=== PATIENT | female | born 1955 | race Caucasian/White ===

== ENCOUNTER 2016-06-07 18:15 | Inpatient (IN) | payer MEDICARE, OTHER ==
--- NOTE | 2016-06-07 19:45 | HP ---
DATE OF ADMISSION: 06/07/2016 HISTORY: The patient is a 60-year-old white female who apparently developed abscess in the left gluteal area that spontaneously drained and has been draining for the last 2 or 3 weeks. She lives in a snf situation. She declined any type of treatment other than the oral antibiotics. She did present to the emergency room about 2 or 3 nights ago, was given dose of IV antibiotics and she declined any treatment or debridement or drainage and therefore went home. She followed up to the office today with continued drainage in the area with fair amount of discomfort. No past history of similar problem. She does have a history of dental abscess in the recent past several months ago. The patient does have a history of bipolar disorder and psychiatric problems. PAST HISTORY: As above. Also positive for hypertension, hypothyroidism, arthritis. Medications at home include: 1. Lisinopril. 2. Hydrochlorothiazide. 3. Amlodipine. 4. Tramadol. 5. Clonidine. 6. Metoprolol. 7. Levothyroxine. 8. Ibuprofen, 9. Fluphenazine. ALLERGIES: PENICILLIN. No previous surgery. FAMILY HISTORY: Noncontributory. SOCIAL HISTORY: She lives in a snf environment. Does smoke between 11 and 20 cigarettes a day. Denies alcohol. SYSTEM REVIEW: As above, very difficult to get a history from her but no chest pain. No respiratory problems. No urinary symptoms. Has been a little constipated recently. On examination, the patient is well-built, well-nourished, overweight. Weighs about 212 pounds with a BMI of 40.05. Temperature is normal at 98.9, heart rate 88 a minute, blood pressure 102/66. Color is satisfactory. Head and neck otherwise normal. HEART: Regular rhythm. Lungs are clear. ABDOMEN: Obese, soft and nontender. No masses or organomegaly. Back reveals a large abscess cavity about 3 or 4 cm in diameter in the left gluteal area just adjacent to the midline and well above the anal orifice with a large amount of exudate and necrotic tissue. Fair amount of cellulitis around it. There appears to be an area of necrotic tissue more inferiorly and laterally as well. Difficult to evaluate the depth or degree of infection, particularly that she is quite uncooperative. Quite tender and painful as well. EXTREMITIES: Full motion. Some stiffness from arthritis. BACCARAT MANAGER: Patient is awake, alert, and oriented. A little agitated. No focal deficits. IMPRESSION: 1. Large abscess left gluteal area with cellulitis and erythema with a lot of fibrinous purulent exudate in the abscess cavity. 2. History of bipolar disorder. 3. Hypertension. 4. Hypothyroidism. 5. Arthritis. RECOMMENDATION: The patient will be admitted, placed on IV fluids, antibiotics and will obtain cultures. Also will require debridement and drainage under anesthesia.
[2016-06-07] MEDS ORDERED: ONDANSETRON 4 MG/2 ML VIAL IVP PRN (20:16)
[2016-06-07 20:37] LABS: Basophils % (A) 0 %; CH 34.4; CHCM 37.3; Eosinophils # (A) 0.1 k/uL (0-0.7); Eosinophils % (A) 1 %; HDW 3.12; HGB 13.7 gm/dL (11.4-16.0); Hyperchromasia Slight; Immature Gran Flag Slight; Luc # (Auto) 0.22; Luc % (Auto) 1; Lymphocytes # (A) 1.1 k/uL (1.0-4.8); Lymphocytes % (A) 6 %; MCH 32.6 pg (25.0-35.0); MCHC 35.2 g/dL (31.0-37.0); MCV 92.8 fL (80.0-100.0); Mean Platelet Volume 6.9; Monocytes # (A) 0.5 k/uL (0-1.0); Monocytes % (A) 3 %; Neutrophils # (A) 15.6 k/uL (1.3-7.7); Neutrophils % (A) 89 %; RBC 4.21 m/uL (3.80-5.40); RDW 12.9 % (11.5-15.5); WBC 17.6 k/uL (3.8-10.6); WBC (Perox) 19.15
[2016-06-07 20:58] LABS: Calcium 8.7 mg/dL (8.4-10.2); Potassium 4.8 mmol/L (3.5-5.1); Total Bilirubin 0.9 mg/dL (0.2-1.3); Total Protein 6.1 g/dL (6.3-8.2)
[2016-06-07] MEDS ORDERED: LEVOFLOXACIN 500MG-D5W PMX 500 MG in DEXTROSE/WATER 1 100ML.BAG IVPB SCH (21:00)
[2016-06-07] MEDS: cloNIDine HCL 0.2 MG TAB PO SCH (21:42)
[2016-06-07] MEDS ORDERED: ALPRAZolam 0.25 MG TAB PO PRN (22:36)
[2016-06-07] MEDS: SODIUM CHLORIDE 0.9% 1,000 ML IV SCH (23:56)
[2016-06-07] MEDS: metroNIDAZOLE-NS PMX 500 MG in SALINE 1 100ML.BAG IVPB SCH (23:57)
[2016-06-08] MEDS ORDERED: traMADol 50 MG TAB PO PRN (00:23)
[2016-06-08] MEDS: HEPARIN SODIUM,PORCINE 5,000 UNIT/ML 1 ML VIAL SQ SCH ×3 (00:44→21:16)
[2016-06-08] MEDS: LEVOTHYROXINE 125 MCG TAB PO SCH (05:30)
[2016-06-08] MEDS: metroNIDAZOLE-NS PMX 500 MG in SALINE 1 100ML.BAG IVPB SCH ×3 (07:47→23:25)
[2016-06-08] MEDS: METOPROLOL SUCCINATE (ER) 100 MG TAB.ER.24H PO SCH (07:47)
[2016-06-08] MEDS: SODIUM CHLORIDE 0.9% 1,000 ML IV SCH ×4 (07:47→13:23)
[2016-06-08] MEDS: cloNIDine HCL 0.2 MG TAB PO SCH (07:47)
--- NOTE | 2016-06-08 09:34 | CONS ---
DATE OF CONSULTATION: REASON FOR CONSULTATION: Advice regarding hypothyroidism and hypertension requested by Dr. Monte. HISTORY OF PRESENT ILLNESS: This is a 60-year-old woman with a past medical history of multiple medical problems including hypertension, hypothyroidism, cholecystectomy, depression, schizophrenia being followed by Dr. Martinez in the outpatient setting, was admitted for evaluation of a gluteal abscess. Incision and drainage being planned by Dr. Monte. The patient had multiple psychiatric issues also. Currently the patient is slightly confused, unable to give , most of the history obtained from my discussion with staff and review of the chart. PAST MEDICAL HISTORY: Multiple psychiatric problems, hypothyroidism, hypertension, cholecystectomy, uterine ablation, depression and schizophrenia. The medications are, the home medications are: 1. Ultram 50 mg q.i.d. p.r.n. 2. Prolixin 50 mg 3. Catapres 0.2 b.i.d. 4. Norvasc 10 mg p.o. daily. 5. Bactrim DS 2 tablets p.o. b.i.d. 6. Toprol XL 100 mg p.o. daily. 7. Zestoretic 1 tablet p.o. daily. 8. Synthroid 125 mcg p.o. daily. Allergies are to PENICILLIN. FAMILY HISTORY, SOCIAL HISTORY, REVIEW OF SYSTEMS: Could not be taken at length because of the patient's mental status. Patient is smoking per chart. PHYSICAL EXAMINATION: The patient is conscious, confused. Pulse 63, blood pressure 89/58, respirations 18, temperature 97 degrees, pulse ox 96% on room air. HEENT: Conjunctivae normal. Oral mucosa is dry. NECK: No jugular venous distention. No carotid bruit. No lymph node enlargement. CARDIOVASCULAR: S1 and S2, muffled. RESPIRATORY: Breath sounds diminished at the bases. No rhonchi, no crackles. ABDOMEN: Soft, nontender. No mass palpable. LEGS: No edema, no swelling. NERVOUS SYSTEM: Higher function as mentioned. Moves all 4 limbs. No focal motor deficits. EXAMINATION OF THE GLUTEAL REGION: Erythema, tenderness and gluteal abscess, possible draining present. LABS: WBC 17.6. Sodium 118. Creatinine is 1.2. AST is 144, ALT is 84. ASSESSMENT: 1. Acute gluteal abscess with possible sepsis. 2. Dehydration, mostly prerenal with diminished p.o. intake. 3. Hyponatremia hypovolemic. 4. Increased WBC . 5. Increased creatinine with mild acute renal failure, possibly prerenal, acute tubular necrosis. 6. Increased AST, ALT, mild hepatitis. 7. Mild hypoalbuminemia. 8. Obesity with body mass index of 38.9. 9. Hypertension. 10. Hypothyroidism. 11. History of urinary tract infection. 12. History of uterine ablation. 13. History of cholecystectomy. 14. History of depression, schizophrenia. 15. Legal guardian. 16. History of nicotine dependence. 17. FULL CODE. RECOMMENDATIONS AND DISCUSSION: This 60-year-old woman who presented with multiple complex medial issues, will monitor the patient closely. Continue the current medications. Continue symptomatic treatment. Will initiate IV fluids. Repeat labs in the morning. Otherwise broad-spectrum IV antibiotics. We will continue to monitor. Guarded prognosis because of multiple complex medical issues. Further recommendations to follow. Broad-spectrum IV antibiotics initiated. Repeat labs in the morning. Liver function also can be closely monitored. DVT prophylaxis. See orders for further details. MTDD
[2016-06-08 10:12] LABS: Amorphous Sediment,Urine Rare /hpf; Appearance,Urine Clear (Clear); Bacteria,Urine Rare /hpf; Bilirubin,Urine Negative (Negative); Glucose,Urine (UA) Negative (Negative); Ketones,Urine Negative (Negative); Leukocyte Esterase,Urine Large (Negative); Nitrite,Urine Negative (Negative); PH, Urine 6.5 (5.0-8.0); Particle Count 4465; Protein,Urine Negative (Negative); RBC,Urine 4 /hpf (0-5); Specific Gravity,Urine 1.002 (1.001-1.035); Squamous Epithelial Cell,Urine 1 /hpf (0-4); UA Billing (MACRO vs. MICRO) MICRO; Urobilinogen,Urine <2.0 mg/dL (<2.0); WBC,Urine 12 /hpf (0-5)
[2016-06-08] MEDS ORDERED: IV FLUID CONTINUATION 150 ML IV ONE (11:24)
[2016-06-08 11:34] LABS: Basophils % (A) 0 %; CH 34.3; CHCM 36.9; Eosinophils % (A) 0 %; HCT 34.9 % (34.0-46.0); HDW 3.07; HGB 12.4 gm/dL (11.4-16.0); Luc # (Auto) 0.14; Luc % (Auto) 2; Lymphocytes # (A) 0.6 k/uL (1.0-4.8); Lymphocytes % (A) 8 %; MCH 33.3 pg (25.0-35.0); MCHC 35.6 g/dL (31.0-37.0); MCV 93.4 fL (80.0-100.0); Monocytes # (A) 0.3 k/uL (0-1.0); Monocytes % (A) 4 %; Neutrophils # (A) 7.1 k/uL (1.3-7.7); Neutrophils % (A) 86 %; RBC 3.73 m/uL (3.80-5.40); RDW 12.9 % (11.5-15.5); WBC 8.2 k/uL (3.8-10.6); WBC (Perox) 9.19
[2016-06-08 11:42] LABS: HCG,Qualitative Serum Not Detected
[2016-06-08 11:44] LABS: ALT 71 U/L (9-52); AST 91 U/L (14-36); Alkaline Phosphatase 95 U/L (38-126); Anion Gap 7 mmol/L; Blood Urea Nitrogen 21 mg/dL (7-17); Carbon Dioxide 23 mmol/L (22-30); Chloride 95 mmol/L (98-107); Glucose 109 mg/dL (74-99); Non-African American GFR(MDRD) 48 (>60 ml/min/1.73 sqM); Potassium 4.1 mmol/L (3.5-5.1); Sodium 125 mmol/L (137-145); Total Bilirubin 0.7 mg/dL (0.2-1.3); Total Protein 5.5 g/dL (6.3-8.2)
[2016-06-08] MEDS ORDERED: PROPOFOL 10 MG/ML 20 ML VIAL IV ONE (12:14)
[2016-06-08] MEDS ORDERED: MIDAZOLAM 2 MG/2 ML VIAL ONE (12:14)
[2016-06-08] MEDS ORDERED: fentaNYL (PF) 50 MCG/ML 2 ML AMP ONE (12:14)
[2016-06-08] MEDS ORDERED: LIDOCAINE 1% INJ 10MG/ML (20 ML MDV) ONE (12:14)
[2016-06-08] MEDS ORDERED: BUPIVACAIN-EPI 0.5%-1:200,000 30 ML VIAL SQ ONE ×2 (12:31)
--- NOTE | 2016-06-08 12:51 | P.OP ---
Date of Procedure: 06/08/16 Preoperative Diagnosis: Left Gluteal abscess Postoperative Diagnosis: same Procedure(s) Performed: I&D with Extensive debridement of abscess Left Gluteal area. Surgeon: Aleksandar Monte Estimated Blood Loss (ml): 5 Pathology: none sent Condition: stable Disposition: floor Indications for Procedure: The patient is a 60-year-old white female with bipolar disorder who developed an abscess versus at least 2 or 3 weeks ago and declined medical management treatment. He was seen in the office with a larger abscess with a large area of cellulitis and necrotic tissue were protruding through the abscess cavity. She was hospitalized placed on IV antibiotics and debridement and further drainage a more formal in nature was recommended since it had only spontaneously drained. This consent was obtained from her guardian. Operative Findings: Large abscess in the left gluteal area from a few centimeters from the anal orifice extending and tunneling inferiorly as well as superiorly. There was a large amount of necrotic fibrinous exudate that was completed. The the adjacent skin that was somewhat necrotic and blackish nature him on the subcutaneous tissue and superficial muscle fascia. Description of Procedure: As above. Large area of necrotic tissue including skin and subcutaneous tissues and some superficial fascia was accomplished down to healthy tissue. The wound was thoroughly irrigated and then packed with the gauze and dressings were applied.
[2016-06-08] MEDS ORDERED: fluPHENAZine DECANOATE 25 MG/ML 5ML MDV IM ONE (13:29)
[2016-06-08 14:29] VITALS: BMI 38.8
--- NOTE | 2016-06-08 15:12 | CDI ---
In responding to this query, please exercise your independent professional judgment. The [facility] Coding Staff and Clinical Documentation Specialists appreciate your assistance in clarifying documentation, maintaining compliance with coding guidelines, accurately documenting patients condition and capturing severity of illness. The fact that a question is asked does not imply that any particular answer is desired or expected. Communication forms are a method of clarifying documentation and are not made part of the Legal Health Record. Thank you in advance for your clarification. Last Revision, April 2015 Vipul Carrillo [address] [place] [address] Documentation Clarification Form Date: 06/08/2016 3:03:00 PM From: Oly Rosario Admit Date: 06/07/2016 6:29:00 PM Patient Name: Lisset Edmonds Visit Number: [id number] Dr. Katiana Leone (query originally placed to Dr Monte) Per your progress notes/operative note, a debridement was performed on 06/08/2016. History/Risk Factors: Abscess with Cellulitis and necrotic tissue Previous refusal of medical management treatment Clinical Indicators: OP note states 'extensive debridement of abscess left gluteal area' performed on 06/08 Tunneling noted on OP note 'Necrotic tissue including skin and subcutaneous tissues and some superficial fascia accomplished down to healthy tissue' per OP note Treatment: Irrigation and packing of area IV Levaquin and IV Flagyl IV fluids Five elements required for accurate and compliant documentation of a debridement : 1. Technique used (e.g., excisional, excised, cutting, etc.) 2. Instrument(s) used (e.g., scalpel, curette, etc.) 3. Nature of the tissue removed (e.g., necrotic, devitalized tissues, non- viable tissue, etc.) 4. Appearance and size of the wound (e.g., down to fresh bleeding tissue, 7cm x 10cm, etc.) 5. Depth of the debridement* (e.g., skin, subcutaneous tissue, fascia, muscle , bone, etc.) In order to capture the severity of condition and code the appropriate procedure could you please document the following: Excisional debridement (the removal of necrotic, devitalized tissue or slough by means of cutting away of tissue) Non-excisional debridement (the removal of necrotic, devitalized tissue or slough by means of flushing, brushing, or washing. (Irrigation) Other; with explanation for clinical findings Unable to determine (no explanation for clinical findings) Please document in your progress notes and discharge summary in order to capture severity of illness and risk of mortality. Include clinical findings that support your diagnosis. FYI: Press F11 to launch patient chart. Place X here if this finding has no clinical significance, is not applicable or if you are not able to provide any additional documentation. CHICA
--- NOTE | 2016-06-08 19:32 | XR ---
EXAMINATION TYPE: XR chest 1V portable DATE OF EXAM: 06/08/2016 7:26 PM COMPARISON: NONE HISTORY: Short of breath TECHNIQUE: Single frontal view of the chest is obtained. FINDINGS: There is no heart failure nor confluent pneumonic infiltrate. There are no hilar masses. T horacic aorta is atheromatous. There is no pleural effusion. IMPRESSION: No active cardiopulmonary disease.
[2016-06-08] MEDS: HYDROcodone/APAP 7.5-325MG 1 EACH TAB PO PRN (19:49)
[2016-06-08] MEDS ORDERED: LEVOFLOXACIN 250MG-D5W PMX 250 MG in DEXTROSE/WATER 1 50ML.BAG IVPB SCH (21:00)
[2016-06-08] MEDS ORDERED: HEPARIN SODIUM,PORCINE 5,000 UNIT/ML 1 ML VIAL SQ SCH (21:00)
[2016-06-08] MEDS ORDERED: IV VANCOMYCIN PER PHARMACY 1 EACH MISC MISCELLANE PRN (22:25)
[2016-06-09] MEDS: VANCOMYCIN 1,500 MG in SODIUM CHLORIDE 0.9% 250 ML IVPB SCH ×2 (00:48→23:32)
[2016-06-09] MEDS: HYDROcodone/APAP 7.5-325MG 1 EACH TAB PO PRN ×2 (00:49→12:56)
[2016-06-09] MEDS: LEVOTHYROXINE 125 MCG TAB PO SCH (06:36)
[2016-06-09] MEDS: SODIUM CHLORIDE 0.9% 1,000 ML IV SCH ×4 (06:36→16:41)
[2016-06-09] MEDS: cloNIDine HCL 0.2 MG TAB PO SCH (07:42)
[2016-06-09] MEDS: metroNIDAZOLE-NS PMX 500 MG in SALINE 1 100ML.BAG IVPB SCH (07:42)
[2016-06-09] MEDS: HEPARIN SODIUM,PORCINE 5,000 UNIT/ML 1 ML VIAL SQ SCH ×3 (07:42→20:58)
[2016-06-09] MEDS: METOPROLOL SUCCINATE (ER) 100 MG TAB.ER.24H PO SCH (07:42)
[2016-06-09 09:26] LABS: ALT 57 U/L (9-52); AST 61 U/L (14-36); Alkaline Phosphatase 67 U/L (38-126); Anion Gap 7 mmol/L; Blood Urea Nitrogen 19 mg/dL (7-17); Calcium 7.7 mg/dL (8.4-10.2); Carbon Dioxide 21 mmol/L (22-30); Chloride 104 mmol/L (98-107); Glucose 182 mg/dL (74-99); Non-African American GFR(MDRD) 55 (>60 ml/min/1.73 sqM); Potassium 4.7 mmol/L (3.5-5.1); Sodium 132 mmol/L (137-145); Total Bilirubin 0.7 mg/dL (0.2-1.3); Total Protein 5.4 g/dL (6.3-8.2)
[2016-06-09 10:25] LABS: Basophils % (A) 0 %; CH 34.3; CHCM 36.3; Eosinophils % (A) 0 %; HCT 34.3 % (34.0-46.0); HDW 3.01; HGB 12.2 gm/dL (11.4-16.0); Luc # (Auto) 0.12; Luc % (Auto) 2; Lymphocytes # (A) 0.6 k/uL (1.0-4.8); Lymphocytes % (A) 9 %; MCH 33.8 pg (25.0-35.0); MCHC 35.5 g/dL (31.0-37.0); Monocytes # (A) 0.3 k/uL (0-1.0); Monocytes % (A) 5 %; Neutrophils # (A) 5.5 k/uL (1.3-7.7); Neutrophils % (A) 84 %; RBC 3.61 m/uL (3.80-5.40); WBC 6.6 k/uL (3.8-10.6); WBC (Perox) 6.36
--- NOTE | 2016-06-09 10:45 | CONS ---
DATE OF CONSULTATION: DATE OF SERVICE: 06/08/2016 REASON FOR CONSULTATION: Left gluteal abscess. HISTORY OF PRESENT ILLNESS: The patient is a 60-year-old female with past medical history significant of schizophrenia recently has been on prolonged antibiotic courses for her dental infection. The patient also developed sore in her left gluteal area for the last few weeks that has become more painful with some drainage and the patient was evaluated with the same problem on the 03 of June at [facility] where the patient has been given a dose of IV antibiotic not clear and discharged home on the oral antibiotic. The patient did followup with surgeon in the office yesterday with amount of swelling and redness and infection, she has been electively admitted to the hospital. The patient was taken to the OR this morning by Dr. Monte. She did have drainage of the left gluteal abscess with no communication to the rectal mucosa. The patient has been started on Levaquin and Flagyl. I was asked to see the patient for further recommendation regarding antibiotic therapy. The patient is not a very good historian, most of the information has been obtained from the caregiver who was present at the bedside as the patient initially refused to be examined. She had been complaining of pain in the gluteal area where she was unable to characterize it further though the patient denies having any fevers. She denies having any chest pain or shortness of breath or cough. REVIEW OF SYSTEMS: Could not be reliably obtained, positive has been mentioned in the HPI. PAST MEDICAL HISTORY: Significant for depression, schizophrenia, hypertension, hypothyroidism and dental infection. PAST SURGICAL HISTORY: Cholecystectomy, uterine ablation. SOCIAL HISTORY: The patient is a current ever day smoker. She is a resident of a nursing home. No drinking or drug use. FAMILY HISTORY: No pertinent findings were noticed. Allergic to PENICILLIN, however, she is unable to tell me the type of reaction she has to it. Medications currently include the patient is on [place], Xanax, Catapres, heparin, Dilaudid, levofloxacin, Synthroid, Toprol XL, Flagyl, Zofran, Ultram. On examination, blood pressure is 113/67 with the pulse of 71, temperature 97.1. She is 96% on room air. General description is a middle-age female lying in bed in no distress. No tachypnea or accessory muscle of respiration use. HEENT examination shows no pallor or scleral icterus. Oral mucosal membranes dry. NECK: Trachea central. No thyromegaly. LUNGS: Unlabored breathing. Clear to auscultation. HEART: S1, S2. Regular rate and rhythm. ABDOMEN: Soft, no tenderness. Examination of the left gluteal area did show significantly deep wound with very minimal slough tissue, some surrounding swelling and erythema. EXTREMITIES: No edema of the feet. SKIN EXAMINATION: No rashes or masses palpable. NEUROLOGICAL: The patient is awake, alert and oriented x2. Mood and affect normal. LABS: Hemoglobin 12.4, white count on admission was 17.6 with a BUN of 21, creatinine 1.15. Electrolytes have been normal. Liver enzymes are elevated. No cultures were done on the , though she did have wound cultures in the OR which are currently pending. DIAGNOSTIC IMPRESSION AND PLAN: Patient with left gluteal abscess started as more of a skin lesion with subsequent extension without communication to the anal canal , more likely a Gram-positive skin flor. The patient has been on multiple courses of oral antibiotics will be a likely a resistant pathogen. PLAN: 1. Discontinue the Levaquin. 2. Will start the patient on vancomycin pharmacy to dose, target trough of 15. 3. Will re-evaluate the wound tomorrow as the patient may benefit from a wound VAC. 4. Patient will likely need placement as clinically doubt if she will be able to go back to her group with this large wound and possibly for IV antibiotic. Thank you for this consultation. We will follow this patient along with you. Plan of care discussed with the admitting surgeon. CHICA
--- NOTE | 2016-06-09 12:12 | PN ---
DATE OF SERVICE: 06/08/2016 This 60-year-old woman who was admitted after left gluteal abscess incision and drainage and extensive debridement of the abscess of the left gluteal area by Dr. Monte. No chest pain, no palpitation. No fever. The patient is confused. The patient has significant psychiatric illness in the past. PHYSICAL EXAMINATION: Pulse is 71, blood pressure 113/67, respirations 18, temperature 97.1, pulse ox 96% on room air. HEENT: Conjunctivae normal. NECK: No jugular venous distention. CARDIOVASCULAR: S1 and S2, muffled. RESPIRATORY: Breath sounds diminished at the bases. No rhonchi. No crackles. ABDOMEN: Soft. LEGS: No edema, no swelling. gluteal abscess. LABS: Sodium 125. Creatinine is 1.15. UA noted. ASSESSMENT: 1. Acute gluteal abscess with possible sepsis, present on admission, status post left gluteal abscess incision and drainage. 2. Dehydration, mostly prerenal, with diminished oral intake. 3. Severe hyponatremia possibly hypovolemic. 4. Increased WBC. 5. Increased creatinine with mild acute renal failure, possible prerenal, acute tubular necrosis. 6. Increased AST and ALT. 7. Mild hepatitis. 8. Mild hypoalbuminemia. 9. Obesity with body mass index of 38.9. 10. Hypertension. 11. Hypothyroidism. 12. History of urinary tract infection. 13. History of uterine ablation. 14. History of cholecystectomy. 15. History of depression, schizophrenia. 16. History of nicotine dependence. 17. Legal guardian. 18. FULL CODE. RECOMMENDATIONS AND DISCUSSION: Recommend to continue the current medications. Continue with monitoring and symptomatic treatment. Continue with antibiotics. Monitor sodium closely. Continue with IV fluids at the current rate. Further recommendations to follow. Will follow closely with Surgery and Infectious Disease for further recommendation. MTDD
--- NOTE | 2016-06-09 13:12 | P.PN ---
Progress Note - Text Patient is stable. No fever. Wound is clean. No excessive drainage. White count is normal. Cultures are pending. Patient is awaiting a wound VAC placement. Should be able to be discharged within the next day or so.
[2016-06-09] MEDS: metroNIDAZOLE 500 MG TAB PO SCH ×2 (15:11→23:32)
--- NOTE | 2016-06-09 18:21 | PN ---
DATE OF SERVICE: 06/09/2016 This 60-year-old woman who was admitted with acute gluteal abscess and sepsis, has improved significantly. No chest pain, no palpitations. No fever. On exam, alert and oriented x3. Pulse is 80, blood pressure 140/72, respirations 18, temperature 97.4, pulse ox 94% on room air. HEENT: Conjunctivae normal. NECK: No jugular venous distention. CARDIOVASCULAR: S1 and S2. RESPIRATORY: Breath sounds diminished at the bases. No rhonchi, no crackles. ABDOMEN: Soft, nontender. LEGS: No edema, no swelling. NERVOUS SYSTEM: No focal deficits. LABS: WBC 19, creatinine is 1.0, glucose 182, AST is 61, ALT is 57. ASSESSMENT: 1. Acute gluteal abscess with possible sepsis, present on admission, status post left gluteal abscess incision and drainage. 2. Dehydration mostly prerenal with diminished p.o. intake. 3. Severe hyponatremia with possibly hypovolemic. 4. Increased WBC. 5. Increased creatinine with mild acute renal failure, possible prerenal acute tubular necrosis. 6. Increased AST, ALT. 7. Mild hepatitis. 8. Mild hypoalbuminemia. 9. Obesity with body mass index of 38.9. 10. Hypertension. 11. Hypothyroidism. 12. History of urinary tract infection. 13. History of uterine ablation. 14. History of cholecystectomy. 15. History of depression. 16. History of nicotine dependence. 17. History of legal guardian. 18. FULL CODE. RECOMMENDATIONS AND DISCUSSION: I recommend to continue with current medications, continue with monitoring, continue with symptomatic treatment. Otherwise at this time, I recommend repeat labs. Cutdown the IV fluids. Antibiotics. Closely follow with Dr. Monte. Further recommendations to follow.
[2016-06-10] MEDS: SODIUM CHLORIDE 0.9% 1,000 ML IV SCH ×2 (04:05→17:28)
[2016-06-10] MEDS: LEVOTHYROXINE 125 MCG TAB PO SCH (06:42)
[2016-06-10] MEDS: metroNIDAZOLE 500 MG TAB PO SCH ×3 (08:29→23:12)
[2016-06-10] MEDS: METOPROLOL SUCCINATE (ER) 100 MG TAB.ER.24H PO SCH (08:29)
[2016-06-10] MEDS: HEPARIN SODIUM,PORCINE 5,000 UNIT/ML 1 ML VIAL SQ SCH ×2 (08:29→20:38)
[2016-06-10] MEDS: cloNIDine HCL 0.2 MG TAB PO SCH (08:29)
[2016-06-10 09:18] LABS: Basophils % (A) 0 %; CHCM 35.9; Eosinophils # (A) 0.1 k/uL (0-0.7); Eosinophils % (A) 1 %; HCT 35.6 % (34.0-46.0); HDW 2.98; HGB 12.5 gm/dL (11.4-16.0); Luc # (Auto) 0.15; Luc % (Auto) 2; Lymphocytes # (A) 0.8 k/uL (1.0-4.8); Lymphocytes % (A) 12 %; MCH 33.4 pg (25.0-35.0); MCHC 35.1 g/dL (31.0-37.0); MCV 95.3 fL (80.0-100.0); Mean Platelet Volume 7.7; Monocytes # (A) 0.3 k/uL (0-1.0); Monocytes % (A) 4 %; Neutrophils # (A) 5.3 k/uL (1.3-7.7); Neutrophils % (A) 81 %; RBC 3.74 m/uL (3.80-5.40); RDW 12.9 % (11.5-15.5); WBC 6.6 k/uL (3.8-10.6); WBC (Perox) 6.77
[2016-06-10 09:45] LABS: ALT 52 U/L (9-52); AST 51 U/L (14-36); Alkaline Phosphatase 76 U/L (38-126); Anion Gap 9 mmol/L; Blood Urea Nitrogen 11 mg/dL (7-17); Calcium 8.1 mg/dL (8.4-10.2); Carbon Dioxide 22 mmol/L (22-30); Chloride 106 mmol/L (98-107); Glucose 171 mg/dL (74-99); Non-African American GFR(MDRD) >60 (>60 ml/min/1.73 sqM); Potassium 4.9 mmol/L (3.5-5.1); Sodium 137 mmol/L (137-145); Total Bilirubin 0.6 mg/dL (0.2-1.3); Total Protein 5.6 g/dL (6.3-8.2)
--- NOTE | 2016-06-10 09:56 | PN ---
DATE OF SERVICE: 06/09/2016 Reason for follow-up is left perirectal abscess and wound. INTERVAL HISTORY: The patient is afebrile. She is breathing comfortably. Denies pain in area. She did have significant deep wound, the wound VAC could not be applied. still swelling of her wound. No significant diarrhea. On examination, blood pressure is 146/72 with a pulse of 80, temperature of 97.2. She is 95% on room air. General description: She is a middle-age female lying in bed in no distress. RESPIRATORY SYSTEM: Unlabored breathing. Clear to auscultation anteriorly. Heart S1, S2, regular rate and rhythm. ABDOMEN: Soft. No tenderness. Wound remains to be deep with very close proximity to the anal cannal. LABS: Hemoglobin is 12.3, white count 6.6 with a BUN of 19, creatinine 1.03. Wound culture with presumptive MRSA. DIAGNOSTIC IMPRESSION AND PLAN: Patient with left perirectal wound significantly deep with presumptive Methicillin-resistant Staph aureus. The patient will need a PICC line and IV vancomycin for a few weeks and local wound care will be Aquacel Silver packing of this wound as wound VAC cannot be applied. However, it is problem with continuous contamination of the wound with stool, the patient may benefit from diverting colostomy. Steele catheter has been placed to prevent urine contamination of the wound. Her plan of care was discussed with the surgeon. CHICA
[2016-06-10] MEDS: VANCOMYCIN 1,500 MG in SODIUM CHLORIDE 0.9% 250 ML IVPB SCH (16:30)
--- NOTE | 2016-06-10 16:32 | PN ---
DATE OF SERVICE: 06/10/2016 REASON FOR FOLLOWUP: Left gluteal abscess, MRSA. INTERVAL HISTORY: The patient is afebrile. The patient has been refusing packing of her wound, as she says it hurts less when it is not packed, and she can sit properly. Patient denies having any chest pain or shortness of breath or cough. On examination, blood pressure is 160/93 with a pulse of 81, temperature 96.9. She is 95% on room air. General description is a middle-aged female up in the room in no distress. RESPIRATORY SYSTEM: Unlabored breathing. Clear to auscultation anteriorly. HEART: S1, S2. Regular rate and rhythm. LEFT GLUTEAL AREA: Still significantly inflamed and swollen, but she did not allow us to examine or pack it. LABS: Wound culture finalized with MRSA. Blood culture negative. DIAGNOSTIC IMPRESSION AND PLAN: Patient with methicillin-resistant Staphylococcus aureus left gluteal abscess, status post drainage; significantly deep wound, for which the patient needs to be on IV vancomycin, Pharmacy to dose, for at least 3 to 4 weeks. Still recommend packing it with Aquacel Silver. The patient is refusing. I did try to explain to her; however, she would not listen. Overall prognosis is guarded. Continue supportive care.
--- NOTE | 2016-06-10 20:03 | PN ---
This 60-year-old woman with a past medical history of multiple medical problems was admitted with a ( ), incision and drainage. Wound VAC cannot be applied. Cultures are showing possible methicillin-resistant Staphylococcus aureus. Dr. Hanson is following the patient closely. No chest pain. No palpitations. No fever. On exam, the patient is conscious, confused. Pulse 97, blood pressure 117/80, respiration 18, temperature 97.1, pulse ox of 98% on room air. HEENT: Conjunctivae normal. NECK: No jugular venous distention. CARDIOVASCULAR: S1, S2 muffled. RESPIRATORY: Breath sounds diminished at the bases. No rhonchi. No crackles. ABDOMEN: Soft, nontender. LEGS: No edema. No swelling. Nervous system: No focal deficits. LABS: Sodium 137, WBC 6.6, hemoglobin 12.5 and glucose 171, albumin is 2.4. ASSESSMENT: 1. Acute gluteal abscess with possible sepsis, present on admission, with Methicillin-resistant Staph aureus, status post relapse incision and drainage. 2. Dehydration possibly prerenal, with diminished oral intake, present on admission. 3. Severe hyponatremia with possibly hypovolemia present on admission, improving. 4.WBC. 5. Increased creatinine with mild acute renal failure, possible prerenal and acute tubular necrosis. 6. Increased AST/ALT. 7. Mild hepatitis. 8. Hypoalbuminemia. 9. Obesity with body mass index of 38.9. 10. Hypertension. 11. Hypothyroidism. 12. Urinary tract infection. 13. History of uterine ablation. 14. History of cholecystectomy. 15. History of depression. 16. History of nicotine dependence. 17. History of legal guardian. 18. FULL CODE. RECOMMENDATIONS AND DISCUSSION: Recommend to continue current medications, continue with monitoring, symptomatic treatment. Continue with antibiotics. Closely follow. Sodium is improved to normalcy. Closely follow with surgery. Further recommendations to follow. Possible ECF rehab. MTDD
[2016-06-11] MEDS: LEVOTHYROXINE 125 MCG TAB PO SCH (06:19)
[2016-06-11] MEDS: METOPROLOL SUCCINATE (ER) 100 MG TAB.ER.24H PO SCH (08:02)
[2016-06-11] MEDS: cloNIDine HCL 0.2 MG TAB PO SCH (08:02)
[2016-06-11] MEDS: metroNIDAZOLE 500 MG TAB PO SCH ×2 (08:02→17:03)
[2016-06-11] MEDS: HEPARIN SODIUM,PORCINE 5,000 UNIT/ML 1 ML VIAL SQ SCH ×2 (08:02→20:32)
[2016-06-11] MEDS: VANCOMYCIN 1,500 MG in SODIUM CHLORIDE 0.9% 250 ML IVPB SCH (08:03)
[2016-06-11] MEDS: SODIUM CHLORIDE 0.9% 1,000 ML IV SCH ×2 (08:05→20:05)
--- NOTE | 2016-06-11 12:17 | P.PN ---
Subjective Principal diagnosis: Buttock wound Patient apparently did not go home yesterday because there was issues obtaining her PICC line. Currently she is somewhat argumentative and refusing packing of her wound and is also refusing a PICC line to be placed. She claims that there is no infection. Does admit to having pain in the sacral region. She is afebrile. No labs from today. Objective - Vital Signs Vital signs: Vital Signs Temp 98.4 F 06/11/16 07:00 Pulse 89 06/11/16 07:00 Resp 20 06/11/16 07:00 BP 160/95 06/11/16 07:00 Pulse Ox 96 06/11/16 07:00 Intake & Output 06/10/16 06/11/16 06/11/16 18:59 06:59 18:59 Intake Total 500 825 Output Total 1100 Balance 500 -275 Intake: Intake, IV Titration 825 Amount Sodium Chloride 0.9% 1, 825 000 ml @ 75 mls/hr IV . [id number] [facility] Rx#:[id number] Oral 500 Output: Urine 1100 Other: Voiding Method Indwelling Catheter Indwelling Catheter Indwelling Catheter # Voids 1 - Exam Left buttock wound quite large with some serosanguineous drainage, no purulence , mild to moderate tenderness, erythema is present - Labs CBC & Chem 7: 06/10/16 08:17 06/10/16 08:17 Labs: Microbiology - Last 24 Hours (Table) 06/07/16 23:38 Blood Culture - Preliminary Blood No Growth after 72 hours 06/08/16 12:31 Gram Stain - Final Buttock Wound Culture - Final Methicillin resist S. aureus 06/07/16 Unknown Gram Stain - Final Buttock Wound Culture - Final Methicillin resist S. aureus Assessment and Plan (1) Abscess, gluteal cleft Narrative/Plan: I spent some time trying to explain to the patient importance of local wound care. He plans to consider this. Continue antibiotics for now. Hopefully the patient will agree to a PICC line on Monday with outpatient discharge to follow. Status: Acute
[2016-06-11] MEDS: MICONAZOLE NITRATE 200 MG VAGINAL SCH (22:20)
[2016-06-11] MEDS ORDERED: VANCOMYCIN TROUGH DUE 1 EACH MISC MISCELLANE ONE (23:00)
[2016-06-12] MEDS: VANCOMYCIN 1,500 MG in SODIUM CHLORIDE 0.9% 250 ML IVPB SCH (01:32)
[2016-06-12] MEDS: metroNIDAZOLE 500 MG TAB PO SCH ×3 (01:41→15:52)
[2016-06-12] MEDS: LEVOTHYROXINE 125 MCG TAB PO SCH (06:34)
--- NOTE | 2016-06-12 08:40 | PN ---
DATE OF SERVICE: 06/11/2016 This 60-year-old woman who was admitted with acute gluteal abscess with sepsis, also had methicillin-resistant Staphylococcus aureus. No chest pain, no palpitations. No fever. On exam, pulse is 67, blood pressure 160/95, respirations 20, temperature 98.4, pulse ox 96% on room air. HEENT: Conjunctivae normal. NECK: No jugular venous distention. CARDIOVASCULAR: S1 and S2, muffled. RESPIRATORY: Breath sounds diminished at the bases. No rhonchi, no crackles. ABDOMEN: Soft, nontender. LEGS: No edema, no swelling. NERVOUS SYSTEM: No focal deficits. Examination of the gluteal area, abscess present. LABS: Sodium 137. ASSESSMENT: 1. Acute gluteal abscess with possible sepsis, present on admission with methicillin-resistant Staphylococcus aureus, status post incision and drainage. 2. Dehydration with possible prerenal with diminished oral intake present on admission. 3. Severe hyponatremia, hypovolemic, present on admission, improved. 4. Increased WBC. 5. Increased creatinine with mild acute renal failure, possibly prerenal and acute tubular necrosis. 6. Increased AST, ALT. 7. Mild hepatitis. 8. Hypoalbuminemia. 9. Obesity with body mass index of 38.9. 10. Hypertension. 11. Hypothyroidism. 12. Urinary tract infection. 13. History of uterine ablation. 14. History of cholecystectomy. 15. History of depression. 16. History of nicotine dependence. 17. History of legal guardian. 18. FULL CODE. RECOMMENDATIONS AND DISCUSSION: I recommend to continue the current medications, continue monitoring and symptomatic treatment. Otherwise at this time, I would recommend continue with current medications. Continue with antibiotics. DVT prophylaxis. Sodium has come back to normal. IV fluids may be stopped at this point. The patient appears to be having good p.o. intake at this time. Further recommendations to follow.
[2016-06-12] MEDS: METOPROLOL SUCCINATE (ER) 100 MG TAB.ER.24H PO SCH (09:53)
[2016-06-12] MEDS: cloNIDine HCL 0.2 MG TAB PO SCH (09:54)
[2016-06-12] MEDS: HEPARIN SODIUM,PORCINE 5,000 UNIT/ML 1 ML VIAL SQ SCH ×2 (09:54→22:00)
[2016-06-12 10:13] LABS: Basophils % (A) 0 %; CH 33.9; CHCM 35.5; Eosinophils # (A) 0.1 k/uL (0-0.7); Eosinophils % (A) 1 %; HCT 34.7 % (34.0-46.0); HDW 2.99; Luc # (Auto) 0.17; Luc % (Auto) 2; Lymphocytes # (A) 1.2 k/uL (1.0-4.8); Lymphocytes % (A) 13 %; MCH 33.1 pg (25.0-35.0); MCHC 34.5 g/dL (31.0-37.0); MCV 95.9 fL (80.0-100.0); Mean Platelet Volume 7.5; Monocytes # (A) 0.3 k/uL (0-1.0); Monocytes % (A) 3 %; Neutrophils # (A) 7.6 k/uL (1.3-7.7); Neutrophils % (A) 82 %; RBC 3.62 m/uL (3.80-5.40); RDW 13.3 % (11.5-15.5); WBC 9.4 k/uL (3.8-10.6); WBC (Perox) 9.51
[2016-06-12 10:33] LABS: Calcium 7.7 mg/dL (8.4-10.2); Potassium 5.7 mmol/L (3.5-5.1)
--- NOTE | 2016-06-12 11:16 | P.PN ---
Subjective Principal diagnosis: Buttock wound Patient feels about the same. Complain some mild discomfort. Still refusing local wound care. Objective - Vital Signs Vital signs: Vital Signs Temp 96.7 F L 06/12/16 07:00 Pulse 65 06/12/16 07:00 Resp 19 06/12/16 07:00 BP 148/85 06/12/16 07:00 Pulse Ox 98 06/12/16 07:00 Intake & Output 06/11/16 06/12/16 06/12/16 18:59 06:59 18:59 Intake Total 1075 Output Total 300 375 Balance -300 700 Intake: IV 825 Sodium Chloride 0.9% 1, 825 000 ml @ 75 mls/hr IV . [id number] [facility] Rx#:[id number] Intake, IV Titration 250 Amount Vancomycin 1,500 mg In 250 Sodium Chloride 0.9% 250 ml @ 125 mls/hr IVPB Q16H [facility] Rx#:[id number] Output: Urine 300 375 Other: Voiding Method Indwelling Catheter Indwelling Catheter Indwelling Catheter - Exam Gluteal wound with serous sinus drainage, mild tenderness, no purulence noted - Labs CBC & Chem 7: 06/12/16 09:33 06/12/16 09:33 Labs: Abnormal Lab Results - Last 24 Hours (Table) 06/12/16 06/12/16 Range/Units 09:33 09:33 RBC 3.62 L (3.80-5.40) m/uL Plt Count 138 L (150-450) k/uL Sodium 130 L (137-145) mmol/L Potassium 5.7 H (3.5-5.1) mmol/L Carbon Dioxide 20 L (22-30) mmol/L BUN 19 H (7-17) mg/dL Creatinine 2.28 H (0.52-1.04) mg/dL Glucose 110 H (74-99) mg/dL Calcium 7.7 L (8.4-10.2) mg/dL Microbiology - Last 24 Hours (Table) 06/07/16 23:38 Blood Culture - Preliminary Blood No Growth after 96 hours Assessment and Plan (1) Abscess, gluteal cleft Narrative/Plan: Continue antibiotics. Continue dressing compliance. Await PICC line. Status: Acute
--- NOTE | 2016-06-12 11:18 | PN ---
DATE OF SERVICE: 06/11/2016 Reason for follow up is left gluteal methicillin-resistant Staphylococcus aureus abscess status post drainage. INTERVAL HISTORY: The patient is afebrile. The patient could not get her PICC line on Monday because of Radiology being backed up, hence, surgery is currently put on hold and the patient continues to refuse local care for her wound. No significant diarrhea has been noticed. On examination, blood pressure is 116/95 with a pulse of 89, temperature 98.4. She is 96% on room air. General description is a middle-age female lying in bed in no distress. RESPIRATORY SYSTEM: Unlabored breathing. Clear to auscultation. HEART: S1, S2. Regular rate and rhythm. Wound is currently covered, though not dressed. LABS: Hemoglobin is 12.5, white count 6.6 with a BUN of 11, creatinine 0.85. Blood culture negative. DIAGNOSTIC IMPRESSION AND PLAN: Patient with methicillin-resistant Staphylococcus aureus left gluteal abscess, status post drainage, with significant deep wound. The patient continues to refuse packing of this wound. At this time, the patient will be continued on vancomycin pharmacy to dose with a target of 15 for at least 3 to 4 weeks in view of significant deep wound with close outpatient follow-up. MTDD
[2016-06-12 18:24] LABS: Calcium 7.7 mg/dL (8.4-10.2); Potassium 5.5 mmol/L (3.5-5.1)
[2016-06-12] MEDS: SODIUM POLYSTYRENE SULFONATE 15 GM/60 ML BOTTLE PO ONE ×2 (18:45→19:51)
[2016-06-12] MEDS: MICONAZOLE NITRATE 200 MG VAGINAL SCH (22:00)
[2016-06-13] MEDS ORDERED: VANCOMYCIN 1,500 MG in SODIUM CHLORIDE 0.9% 250 ML IVPB SCH (06:00)
[2016-06-13] MEDS: LEVOTHYROXINE 125 MCG TAB PO SCH (06:12)
[2016-06-13] MEDS: HEPARIN SODIUM,PORCINE 5,000 UNIT/ML 1 ML VIAL SQ SCH ×2 (09:06→22:14)
[2016-06-13] MEDS: cloNIDine HCL 0.2 MG TAB PO SCH ×2 (09:09→09:53)
[2016-06-13] MEDS: CEFTAROLINE FOSAMIL 400 MG in SODIUM CHLORIDE 0.9% 250 ML IVPB SCH (09:09)
[2016-06-13] MEDS: METOPROLOL SUCCINATE (ER) 100 MG TAB.ER.24H PO SCH ×2 (09:09→09:53)
[2016-06-13 10:04] LABS: Calcium 8.1 mg/dL (8.4-10.2); Potassium 5.8 mmol/L (3.5-5.1)
--- NOTE | 2016-06-13 10:21 | PN ---
DATE OF SERVICE: 06/12/2016 This 60-year-old woman was admitted with acute with sepsis. Had MRSA growing from the culture. No chest pain or palpitations. No fever. On exam, alert and oriented. Pulse 79, blood pressure 130/60, respirations 19, temperature 98.7, pulse ox 98%. HEENT: Normal. CARDIOVASCULAR: S1 and S2 muffled. LUNGS: Breath sounds are diminished at the bases. No rhonchi, no crackles. ABDOMEN: Soft, nontender. No mass palpable. EXTREMITIES: Legs, no edema. LABS: Sodium 130, potassium 5.7, creatinine is 2.28. ASSESSMENT: 1. Acute gluteal abscess with possible sepsis, present on admission with methicillin-resistant Staphylococcus aureus, status post incision drainage. 2. Dehydration with possible prerenal, diminished oral intake with acute renal failure, present on admission. 3. Severe hyponatremia, hypovolemia, present on admission improved. 4. Increased WBC. 5. Increased creatinine, acute renal failure possibly with prerenal and acute tubular necrosis. 6. Increased AST and ALT. 7. Hyperkalemia secondary from acute renal failure. 8. Mild hepatitis. 9. Hypoalbuminemia. 10. Obesity with body mass index of this 38.9. 11. Hypertension. 12. Hypothyroidism. 13. History of urinary tract infection. 14. History of uterine ablation. 15. History of cholecystectomy. 16. History of depression. 17. History of nicotine dependence. 18. Legal guardian. 19. FULL CODE. RECOMMENDATIONS: Continue to continue current medications, monitoring and symptomatic treatment. Otherwise at this time I would recommend IV fluids. Avoid nephrotoxic agents. Guarded prognosis because of multiple complex medical issues. Further recommendations to follow. See orders for further details. MTDD
[2016-06-13] MEDS ORDERED: LIDOCAINE 2% INJ 20 MG/ML (20 ML MDV) ONE (11:23)
--- NOTE | 2016-06-13 12:33 | P.PN ---
Progress Note - Text Patient has decided to decline and oral treatment. She demands to be [facility] to [facility]. She has a large gluteal wound with the MRSA fairly deep as well. He was recommended for her to get a PICC line placed and continue IV antibiotics at a half-way environment and local wound care. She however has refused PICC line. She also refuses anybody to touch her wound over the last more than 24 hours now. She also is declining to much of her meals or drink fluids as was recommended. On examination the patient is afebrile. Vitals are stable. A little dehydrated. She is however very awake and alert. However very uncooperative. She refuses to let me examine her left heel wound. The tendon from the [facility] is present in both the first try to convince her to be compliant with her treatment offering her explanation as to why she needs these treatment. Patient patient however has additional mind that she can heal the wound by herself but taking showers. I find it impossible to reason with her. Again she absolutely refuses me to examine her gluteal wound today. We will discuss with medicine. Consider psychiatric consult.
--- NOTE | 2016-06-13 14:08 | CDI ---
In responding to this query, please exercise your independent professional judgment. The [facility] Coding Staff and Clinical Documentation Specialists appreciate your assistance in clarifying documentation, maintaining compliance with coding guidelines, accurately documenting patients condition and capturing severity of illness. The fact that a question is asked does not imply that any particular answer is desired or expected. Communication forms are a method of clarifying documentation and are not made part of the Legal Health Record. Thank you in advance for your clarification. Last Revision, April [address] [place] [address] Documentation Clarification Form Date: 06/13/2016 1:53:00 PM From: Oly Rosario Admit Date: 06/07/2016 6:29:00 PM Patient Name: Lisset Edmonds Visit Number: [id number] Dr. Aleksandar Sahu is documenting 'Sepsis' in his progress notes. History/Risk Factors: Gluteal Abscess with MRSA Resides at [facility] Clinical Indicators: WBC 17.6 on admission Blood cultures: no growth on preliminary report Wound cultures: MRSA Vitals signs on admission: temp 97.3, hr 63, rr 18, bp 89/58, O2 sas 96% room air Treatment: ID Consult Medical Consult Possible PICC line Antibiotics: IV Ceftaroline, IV Vanco d/c'd, IV Flagyl d/c'd, IV Levaquin d /c'd In your professional opinion, can you please clarify if these findings signify one of the following conditions, whether the condition is POA, and cause, if known? Sepsis Ruled In? Sepsis Ruled Out? Unable to determine Other, please specify Please document in your progress notes and discharge summary in order to capture severity of illness and risk of mortality. Include clinical findings that support your diagnosis. FYI: Press F11 to launch patient chart. Place X here if this finding has no clinical significance, is not applicable or if you are not able to provide any additional documentation. MTDD
[2016-06-13] MEDS ORDERED: INSULIN REGULAR 100 UNIT/ML VIAL IV ONE (14:34)
[2016-06-13] MEDS ORDERED: DEXTROSE 50%-WATER 50 ML SYRINGE IVP STA (14:35)
[2016-06-13] MEDS ORDERED: SODIUM BICARB 8.4% 50 ML VIAL (1 MEQ/ML) IV ONE (14:45)
[2016-06-13] MEDS ORDERED: CALCIUM GLUCONATE 1,000 MG in SODIUM CHLORIDE 0.9% 100 ML IVPB ONE (15:00)
[2016-06-13] MEDS ORDERED: fluPHENAZine DECANOATE 25 MG/ML 5ML MDV IM ONE (16:00)
[2016-06-13] MEDS: ALBUTEROL NEBULIZED 2.5 MG/3 ML INHALATION SCH ×3 (16:09→21:35)
--- NOTE | 2016-06-13 16:18 | PN ---
DATE OF SERVICE: 06/12/2016 REASON FOR FOLLOWUP: Left gluteal MRSA abscess. INTERVAL HISTORY: The patient is afebrile. She has been breathing comfortably. The patient has been refusing local wound care and has been refusing to get it packed per the RN. No nausea or vomiting has been noticed or any diarrhea. She was not talking to me at the time of my evaluation. On examination, blood pressure is 133/67 with a pulse of 79, temperature 98.7. She is 98% on room air. General description is a middle-aged female lying in bed in no distress. RESPIRATORY SYSTEM: Unlabored breathing. Clear to auscultation. HEART: S1, S2. Regular rate and rhythm. The left gluteal wound is currently covered. Some drainage was noticed on the dressing. LABS: Hemoglobin of 5 with a white count of 9.4. BUN of 19, creatinine 2.28. DIAGNOSTIC IMPRESSION AND PLAN: Patient with left gluteal methicillin-resistant Staphylococcus aureus abscess, status post drainage. Unfortunately the patient is now in renal insufficiency more likely secondary to vancomycin. Vancomycin will be discontinued. Patient will be started on Teflaro, as anaerobe culture has been negative. Will also discontinue the Flagyl. Will need to watch her kidney function closely. Continue supportive care. CHICA
[2016-06-13] MEDS ORDERED: SODIUM BICARB 8.4% 50 ML SYR (1 MEQ/ML) IV ONE (17:15)
[2016-06-13 18:21] LABS: Glucose,Whole Blood 150 mg/dL (75-99)
--- NOTE | 2016-06-13 18:33 | P.NPCON ---
History of Present Illness - Reason for Consult Consult date: 06/13/16 acute renal failure - Chief Complaint Acute kidney injury with buttock abscess status post drainage - History of Present Illness This is a 60-year-old paranoid schizophrenic, seen in consultation because of acute kidney injury. Creatinine went up from 0.851 06/10/2016 up to 2.28 on 01/2017. She was admitted with intraperitoneal abscess that was drained on 11/2015 after having refused it for about 2 weeks supposedly as an outpatient. Has no history could be obtained from the patient as she is she is refusing any answers. She had MRSA from her own culture and blood cultures negative from 08/2016. A urine culture had not been performed although UA shows large leukocyte esterase and 12 WBCs. Based on her outpatient medication she is hypertensive and hypothyroid. Her medications included lisinopril hydrochlorothiazide amlodipine tramadol clonidine and metoprolol levothyroxine ibuprofen and fluphenazine She lives supposedly in a correction environment smokes about 10-20 cigarettes a day Past Medical History Past Medical History: Hypertension, Thyroid Disorder Additional Past Medical History / Comment(s): UTI, arthritis, dental abscess History of Any Multi-Drug Resistant Organisms: MRSA Date of last positivie culture/infection: 06/08/16 MDRO Source:: Buttock Past Surgical History: Cholecystectomy, Uterine Ablation Past Anesthesia/Blood Transfusion Reactions: No Reported Reaction Past Psychological History: Depression, Schizophrenia Additional Psychological History / Comment(s): LIVES AT [facility] [id number], IS INDEPENDANT WHEN UP. Smoking Status: Current every day smoker Past Alcohol Use History: None Reported Additional Past Alcohol Use History / Comment(s): PT STATED SHE SMOKES 1 CIG EVERY HOUR FROM THE HOURS OF 6AM TILL 11 PM Past Drug Use History: None Reported - Past Family History Mother Family Medical History: No Reported History Father Family Medical History: No Reported History Medications and Allergies Home Medications Medication Instructions Recorded Confirmed Type Levothyroxine Sodium [Synthroid] 125 mcg PO DAILY 06/07/16 06/07/16 History Lisinopril-Hctz 20-25 mg 1 tab PO DAILY 06/07/16 06/07/16 History [Zestoretic 20-25] Metoprolol Succinate (ER) [Toprol 100 mg PO DAILY 06/07/16 06/07/16 History Xl] Sulfamethox-Tmp 800-160Mg [Bactrim 2 tab PO Q12HR 06/07/16 06/07/16 History Ds] cloNIDine HCL [Catapres] 0.2 mg PO BID 06/07/16 06/07/16 History fluPHENAZine DECANOATE [Prolixin 50 mg IM WEEKLY 06/07/16 06/07/16 History Decanoate] Allergies Allergy/AdvReac Type Severity Reaction Status Date / Time Penicillins Allergy Anaphylaxis Verified 06/07/16 21:17 Physical Exam Vitals: Vital Signs Temp Pulse Resp BP BP Pulse Ox 06/13/16 15:00 97.1 F L 61 16 141/84 97 06/13/16 09:54 97.4 F L 60 16 144/68 98 06/13/16 07:00 97.4 F L 60 16 144/88 98 06/12/16 23:00 97.6 F 62 18 156/81 96 Intake and Output 06/13/16 06/13/16 06/13/16 06:59 14:59 22:59 Intake Total 480 Output Total 800 Balance -800 480 Intake: Oral 480 Output: Urine 800 Other: Voiding Method Indwelling Catheter # Voids 1 600 # Bowel Movements 1 0 On examination she is awake alert but refuses to answer any question she is in tears. HEENT exam was difficult no JVP neck is supple no facial asymmetry Lungs are clear to auscultation but poor air entry bilaterally difficult to be certain no dullness percussion. Heart sounds are unremarkable for any murmur rub gallop Abdomen soft nontender again difficult exam. Extremity exam shows was no edema Neurologically awake alert sitting in a chair. Psychologically she is depressed in tears blaming everybody Trying to harm her. Results - Lab Results Most recent lab results Calcium 8.1 mg/dL (8.4-10.2) L 06/13/16 08:36 06/12/16 09:33 06/13/16 08:36 Assessment and Plan Plan: Impression. 1. Acute kidney injury with creatinine going up from 0.8 on 06/10/2016 to 2.28 on 06/12/2016, the only explanation of the vancomycin she received he did her vital signs have been unremarkable. She has not shown any evidence of hypotension or septic syndrome. 2. Mild hyperkalemia secondary to acute kidney injury. Highest potassium is 5.8. 3. Mild metabolic acidosis with normal anion gap of 6, secondary to acute kidney injury. 4. Mild hyponatremia secondary to acute kidney injury and failure of kidneys to dilute urine 5. Paranoid schizophrenic. 6. Intravascular glasses status post drainage on 06/10/2016. Recommendation. Maintain IV fluids 100 mL of normal saline and hour. Potassium is expected to improve with good urine output. Would add sodium bicarb orally 653 times a day. We'll give her Lasix 20 mg 1 dose to improve her potassium loss in the urine. She has been given IV bicarb IV calcium IV D50W with 5 units of insulin. This should suffice. Repeat potassium later tonight in about 6 hours.
[2016-06-13] MEDS ORDERED: SODIUM CHLORIDE 0.9% 500 ML IV ONE (18:35)
[2016-06-13] MEDS ORDERED: FUROSEMIDE 10 MG/ML 2 ML VIAL IV ONE (18:35)
[2016-06-13] MEDS ORDERED: IPRATROPIUM-ALBUTEROL 3 ML NEB INHALATION PRN (21:35)
[2016-06-13] MEDS: MICONAZOLE NITRATE 200 MG VAGINAL SCH (22:14)
[2016-06-13] MEDS ORDERED: ALPRAZolam 0.5 MG TAB PO PRN (22:15)
[2016-06-13] MEDS ORDERED: ZIPRASIDONE 20 MG VIAL IM PRN (22:16)
[2016-06-13] MEDS: SODIUM BICARBONATE TAB 650 MG TAB PO SCH (22:37)
[2016-06-13 23:49] LABS: Potassium 5.4 mmol/L (3.5-5.1)
--- NOTE | 2016-06-14 05:41 | PN ---
DATE OF SERVICE: 06/13/2016 Reason for followup is left gluteal MRSA abscess. INTERVAL HISTORY: The patient is afebrile. The patient has refused her PICC line and she has been fighting us to go home. She was arguing with me that she wanted to go on the oral Keflex and that will help her with her infection. Though we tried to explain to her that she has MRSA. The patient with no nausea, vomiting or any diarrhea. She continued refusing packing of her wound. On examination, blood pressure 141/84 with a pulse of 61, temperature 97.1. She is 97% on room air. General description is a middle aged female in the room in no distress. RESPIRATORY SYSTEM: Unlabored breathing. Clear to auscultation anteriorly. HEART: S1, S2. Regular rate and rhythm. ABDOMEN: Soft, no tenderness. LABS: BUN of 25, creatinine 3.10. DIAGNOSTIC IMPRESSION AND PLAN: Patient with methicillin-resistant Staphylococcus aureus gluteal abscess, status post drainage now with renal insufficiency secondary to vancomycin. Psych and Nephrology has been consulted to help with the management. She will be continued on Teflaro. She will need a PICC line and IV antibiotics to complete heal this infection. Continue supportive care. CHICA
[2016-06-14] MEDS: CEFTAROLINE FOSAMIL 400 MG in SODIUM CHLORIDE 0.9% 250 ML IVPB SCH ×2 (06:09→06:30)
[2016-06-14] MEDS: LEVOTHYROXINE 125 MCG TAB PO SCH (06:14)
[2016-06-14] MEDS: IPRATROPIUM-ALBUTEROL 3 ML NEB INHALATION SCH ×4 (07:49→19:42)
--- NOTE | 2016-06-14 10:29 | P.PN ---
Progress Note - Text Patient is a little more cooperative today. She is afebrile. Has a little hypertension. No fever. The wound itself looks fairly clean. Still a fair amount of purulent drainage however at the base of the wound is nice and pink and significant exudate on the wound. Hopefully she will agreed to a PICC line and discharged to a [place] [facility]. Awaiting psych consult.
[2016-06-14] MEDS: HEPARIN SODIUM,PORCINE 5,000 UNIT/ML 1 ML VIAL SQ SCH ×2 (10:30→21:17)
[2016-06-14] MEDS: METOPROLOL SUCCINATE (ER) 100 MG TAB.ER.24H PO SCH (10:30)
[2016-06-14] MEDS: SODIUM BICARBONATE TAB 650 MG TAB PO SCH ×4 (10:30→21:17)
--- NOTE | 2016-06-14 12:44 | P.PN ---
Subjective This 60-year-old paranoid schizophrenic, seen in consultation because of acute kidney injury. Creatinine went up from 0.851 06/10/2016 up to 2.28 on 2016. She was admitted with intraperitoneal abscess that was drained on 2015 after having refused it for about 2 weeks supposedly as an outpatient. Has no history could be obtained from the patient as she is she is refusing any answers. She had MRSA from her own culture and blood cultures negative from 08/2016. A urine culture had not been performed although UA shows large leukocyte esterase and 12 WBCs. Based on her outpatient medication she is hypertensive and hypothyroid. Her medications included lisinopril hydrochlorothiazide amlodipine tramadol clonidine and metoprolol levothyroxine ibuprofen and fluphenazine She lives supposedly in a snf environment smokes about 10-20 cigarettes a day Yesterday she started to not eat and refusing any treatment. Looks like she is unrelenting and has allowed IV fluids to be restarted. She still resisting any exam. Objective - Vital Signs Vital signs: Vital Signs Temp 96.9 F L 06/14/16 10:12 Pulse 78 06/14/16 10:12 Resp 12 06/14/16 10:12 BP 186/106 06/14/16 10:25 Pulse Ox 96 06/14/16 10:12 Intake & Output 06/13/16 06/14/16 06/14/16 18:59 06:59 18:59 Intake Total 480 400 Output Total 1400 Balance 480 -1000 Intake: Oral 480 400 Output: Urine 1400 Uretheral (Steele) 700 Other: Voiding Method Indwelling Catheter Indwelling Catheter # Voids 600 # Bowel Movements 0 Examination is very much compromised because of the patient's not wanting to get examined. Her graft lungs are clear to auscultation good air entry bilaterally. Heart sounds are unremarkable abdomen soft is no edema She is sleeping and does not want to be woken up. - Labs CBC & Chem 7: 06/12/16 09:33 06/13/16 22:55 Labs: Abnormal Lab Results - Last 24 Hours (Table) 06/13/16 06/13/16 Range/Units 18:19 22:55 Sodium 136 L (137-145) mmol/L Potassium 5.4 H (3.5-5.1) mmol/L Carbon Dioxide 19 L (22-30) mmol/L POC Glucose (mg/dL) 150 H (75-99) mg/dL Microbiology - Last 24 Hours (Table) 06/07/16 23:38 Blood Culture - Final Blood No Growth after 144 hours 06/08/16 12:31 Anaerobic Culture - Final Buttock Assessment and Plan Plan: Impression. 1. Acute kidney injury with creatinine going up from 0.8 on 06/10/2016 to 2.28 on 06/12/2016, the only explanation of the vancomycin she received he did her vital signs have been unremarkable. She has not shown any evidence of hypotension or septic syndrome. Labs are pending from today's now yesterday creatinine was not available today but yesterday creatinine was 3.1 up from 2.6. potassium is 5.4 though. 2. Mild hyperkalemia secondary to acute kidney injury. Highest potassium is 5.8. Potassium is 5.4 as of yesterday 3. Mild metabolic acidosis with normal anion gap of 6, secondary to acute kidney injury. Bicarb was 19 yesterday. 4. Mild hyponatremia secondary to acute kidney injury and failure of kidneys to dilute urine. His sodium was 136 yesterday 5. Paranoid schizophrenic. 6. Intravascular glasses status post drainage on 06/10/2016. Recommendation. Maintain IV fluids 100 mL of normal saline and hour. Potassium is expected to improve with good urine output. Continue sodium bicarb orally 65 3 times a day. Obtain labs tomorrow
[2016-06-14 12:48] LABS: Calcium 8.3 mg/dL (8.4-10.2); Potassium 5.1 mmol/L (3.5-5.1)
--- NOTE | 2016-06-14 16:04 | P.CON ---
Psychiatric Consult - . Consult date: 06/14/16 Consult:: Mrs. Edmonds is a 60-year-old woman who has a well-established diagnosis of schizophrenia. She presented to medicine service for treatment of a gluteal abscess. Medicine service consulted psychiatry for recommendations regarding management of her chronic mental illness and general refusal to cooperate with medical care. I reviewed the medical record and attempted to interview Mrs. Edmonds. She was laying comfortably in bed and would not look at me or answer questions. We discharged her from the psychiatric unit last on 12/11/2015 with a diagnosis of chronic paranoid schizophrenia. Her discharge recommendations including continued treatment with [facility]. Her discharge medications included Prolixin decanoate 50 mg IM weekly. Impression: She is a chronically and severely mentally ill woman who also also has a serious medical/surgical problem required aggressive medical treatment. I concur with the recommendation to continue weekly Prolixin Decanoate injections (50 mg) and Geodon 20 mg IM twice a day for acute agitation. Consider discontinuing the Xanax and prescirbe lorazepam 1 mg by mouth/IM every 6 hours when necessary for agitation. When she is medically stable we may transfer her to the psychiatric unit. We will follow and make recommendations as needed. 06/14/16 15:58
[2016-06-14] MEDS ORDERED: SODIUM CHLORIDE 0.9% 1,000 ML IV SCH (16:30)
--- NOTE | 2016-06-14 17:23 | P.PN ---
Subjective Date of Service 06/13/16 Progress Note Being dictated for Dr. Razo. Interval History: This patient is a 60 year old female resident of a [facility] admitted with acute gluteal abscess, possible sepsis with MRSA status post I &D, dehydration, severe hyponatremia, acute renal failure, hyperkalemia and multiple other medical issues. Renal function worsening, 3.1, CO2 19, hyperkalemia of 5.8. Patient refusing care, refusing medications, refusing to to have wound evaluated by surgeon this morning. Minimally conversing, minimal eye contact. States she is angry that her "wound is not stitched up". Attempted to explain rationale behind the plan of care. Uncooperative despite encouragement from AFC attendant at bedside. Nephrology consulted with recommendations noted. Psychiatric consult initiated with recommendations pending. Denies chest pain, palpitations or increasing shortness of breath. Objective - Vital Signs Vital signs: Vital Signs Temp 97.4 F L 06/13/16 09:54 Pulse 60 06/13/16 09:54 Resp 16 06/13/16 09:54 BP 144/68 06/13/16 09:54 Pulse Ox 98 06/13/16 09:54 Intake & Output 06/12/16 06/13/16 06/13/16 18:59 06:59 18:59 Intake Total 240 Output Total 600 1100 Balance -600 -1100 240 Intake: Oral 240 Output: Urine 600 1100 Other: Voiding Method Indwelling Catheter Indwelling Catheter # Voids 1 # Bowel Movements 2 1 - Exam PHYSICAL EXAM: VITAL SIGNS: As above GENERAL: [Sitting up in chair, suspicious appearing, conversing ] HEENT: [Pupils equal conjunctiva normal.] NECK: [Supple, no JVD] RESPIRATORY EFFORT:[Normal] LUNGS: [Diminished, no crackles, no rhonchi] CARDIOVASCULAR[regular S1 and S2, no edema] GI: [Abdomen soft, nontender, nondistended, positive bowel sounds.] PSYCH: [Alert and oriented -1-2, anxious, agitated, appears paranoid, uncooperative,] SKIN: Gluteal dressing, unable to evaluate as patient refusing - Labs CBC & Chem 7: 06/12/16 09:33 06/14/16 10:57 Labs: Abnormal Lab Results - Last 24 Hours (Table) 06/12/16 06/13/16 Range/Units 18:05 08:36 Sodium 130 L 135 L (137-145) mmol/L Potassium 5.5 H 5.8 H (3.5-5.1) mmol/L Chloride 111 H (98-107) mmol/L Carbon Dioxide 20 L 18 L (22-30) mmol/L BUN 21 H 25 H (7-17) mg/dL Creatinine 2.66 H 3.10 H (0.52-1.04) mg/dL Glucose 148 H (74-99) mg/dL Calcium 7.7 L 8.1 L (8.4-10.2) mg/dL Microbiology - Last 24 Hours (Table) 06/08/16 12:31 Anaerobic Culture - Preliminary Buttock 06/07/16 23:38 Blood Culture - Preliminary Blood No Growth after 120 hours Assessment and Plan Plan: 1. Acute gluteal abscess possible sepsis, present on admission, positive for MRSA status post I&D. 2. [Acute renal failure , secondary to Dehydration, possibly prerenal, and acute tubular necrosis ,diminished oral intake, present on admission]. 3. [Severe hyponatremia, hypovolemia present on admission, improved]. 4. [Hyperkalemia secondary to acute renal failure]. 5. [Acute hepatitis]. 6. [Obesity, BMI 30.9]. 7. [Hypertension]. 8. Hypothyroidism 9. Legal guardian 10. Depression, paranoid schizophrenic 11. Ongoing nicotine dependence Plan: Continue on current medication regime , antibiotics, sodium bicarb, monitoring and symptomatic treatment. Patient is making above refusing majority of care, refusing to proceed with PICC line, and now pulling at IV lines. Psychiatry consulted with recommendations pending. Switch to oral antibiotics as per ID. Legal guardian notified of patient's refusal of care. Prognosis guarded given multiple complex medical issues. The impression and plan of care has been dictated as directed. : I performed a H&P examination of this patient and discussed the same with the dictator. I agree with the dictator's note. Any additional findings/opinions/ etc. will be noted.
--- NOTE | 2016-06-14 17:32 | P.PN ---
Subjective Date of Service 06/14/16 Progress Note Being dictated for Dr. Razo. Interval History: This patient is a 60 year old female resident [facility] a [facility] admitted with acute gluteal abscess, possible sepsis with MRSA status post I &D, dehydration, severe hyponatremia, acute renal failure, hyperkalemia and multiple other medical issues. Renal function continues to worsen, hyperkalemia mildly improved. Patient continues to resist medical care.evaluated by psychiatry with recommendations noted including transfer to psychiatry unit once medically stable. Denies chest pain, palpitations or increased shortness of breath. Denies pain. Objective - Vital Signs Vital signs: Vital Signs Temp 97.5 F L 06/14/16 15:00 Pulse 59 L 06/14/16 15:00 Resp 16 06/14/16 15:00 BP 161/95 06/14/16 15:00 Pulse Ox 98 06/14/16 15:00 Intake & Output 06/13/16 06/14/16 06/14/16 18:59 06:59 18:59 Intake Total 180 640 2324 Output Total 1400 800 Balance 480 -1000 1200 Intake: Intake, IV Titration 800 Amount Sodium Chloride 0.9% 1, 800 000 ml @ 125 mls/hr IV . Q8H [facility] Rx#:[id number] Oral [phone] Output: Urine 1400 800 Uretheral (Steele) 700 Other: Voiding Method Indwelling Catheter Indwelling Catheter Indwelling Catheter # Voids 600 1 # Bowel Movements 0 - Exam PHYSICAL EXAM: VITAL SIGNS: As above GENERAL: [Sitting up in chair, suspicious appearing] HEENT: [Pupils equal conjunctiva normal.] NECK: [Supple, no JVD] RESPIRATORY EFFORT:[Normal] LUNGS: [Diminished, no crackles, no rhonchi] CARDIOVASCULAR[regular S1 and S2, no edema] GI: [Abdomen soft, nontender, nondistended, positive bowel sounds.] PSYCH: [Alert and oriented -1-2, anxious, paranoid, uncooperative,] - Labs CBC & Chem 7: 06/12/16 09:33 06/14/16 10:57 Labs: Abnormal Lab Results - Last 24 Hours (Table) 06/13/16 06/13/16 06/14/16 Range/Units 18:19 22:55 10:57 Sodium 136 L 136 L (137-145) mmol/L Potassium 5.4 H (3.5-5.1) mmol/L Chloride 108 H (98-107) mmol/L Carbon Dioxide 19 L 20 L (22-30) mmol/L BUN 29 H (7-17) mg/dL Creatinine 3.85 H (0.52-1.04) mg/dL Glucose 133 H (74-99) mg/dL POC Glucose (mg/dL) 150 H (75-99) mg/dL Calcium 8.3 L (8.4-10.2) mg/dL Microbiology - Last 24 Hours (Table) 06/07/16 23:38 Blood Culture - Final Blood No Growth after 144 hours 06/08/16 12:31 Anaerobic Culture - Final Buttock Assessment and Plan Plan: 1. Acute gluteal abscess possible sepsis, present on admission, positive for MRSA status post I&D. 2. [Acute renal failure , secondary to Dehydration, possibly prerenal, and acute tubular necrosis ,diminished oral intake, present on admission]. 3. [Severe hyponatremia, hypovolemia present on admission, improved]. 4. [Hyperkalemia secondary to acute renal failure]. 5. [Acute hepatitis]. 6. [Obesity, BMI 30.9]. 7. [Hypertension]. 8. Hypothyroidism 9. Legal guardian 10. Depression, chronic paranoid schizophrenia 11. Ongoing nicotine dependence Plan: Continue on current medication regime , antibiotics, sodium bicarb, monitoring and symptomatic treatment. Evaluated by psychiatry with recommendations noted. Transfer to psychiatry unit once medically stable. Prognosis guarded given multiple complex medical issues. The impression and plan of care has been dictated as directed. : I performed a H&P examination of this patient and discussed the same with the dictator. I agree with the dictator's note. Any additional findings/opinions/ etc. will be noted.
[2016-06-14] MEDS ORDERED: LORazepam 2 MG/ML SYRINGE IM PRN (17:34)
[2016-06-14] MEDS: SODIUM CHLORIDE 0.9% 1,000 ML IV SCH (17:57)
[2016-06-14] MEDS: MICONAZOLE NITRATE 200 MG VAGINAL SCH (21:17)
[2016-06-14] MEDS: HYDROmorphone 1 MG/ML 1 ML SYRINGE IVP PRN (21:29)
[2016-06-14] MEDS: CEFTAROLINE FOSAMIL IVPB SCH (21:33)
[2016-06-14] MEDS: SODIUM CHLORIDE 0.9% IVPB SCH (21:33)
--- NOTE | 2016-06-14 21:58 | PN ---
DATE OF SERVICE: 06/14/2016 REASON FOR FOLLOWUP: 1. Left gluteal MRSA infection. 2. Renal insufficiency secondary to vancomycin. INTERVAL HISTORY: The patient is afebrile. The patient continues to be refusing blood draw and the PICC line. The patient denies having any chest pain. No cough. No abdominal pain. On examination, blood pressure is 151/95 with a pulse of 59, temperature 97.5. She is 98% on room air. General description is a middle-aged female lying in bed in no distress. RESPIRATORY SYSTEM: Unlabored breathing. Clear to auscultation anteriorly. HEART: S1, S2. Regular rate and rhythm. ABDOMEN: Soft. No tenderness. She refused to be examined on the gluteal area. LABS: BUN of 29, creatinine of 3.85. DIAGNOSTIC IMPRESSION AND PLAN: Patient with a left gluteal abscess, status post drainage. Culture positive for MRSA. Unfortunately the patient did have nephrotoxicity from the vancomycin. She is currently on Teflaro. In view of the extensive infection, we are recommending IV antibiotic; however, the patient is refusing to get a PICC line. It will hard to maintain IV antibiotic on this lady with severe mental illnesses. Unfortunately the oral antibiotic will not be strong enough to cure this infection. Bactrim is not adequate choice at this moment because of renal insufficency and zyvox cannot be used because of interaction with her psychiatric medication. The patient will continue with Teflaro. Will be discussing further with Psychiatry as well as primary team. Continue supportive care. CHICA
[2016-06-15] MEDS: SODIUM CHLORIDE 0.9% 1,000 ML IV SCH ×3 (00:45→17:32)
[2016-06-15] MEDS: HYDROmorphone 1 MG/ML 1 ML SYRINGE IVP PRN (00:57)
[2016-06-15] MEDS: HYDROcodone/APAP 7.5-325MG 1 EACH TAB PO PRN ×3 (03:23→20:16)
[2016-06-15] MEDS: LEVOTHYROXINE 125 MCG TAB PO SCH (05:26)
[2016-06-15] MEDS ORDERED: LORazepam 1 MG TAB PO PRN (08:13)
[2016-06-15] MEDS: IPRATROPIUM-ALBUTEROL 3 ML NEB INHALATION SCH ×4 (08:15→20:54)
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
[2016-06-15] MEDS: HEPARIN SODIUM,PORCINE 5,000 UNIT/ML 1 ML VIAL SQ SCH ×2 (09:47→20:30)
[2016-06-15] MEDS: SODIUM CHLORIDE 0.9% IVPB SCH ×2 (09:47→20:30)
[2016-06-15] MEDS: CEFTAROLINE FOSAMIL IVPB SCH ×2 (09:47→20:30)
[2016-06-15] MEDS: METOPROLOL SUCCINATE (ER) 100 MG TAB.ER.24H PO SCH (10:00)
[2016-06-15] MEDS: SODIUM BICARBONATE TAB 650 MG TAB PO SCH ×4 (10:00→21:38)
--- NOTE | 2016-06-15 11:21 | CONS ---
DATE OF CONSULTATION: Patient is seen on rounds for Dr. Monte. She is status post I&D of a gluteal abscess. She has been a bit of a challenge to treat due to refusing various therapies due to her underlying mental illness. She is agreeable to showering and whirlpool to help clean the abscess area. She had questions as to why the area was not closed up after drainage and that was explained to her. PHYSICAL EXAM: She has been afebrile. She still has quite a bit of redness in the gluteal area, about 10 cm with an open I&D site draining purulent material. No evidence of any undrained abscesses. LAB: She has not had a CBC in the last couple of days but her white count had not been elevated prior. ASSESSMENT: 1. Gluteal abscess with methicillin-resistant Staphylococcus aureus. 2. Psychiatric disorder, making her treatment more problematic due to noncompliance with recommendations. PLAN: When it is agreeable with the medical service, will see about transferring her to the psychiatric unit for ongoing care there. In the meantime she needs to continue IV antibiotics if possible, but will defer that to Infectious Disease. Start some local wound care with halle and further recommendations to follow.
--- NOTE | 2016-06-15 15:21 | P.PN ---
Subjective Date of Service 06/15/16 Progress Note Being dictated for Dr. Razo. Interval History: This patient is a 60 year old female resident of a nursing home mid admitted with acute gluteal abscess, possible sepsis with MRSA status post I &D, dehydration, severe hyponatremia, acute renal failure, hyperkalemia and multiple other medical issues. Continues refusing medical care including lab draw this morning. Refusing to have dressing reapplied.Evaluated by psychiatry last night and again this morning with recommendations noted. Case management and social insurance specialist notified to arrange for discharge to medical psychiatry unit. Initially had planned for PICC line with patient pulling out lines, antibiotic regimen adjusted to oral Zyvox as per ID. Denies chest pain, palpitations or increased shortness of breath. Denies pain. Objective - Vital Signs Vital signs: Vital Signs Temp 96.2 F L 06/15/16 07:00 Pulse 62 06/15/16 07:00 Resp 20 06/15/16 07:00 BP 166/94 06/15/16 07:00 Pulse Ox 94 L 06/15/16 07:00 Intake & Output 06/14/16 06/15/16 06/15/16 18:59 06:59 18:59 Intake Total 2000 Output Total 800 1500 1 Balance 1200 -1500 -1 Weight 96.388 kg Intake: Intake, IV Titration 800 Amount Sodium Chloride 0.9% 1, 800 000 ml @ 125 mls/hr IV . Q8H [facility] Rx#:[id number] Oral 1200 Output: Urine 800 1500 Stool 1 Other: Voiding Method Indwelling Catheter Indwelling Catheter Indwelling Catheter # Voids 1 1 1 # Emeses 1 - Exam PHYSICAL EXAM: VITAL SIGNS: As above GENERAL: [Sitting up in chair, uncooperative, anxious HEENT: [Pupils equal conjunctiva normal.] NECK: [Supple, no JVD] RESPIRATORY EFFORT:[Normal] LUNGS: [Diminished, no crackles, no rhonchi] CARDIOVASCULAR[regular S1 and S2, no edema] GI: [Abdomen soft, nontender, nondistended, positive bowel sounds.] PSYCH: [Alert and oriented -1-2, anxious, paranoid, uncooperative,] - Labs CBC & Chem 7: 06/12/16 09:33 06/14/16 10:57 Assessment and Plan Plan: 1. Acute gluteal abscess possible sepsis, present on admission, positive for MRSA status post I&D. 2. [Acute renal failure , secondary to Dehydration, possibly prerenal, and acute tubular necrosis ,diminished oral intake, present on admission]. 3. [Severe hyponatremia, hypovolemia present on admission, improved]. 4. [Hyperkalemia secondary to acute renal failure]. 5. [Acute hepatitis]. 6. [Obesity, BMI 30.9]. 7. [Hypertension]. 8. Hypothyroidism 9. Legal guardian 10. Depression, chronic paranoid schizophrenia 11. Ongoing nicotine dependence Plan: Continue on current medication regime , antibiotics, sodium bicarb, monitoring and symptomatic treatment. Evaluated by psychiatry with recommendations noted. Discharge to medical/psychiatry unit. Prognosis guarded given multiple complex medical issues. The impression and plan of care has been dictated as directed. : I performed a H&P examination of this patient and discussed the same with the dictator. I agree with the dictator's note. Any additional findings/opinions/ etc. will be noted.
--- NOTE | 2016-06-15 15:32 | PN ---
DATE OF SERVICE: 06/15/2016 Reason for follow up is left gluteal MRSA and abscess in wound. INTERVAL HISTORY: The patient is afebrile. The patient appears to be refusing the PICC line or antibiotic therapy. The patient seemed to be slightly calm today. No nausea, vomiting has been noticed and has let the RN change the dressing. On examination, blood pressure is 160/94 with a pulse of 62, temperature 96.2, she is 94% on room air. General description is an elderly female, lying in bed in no distress. RESPIRATORY SYSTEM: Unlabored breathing. Clear to auscultation anteriorly. HEART: S1, S2, regular rate and rhythm. ABDOMEN: Soft, no tenderness. The left gluteal wound are all decreased in size. The surrounding redness has improved. LABS: No new labs have been obtained. DIAGNOSTIC IMPRESSION AND PAIN: Patient with MRSA left gluteal abscess, status post drainage with significant deep wound. Unfortunately, patient developed nephrotoxicity from the vancomycin, currently the patient being high risk for a PICC line because of underlying psych issue. Patient may be switched over to Zyvox 600 twice a day for 3 weeks along with Aquacel silver dressing on the wound with outpatient followup. JOVANNAD
--- NOTE | 2016-06-15 16:30 | P.PN ---
Subjective This 60-year-old paranoid schizophrenic, seen in consultation because of acute kidney injury. Creatinine went up from 0.851 06/10/2016 up to 2.28 on 2016. She was admitted with gluteal abscess that was drained on 06/10/2015 after having refused it for about 2 weeks supposedly as an outpatient. Has no history could be obtained from the patient as she is she is refusing any answers. She had MRSA from her own culture and blood cultures negative from 08/2016. A urine culture had not been performed although UA shows large leukocyte esterase and 12 WBCs. Based on her outpatient medication she is hypertensive and hypothyroid. Her medications included lisinopril hydrochlorothiazide amlodipine tramadol clonidine and metoprolol levothyroxine ibuprofen and fluphenazine She lives supposedly in a fdc environment smokes about 10-20 cigarettes a day She has been refusing treatments including IV antibiotics. She is on Zyvox orally. Her oral intake is very poor. Creatinine gone up below her urine output has gone up to possibly she is recovering. As usual she is not giving any history and refuses to answer any question. Objective - Vital Signs Vital signs: Vital Signs Temp 97.5 F L 06/15/16 15:00 Pulse 87 06/15/16 15:00 Resp 20 06/15/16 15:00 BP 166/94 06/15/16 07:00 Pulse Ox 93 L 06/15/16 15:00 Intake & Output 06/14/16 06/15/16 06/15/16 18:59 06:59 18:59 Intake Total 2000 Output Total 800 1500 751 Balance 1200 -1500 -751 Weight 96.388 kg Intake: Intake, IV Titration 800 Amount Sodium Chloride 0.9% 1, 800 000 ml @ 125 mls/hr IV . Q8H [facility] Rx#:[id number] Oral 1200 Output: Urine 800 1500 750 Stool 1 Other: Voiding Method Indwelling Catheter Indwelling Catheter Indwelling Catheter # Voids 1 1 1 # Emeses 1 Examination somewhat suboptimal because of her refusal to cooperate. A chin exam difficult. No facial asymmetry noted no JVP was discernible. Lungs are clear with fair air entry no dullness percussion Heart sounds are unremarkable. Abdomen is soft nontender Extremity exam was no edema. Neurologically difficult to make any exam as she is refusing - Labs CBC & Chem 7: 06/12/16 09:33 06/14/16 10:57 Assessment and Plan Plan: Impression. 1. Acute kidney injury with creatinine going up from 0.8 on 06/10/2016 to 2.28 on 06/12/2016, the only explanation of the vancomycin she received he did her vital signs have been unremarkable. She has not shown any evidence of hypotension or septic syndrome. Creatinine has gone up from 3.1 on 06/13/2016 to 3.85 as of yesterday. This worsening is secondary to decreased intake, sepsis and vancomycin. Hopefully she is recovering as her urine output has improved 2. Mild hyperkalemia secondary to acute kidney injury. Highest potassium is 5.8. Potassium is 5. 1 3. Mild metabolic acidosis with normal anion gap of 6, secondary to acute kidney injury. Bicarb was 20 today 4. Mild hyponatremia secondary to acute kidney injury and failure of kidneys to dilute urine. His sodium was 136 yesterday and is same today 5. Paranoid schizophrenic. 6. gluteal abscess status post drainage on 06/10/2016. Recommendation. if possible Maintain IV fluids 100 mL of normal saline and hour. Potassium is expected to improve with good urine output. Continue sodium bicarb orally 650 3 times a day. Obtain labs tomorrow
[2016-06-15] MEDS: MICONAZOLE NITRATE 200 MG VAGINAL SCH (21:37)
[2016-06-15] MEDS: LINEZOLID 600 MG TAB PO SCH (21:38)
[2016-06-16] MEDS: HYDROcodone/APAP 7.5-325MG 1 EACH TAB PO PRN ×6 (00:15→20:59)
[2016-06-16] MEDS: LEVOTHYROXINE 125 MCG TAB PO SCH (06:18)
[2016-06-16] MEDS: IPRATROPIUM-ALBUTEROL 3 ML NEB INHALATION SCH ×4 (07:12→20:05)
[2016-06-16] MEDS: METOPROLOL SUCCINATE (ER) 100 MG TAB.ER.24H PO SCH (07:43)
[2016-06-16] MEDS: LINEZOLID 600 MG TAB PO SCH (07:43)
[2016-06-16] MEDS: HEPARIN SODIUM,PORCINE 5,000 UNIT/ML 1 ML VIAL SQ SCH ×2 (07:43→20:57)
[2016-06-16] MEDS: SODIUM BICARBONATE TAB 650 MG TAB PO SCH ×4 (07:44→20:59)
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
--- NOTE | 2016-06-16 12:27 | PN ---
DATE OF SERVICE: 06/16/2016 Reason for followup is left gluteal MRSA abscess and wound. INTERVAL HISTORY: The patient is afebrile. Apparently, the patient needs to have a PICC line in order to go to halfway facility to continue with the wound care. PICC line has been requested. The patient's Power of Radiology Services Manager has consented, however, the patient continued to be refusing it. The patient denies having any chest pain, shortness of breath or cough. No abdominal pain or any diarrhea. On examination, blood pressure 151/77 with a pulse of 61, temperature 96.9. She is 91% on room air. General description is a middle-age female lying in bed in no distress. RESPIRATORY SYSTEM: Unlabored breathing. Clear to auscultation anteriorly. HEART: S1, S2. Regular rate and rhythm. ABDOMEN: Soft. No tenderness. LABS: BUN of 31, creatinine 4.29. DIAGNOSTIC IMPRESSION AND PLAN: Patient with left gluteal abscess, status post drainage. Culture has been positive for methicillin-resistant Staphylococcus aureus. Unfortunately, the patient developed toxicity to the vancomycin. Patient's kidney function needs to be stabilize before discharging her. She is currently switched over to Zyvox. While discharge antibiotic may be either oral Zyvox or IV ceftaroline. Continue with Aquacel Silver dressing to the wound.
--- NOTE | 2016-06-16 12:28 | P.PN ---
Subjective This 60-year-old paranoid schizophrenic, seen in consultation because of acute kidney injury, deemed to be from gluteal abscess and dehydration. Her creatinine has been going up ever since admission. Will 0.85 on 06/10/2016 and currently as of today 06/16/2016 up to 4.29. This was deemed to be from a combination of septic syndrome from the gluteal abscess as well as intravascular volume depletion from hardly any intake. She had diffuse IV fluids. She is starting to eat little bit but mostly liquids. She says she has no appetite. Her past history significant for severe psychiatric illness with paranoid schizophrenia Based on her outpatient medication she is hypertensive and hypothyroid. Her medications included lisinopril hydrochlorothiazide amlodipine tramadol clonidine and metoprolol levothyroxine ibuprofen and fluphenazine She lives supposedly in a usp environment smokes about 10-20 cigarettes a day She has been refusing treatments including IV antibiotics. She is on Zyvox orally. Her oral intake is very poor. Creatinine gone up below her urine output has gone up to possibly she is recovering. As usual she is not giving any history and refuses to answer any question. Objective - Vital Signs Vital signs: Vital Signs Temp 96.9 F L 06/16/16 07:00 Pulse 61 06/16/16 07:00 Resp 19 06/16/16 07:00 BP 151/77 06/16/16 07:00 Pulse Ox 91 L 06/16/16 07:00 Intake & Output 06/15/16 06/16/16 06/16/16 18:59 06:59 18:59 Output Total 751 1300 Balance -751 -1300 Weight 96.388 kg Output: Urine 750 1300 Stool 1 Other: Voiding Method Indwelling Catheter Indwelling Catheter Indwelling Catheter # Voids 1 1 # Emeses 1 She seems to be somewhat better little bit more cooperative. She answers in monosyllables. HEENT exam no JVP neck is supple Lungs clear to auscultation and percussion good air entry bilaterally Heart sounds are unremarkable for any murmur rub gallop. Abdomen soft nontender Extremity exam was no edema Awake alert answers in monosyllables moves all her extremities. - Labs CBC & Chem 7: 06/12/16 09:33 06/16/16 08:39 Labs: Abnormal Lab Results - Last 24 Hours (Table) 01/12/17 Range/Units 08:39 Sodium 131 L (137-145) mmol/L BUN 31 H (7-17) mg/dL Creatinine 4.29 H (0.52-1.04) mg/dL Calcium 8.0 L (8.4-10.2) mg/dL Assessment and Plan Plan: Impression. 1. Acute kidney injury with creatinine going up from 0.8 on 06/10/2016 to 2.28 on 06/12/2016, likely from a combination off vancomycin as well as volume depletion from decreased intake as she is refusing to eat and had diffuse IV fluids. Possibility of interstitial nephritis is considered. Hopefully she will allow a PICC line to be placed today 06/16/2016 2. Mild hyperkalemia secondary to acute kidney injury. Highest potassium is 5.8. Potassium is 5. 0 today on 06/16/2016. 3. Mild metabolic acidosis with bicarbonate of 20 to improve and normal anion gap of 6, secondary to acute kidney injury. 4. Mild hyponatremia secondary to acute kidney injury and failure of kidneys to dilute urine. His sodium was 136 on 06/14/2069 and is 131 today 06/16/2016 same today 5. Paranoid schizophrenic. 6. gluteal abscess status post drainage on 06/10/2016. Recommendation. if possible Maintain IV fluids 100 mL of normal saline and hour. Potassium is expected to improve with good urine output. Continue sodium bicarb orally 650 3 times a day. Obtain labs tomorrow
[2016-06-16] MEDS: SODIUM CHLORIDE 0.9% 1,000 ML IV SCH (14:11)
--- NOTE | 2016-06-16 14:21 | IR ---
EXAMINATION TYPE: IR cvc insert >=5 years DATE OF EXAM: 06/16/2016 1:56 PM CLINICAL HISTORY: Infection Needs long-term intravenous access for antibiotics. PROCEDURE: After informed consent, the skin overlying the left basilic vein was localized with ultrasound and no edith to be compressible and patent. An ultrasound image was obtained and submitted on the patient's c badillo. The overlying skin was prepped and draped and Lidocaine was used for local anesthesia. A skin joyti was made with a scalpel. Access was gained to the vein under ultrasound guidance with a 21 gau ge needle and a 0.018 inch wire was advanced. Access site was dilated with Peel-Away sheath and cath eter tailored to the appropriate length and advanced such that the distal tip is at the cavoatrial ju nction. Spot image was obtained verifying placement. Catheter was fixed to the skin with suture and a sterile dressing was placed following hemostasis. Catheter was aspirated and flushed with saline. Patient was discharged in stable condition without complication. Maximal barrier technique is utili zed. Ultrasound image is documented on the chart. Ultrasound used with sterile technique. Fluoro time and fluoroscopic images submitted to document procedure: 27 intraoperative C-arm images, 0.2 minutes fluoroscopy time IMPRESSION: STATUS POST ULTRASOUND AND FLUOROSCOPIC GUIDED PICC LINE PLACEMENT, READY FOR USE. THIS PROCEDURE WAS PERFORMED BY THE UNDERSIGNED.
[2016-06-16] MEDS: SODIUM CHLORIDE 0.9% IVPB SCH (20:59)
[2016-06-16] MEDS: MICONAZOLE NITRATE 200 MG VAGINAL SCH (20:59)
[2016-06-16] MEDS: CEFTAROLINE FOSAMIL IVPB SCH (20:59)
--- NOTE | 2016-06-16 22:09 | P.PN ---
Subjective Date of Service 06/16/16 Progress Note Being dictated for Dr. Razo. Interval History: This patient is a 60 year old female resident of a retirement mid admitted with acute gluteal abscess, possible sepsis with MRSA status post I &D, dehydration, severe hyponatremia, acute renal failure, hyperkalemia and multiple other medical issues. Medical care Care was hindered by patient's chronic mental illness. Worsening renal function, hyponatremia .Re-Evaluated by psychiatry with recommendations noted. Maintained on Prolixin Deconate and Geodon. Currently cooperative, taking medication, allowing for lab draws and medical care. PICC line placed. Denies chest pain, palpitations or increased shortness of breath. Denies pain. Objective - Vital Signs Vital signs: Vital Signs Temp 96.3 F L 06/16/16 14:43 Pulse 53 L 06/16/16 14:43 Resp 19 06/16/16 14:43 BP 151/77 06/16/16 07:00 Pulse Ox 92 L 06/16/16 14:43 Intake & Output 06/15/16 06/16/16 06/16/16 18:59 06:59 18:59 Output Total 751 1300 550 Balance -751 -1300 -550 Weight 96.388 kg Output: Urine 750 1300 550 Stool 1 Other: Voiding Method Indwelling Catheter Indwelling Catheter Indwelling Catheter # Voids 1 1 # Emeses 1 - Exam PHYSICAL EXAM: VITAL SIGNS: As above GENERAL: [Sitting up in chair, cooperative HEENT: [Pupils equal conjunctiva normal.] NECK: [Supple, no JVD] RESPIRATORY EFFORT:[Normal] LUNGS: [Diminished, no crackles, no rhonchi] CARDIOVASCULAR[regular S1 and S2, no edema] GI: [Abdomen soft, nontender, nondistended, positive bowel sounds.] PSYCH: [Alert and oriented -2, calm, cooperative] - Labs CBC & Chem 7: 06/12/16 09:33 06/16/16 08:39 Labs: Abnormal Lab Results - Last 24 Hours (Table) 06/16/16 Range/Units 08:39 Sodium 131 L (137-145) mmol/L BUN 31 H (7-17) mg/dL Creatinine 4.29 H (0.52-1.04) mg/dL Calcium 8.0 L (8.4-10.2) mg/dL Assessment and Plan Plan: 1. Acute gluteal abscess possible sepsis, present on admission, positive for MRSA status post I&D. 2. [Acute renal failure , secondary to Dehydration, possibly prerenal, and acute tubular necrosis ,diminished oral intake, present on admission]. 3. [Severe hyponatremia, hypovolemia present on admission, improved]. 4. [Hyperkalemia secondary to acute renal failure]. 5. [Acute hepatitis]. 6. [Obesity, BMI 30.9]. 7. [Hypertension]. 8. Hypothyroidism 9. Legal guardian 10. Depression, chronic paranoid schizophrenia 11. Ongoing nicotine dependence 12. Status post PICC line placement Plan: Continue on current medication regime , antibiotics, sodium bicarb, monitoring and symptomatic treatment. Stabilizing renal function with IV fluid hydration via PICC line. Re-Evaluated by psychiatry with recommendations noted. Close monitoring of renal function and electrolytes with repeat labs ordered for a.m. Discharge planning in progress to ECF once renal function improves. Encourage oral intake .Prognosis guarded given multiple complex medical issues. The impression and plan of care has been dictated as directed. : I performed a H&P examination of this patient and discussed the same with the dictator. I agree with the dictator's note. Any additional findings/opinions/ etc. will be noted.
[2016-06-17] MEDS: SODIUM CHLORIDE 0.9% 1,000 ML IV SCH ×4 (00:01→16:13)
[2016-06-17] MEDS: HYDROcodone/APAP 7.5-325MG 1 EACH TAB PO PRN ×5 (01:00→21:15)
[2016-06-17] MEDS: LEVOTHYROXINE 125 MCG TAB PO SCH (07:13)
[2016-06-17] MEDS: IPRATROPIUM-ALBUTEROL 3 ML NEB INHALATION SCH ×4 (07:31→19:52)
[2016-06-17] MEDS: CEFTAROLINE FOSAMIL IVPB SCH ×2 (07:49→21:15)
[2016-06-17] MEDS: SODIUM CHLORIDE 0.9% IVPB SCH ×2 (07:49→21:15)
[2016-06-17] MEDS: HEPARIN SODIUM,PORCINE 5,000 UNIT/ML 1 ML VIAL SQ SCH ×2 (07:49→20:56)
[2016-06-17] MEDS: SODIUM BICARBONATE TAB 650 MG TAB PO SCH ×4 (07:50→21:18)
[2016-06-17] MEDS: METOPROLOL SUCCINATE (ER) 100 MG TAB.ER.24H PO SCH (07:50)
[2016-06-17 09:18] VITALS: RESP 16
--- NOTE | 2016-06-17 09:30 | PN ---
DATE OF SERVICE: 06/16/2016 The patient has been more agreeable with medical therapy. She had been declining a PICC line, but agreed to have that placed today so IV antibiotics are being started. The original plan was for transfer to the Mental Health Unit but they did not feel that was medically necessary at this point, so arranging for placement for local wound care and IV antibiotics with discharge planning. CHICA
--- NOTE | 2016-06-17 11:39 | P.PN ---
Subjective This 60-year-old paranoid schizophrenic, seen in consultation because of acute kidney injury, deemed to be from prerenal from the large gluteal abscess and dehydration. Patient had refused surgery for several days. Her creatinine has been going up ever since admission. Creatinine was 0.85 on 06/10/2016 and currently as of 06/16/2016 up to 4.29. This was deemed to be from a combination of septic syndrome from the gluteal abscess as well as intravascular volume depletion from hardly any intake. She had refused IV fluids, until late last night 06/16/2016 a PICC line was inserted she was started on IV normal saline at 100 and hour. She is starting to eat little bit but mostly liquids. She says she has no appetite. Her past history significant for severe psychiatric illness with paranoid schizophrenia Based on her outpatient medication she is hypertensive and hypothyroid. Her medications included lisinopril hydrochlorothiazide amlodipine tramadol clonidine and metoprolol levothyroxine ibuprofen and fluphenazine She lives supposedly in a residential environment smokes about 10-20 cigarettes a day She has been refusing treatments including IV antibiotics. She is on Zyvox orally. Her oral intake is very poor. Creatinine gone up below her urine output has gone up to possibly she is recovering. As usual she is not giving any history and refuses to answer any question. Objective - Vital Signs Vital signs: Vital Signs Temp 97.5 F L 06/17/16 07:52 Pulse 59 L 06/17/16 07:52 Resp 16 06/17/16 09:15 BP 184/88 06/17/16 07:44 Pulse Ox 90 L 06/17/16 07:52 Intake & Output 06/16/16 06/17/16 06/17/16 18:59 06:59 18:59 Intake Total 300 Output Total 550 1100 Balance -550 -800 Intake: Oral 300 Output: Urine 550 1100 Uretheral (Steele) 1100 Other: Voiding Method Indwelling Catheter Indwelling Catheter Indwelling Catheter # Voids 1 1 # Bowel Movements 1 She is little bit more cooperative today. A chin exam no JVP in neck is supple no facial asymmetry Lungs are to auscultation with coarse crackles that cleared with cough. No dullness percussion. Heart sounds are unremarkable for any murmur rub gallop somewhat distant oh Abdomen is soft nontender Extremity exam was trace edema or remote Neurologically she is able to move all her extremities follows commands. - Labs CBC & Chem 7: 06/12/16 09:33 06/16/16 08:39 Assessment and Plan Plan: Impression. 1. Acute kidney injury with creatinine going up from 0.8 on 06/10/2016 to 2.28 on 06/12/2016, and peaked at 4.9 as of 06/16/2016 yesterday. Strangely enough she has good urine output although should not eating or drinking hardly any. Her acute kidney injury is likely from a combination off vancomycin as well as volume depletion from decreased intake as she is refusing to eat. Possibility of interstitial nephritis is considered. Urinalysis is pending She is allowed a PICC line replaced yesterday 06/16/2016 and for the last few hours she is on IV fluids 100 mL of normal saline. Labs pending today 2. Mild hyperkalemia secondary to acute kidney injury. Highest potassium is 5.8. Potassium is 5. 0 on 06/16/2016. Labs pending 3. Mild metabolic acidosis with bicarbonate of 20 to improve and normal anion gap of 6, secondary to acute kidney injury. 4. Mild hyponatremia secondary to acute kidney injury and failure of kidneys to dilute urine. His sodium was 136 on 06/14/2069 and is 131 today 06/16/2016 same today 5. Paranoid schizophrenic. 6. gluteal abscess status post drainage on 06/10/2016. Recommendation. Maintain IV fluids 100 mL of normal saline and hour. Sodium is expected to improve with normal saline, . Continue sodium bicarb orally 650 3 times a day. Obtain labs tomorrow
[2016-06-17 11:58] LABS: Appearance,Urine Cloudy (Clear); Bacteria,Urine Rare /hpf; Bilirubin,Urine Negative (Negative); Glucose,Urine (UA) Negative (Negative); Hyphae Yeast, Urine Few /hpf; Ketones,Urine Negative (Negative); Leukocyte Esterase,Urine Moderate (Negative); Mucus,Urine Rare /hpf; Nitrite,Urine Negative (Negative); Particle Count 1904; Protein,Urine Negative (Negative); RBC,Urine 5 /hpf (0-5); Specific Gravity,Urine 1.003 (1.001-1.035); Squamous Epithelial Cell,Urine 1 /hpf (0-4); UA Billing (MACRO vs. MICRO) MICRO; Urobilinogen,Urine <2.0 mg/dL (<2.0); WBC,Urine 19 /hpf (0-5)
[2016-06-17 12:09] LABS: Calcium 8.1 mg/dL (8.4-10.2); Potassium 5.1 mmol/L (3.5-5.1)
--- NOTE | 2016-06-17 13:11 | P.PN ---
Progress Note - Text I reviewed the medical record and interviewed Ms. Edmonds. The medical team requested a psychiatric follow-up. Since our last contact on 06/16/2016 she has developed a steady increase in her creatinine from 3.85 to 4.60. The opinion of the group director is that the renal failure is due to vancomycin and dehydration. A major breakthrough in her care occurred yesterday when she consented to have a PICC line. She is currently receiving IV antibiotics ( ceftaroline) and sodium chloride 0.9% solution at 150 mL per hour. She has not required or r received IV lorazepam or Geodon. According to the nurses note she has refused blood pressure monitoring. She was pleasant on approach, much less gruff than she was on 06/16/2015. She was laying comfortably in bed. She made no complaints about the IV access. She made intermittent eye contact. She appeared to attend to the interview. She had a blunted facial expression. Her movements were slow but she had no abnormal movements. Her speech was not spontaneous. She was slightly dysarthric. Her affect was blunted but stable and appropriate. She denied feeling frightened or scared. She expressed no unusual beliefs about her treatment with the treatment staff. In response to questions about her comfort level with her treatment and treatment staff she replied "fine". She did not express ideas reference or paranoid thoughts or ideation. She expressed no delusional thinking. She continues to admit to thought disturbances such as thought broadcasting and thought insertion. Similar to 06/16/2016, she would not talk about the content of the thought broadcasting or thought insertion. Her thinking is concrete but her associations appeared coherent. She denied hallucinations and did not appear to responding to internal stimuli. Impression: Establishing IV access is a great success. I wouldn't expect her to comply with all routine unit practices because she is cognitively limited. We are fortunate because she had no complaints and expressed no unusual beliefs about the IV access, hydration or antibiotics. Recommendation: Continue her antipsychotic, Prolixin decanoate 50 mg IM weekly because she will not take oral antipsychotic medications. She appears to respond to assurance and expressions of concern. Remember, that she is cognitively limited and may not fully understand our explanations about recommended medical procedures and may have unusual and idiosyncratic beliefs about her care and treatment.
--- NOTE | 2016-06-17 14:33 | PN ---
DATE OF SERVICE: 06/17/2016 Lisset seen on rounds. She is having pain in the buttock. She does admit that it is improved from admission. She did allow a PICC line to be placed yesterday and IV fluids and antibiotics are running at this time. She has been afebrile. The dressings have moderate mucopurulent material, slightly less erythema. LAB: Her creatinine is up a little bit today to 4.6. ASSESSMENT: 1. Gluteal abscess. 2. Renal failure, which could be related to vancomycin or dehydration. 3. Schizophrenia. PLAN: Continue medical therapy per Medicine and Nephrology. Continue IV antibiotics. Psychiatry is also seeing the patient. Plan would be discharge with IV antibiotics hopefully within the next day or 2. Progressing slowly. MTDD
--- NOTE | 2016-06-17 15:50 | P.PN ---
Subjective Date of Service 06/17/16 Progress Note Being dictated for Dr. Razo. Interval History: This patient is a 60 year old female resident of a residential mid admitted with acute gluteal abscess, possible sepsis with MRSA status post I &D, dehydration, severe hyponatremia, acute renal failure, hyperkalemia and multiple other medical issues. Medical care was hindered by patient's chronic mental illness. Renal function continues to worsen, currently at 4.6, on IV fluid hydration. Continues on Ceftaroline. Maintained on Prolixin Deconate , Geodon and Ativan as recommended per psychiatry. Denies chest pain, palpitations or increased shortness of breath. Denies pain. Afebrile. Objective - Vital Signs Vital signs: Vital Signs Temp 97.5 F L 06/17/16 07:52 Pulse 59 L 06/17/16 07:52 Resp 16 06/17/16 09:15 BP 184/88 06/17/16 07:44 Pulse Ox 90 L 06/17/16 07:52 Intake & Output 06/16/16 06/17/16 06/17/16 18:59 06:59 18:59 Intake Total 300 320 Output Total 550 1100 1600 Balance -550 -800 -1280 Intake: Oral 300 320 Output: Urine 550 1100 1600 Uretheral (Steele) 1100 Other: Voiding Method Indwelling Catheter Indwelling Catheter Indwelling Catheter # Voids 1 1 # Bowel Movements 1 - Exam PHYSICAL EXAM: VITAL SIGNS: As above GENERAL: [Sitting up in chair, cooperative HEENT: [Pupils equal conjunctiva normal.] NECK: [Supple, no JVD] RESPIRATORY EFFORT:[Normal] LUNGS: [Diminished, no crackles, no rhonchi] CARDIOVASCULAR[regular S1 and S2, no edema] GI: [Abdomen soft, nontender, nondistended, positive bowel sounds.] PSYCH: [Alert and oriented -2, calm, cooperative] - Labs CBC & Chem 7: 06/12/16 09:33 06/17/16 11:20 Labs: Abnormal Lab Results - Last 24 Hours (Table) 06/17/16 06/17/16 Range/Units 11:20 11:40 Sodium 133 L (137-145) mmol/L BUN 31 H (7-17) mg/dL Creatinine 4.60 H (0.52-1.04) mg/dL Glucose 113 H (74-99) mg/dL Calcium 8.1 L (8.4-10.2) mg/dL Urine Appearance Cloudy H (Clear) Urine Blood Small H (Negative) Ur Leukocyte Esterase Moderate H (Negative) Urine WBC 19 H (0-5) /hpf Urine Bacteria Rare H (None) /hpf Urine Mucus Rare H (None) /hpf Urine Yeast (Budding) Few H (None) /hpf Assessment and Plan Plan: 1. Acute gluteal abscess possible sepsis, present on admission, positive for MRSA status post I&D. 2. [Acute renal failure , secondary to Dehydration, possibly prerenal, and acute tubular necrosis ,diminished oral intake, present on admission]. Worsening 3. [Severe hyponatremia, hypovolemia present on admission, improved]. 4. [Hyperkalemia secondary to acute renal failure]. 5. [Acute hepatitis]. 6. [Obesity, BMI 30.9]. 7. [Hypertension]. 8. Hypothyroidism 9. Legal guardian 10. Depression, chronic paranoid schizophrenia 11. Ongoing nicotine dependence 12. Status post PICC line placement Plan: Continue on current medication regime , antibiotics, sodium bicarb, monitoring and symptomatic treatment. Stabilizing renal function with IV fluid hydration increased to 150 MLS per hour via PICC line. Close monitoring of renal function and electrolytes with repeat labs ordered for a.m. Discharge planning in progress to [facility], tomorrow pending renal function improvement.Prognosis guarded given multiple complex medical issues. The impression and plan of care has been dictated as directed. : I performed a H&P examination of this patient and discussed the same with the dictator. I agree with the dictator's note. Any additional findings/opinions/ etc. will be noted.
[2016-06-17] MEDS: PANTOPRAZOLE 40 MG/10 ML VIAL IVP SCH (16:12)
[2016-06-17 18:33] VITALS: BP 142/80; PULSE 57; TEMP 96.8
[2016-06-17] MEDS: MICONAZOLE NITRATE 200 MG VAGINAL SCH (21:18)
--- NOTE | 2016-06-17 22:55 | PN ---
DATE OF SERVICE: 06/17/2016 REASON FOR FOLLOWUP: Left gluteal wound, MRSA. INTERVAL HISTORY: The patient is afebrile. She finally got a PICC line. Patient has been lying comfortably but not talking and not providing any history. No nausea, vomiting or any diarrhea. On examination, blood pressure is 142/80 with a pulse of 57, temperature of 96.8. She is 90% on room air. General description is a middle-aged female lying in bed in no distress. RESPIRATORY SYSTEM: Unlabored breathing. Clear to auscultation anteriorly. HEART: S1, S2. Regular rate and rhythm. ABDOMEN: Soft. No tenderness. LABS: Creatinine is up to 4.60 today. DIAGNOSTIC IMPRESSION AND PLAN: Patient with left gluteal abscess, status post drainage, now with significant large wound. Clinical course complicated by development of renal insufficiency. Patient is currently on vancomycin as well as Teflaro. It would be advisable to keep the patient inpatient until her kidney function improves, as she is just showing a worsening of her kidney function. Nephrology is on the case. Patient is currently on Teflaro, which she needs for another 2 weeks. Local wound care with Aquacel Silver. MTDD
[2016-06-18] MEDS: SODIUM CHLORIDE 0.9% 1,000 ML IV SCH ×2 (02:26→06:17)
[2016-06-18] MEDS: HYDROcodone/APAP 7.5-325MG 1 EACH TAB PO PRN (03:37)
[2016-06-18] MEDS: LEVOTHYROXINE 125 MCG TAB PO SCH (06:29)
[2016-06-18 06:47] LABS: Calcium 7.9 mg/dL (8.4-10.2); Potassium 5.4 mmol/L (3.5-5.1)
[2016-06-18] MEDS: HEPARIN SODIUM,PORCINE 5,000 UNIT/ML 1 ML VIAL SQ SCH (07:57)
[2016-06-18] MEDS: SODIUM CHLORIDE 0.9% IVPB SCH (07:58)
[2016-06-18] MEDS: CEFTAROLINE FOSAMIL IVPB SCH (07:58)
[2016-06-18] MEDS: SODIUM BICARBONATE TAB 650 MG TAB PO SCH (07:59)
[2016-06-18] MEDS: PANTOPRAZOLE 40 MG/10 ML VIAL IVP SCH ×2 (07:59→08:05)
[2016-06-18] MEDS: METOPROLOL SUCCINATE (ER) 100 MG TAB.ER.24H PO SCH (07:59)
[2016-06-18] MEDS: IPRATROPIUM-ALBUTEROL 3 ML NEB INHALATION SCH ×2 (09:11→12:37)
[2016-06-18] MEDS ORDERED: SODIUM POLYSTYRENE SULFONATE 15 GM/60 ML BOTTLE PO STA (11:55)
--- NOTE | 2016-06-18 12:38 | DS ---
DATE OF ADMISSION: 06/07/2016 DATE OF DISCHARGE: The patient with significant psychiatric issues is admitted for incision and drainage of the gluteal abscess which showed methicillin-resistant staph aureus and Dr. Hanson evaluated the patient and he is recommending ceftaroline. Patient was not drinking water because of acute psychosis. Patient is not happy that she had a wound and gluteal abscess that was drainage because of which patient went into multifactorial acute renal failure from prerenal azotemia and possible acute tubular necrosis from severe intravascular volume depletion. Creatinine has gone up from 0.9 to 4.47 and as high as 4.6. It started coming down. Patient is urinating well. Patient was evaluated by Nephrology and they are okay with discharging the patient with repeat basic metabolic profile in 3 days, although her potassium is minimally elevated because of that renal failure because of which I am going to go ahead and give her a dose of Kayexalate. Patient was seen and examined on the day of discharge. Vitals are stable. PHYSICAL EXAMINATION: GENERAL: The patient is alert and oriented x3, not in any acute distress. Well developed, well nourished. HEENT: Pupils are round and equally reacting to light. EOMI. No scleral icterus. No conjunctival pallor. Normocephalic, atraumatic. No pharyngeal erythema. No thyromegaly. CARDIOVASCULAR: S1 and S2 present. No murmurs, rubs, or gallops. PULMONARY: Chest is clear to auscultation, no wheezing or crackles. ABDOMEN: Soft, nontender, nondistended, normoactive bowel sounds. No palpable organomegaly. MUSCULOSKELETAL: No joint swelling or deformity. EXTREMITIES: No cyanosis, clubbing, or pedal edema. NEUROLOGICAL: Gross neurological examination did not reveal any focal deficits. SKIN: No rashes. WOUND: Please defer to surgical assessment. FINAL DIAGNOSES: 1. Acute gluteal abscess, which was drained. 2. Severe hyponatremia. 3. Hyperkalemia secondary to acute renal failure. 4. Hypertension. 5. Hypothyroidism. 6. Psychosis and patient has a legal guardian. 7. Depression. 8. Nicotine dependence. 9.Sepsis due to to assessment number1 Patient received a PICC line. Patient is being discharged today in stable medical condition. Acute renal failure secondary to above mentioned reasons. Stable medical condition to subacute rehabilitation. Activity as tolerated. Low potassium, low sodium diet. Please refer to my depart summary for further details of discharge medications. Patient will follow up with Dr. Hi Disla in subacute rehab. Activity as tolerated. Cardiac diet. Spent greater than 35 minutes in total discharge process. Followups include, patient will follow with Dr. Krueger in one week; Dr. Monte in one week; Dr. Hanson in 3 weeks. Spent greater than 35 minutes in total discharge process. MTDD
--- NOTE | 2016-06-18 12:50 | XR ---
EXAMINATION TYPE: XR chest 1V DATE OF EXAM: 06/18/2016 12:14 PM COMPARISON: 06/08/2016 HISTORY: 60-year-old female shortness of breath, rule out CHF TECHNIQUE: Single frontal view of the chest is obtained. FINDINGS: Rightward patient rotation ultrasound and normal cardiac mediastinal contours. Left PICC tip at the l ower SVC. The heart appears borderline to mildly enlarged. Diffuse interstitial prominence and some peribronchi al cuffing appears new. There is blunting of the right costophrenic angle now noted. IMPRESSION: Borderline to mild cardiomegaly with accentuated interstitium as compared to prior. Correlate for mil d CHF with pulmonary vascular congestion. Possible trace right pleural effusion.
--- NOTE | 2016-06-18 13:53 | P.PN ---
Progress Note - Text The patient has been cleared for discharge to [facility] with IV antibiotics
--- NOTE | 2016-06-18 13:54 | P.DS ---
Providers Date of admission: 06/07/16 18:29 Expected date of discharge: 06/18/16 Attending physician: Aleksandar Monte Consults: 06/07/16 22:44 Consult Physician Routine Consulting Provider: Sarah Hanson Consult Reason/Comments: Large Left Gluteal abscess Do you want consulting provider notified?: Yes 06/13/16 11:49 Consult Physician Urgent Consulting Provider: Linda Tim Consult Reason/Comments: renal failure Do you want consulting provider notified?: Yes 06/13/16 14:55 Consult Physician Stat Consulting Provider: Bull Vargas Consult Reason/Comments: schizophrenia, patient resisting care Do you want consulting provider notified?: Already Contacted Primary care physician: Stated None Hospital Course: The patient was seen by Dr. Monte in the office with findings of a large gluteal abscess and was admitted to the hospital. She underwent incision and drainage. Her course was complicated by the fact she was noncompliant with many medical recommendations due to pre-existing paranoid schizophrenia. By 114 however a PICC line had been placed and she was felt to be stable for discharge Procedures: Incision and drainage of abscess Patient Condition at Discharge: Fair Plan - Discharge Summary New Discharge Prescriptions: Ceftaroline Fosamil [Teflaro] 200 mg IVPB Q12H 21 Days Discharge Medication List Levothyroxine Sodium [Synthroid] 125 mcg PO DAILY 06/07/16 [History] Metoprolol Succinate (ER) [Toprol XL] 100 mg PO DAILY 06/07/16 [History] fluPHENAZine DECANOATE [Prolixin Decanoate] 50 mg IM WEEKLY 06/07/16 [History] Miconazole Nitrate [Monistat 3 Vaginal] 200 mg VAGINAL HS supp.vag 06/15/16 [Rx ] Sodium Bicarbonate Tab 650 mg PO QID tab 06/15/16 [Rx] Ipratropium-Albuterol Nebulize [Duoneb 0.5 mg-3 mg/3 ml Soln] 3 ml INHALATION Q4H PRN #0 ampul.neb 06/17/16 [Rx] Ipratropium-Albuterol Nebulize [Duoneb 0.5 mg-3 mg/3 ml Soln] 3 ml INHALATION RT -QID ampul.neb 06/17/16 [Rx] Ceftaroline Fosamil [Teflaro] 200 mg IVPB Q12H 21 Days 06/18/16 [Rx] traMADol HCl [Ultram] 50 mg PO QID PRN #30 tab 06/18/16 [Rx] Follow up Appointment(s)/Referral(s): Hi Disla MD [REFERRING] - 3 Days ([facility] Enrique Martinez MD [REFERRING] - 3 Days (after dc from [facility]) Nicolas Johnson MD [STAFF PHYSICIAN] - 1 Week Aleksandar Monte MD [STAFF PHYSICIAN] - 1 Week Sarah Hanson MD [STAFF PHYSICIAN] - 3 Weeks Ambulatory/Diagnostic Orders: Basic Metabolic Panel [LAB.AMB] Time Frame: 3 Days, Location: Determined By Patient Patient Instructions/Handouts: How to Stop Smoking (DC) Activity/Diet/Wound Care/Special [facility]ructions[facility] Ce[facility] picc line as per ID. wound care daily to left buttock: aquacel ag cover with ABD DIet: Renal Diet, encourage oral intake, fluid intake Activity: as tolerated. CBC,Bmp: results to dr. johnson's office Discharge Disposition: TRANSFER TO SNF/F
[2016-06-20] MEDS ORDERED: fluPHENAZine DECANOATE 25 MG/ML 5ML MDV IM SCH (09:00)
--- NOTE | 2016-06-21 13:01 | P.PN ---
Progress Note - Text Patient had evidence of sepsis in view of large abscess, leucocytosis, Hypotension & Acute Renal Failure.
--- NOTE | 2016-06-28 11:46 | CDI ---
In responding to this query, please exercise your independent professional judgment. The [facility] Coding Staff and Clinical Documentation Specialists appreciate your assistance in clarifying documentation, maintaining compliance with coding guidelines, accurately documenting patients condition and capturing severity of illness. The fact that a question is asked does not imply that any particular answer is desired or expected. Communication forms are a method of clarifying documentation and are not made part of the Legal Health Record. Thank you in advance for your clarification. Last Revision, April 2015 Vipul Carrillo [address] [facility] [place] [address] Documentation Clarification Form Date: 06/08/2016 3:03:00 PM From: Oly Rosario Admit Date: 06/07/2016 6:29:00 PM Patient Name: Lisset Edmonds Visit Number: [id number] Discharge Date: 06/18/2016 Dr. Aleksandar Monte Per your progress notes/operative note, a debridement was performed on 06/08/2016. History/Risk Factors: Abscess with Cellulitis and necrotic tissue Previous refusal of medical management treatment Clinical Indicators: OP note states 'extensive debridement of abscess left gluteal area' performed on 06/08 Tunneling noted on OP note 'Necrotic tissue including skin and subcutaneous tissues and some superficial fascia accomplished down to healthy tissue' per OP note Treatment: Irrigation and packing of area IV Levaquin and IV Flagyl IV fluids Five elements required for accurate and compliant documentation of a debridement : 1. Technique used (e.g., excisional, excised, cutting, etc.) 2. Instrument(s) used (e.g., scalpel, curette, etc.) 3. Nature of the tissue removed (e.g., necrotic, devitalized tissues, non- viable tissue, etc.) 4. Appearance and size of the wound (e.g., down to fresh bleeding tissue, 7cm x 10cm, etc.) 5. Depth of the debridement* (e.g., skin, subcutaneous tissue, fascia, muscle , bone, etc.) In order to capture the severity of condition and code the appropriate procedure could you please document the following: Excisional debridement (the removal of necrotic, devitalized tissue or slough by means of cutting away of tissue) Non-excisional debridement (the removal of necrotic, devitalized tissue or slough by means of flushing, brushing, or washing. (Irrigation) Other; with explanation for clinical findings Unable to determine (no explanation for clinical findings) Please document in your progress notes and discharge summary in order to capture severity of illness and risk of mortality. Include clinical findings that support your diagnosis. FYI: Press F11 to launch patient chart. Place X here if this finding has no clinical significance, is not applicable or if you are not able to provide any additional documentation. CHICA
--- NOTE | 2016-07-05 14:04 | CDI ---
In responding to this query, please exercise your independent professional judgment. The [facility] Coding Staff and Clinical Documentation Specialists appreciate your assistance in clarifying documentation, maintaining compliance with coding guidelines, accurately documenting patients condition and capturing severity of illness. The fact that a question is asked does not imply that any particular answer is desired or expected. Communication forms are a method of clarifying documentation and are not made part of the Legal Health Record. Thank you in advance for your clarification. Last Revision, April 2015 Vipul Carrillo [address] [place] [address] Documentation Clarification Form Date: 06/08/2016 3:03:00 PM From: Oly Rosario Admit Date: 06/07/2016 6:29:00 PM Patient Name: Lisset Edmonds Visit Number: [id number] Discharge Date: 06/18/2016 Dr. Aleksandar Monte Per your progress notes/operative note, a debridement was performed on 06/08/2016. History/Risk Factors: Abscess with Cellulitis and necrotic tissue Previous refusal of medical management treatment Clinical Indicators: OP note states 'extensive debridement of abscess left gluteal area' performed on 06/08 Tunneling noted on OP note 'Necrotic tissue including skin and subcutaneous tissues and some superficial fascia accomplished down to healthy tissue' per OP note Treatment: Irrigation and packing of area IV Levaquin and IV Flagyl IV fluids Five elements required for accurate and compliant documentation of a debridement : 1. Technique used (e.g., excisional, excised, cutting, etc.) 2. Instrument(s) used (e.g., scalpel, curette, etc.) 3. Nature of the tissue removed (e.g., necrotic, devitalized tissues, non- viable tissue, etc.) 4. Appearance and size of the wound (e.g., down to fresh bleeding tissue, 7cm x 10cm, etc.) 5. Depth of the debridement* (e.g., skin, subcutaneous tissue, fascia, muscle , bone, etc.) In order to capture the severity of condition and code the appropriate procedure could you please document the following: Excisional debridement (the removal of necrotic, devitalized tissue or slough by means of cutting away of tissue) Non-excisional debridement (the removal of necrotic, devitalized tissue or slough by means of flushing, brushing, or washing. (Irrigation) Other; with explanation for clinical findings Unable to determine (no explanation for clinical findings) Please document in your progress notes and discharge summary in order to capture severity of illness and risk of mortality. Include clinical findings that support your diagnosis. FYI: Press F11 to launch patient chart. Place X here if this finding has no clinical significance, is not applicable or if you are not able to provide any additional documentation. CHICA
--- NOTE | 2016-07-22 08:20 | OP ---
DATE OF SERVICE: SURGEON: DAKOTA PEMBERTON MD MAGAZINE FILLER: PREOPERATIVE DIAGNOSIS: Large left gluteal abscess with gangrenous changes. POSTOPERATIVE DIAGNOSIS: Large left gluteal abscess with gangrenous changes. OPERATION: Incision and drainage with extensive debridement of abscess and necrotic tissue left gluteal area. ANESTHESIA: General. ESTIMATED BLOOD LOSS: SPECIMENS REMOVED: COMPLICATIONS: OPERATIVE FINDINGS: INDICATIONS: The patient is a 61-year-old white female with bipolar disorder who developed abscess at least 2 or 3 weeks ago. Declined medical treatment at the extended care facility that she lives at. Eventually presented to the office and was hospitalized and she eventually agreed to surgical intervention and informed consent was obtained. The procedure having been explained to her including potential complications particularly of bleeding, infection, recurrent symptoms, prolonged healing, drainage, etc. She understood and agreed to proceed. DESCRIPTION OF PROCEDURE: With the patient in the left lateral position, the area was prepped with Betadine and draped. It was noted a large abscess in the left gluteal area within a few centimeters from the anal orifice, extending and tunneling inferiorly as well as superiorly. There was a large amount of necrotic fibrinous exudate and blackish gangrenous tissue, the subcutaneous tissue as well as superficial muscle fascia. The wound was at least about 15 to 16 cm in diameter. All of the necrotic, devitalized, nonviable and gangrenous skin and subcutaneous tissues with a lot of fibrinous exudate was excised that was covering the abscess to allow for better drainage and healing. Scalpel blade was mostly used and hemostasis secured with electrocautery. The excision and debridement was carried down to the fresh bleeding tissue that was overlying the muscle tissues. The tissue excised was skin and subcutaneous tissue as well as superficial muscle fascia. The wound thoroughly irrigated. Hemostasis was good and the field was dry. Estimated blood loss was about 20 mL. The patient remained stable. The wound was packed with moist gauze and ABD pads. She was transferred to the recovery room in good and stable condition.
== END 2016-06-18 13:46 | DRG 853 ==
LOC: 4MS4W 18:29
PROVIDERS: ADMIT Surgery; ATTEND Surgery
PROC: 0JB90ZZ Excision of Buttock Subcutaneous Tissue and Fascia, Open Approach (ICD-10-PCS; 2016-06-08)
PROC: B5181ZA Fluoroscopy of Superior Vena Cava using Low Osmolar Contrast, Guidance (ICD-10-PCS; principal; 2016-06-16 13:12)
PROC: B548ZZA Ultrasonography of Superior Vena Cava, Guidance (ICD-10-PCS; principal; 2016-06-16 13:12)
PROC: 02HV33Z Insertion of Infusion Device into Superior Vena Cava, Percutaneous Approach (ICD-10-PCS; principal; 2016-06-16 13:12)
DX: A41.9 Sepsis, unspecified organism (principal); N17.0 Acute kidney failure with tubular necrosis; F03.90 Unspecified dementia, unspecified severity, without behavioral disturbance, psychotic disturbance, mood disturbance, and anxiety; K75.9 Inflammatory liver disease, unspecified; I96 Gangrene, not elsewhere classified; E87.1 Hypo-osmolality and hyponatremia; F20.0 Paranoid schizophrenia; F23 Brief psychotic disorder; K61.1 Rectal abscess; L02.31 Cutaneous abscess of buttock; N39.0 Urinary tract infection, site not specified; E83.51 Hypocalcemia; E03.9 Hypothyroidism, unspecified; B95.62 Methicillin resistant Staphylococcus aureus infection as the cause of diseases classified elsewhere; E86.0 Dehydration; E86.1 Hypovolemia; E87.5 Hyperkalemia; E88.09 Other disorders of plasma-protein metabolism, not elsewhere classified; F17.210 Nicotine dependence, cigarettes, uncomplicated; F31.9 Bipolar disorder, unspecified; I10 Essential (primary) hypertension; M19.90 Unspecified osteoarthritis, unspecified site; T36.8X5A Adverse effect of other systemic antibiotics, initial encounter; Z79.2 Long term (current) use of antibiotics; Z87.440 Personal history of urinary (tract) infections; Z88.0 Allergy status to penicillin; Z91.19 Patient's noncompliance with other medical treatment and regimen; Z79.1 Long term (current) use of non-steroidal anti-inflammatories (NSAID); Z79.899 Other long term (current) drug therapy
CPT/HCPCS: 36569; 71010; 76937; 77001; 80048; 80051; 80053; 80202; 81001; 82570; 84300; 84703; 85025; 87040; 87070; 87075; 87077; 87186; 87205; 93005

== ENCOUNTER 2016-08-15 13:30 | Inpatient (IN) | payer MEDICARE, MEDICAID ==
[2016-08-15] MEDS ORDERED: cloNIDine HCL 0.1 MG TAB PO STA (14:21)
--- NOTE | 2016-08-15 14:48 | ED ---
Psych HPI - General Chief Complaint: Psychiatric Symptoms Stated Complaint: MENTAL HEALTH Time Seen by Provider: 08/15/16 14:15 Source: EMS Mode of arrival: EMS - History of Present Illness Initial Comments: This 61-year-old female presents for further psychiatric evaluation. She, per records, apparently has been somewhat uncooperative, anxious, and yelling at staff at [facility]. She apparently is court ordered per nursing staff to take her psychiatric medications but has not been taking the medications. She does relate that she does not want to take the medications as she does not want to rock out her liver. She denies any actual suicidal or homicidal ideations. She has no medical complaints. Per old records, she does have a history of schizophrenia and is on antipsychotics. She states that has an implant in her head and that the group staff can repeat her mind. She denies any auditory or visual hallucinations. No other complaints or modifying factors. - Related Data Home Medications Medication Instructions Recorded Confirmed Levothyroxine Sodium [Synthroid] 125 mcg PO DAILY 06/07/16 08/15/16 Metoprolol Succinate (ER) [Toprol 100 mg PO DAILY 06/07/16 08/15/16 XL] fluPHENAZine DECANOATE [Prolixin 50 mg IM MO 06/07/16 08/15/16 Decanoate] Ipratropium-Albuterol Nebulize 3 ml INHALATION RT-Q4H PRN 08/15/16 08/15/16 [Duoneb 0.5 mg-3 mg/3 ml Soln] amLODIPine [Norvasc] 5 mg PO DAILY 08/15/16 08/15/16 Previous Rx's Medication Instructions Recorded traMADol HCl [Ultram] 50 mg PO QID PRN #30 tab 06/18/16 Allergies Allergy/AdvReac Type Severity Reaction Status Date / Time Penicillins Allergy Anaphylaxis Verified 08/15/16 14:24 Review of Systems ROS Statement: Those systems with pertinent positive or pertinent negative responses have been documented in the HPI. ROS Other: All systems not noted in ROS Statement are negative. Past Medical History Past Medical History: Hypertension, Thyroid Disorder Additional Past Medical History / Comment(s): UTI, arthritis, dental abscess, muscle weakness History of Any Multi-Drug Resistant Organisms: MRSA Date of last positivie culture/infection: 06/07/16 MDRO Source:: Buttock Past Surgical History: Cholecystectomy, Uterine Ablation Past Anesthesia/Blood Transfusion Reactions: No Reported Reaction Past Psychological History: Anxiety, Depression, Panic Disorder, Schizoaffective Disorder, Schizophrenia Additional Psychological History / Comment(s): LIVES AT [facility] [phone], IS INDEPENDANT WHEN UP. Smoking Status: Current every day smoker Past Alcohol Use History: None Reported Additional Past Alcohol Use History / Comment(s): PT STATED SHE SMOKES 1 CIG EVERY HOUR FROM THE HOURS OF 6AM TILL 11 PM Past Drug Use History: None Reported - Past Family History Mother Family Medical History: No Reported History Father Family Medical History: No Reported History General Exam - General Exam Comments Initial Comments: GENERAL: The patient is well nourished and well hydrated. VITAL SIGNS: Heart rate, blood pressure, respiratory rate reviewed as recorded in nurse's notes. EYES: Pupils are round and reactive. Extraocular movements are intact. No conjunctival / lid redness or swelling. ENT: No external evidence of injury, swelling, or ecchymosis. Airway is patent. Throat is clear. NECK: Nontender. No swelling or evidence of injury. No subcutaneous emphysema. Trachea is midline. No thyroid mass. HEART: Regular rate and rhythm. Good peripheral pulses. LUNGS/CHEST: Breath sounds clear and equal bilaterally. No rales, rhonchi, or wheezes. No ecchymosis, subcutaneous emphysema, or tenderness. ABDOMEN: Abdomen soft without tenderness. No palpable masses or organomegaly. No peritoneal signs. No abdominal wall swelling or ecchymosis. EXTREMITIES: No extremity tenderness. Normal muscle tone and function. No thoracolumbar tenderness. NEUROLOGIC: Sensation is grossly intact. Cranial nerve exam reveals face is symmetrical, tongue is midline, speech is clear. SKIN: No abrasions or ecchymosis is noted. No induration or masses noted. PSYCHIATRIC: Alert and in no psychiatric distress. There is no overt anxiety or depression noted. Limitations: no limitations Course Vital Signs 08/15/16 08/15/16 08/15/16 13:41 14:32 17:17 Temperature 97.6 F 97.3 F L Pulse Rate 65 64 Respiratory 18 18 Rate Blood Pressure 187/103 158/77 160/90 O2 Sat by Pulse 97 96 Oximetry Medical Decision Making - Medical Decision Making The patient was seen and examined. The breath alcohol test is negative. Her blood pressure was somewhat elevated at 187/103 initially and lower on recheck. She received 0.1 mg of clonidine. It is felt as though the patient is medically cleared for further psychiatric evaluation. The psychiatric team will be contacted. They did evaluate the patient and would like to admit her to the psychiatric [facility] for further treatment. She is transferred to the psychiatric floor without further incident. - Lab Data Lab Results 08/15/16 Range/Units 15:00 Urine Opiates Screen Not Detected (NotDetected) Ur Oxycodone Screen Not Detected (NotDetected) Urine Methadone Screen Not Detected (NotDetected) Ur Propoxyphene Screen Not Detected (NotDetected) Ur Barbiturates Screen Not Detected (NotDetected) U Tricyclic Antidepress Not Detected (NotDetected) Ur Phencyclidine Scrn Not Detected (NotDetected) Ur Amphetamines Screen Not Detected (NotDetected) U Methamphetamines Scrn Not Detected (NotDetected) U Benzodiazepines Scrn Not Detected (NotDetected) Urine Cocaine Screen Not Detected (NotDetected) U Marijuana (THC) Screen Not Detected (NotDetected) Disposition Clinical Impression: Chronic schizophrenia, Noncompliance with medication regimen, Acute psychosis, Hypertension Disposition: ADMITTED IP TO THIS [facility] Time of Disposition: 17:29 Decision Date: 08/15/16 Decision Time: 17:29
[2016-08-15] MEDS ORDERED: MAG HYDROX/AL HYDROX/SIMETH 30 ML CUP PO PRN (18:27)
[2016-08-15] MEDS ORDERED: ACETAMINOPHEN TAB 325 MG TAB PO PRN (18:27)
[2016-08-15] MEDS ORDERED: MAGNESIUM HYDROXIDE 2,400 MG/10 ML CUP PO PRN (18:27)
[2016-08-15] MEDS ORDERED: traMADol 50 MG TAB PO PRN (18:55)
[2016-08-15] MEDS ORDERED: IPRATROPIUM-ALBUTEROL 3 ML NEB INHALATION PRN (18:57)
[2016-08-15] MEDS ORDERED: NICOTINE POLACRILEX 2 MG GUM BUCCAL PRN (18:58)
[2016-08-15] MEDS ORDERED: ZINC OXIDE 20% OINT 28.4 GM TUBE TOPICAL PRN (19:00)
[2016-08-15 19:24] VITALS: BP 136/94; PULSE 61; RESP 16; TEMP 97.6
[2016-08-15 19:32] VITALS: BMI 34.0
[2016-08-16] MEDS: LEVOTHYROXINE 125 MCG TAB PO SCH (06:39)
[2016-08-16] MEDS: amLODIPine 5 MG TAB PO SCH (09:21)
[2016-08-16] MEDS: METOPROLOL SUCCINATE (ER) 100 MG TAB.ER.24H PO SCH (09:21)
[2016-08-16 09:58] LABS: Appearance,Urine Clear (Clear); Bilirubin,Urine Negative (Negative); Glucose,Urine (UA) Negative (Negative); Ketones,Urine Negative (Negative); Leukocyte Esterase,Urine Negative (Negative); Nitrite,Urine Negative (Negative); Protein,Urine Negative (Negative); Specific Gravity,Urine 1.012 (1.001-1.035); UA Billing (MACRO vs. MICRO) CHEM; Urobilinogen,Urine <2.0 mg/dL (<2.0)
[2016-08-16] MEDS ORDERED: fluPHENAZine DECANOATE 25 MG/ML 5ML MDV IM ONE (11:47)
--- NOTE | 2016-08-16 12:41 | HP ---
DATE OF ADMISSION: IDENTIFYING INFORMATION: Patient is a 61-year-old female, who was brought to the emergency room on court order for treatment. HISTORY OF PRESENT ILLNESS: The patient has long history of mental illness since age 15 and noncompliance with treatment. Patient is a very poor historian, so I did review her old record. In addition, I did review her [facility] record. Patient was on Prolixin Decanoate 50 mg IM; however, her last injection it was in April 2016. Patient was recently [facility] from [facility] medical [facility]; however, she has been noncompliant with any oral medication. She stated "I'm not crazy and I don't need any medication." She has some paranoia and suspicious feeling toward long term staff, but she denied any auditory or visual hallucination. This morning when I approached her she was sitting, looking at magazine, she said, "I don't need to be here, and I am not taking any medications. I'm not crazy and my sister will come to pick me up." Patient has a guardian and she has been in different group homes at least since 2006. Prior to this, according to the old records she was not able to be independent. She was not functioning, even she was arrested in 2006 for trespassing. Her home medications includin. Synthroid 125 mg daily. 2. Toprol 100 mg daily. 3. Prolixin decanoate 50 mg IM; however, she has been noncompliant with it for the last 3 months. 4. Ultram 50 mg 4 times a day p.r.n. for pain. 5. Amlodipine 5 mg daily. Allergy to PENICILLIN. PAST MEDICAL HISTORY: History of hypertension, hypothyroidism, arthritis. The last time she did test positive for MRSA was June 07, 2016 and the source is from abscess in the gluteal area. PAST SURGICAL HISTORY: Cholecystectomy and uterine ablation. Vital signs at the time of the admission, temperature 97.3, pulse 64, respiration 18, blood pressure 160/90, oxygen saturation 96. The lab work-up, urine drug screen is negative. When she presented to the ER, her blood pressure was up to 187/103 and she did receive 0.1 mg of clonidine or Catapres. Regarding past psychiatric history, there is multiple psychiatric inpatient hospitalizations with diagnosis of schizophrenia, extensive history of poor compliance with medication. She has chronic delusional thoughts and very guarded and suspicious with staff with very poor ADLs. Regarding social history and family history of psychiatric illness, I was unable to obtain any further history from the patient at this time as she is uncooperative. MENTAL STATUS EXAMINATION: Patient was sitting on the table watching or looking at magazine. When I did ask her why she is not taking her medication in very angry voice she said, "I'm not crazy and I don't want to talk to you." Patient is easily agitated and irritable, but easy to redirect and she kept repeating the same things that she did not have any desire to talk to me and she wanted to be left alone. Patient was ambulating on her own, her gait is steady without any assistance, but her personal hygiene and grooming are impaired and very poor, body odor. Affect is angry, but she did answer no regarding she denied any suicidal or homicide ideation. She denied having any hallucination. She kept saying, "Most of the long term staff are liars." I did not notice any tremor or shuffling gait or drooling. She has no insight and judgment is very poor regarding the need for medication. DIAGNOSES: 1. Schizophrenia, paranoid type. 2. Poor compliance with medication. 3. Severe psychosocial dysfunction due to her chronic mental illness. INTELLECTUAL FUNCTION: Below average. WEAKNESS: Chronic mental illness, limited support system, poor compliance with medication. PLAN: Patient will be given one injection of Prolixin Decanoate 50 mg IM today. I will continue her on Prolixin injection. Patient is court order for treatment until of February 2017. Patient will be encouraged to take care of her basic hygiene. Will have medical consultation as the patient seems at baseline. After medical consultation, patient will be discharged to a long term, especially she denied any suicidal or homicide ideation. Her prognosis appears to be very guarded to poor.
[2016-08-16 16:25] LABS: Calcium 9.3 mg/dL (8.4-10.2); Potassium 4.7 mmol/L (3.5-5.1); Total Bilirubin 0.8 mg/dL (0.2-1.3); Total Protein 7.4 g/dL (6.3-8.2)
--- NOTE | 2016-08-16 17:50 | CONS ---
DATE OF CONSULTATION: 08/16/2016 REASON FOR CONSULTATION: Advice regarding gluteal abscess and other multiple medical issues requested by Dr. Murillo. HISTORY OF PRESENT ILLNESS: This 61-year-old woman with a past medical history of multiple medical issues such as hypertension, history of hypothyroidism, history of degenerative joint disease, history of abdominal abscess, muscle weakness, MRSA, anxiety, depression, panic disorder, schizoaffective disorder, schizophrenia being followed by Dr. Beltre in [facility] has presented with gluteal abscess. Please note recently the patient had gluteal abscess, which was drained by surgery. The patient currently still has some indurated areas. Otherwise there is no history of fever, rigors. No history of headache, loss of consciousness, seizures, chest pain, palpitations at this time. The baseline labs are not available. PAST MEDICAL HISTORY: History of hypertension, history of hypothyroidism, history of DJD, abdominal abscess, history of anxiety, depression, panic disorder, schizoaffective disorder, schizophrenia. The medications prior to admission include: 1. Ultram 50 mg q.i.d. p.r.n. 2. Prolixin 50 mg IM every month. 3. Norvasc 5 mg p.o. daily. 5. Synthroid 125 mcg p.o. daily. 6. DuoNeb q.i.d. and q.4 p.r.n. ALLERGIES: PENICILLIN. FAMILY HISTORY: No history of heart disease or strokes in the family. SOCIAL HISTORY: Smoking on a daily basis. No history of alcohol intake. REVIEW OF SYSTEMS: ENT: No diminished hearing. No diminished vision. CARDIOVASCULAR: No angina or palpitations. RESPIRATORY: As mentioned earlier. GI: As mentioned earlier. : No dysuria. NERVOUS SYSTEM: No numbness or weakness. ALLERGY/IMMUNOLOGY: No asthma or hayfever. MUSCULOSKELETAL: As mentioned earlier. HEMATOLOGY/ONCOLOGY: No history of anemia. ENDOCRINE: Hypothyroidism. CONSTITUTIONAL: As mentioned earlier. DERMATOLOGY: Negative. RHEUMATOLOGY: Negative. PSYCHIATRY: As mentioned earlier. PHYSICAL EXAMINATION: Patient is alert and oriented x3. Pulse 61, blood pressure 137/94, respirations 16, temperature 97.6, pulse ox 90% on room air. HEENT: Conjunctivae normal. Oral mucosa moist. NECK: No jugular venous distention. No carotid bruit. No lymph node enlargement. CARDIOVASCULAR: S1, S2. No S3, no S4. RESPIRATORY: Breath sounds diminished at the bases. A few scattered rhonchi. No crackles. ABDOMEN: Soft, obese, nontender. No mass palpable. LEGS: No edema, no swelling. EXAMINATION OF THE GLUTEAL AREA: Some indurated erythematous area present. Rule out active gluteal abscess. NERVOUS SYSTEM: Higher function as mentioned. Moves all four limbs. No focal motor deficits. LYMPHATIC: No lymphadenopathy in the neck, axillae or groin. SKIN: No ulcer, rash or bleeding. LABS: Drug screen is negative. UA is also negative. ASSESSMENT: 1. Rule out gluteal abscess recurrence. 2. History of hypertension. 3. History of hypothyroidism. 4. History of urinary tract infection. 5. History of degenerative joint disease. 6. History of dental abscess. 7. History of muscle weakness. 8. History of cholecystectomy. 9. History of anxiety, depression, panic disorder, schizoaffective and schizophrenia. 10. History of continued ongoing nicotine dependence. RECOMMENDATIONS AND DISCUSSION: In this 61-year-old woman who presented with multiple complex medical issues, will monitor the patient closely, continue the current medications and symptomatic treatment. I recommend Infectious Disease evaluation. The patient also reports occasion diarrhea especially with antibiotics. I will also supplement probiotic and as well as yogurt in case of diarrhea. Otherwise, will follow the patient closely. Resume the rest of the medications. DVT prophylaxis. The patient will be asked to follow with primary physician closely. Thank you Dr. Murillo for letting us participate in this patient's care. CHICA
[2016-08-17] MEDS: LEVOTHYROXINE 125 MCG TAB PO SCH (05:40)
--- NOTE | 2016-08-17 07:51 | CONS ---
DATE OF CONSULTATION: DATE OF SERVICE: 08/16/2016 REASON FOR CONSULTATION: Left gluteal wound. HISTORY OF PRESENT ILLNESS: The patient is a 61-year-old female with past medical history significant for a left gluteal abscess that required extensive surgical debridement. Cultures were positive MRSA. Patient was treated with IV vancomycin. Did develop renal insufficiency hence antibiotic was switched over to daptomycin. Patient did have subsequent improvement in her kidney function afterwards and has been following with us in the wound care center for the local wound care. She has been previously tried on Aquacel Silver, which the patient has not be using. His last wound care has been Triad cream. Patient has been admitted to the psych unit of [facility] after the patient was noted to be uncooperative, anxious and yelling at the staff. The nursing staff at that facility did document that patient had not been taking her medication. Subsequently, the patient has been admitted to the psych unit for further treatment of her underlying paranoia and mental condition. As the patient did have a nonhealing wound to the left gluteal area, I was asked to see the patient for further recommendation if the patient needs any antibiotics or any further local wound care. The patient denies any significant pain to the left gluteal area or any drainage from it. Denies any chest pain, shortness of breath, cough. No abdominal pain or any diarrhea. REVIEW OF SYSTEMS: CONSTITUTIONAL: Positive for weakness. No fever. EYES: No complaint. ENT: No complaint. RESPIRATORY: No complaint. CARDIOVASCULAR: No complaint. GENITOURINARY: No complaint. GASTROINTESTINAL: No complaint. MUSCULOSKELETAL: No complaint. INTEGUMENTARY: As per HPI. PSYCHOLOGICAL: As per HPI. NEUROLOGICAL: No complaint. PAST MEDICAL HISTORY: Hypertension, hypothyroidism, degenerative joint disease, anxiety, schizoaffective disorder, schizophrenia, depression and panic disorder, MRSA gluteal abscess and renal failure secondary to vancomycin. PAST SURGICAL HISTORY: Extensive debridement of the left gluteal abscess. SOCIAL HISTORY: Currently a resident of [facility]. No history of smoking, drinking, or drug use. FAMILY HISTORY: No pertinent findings noticed. Allergies to PENICILLIN. Medications currently include the patient is on Tylenol, Maalox, DuoNeb, Norvasc, Synthroid, Toprol XL, nicotine gum and Ultram. On examination, blood pressure is 136/94 with a pulse of 61, temperature 97.6. She is 96% on room air. General description is a middle-age female lying in bed in no distress. HEENT EXAMINATION: No pallor or scleral icterus. Oral mucous membrane is dry. NECK: Trachea central. There is no thyromegaly. LUNGS: Unlabored breathing. Clear to auscultation anteriorly. HEART: S1, S2, regular rate and rhythm. ABDOMEN: Soft, no tenderness. Examination of the left gluteal wound in the presence of the RN did show overall wound has decreased in size. No significant slough tissue. No surrounding erythema or any foul smelling drainage. NEUROLOGICAL: The patient is awake and alert, oriented x2. Mood and affect normal. LABS: BUN 30 with a creatinine 1.44. UA has been negative. Urine drug screen was negative. DIAGNOSTIC IMPRESSION AND PLAN: Patient with left gluteal wound, nonhealing, which surgical drainage of an abscess currently with no evidence of any cellulitis. Hence, will recommend local wound care only and no need for any systemic antibiotic therapy as the patient is not running a fever and did not have elevated white count and no local signs of infection. PLAN: 1. Will recomend Aquacel Silver dressing to apply to the wound daily. 2. No need for any systemic antibiotic. 3. Will follow up on clinical condition to further adjust medication if needed. Thank you for this consultation. Will follow this patient along with you. CHICA
[2016-08-17] MEDS: amLODIPine 5 MG TAB PO SCH (09:53)
[2016-08-17] MEDS: METOPROLOL SUCCINATE (ER) 100 MG TAB.ER.24H PO SCH (09:54)
[2016-08-17 10:09] LABS: Basophils % (A) 0 %; CH 34.6; CHCM 34.9; Eosinophils # (A) 0.1 k/uL (0-0.7); Eosinophils % (A) 1 %; HCT 36.5 % (34.0-46.0); HDW 2.92; HGB 12.1 gm/dL (11.4-16.0); Luc # (Auto) 0.14; Luc % (Auto) 3; Lymphocytes # (A) 1.3 k/uL (1.0-4.8); Lymphocytes % (A) 27 %; MCHC 33.1 g/dL (31.0-37.0); MCV 99.8 fL (80.0-100.0); Mean Platelet Volume 7.8; Monocytes # (A) 0.2 k/uL (0-1.0); Monocytes % (A) 5 %; Neutrophils % (A) 64 %; RBC 3.66 m/uL (3.80-5.40); WBC 4.7 k/uL (3.8-10.6); WBC (Perox) 4.97
--- NOTE | 2016-08-18 07:46 | DS ---
DATE OF ADMISSION: 08/15/2016 DATE OF DISCHARGE: 08/17/2016 CONSULT PHYSICIAN: Routine. CONSULT PROVIDER: Dr. Sahu. CONSULT REASON: Medical management. ANOTHER CONSULT: Infectious disease, Dr. Sarah Hanson. DISCHARGE DIAGNOSES: 1. Schizophrenia, paranoid type, chronic in partial remission. 2. Poor compliance with medication. BRIEF SUMMARY OF THE ADMISSION NOTE: Patient was admitted to the mental health unit as she is on court order for treatment until February 2017. Patient has extensive history of mental illness and she was at [facility] for rehab, however, she was noncompliant with recommendation, paranoia, suspicious and she was brought here to be sure that she would take her injection and as she was not a candidate for [facility], [facility] was able to find care home for her. For complete psychosocial history and medical history, please refer that to my history and physical examination. HOSPITAL COURSE: The patient has been uncooperative and she was very disheveled, unkempt, severe body odor as she was refusing to take care of her hygiene when she was in [facility]. When she came to the floor, I did give her injection of Prolixin Decanoate 50 mg IM and we did consult Dr. Sahu who saw the patient and he did recommend infectious disease consultation. According to his initial assessment, he stated that we need to rule out gluteal abscess recurrence. Also he stated that it seems that the patient has recurrent diarrhea that it might be secondary from oral antibiotic so he did recommend to supplement the patient with Probiotic as well as yogurt with close followup. Patient was seen by Dr. Sarah Hanson on August 16 and according to his assessment and impression, he stated that the patient had left gluteal wound, it is nonhealing. Currently, there is no evidence of any cellulitis so he did recommend local wound care only. He stated that there is no need for any systemic antibiotic therapy as the patient is not running fever and also does not have any elevated white count and there is no local sign of infection. He did order silver dressing to apply to the wound daily for 2 weeks. Patient was compliant with all her oral medications on our unit and she was taking care of her ADL; however, with a lot of reinforcement and encouragement. She did not participate in any group or any milieu activity. I did discuss her condition with [facility] liaison, and with the team and it seems that patient did reach basic function level and she is appropriate to be transferred to care home for outpatient followup. THE MENTAL STATUS EXAMINATION AT THE TIME OF THE DISCHARGE: Overweight white female who is missing her front teeth. She was not irritable or angry; however, she refused to talk to me. Most of her answers it is one-word answer. She denied having any suicidal or homicidal ideation. Her speech is disorganized and jumping from one topic to another. She denied having hallucinations, but there is some underlying paranoia, suspicious feeling. She was able to ambulate on her own and her gait is steady. Her personal hygiene and grooming slightly improved than a couple of days ago. Her insight and judgment are limited. PLAN: 1. Patient will be discharged from the mental health unit today to a care home. 2. I did order home care for the next 2 weeks for wound change. 3. Patient was given script or prescription for Prolixin Decanoate 50 mg IM, it is due on August 23. I did renew all her medication for the medical problem including Synthroid 125 mcg daily, Toprol XL 100 mg daily, Norvasc 5 mg daily; inhaler p.r.n. for shortness of breath. 4. Patient has an appointment with [facility] on August 18 at 1 p.m. 5. Patient has to see her primary care physician, Dr. Hi Disla in 1 or 2 days. Patient's condition at the time of the discharge, stable.
== END 2016-08-17 15:10 | disposition home or self-care (01) | DRG 885 ==
LOC: EC 13:30 → 3MHU 16:44
PROVIDERS: ADMIT Psychiatry & Neurology Psychiatry; ATTEND Psychiatry & Neurology Psychiatry
DX: F20.0 Paranoid schizophrenia (principal); Z91.14 Patient's other noncompliance with medication regimen; I10 Essential (primary) hypertension; E03.9 Hypothyroidism, unspecified; F17.200 Nicotine dependence, unspecified, uncomplicated; F41.0 Panic disorder [episodic paroxysmal anxiety]; Z79.899 Other long term (current) drug therapy; Z87.440 Personal history of urinary (tract) infections; Z88.0 Allergy status to penicillin; Z91.19 Patient's noncompliance with other medical treatment and regimen
CPT/HCPCS: 80053; 80306; 81003; 82075; 85025; 99285

== ENCOUNTER 2016-11-14 08:51 | Emergency (ER) | payer MEDICARE, OTHER ==
[2016-11-14 08:55] VITALS: BP 142/87; PULSE 73; RESP 20; TEMP 98.1
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
== END 2016-11-14 09:15 | disposition home or self-care (01) ==
LOC: EC 08:51
DX: L02.416 Cutaneous abscess of left lower limb (principal); Z88.0 Allergy status to penicillin; F17.200 Nicotine dependence, unspecified, uncomplicated; Z86.14 Personal history of Methicillin resistant Staphylococcus aureus infection
CPT/HCPCS: 99283

== ENCOUNTER 2017-01-14 10:14 | Emergency (ER) | payer MEDICARE, OTHER ==
--- NOTE | 2017-01-14 11:26 | ED ---
General Adult HPI - General Chief complaint: Eye Problems Stated complaint: eye drop reaction Time Seen by Provider: 01/14/17 11:04 Source: patient, RN notes reviewed Mode of arrival: ambulatory Limitations: no limitations - History of Present Illness Initial comments: Patient 61-year-old female who presents emergency room today with a chief complaint of possible reaction to eyedrops that were started yesterday for a conjunctivitis. Patient's history provided by auto body shop manager at bedside stating that she was placed on gentamicin drops yesterday. States that she woke up today noticed that there is still drainage and discharge coming from the right eye but noticed that there is some redness and some mild swelling underneath the lower eyelid. Patient denies any complaints. She states is nonpainful. She denies any visual changes. Does admit that there has been drainage coming from the right eye. Mild irritation. Patient denies any recent fever, chills, shortness of breath, chest pain, back pain, abdominal pain, nausea or vomiting, numbness or tingling, dysuria or hematuria, constipation or diarrhea, headaches or visual changes, or any other complaints. - Related Data Previous Rx's Medication Instructions Recorded Ipratropium-Albuterol Nebulize 3 ml INHALATION RT-Q4H PRN 30 Days 08/17/16 [Duoneb 0.5 mg-3 mg/3 ml Soln] Levothyroxine Sodium [Synthroid] 125 mcg PO DAILY 30 Days 08/17/16 Metoprolol Succinate (ER) [Toprol 100 mg PO DAILY 30 Days 08/17/16 XL] Zinc Oxide 20% Oint 1 applic TOPICAL BID PRN 14 Days 08/17/16 amLODIPine [Norvasc] 5 mg PO DAILY 30 Days 08/17/16 fluPHENAZine DECANOATE [Prolixin 50 mg IM MO 7 Days 08/17/16 Decanoate] Sulfamethox-Tmp 800-160Mg [Bactrim 1 tab PO Q12HR #28 tab 11/14/16 DS 800-160 mg] Erythromycin Ophth Oint [Romycin 1 applic BOTH EYES QID 7 Days 01/14/17 Ophth Oint] Allergies Allergy/AdvReac Type Severity Reaction Status Date / Time Penicillins Allergy Anaphylaxis Verified 01/14/17 10:39 Review of Systems ROS Statement: Those systems with pertinent positive or pertinent negative responses have been documented in the HPI. ROS Other: All systems not noted in ROS Statement are negative. Past Medical History Past Medical History: Hypertension, Thyroid Disorder Additional Past Medical History / Comment(s): UTI, arthritis, dental abscess, muscle weakness History of Any Multi-Drug Resistant Organisms: MRSA Date of last positivie culture/infection: 06/07/16 MDRO Source:: Buttock Past Surgical History: Cholecystectomy, Uterine Ablation Past Anesthesia/Blood Transfusion Reactions: No Reported Reaction Past Psychological History: Anxiety, Depression, Panic Disorder, Schizoaffective Disorder, Schizophrenia Smoking Status: Current every day smoker Past Alcohol Use History: None Reported Past Drug Use History: None Reported - Past Family History Mother Family Medical History: No Reported History Father Family Medical History: No Reported History General Exam - General Exam Comments Initial Comments: General: The patient is awake and alert, in no distress, and does not appear acutely ill. Eye: Pupils are equal, round and reactive to light, extra-ocular movements are intact. No nystagmus. Increased redness irritation to the right conjunctiva with a armando clear drainage. There is local redness underneath the lower eyelid. Left conjunctiva is clear. Lower eyelid does reveal a stye in the middle. Ears, nose, mouth and throat: There are moist mucous membranes and no oral lesions. Neck: The neck is supple, there is no tenderness or JVD. Cardiovascular: There is a regular rate and rhythm. No murmur, rub or gallop is appreciated. Respiratory: Lungs are clear to auscultation, respirations are non-labored, breath sounds are equal. No wheezes, stridor, rales, or rhonchi. Musculoskeletal: Normal ROM, no tenderness. Strength 5/5. Sensation intact. Pulses equal bilaterally 2+. Neurological: A&O x 3. CN II-XII intact, There are no obvious motor or sensory deficits. Coordination appears grossly intact. Speech is normal. Skin: Skin is warm and dry and no rashes or lesions are noted. Psychiatric: Cooperative, appropriate mood & affect, normal judgment. Limitations: no limitations Medical Decision Making - Medical Decision Making Patient has no complaints here in the emergency room. Her symptoms are consistent with conjunctivitis. Possible reaction towards medication. Antibiotic drops that was started yesterday and begin new antibiotic. Patient states she would like to try ointment. Patient is advised close follow-up the family doctor over the next 1-2 days. Advised return here to emergency room if any symptoms increase or worsen. Disposition Clinical Impression: Acute conjunctivitis Disposition: HOME SELF-CARE Condition: Good Instructions: Conjunctivitis (ED) Additional Instructions: Please discontinue drops that were prescribed yesterday. Please use antibiotic ointment to the eyes bilaterally. Please follow-up the family doctor next 1-2 days. Please return to emergency room if any symptoms increase or worsen or for any other concerns. Prescriptions: Erythromycin Ophth Oint [Romycin Ophth Oint] 1 applic BOTH EYES QID 7 Days Referrals: Renan Padilla DO [Primary Care Provider] - 1-2 days Time of Disposition: 11:20
== END 2017-01-14 11:47 | disposition home or self-care (01) ==
LOC: EC 10:14
DX: H10.31 Unspecified acute conjunctivitis, right eye (principal); F17.200 Nicotine dependence, unspecified, uncomplicated; Z88.0 Allergy status to penicillin
CPT/HCPCS: 99283

== ENCOUNTER 2017-08-15 11:43 | Inpatient (IN) | payer MEDICARE, MEDICAID ==
--- NOTE | 2017-08-15 12:15 | ED ---
Psych HPI - General Chief Complaint: Psychiatric Symptoms Stated Complaint: High Blood Pressure Time Seen by Provider: 08/15/17 11:57 Source: EMS Mode of arrival: EMS - History of Present Illness Initial Comments: This 62-year-old white female presents for psychiatric evaluation. She apparently [facility] a [facility]. She has been refusing her medications and also fusing to have her blood pressure taken. She states that she feels fine and has no medical or psychiatric complaints. She denies any hallucinations, delusions, depression, or anxiety. She denies any abdominal pain, chest pain, shortness breath. She states that she has no current symptoms and that she does not feel as though she needs to be here. She denies any alcohol use. She does present via [facility] from the [facility]. The [facility] staff is requesting psychiatric evaluation. Notes from her psychologist who she saw today apparently show that she has been more paranoid, delusional, agitated, and has been refusing her medications. Her blood pressure is elevated today but she apparently has been refusing her blood pressure medicine as well. She apparently is on a court ordered to take medications. History is somewhat limited as the patient will not communicate to any significant degree. - Related Data Home Medications Medication Instructions Recorded Confirmed Cholecalciferol (Vitamin D3) 2,000 unit PO DAILY 08/15/17 08/15/17 [Vitamin D3] Cyanocobalamin [Vitamin B-12] 500 mcg PO DAILY 08/15/17 08/15/17 Levothyroxine Sodium [Synthroid] 100 mcg PO DAILY 08/15/17 08/15/17 fluPHENAZine DECANOATE [Prolixin 50 mg IM Q7D 08/15/17 08/15/17 Decanoate] Previous Rx's Medication Instructions Recorded Metoprolol Succinate (ER) [Toprol 100 mg PO DAILY 30 Days tab.er.24h 08/17/16 XL] amLODIPine [Norvasc] 5 mg PO DAILY 30 Days tab 08/17/16 Allergies Allergy/AdvReac Type Severity Reaction Status Date / Time Penicillins Allergy Anaphylaxis Verified 08/15/17 13:13 Review of Systems ROS Statement: Those systems with pertinent positive or pertinent negative responses have been documented in the HPI. ROS Other: All systems not noted in ROS Statement are negative. Past Medical History Past Medical History: Hypertension, Thyroid Disorder Additional Past Medical History / Comment(s): UTI, arthritis, dental abscess, muscle weakness History of Any Multi-Drug Resistant Organisms: MRSA Date of last positivie culture/infection: 06/07/16 MDRO Source:: Buttock Past Surgical History: Cholecystectomy, Uterine Ablation Past Anesthesia/Blood Transfusion Reactions: No Reported Reaction Past Psychological History: Anxiety, Depression, Panic Disorder, Schizoaffective Disorder, Schizophrenia Smoking Status: Current every day smoker Past Alcohol Use History: None Reported Past Drug Use History: None Reported - Past Family History Mother Family Medical History: No Reported History Father Family Medical History: No Reported History General Exam - General Exam Comments Initial Comments: GENERAL: The patient is well nourished and well hydrated. VITAL SIGNS: Heart rate, blood pressure, respiratory rate reviewed as recorded in nurse's notes. EYES: Pupils are round and reactive. Extraocular movements are intact. No conjunctival / lid redness or swelling. ENT: No external evidence of injury, swelling, or ecchymosis. Airway is patent. Throat is clear. NECK: Nontender. No swelling or evidence of injury. No subcutaneous emphysema. Trachea is midline. No thyroid mass. HEART: Regular rate and rhythm. Good peripheral pulses. LUNGS/CHEST: Breath sounds clear and equal bilaterally. No rales, rhonchi, or wheezes. No ecchymosis, subcutaneous emphysema, or tenderness. ABDOMEN: Abdomen soft without tenderness. No palpable masses or organomegaly. No peritoneal signs. No abdominal wall swelling or ecchymosis. EXTREMITIES: No extremity tenderness. Normal muscle tone and function. No thoracolumbar tenderness. NEUROLOGIC: Sensation is grossly intact. Cranial nerve exam reveals face is symmetrical, tongue is midline, speech is clear. SKIN: No abrasions or ecchymosis is noted. No induration or masses noted. PSYCHIATRIC: Alert but does not communicate much at all. She will answer occasional questions. Course Vital Signs 08/15/17 11:48 Temperature 97.1 F L Pulse Rate 76 Respiratory 18 Rate Blood Pressure 196/102 Medical Decision Making - Medical Decision Making The patient was seen and examined. All diagnostics were reviewed. The breath alcohol test was negative. Psychiatric consult is placed. The case is discussed with the psychiatric nurse and they would like to admit the patient to the hospital for further treatment. Certification is completed by myself and she'll be transferred to inpatient psych for further evaluation. - Lab Data Lab Results 08/15/17 Range/Units 12:36 Urine Opiates Screen Not Detected (NotDetected) Ur Oxycodone Screen Not Detected (NotDetected) Urine Methadone Screen Not Detected (NotDetected) Ur Propoxyphene Screen Not Detected (NotDetected) Ur Barbiturates Screen Not Detected (NotDetected) U Tricyclic Antidepress Not Detected (NotDetected) Ur Phencyclidine Scrn Not Detected (NotDetected) Ur Amphetamines Screen Not Detected (NotDetected) U Methamphetamines Scrn Not Detected (NotDetected) U Benzodiazepines Scrn Not Detected (NotDetected) Urine Cocaine Screen Not Detected (NotDetected) U Marijuana (THC) Screen Not Detected (NotDetected) Disposition Clinical Impression: Hypertension, Chronic schizophrenia, Noncompliance with medication regimen, Psychosis Disposition: [facility] Condition: Fair Referrals: None,Stated [Primary Care Provider] - 1-2 days Time of Disposition: 15:14 Decision Date: 08/15/17 Decision Time: 15:14
[2017-08-15] MEDS: METOPROLOL TARTRATE 50 MG TAB PO STA ×2 (12:41→12:58)
[2017-08-15] MEDS: amLODIPine 5 MG TAB PO STA ×2 (12:43→12:51)
[2017-08-15] MEDS ORDERED: METOPROLOL TARTRATE 25 MG TAB PO STA (12:51)
[2017-08-15 13:07] LABS: Amphetamine Screen,Urine Not Detected (NotDetected); Barbiturate Screen,Urine Not Detected (NotDetected); Benzodiazepines Screen,Urine Not Detected (NotDetected); Cocaine Screen,Urine Not Detected (NotDetected); Methadone Screen, Urine Not Detected (NotDetected); Opiate Screen,Urine Not Detected (NotDetected); Oxycodone Screen, Urine Not Detected (NotDetected); Phencyclidine Screen,Urine Not Detected (NotDetected); Tricyclic Antidepressant,Urine Not Detected (NotDetected); Urn Cannabinoid Scrn Not Detected (NotDetected)
[2017-08-15] MEDS ORDERED: ZIPRASIDONE 20 MG VIAL IM PRN (16:41)
[2017-08-15] MEDS ORDERED: ACETAMINOPHEN TAB 325 MG TAB PO PRN (16:41)
[2017-08-15] MEDS ORDERED: MAG HYDROX/AL HYDROX/SIMETH 30 ML CUP PO PRN (16:41)
[2017-08-15] MEDS ORDERED: MAGNESIUM HYDROXIDE 2,400 MG/10 ML CUP PO PRN (16:41)
[2017-08-15 17:55] LABS: Appearance,Urine Clear (Clear); Bilirubin,Urine Negative (Negative); Blood,Urine Negative (Negative); Color,Urine Colorless; Glucose,Urine (UA) Negative (Negative); Ketones,Urine Negative (Negative); Leukocyte Esterase,Urine Negative (Negative); Nitrite,Urine Negative (Negative); Protein,Urine Negative (Negative); Specific Gravity,Urine 1.005 (1.001-1.035); Urobilinogen,Urine <2.0 mg/dL (<2.0)
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
[2017-08-15] MEDS: BACITRACIN 500 UNIT/GM OINT 28.4 GM TUBE TOPICAL SCH (21:32)
[2017-08-16] MEDS: IBUPROFEN 400 MG TAB PO PRN ×4 (01:32→21:32)
[2017-08-16] MEDS: LEVOTHYROXINE 100 MCG TAB PO SCH (06:23)
[2017-08-16] MEDS: amLODIPine 5 MG TAB PO SCH (09:42)
[2017-08-16] MEDS: CYANOCOBALAMIN 500 MCG TAB PO SCH (09:43)
[2017-08-16] MEDS: METOPROLOL SUCCINATE (ER) 100 MG TAB.ER.24H PO SCH (09:43)
[2017-08-16] MEDS: BACITRACIN 500 UNIT/GM OINT 28.4 GM TUBE TOPICAL SCH ×3 (09:43→20:14)
[2017-08-16] MEDS: CHOLECALCIFEROL 1,000 UNIT TAB PO SCH (09:43)
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
[2017-08-16] MEDS ORDERED: cloNIDine 0.1 MG/24HR PATCH 1 PATCH PATCH TRANSDERM SCH (12:30)
[2017-08-16] MEDS: cloNIDine 0.1 MG/24HR PATCH 1 PATCH PATCH TRANSDERM SCH (13:11)
[2017-08-16] MEDS ORDERED: LORazepam 2 MG/ML INJ IM STA (19:53)
[2017-08-16] MEDS: NICOTINE POLACRILEX 2 MG GUM BUCCAL PRN (21:33)
[2017-08-16] MEDS: MELATONIN 3 MG TABLET PO SCH (23:45)
[2017-08-17] MEDS: LEVOTHYROXINE 100 MCG TAB PO SCH (05:54)
[2017-08-17] MEDS: amLODIPine 5 MG TAB PO SCH (09:03)
[2017-08-17] MEDS: CHOLECALCIFEROL 1,000 UNIT TAB PO SCH (09:03)
[2017-08-17] MEDS: CYANOCOBALAMIN 500 MCG TAB PO SCH (09:03)
[2017-08-17] MEDS: METOPROLOL SUCCINATE (ER) 100 MG TAB.ER.24H PO SCH (09:04)
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
[2017-08-17 09:46] VITALS: RESP 16
[2017-08-17] MEDS: BACITRACIN 500 UNIT/GM OINT 28.4 GM TUBE TOPICAL SCH ×2 (09:47→21:18)
[2017-08-17] MEDS: NICOTINE POLACRILEX 2 MG GUM BUCCAL PRN ×2 (18:46→21:23)
[2017-08-17] MEDS: MELATONIN 3 MG TABLET PO SCH (21:18)
[2017-08-18] MEDS: LEVOTHYROXINE 100 MCG TAB PO SCH (06:51)
[2017-08-18] MEDS: amLODIPine 5 MG TAB PO SCH (09:12)
[2017-08-18] MEDS: CYANOCOBALAMIN 500 MCG TAB PO SCH (09:13)
[2017-08-18] MEDS: METOPROLOL SUCCINATE (ER) 100 MG TAB.ER.24H PO SCH (09:13)
[2017-08-18] MEDS: BACITRACIN 500 UNIT/GM OINT 28.4 GM TUBE TOPICAL SCH ×2 (09:13→20:17)
[2017-08-18] MEDS: CHOLECALCIFEROL 1,000 UNIT TAB PO SCH (09:13)
[2017-08-18] MEDS ORDERED: fluPHENAZine DECANOATE 25 MG/ML 5ML MDV IM ONE (09:43)
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
[2017-08-18] MEDS: IBUPROFEN 400 MG TAB PO PRN (15:02)
[2017-08-18] MEDS: MELATONIN 3 MG TABLET PO SCH (20:17)
[2017-08-19] MEDS: IBUPROFEN 400 MG TAB PO PRN ×2 (00:37→20:07)
[2017-08-19] MEDS: AMMONIUM LACTATE 12% LOTION 225 GM BTL TOPICAL SCH ×3 (02:14→20:12)
[2017-08-19] MEDS: LEVOTHYROXINE 100 MCG TAB PO SCH (05:49)
[2017-08-19] MEDS: METOPROLOL SUCCINATE (ER) 100 MG TAB.ER.24H PO SCH (09:49)
[2017-08-19] MEDS: CHOLECALCIFEROL 1,000 UNIT TAB PO SCH (09:49)
[2017-08-19] MEDS: BACITRACIN 500 UNIT/GM OINT 28.4 GM TUBE TOPICAL SCH ×2 (09:49→20:12)
[2017-08-19] MEDS: CYANOCOBALAMIN 500 MCG TAB PO SCH (09:49)
[2017-08-19] MEDS: amLODIPine 5 MG TAB PO SCH (09:49)
--- NOTE | 2017-08-19 13:07 | P.PN ---
Progress Note - Text Progress Note Date: 08/19/17 Interval history: Patient seen in cross coverage today for Dr. Carias. She is found in her room lying in bed with eyes closed. She does not respond to me in terms of interviewing her today. When I came back to the room with staff present she did open her eyes but refused to meet with me for the interview. Mental status exam: She is found in her room lying in bed with her eyes closed. She did open her eyes briefly when staff came back with me, refuses the interview today. She does not show any agitation. Plan: We'll continue to cover this patient through the weekend with Dr. Cairas, we'll reattempt interview tomorrow.
[2017-08-19] MEDS: cloNIDine 0.1 MG/24HR PATCH 1 PATCH PATCH TRANSDERM SCH (13:50)
[2017-08-19] MEDS: MELATONIN 3 MG TABLET PO SCH (20:13)
[2017-08-20] MEDS: LEVOTHYROXINE 100 MCG TAB PO SCH (08:13)
[2017-08-20] MEDS: CHOLECALCIFEROL 1,000 UNIT TAB PO SCH (08:22)
[2017-08-20] MEDS: AMMONIUM LACTATE 12% LOTION 225 GM BTL TOPICAL SCH ×2 (08:22→21:39)
[2017-08-20] MEDS: BACITRACIN 500 UNIT/GM OINT 28.4 GM TUBE TOPICAL SCH ×2 (08:22→21:39)
[2017-08-20] MEDS: amLODIPine 5 MG TAB PO SCH ×2 (08:22→11:50)
[2017-08-20] MEDS: CYANOCOBALAMIN 500 MCG TAB PO SCH (08:22)
[2017-08-20] MEDS: METOPROLOL SUCCINATE (ER) 100 MG TAB.ER.24H PO SCH ×2 (08:23→11:50)
[2017-08-20] MEDS: IBUPROFEN 400 MG TAB PO PRN ×2 (11:50→20:54)
[2017-08-20] MEDS: cloNIDine 0.1 MG/24HR PATCH 1 PATCH PATCH TRANSDERM SCH (13:56)
--- NOTE | 2017-08-20 15:39 | P.PN ---
Progress Note - Text Progress Note Date: 08/20/17 Interval history: Patient is seen in cross coverage today for Dr. Carias. Approached her in the hallways with female staff present and she refuses again to talk with me today. She walks the other way. Per staff she has been attending some groups. Mental status exam: She is found in the hallway on the unit. She is approached with female staff present and refuses to meet with me for the interview. She walks the other way down the brand. She does not exhibit any agitation. Plan: We'll maintain current psychotropic medication regimen. Dr. Carias to resume care this patient starting tomorrow.
[2017-08-20] MEDS ORDERED: hydrALAZINE HCL 25 MG TAB PO STA (17:53)
[2017-08-20] MEDS: NICOTINE POLACRILEX 2 MG GUM BUCCAL PRN ×2 (18:51→21:46)
[2017-08-20] MEDS: MELATONIN 3 MG TABLET PO SCH (21:39)
[2017-08-21] MEDS: LEVOTHYROXINE 100 MCG TAB PO SCH (05:50)
[2017-08-21] MEDS: METOPROLOL SUCCINATE (ER) 100 MG TAB.ER.24H PO SCH (10:33)
[2017-08-21] MEDS: CYANOCOBALAMIN 500 MCG TAB PO SCH (10:33)
[2017-08-21] MEDS: CHOLECALCIFEROL 1,000 UNIT TAB PO SCH (10:33)
[2017-08-21] MEDS: amLODIPine 5 MG TAB PO SCH (10:33)
[2017-08-21] MEDS: AMMONIUM LACTATE 12% LOTION 225 GM BTL TOPICAL SCH ×2 (10:39→21:05)
[2017-08-21] MEDS: BACITRACIN 500 UNIT/GM OINT 28.4 GM TUBE TOPICAL SCH ×2 (10:39→21:05)
--- NOTE | 2017-08-21 10:53 | P.PN ---
Progress Note - Text Interval history: The patient is found in the hallway she follows me to an interview room. Staff report that the patient continues to demonstrate the same baseline psychosis. She has been eating. She is demonstrating no verbal or physical aggressiveness. She did receive the Prolixin Decanoate injection on Monday. It appears she is able to return back to the prison and social work will contact [facility] for arrangements. Mental status exam: The patient is an overweight female. She is dressed in her own clothing. She ambulates slowly without ataxia. She seated calmly during the session. She reports her mood is fine. Affect is constricted. She does not have much spontaneous speech today but does answer questions asked. She continues to have a delusional thought content. She is endorsing no auditory or visual hallucinations. She is reporting no suicidal or homicidal ideation intent or plan. Insight and judgment chronically limited due to psychosis. She demonstrates no verbal or physical aggressiveness. Plan: The patient will continue on her current medication. She is encouraged to comply with the oral antihypertensives. We will monitor her for safety. We will consider discharging her back to the prison tomorrow if clinically stable.
[2017-08-21] MEDS: IBUPROFEN 400 MG TAB PO PRN (21:03)
[2017-08-21] MEDS: MELATONIN 3 MG TABLET PO SCH (21:05)
[2017-08-22] MEDS: LEVOTHYROXINE 100 MCG TAB PO SCH ×2 (06:11→08:45)
[2017-08-22] MEDS: amLODIPine 5 MG TAB PO SCH (08:44)
[2017-08-22] MEDS: METOPROLOL SUCCINATE (ER) 100 MG TAB.ER.24H PO SCH (08:44)
[2017-08-22] MEDS: BACITRACIN 500 UNIT/GM OINT 28.4 GM TUBE TOPICAL SCH ×2 (08:47→21:21)
[2017-08-22] MEDS: AMMONIUM LACTATE 12% LOTION 225 GM BTL TOPICAL SCH ×2 (08:47→21:21)
[2017-08-22] MEDS: CYANOCOBALAMIN 500 MCG TAB PO SCH (08:48)
[2017-08-22] MEDS: CHOLECALCIFEROL 1,000 UNIT TAB PO SCH (08:48)
--- NOTE | 2017-08-22 10:47 | P.PN ---
Progress Note - Text Interval history: The patient is found in the hallway she follows me to an interview room. She reports her mood is fine. She is looking forward to being discharged. She is agreeable to returning to the detention. She was compliant with her blood pressure medicine this morning after nursing spent some time discussing the need for the medication. Subsequently her blood pressure reading is much improved. She reports getting sleep at night her appetite is stable. Mental status exam: The patient is an alert female. She is dressed in her own clothing. For the most part she is directable. She ventilates some frustrations that she is still here in the hospital. We discussed that we are trying to facilitate a discharge back to her detention bed. She is reporting no suicidal or homicidal thoughts. She does continue to express some disorganized delusional thought content. Insight and judgment chronically limited. She demonstrates no physical aggressiveness. She is ambulating without any signs of ataxia. She is demonstrating no abnormal involuntary movements. She denies having any hallucinations. Plan: The patient will continue on her current psychotropic medication. We anticipate discharging her back to the detention when they're his bed availability. Vital signs reviewed. Nursing will continue to encourage her to remain compliant with oral antihypertensive medication.
[2017-08-22] MEDS: IBUPROFEN 400 MG TAB PO PRN ×2 (11:26→21:23)
[2017-08-22] MEDS: MELATONIN 3 MG TABLET PO SCH (21:21)
[2017-08-22] MEDS: NICOTINE POLACRILEX 2 MG GUM BUCCAL PRN (23:27)
[2017-08-23] MEDS ORDERED: LORazepam 1 MG TAB PO STA (01:30)
[2017-08-23] MEDS: NICOTINE POLACRILEX 2 MG GUM BUCCAL PRN ×2 (02:30→21:37)
[2017-08-23] MEDS: amLODIPine 5 MG TAB PO SCH (07:59)
[2017-08-23] MEDS: METOPROLOL SUCCINATE (ER) 100 MG TAB.ER.24H PO SCH (07:59)
[2017-08-23] MEDS: LEVOTHYROXINE 100 MCG TAB PO SCH (07:59)
[2017-08-23] MEDS: CYANOCOBALAMIN 500 MCG TAB PO SCH (08:02)
[2017-08-23] MEDS: AMMONIUM LACTATE 12% LOTION 225 GM BTL TOPICAL SCH ×2 (08:02→21:29)
[2017-08-23] MEDS: CHOLECALCIFEROL 1,000 UNIT TAB PO SCH (08:02)
[2017-08-23] MEDS: BACITRACIN 500 UNIT/GM OINT 28.4 GM TUBE TOPICAL SCH ×2 (08:02→21:29)
[2017-08-23 08:13] VITALS: PULSE 62; TEMP 97.9
--- NOTE | 2017-08-23 10:43 | P.PN ---
Progress Note - Text Interval history: The patient is found in her room. She prefers not to follow me to an interview room. Staff report that she has demonstrated no agitated behavior. She states that she did sleep last evening. Her rn case manager did meet with her this morning and she was told that she would be discharged back to her [place] [facility] tomorrow. Mental status exam: The patient is alert she is lying in bed she demonstrates no verbal or physical aggressiveness. She endorses a frustrated mood that she has not yet been discharged. She does have baseline symptoms of psychosis including paranoia and persecutory thinking. Insight and judgment chronically limited. She is reporting no suicidal or homicidal ideation intent or plan. Affect is bland today. Plan: The patient will continue on medications as written. Vital signs reviewed. She is encouraged to continue with oral antihypertensives. She'll be due for her next Prolixin injection later in the week. We do plan on discharging her back to the [place] [facility] setting tomorrow. She is encouraged to participate in the milieu we will continue to monitor her for safety.
[2017-08-23] MEDS ORDERED: cloNIDine 0.1 MG/24HR PATCH 1 PATCH PATCH TRANSDERM SCH (13:00)
[2017-08-23] MEDS: MELATONIN 3 MG TABLET PO SCH (21:29)
[2017-08-23] MEDS: IBUPROFEN 400 MG TAB PO PRN (23:32)
[2017-08-24] MEDS: NICOTINE POLACRILEX 2 MG GUM BUCCAL PRN (01:34)
[2017-08-24 06:28] VITALS: BP 135/90
[2017-08-24] MEDS: LEVOTHYROXINE 100 MCG TAB PO SCH (08:10)
[2017-08-24] MEDS: METOPROLOL SUCCINATE (ER) 100 MG TAB.ER.24H PO SCH (08:10)
[2017-08-24] MEDS: amLODIPine 5 MG TAB PO SCH (08:12)
[2017-08-24] MEDS: AMMONIUM LACTATE 12% LOTION 225 GM BTL TOPICAL SCH (08:13)
[2017-08-24] MEDS: CHOLECALCIFEROL 1,000 UNIT TAB PO SCH (08:13)
[2017-08-24] MEDS: CYANOCOBALAMIN 500 MCG TAB PO SCH (08:13)
[2017-08-24] MEDS: BACITRACIN 500 UNIT/GM OINT 28.4 GM TUBE TOPICAL SCH (08:13)
--- NOTE | 2017-08-24 09:15 | P.DS ---
Providers Date of admission: 08/15/17 15:12 Expected date of discharge: 08/24/17 Attending physician: Onofre Carias Consults: 08/15/17 16:41 Consult Physician Routine Consulting Provider: Mary Jo Physician Consult Reason/Comments: follow up H & P Do you want consulting provider notified?: Yes Primary care physician: Stated None - Discharge Diagnosis(es) (1) Chronic schizophrenia Current Visit: Yes Status: Acute Priority: High Hospital Course: Brief summary of admission note: This patient is a 62-year-old female who was admitted to the mental health unit through the emergency room on a petition indicating she was experiencing acute symptoms of psychosis. Additionally it was noted that she was demonstrating agitated behavior. The patient had been noncompliant with medications she was receiving Prolixin decanoate injections on a weekly basis but appears she has been off of those for approximately one month. She is on a treatment order that does not until February 2018. The patient had been treated in the past with Haldol Decanoate and Invega Sustenna without success. She has an ongoing diagnosis of schizophrenia and is known to have symptoms of psychosis at baseline. Prior to being admitted she was not sleeping. She described a variety of delusional thoughts. For full details please refer to my psychiatric evaluation dated . Summary of hospital course: The patient was admitted to the mental health unit involuntarily however she was on an existing treatment order. Her blood pressure was quite elevated and we attempted to get control of that before restarting the Prolixin decanoate. We did order an EKG she demonstrated a sinus rhythm with no QTC prolongation. The Prolixin decanoate was restarted at 50 mg on 08/18/2017. The patient intermittently is complying with her oral hypertensives and thyroid medication. Internal medicine was willing to prescribe a Catapres patch. Her blood pressure has been slowly improving over the course of the admission. The patient does continue to demonstrate symptoms of psychosis she can demonstrate some brief verbal agitation but she has been easily redirected. Sleep has been stable appetite stable. She has participated in some groups. She has demonstrated no physical aggressiveness. It appears she is at her baseline in terms of her psychotic symptoms and is appropriate for discharge back to her correction setting. Mental status exam: The patient is an overweight female she is dressed in the same clothing. She is mildly disheveled hygiene is adequate. She reports her mood is fine she is frustrated that she is still here in the hospital. She is reporting no suicidal or homicidal ideation intent or plan. She is reporting no current auditory or visual hallucinations. She denies having any command auditory hallucinations. She does continue to have some paranoid and persecutory thoughts which I suspect are part of her baseline function. She is demonstrating no physical aggressiveness. She is redirectable. Affect is bland. She is observed ambulating in the hallway slowly without ataxia. Eye contact is intermittent speech is fluent and spontaneous. She has poor dentition and is missing several teeth. Impressions 1. Schizophrenia 2. Medical comorbidities including hypertension and hypothyroidism Plan: The patient will be discharged from mental health unit today to return back to her correction setting. There is no imminent safety risk she is appropriate for transition back to outpatient care with close community mental health follow-up. She will continue on Prolixin decanoate 50 mg weekly. Her next dose is due tomorrow we will provide a prescription. She will need follow- up with her primary care physician. She has been more compliant with oral antihypertensives and her thyroid medication with nursing spending more time with her explaining the purpose of the medications. She is instructed to return to the hospital if any acute safety issues. Patient Condition at Discharge: Stable Plan - Discharge Summary Discharge Rx Participant: No New Discharge Prescriptions: New cloNIDine 0.1 MG/24HR PATCH [Catapres-TTS] 1 patch TRANSDERM Q7D patch Nicotine Polacrilex [Nicorette] 2 mg BUCCAL Q4HR PRN #20 gum PRN Reason: Nicotine Cravings Continue Metoprolol Succinate (ER) [Toprol XL] 100 mg PO DAILY 30 Days tab.er.24h amLODIPine [Norvasc] 5 mg PO DAILY 30 Days tab fluPHENAZine DECANOATE [Prolixin Decanoate] 50 mg IM Q7D #1 ml No Action Cyanocobalamin [Vitamin B-12] 500 mcg PO DAILY Levothyroxine Sodium [Synthroid] 100 mcg PO DAILY Cholecalciferol (Vitamin D3) [Vitamin D3] 2,000 unit PO DAILY Discharge Medication List Metoprolol Succinate (ER) [Toprol XL] 100 mg PO DAILY 30 Days tab.er.24h [Rx] amLODIPine [Norvasc] 5 mg PO DAILY 30 Days tab 08/17/16 [Rx] Cholecalciferol (Vitamin D3) [Vitamin D3] 2,000 unit PO DAILY 08/15/17 [History] Cyanocobalamin [Vitamin B-12] 500 mcg PO DAILY 08/15/17 [History] Levothyroxine Sodium [Synthroid] 100 mcg PO DAILY 08/15/17 [History] Nicotine Polacrilex [Nicorette] 2 mg BUCCAL Q4HR PRN #20 gum 08/24/17 [Rx] cloNIDine 0.1 MG/24HR PATCH [Catapres-TTS] 1 patch TRANSDERM Q7D patch [Rx] fluPHENAZine DECANOATE [Prolixin Decanoate] 50 mg IM Q7D #1 ml 08/24/17 [Rx] Follow up Appointment(s)/Referral(s): [facility] [Outside] - 1 Week (08-28-17 @ 12:[address] Hanson) [facility] - [facility] Week Patient Instructions/Handouts: How to Stop Smoking (DC), Schizophrenia (DC), Brief Psychotic Disorder (DC), Chronic Hypertension (DC) Activity/Diet/Wound Care/Special Instructions: Take all medications as prescribed and keep your follow up appointment. Do not drink alcohol or use any substances not prescribed for you. Call the Crisis Line if needed.
== END 2017-08-24 11:16 | disposition home or self-care (01) | DRG 885 ==
LOC: EC 11:43 → SUPCPDRO 11:43 → 3MHU 15:12
PROVIDERS: ADMIT Psychiatry & Neurology Psychiatry; ATTEND Psychiatry & Neurology Psychiatry
DX: F20.5 Residual schizophrenia (principal); B37.0 Candidal stomatitis; Z91.128 Patient's intentional underdosing of medication regimen for other reason; E03.9 Hypothyroidism, unspecified; M19.91 Primary osteoarthritis, unspecified site; F41.0 Panic disorder [episodic paroxysmal anxiety]; I10 Essential (primary) hypertension; F17.200 Nicotine dependence, unspecified, uncomplicated; E66.3 Overweight; Z68.35 Body mass index [BMI] 35.0-35.9, adult; Z79.890 Hormone replacement therapy; Z79.899 Other long term (current) drug therapy; Z91.5 Personal history of self-harm; Z71.6 Tobacco abuse counseling; Z86.14 Personal history of Methicillin resistant Staphylococcus aureus infection; Z87.440 Personal history of urinary (tract) infections; Z90.710 Acquired absence of both cervix and uterus; Z88.0 Allergy status to penicillin
CPT/HCPCS: 80306; 81003; 82075; 93005; 99285

== ENCOUNTER 2017-09-12 08:25 | Emergency (ER) | payer MEDICARE, OTHER ==
[2017-09-12 08:36] VITALS: RESP 18; TEMP 97.5
--- NOTE | 2017-09-12 09:44 | ED ---
Recheck HPI - General Chief Complaint: Recheck/Abnormal Lab/Rx Stated Complaint: High Blood Pressure Time Seen by Provider: 09/12/17 08:37 Source: patient, EMS, RN notes reviewed, old records reviewed Mode of arrival: EMS Limitations: no limitations - History of Present Illness Initial Comments: 52-year-old female presents emergency department from [facility] chief complaint of elevated blood pressures. I discussed with the people at the [facility] care facility and he stated above pressures were 210/110. On arrival here in EMS blood pressures were 140/80. Her last blood pressure is 133/80. She has no complaints of chest pain shortness of breath or headaches. Patient reports she's also follow-up with primary care provider today. - Related Data Home Medications Medication Instructions Recorded Confirmed Cholecalciferol (Vitamin D3) 2,000 unit PO DAILY 08/15/17 09/12/17 [Vitamin D3] Cyanocobalamin [Vitamin B-12] 500 mcg PO DAILY 08/15/17 09/12/17 LORazepam [Ativan] 1 mg PO TID 09/12/17 09/12/17 Levothyroxine Sodium [Synthroid] 112 mcg PO DAILY 09/12/17 09/12/17 amLODIPine BES/OLMESARTAN MED 1 tab PO DAILY 09/12/17 09/12/17 [amLODIPine BES/OLMESARTAN MED 10-20 mg] cloNIDine 0.1 MG/24HR PATCH 1 patch TRANSDERM FR 09/12/17 09/12/17 [Catapres-TTS] Previous Rx's Medication Instructions Recorded Metoprolol Succinate (ER) [Toprol 100 mg PO DAILY 30 Days tab.er.24h 08/17/16 XL] Allergies Allergy/AdvReac Type Severity Reaction Status Date / Time Penicillins Allergy Anaphylaxis Verified 09/12/17 09:24 Review of Systems ROS Statement: Those systems with pertinent positive or pertinent negative responses have been documented in the HPI. ROS Other: All systems not noted in ROS Statement are negative. Past Medical History Past Medical History: Hypertension, Thyroid Disorder Additional Past Medical History / Comment(s): UTI, arthritis History of Any Multi-Drug Resistant Organisms: MRSA Date of last positivie culture/infection: 06/07/16 MDRO Source:: Buttock Past Surgical History: Cholecystectomy, Uterine Ablation Additional Past Surgical History / Comment(s): Hysterectomy, left gluteal abscess debridement Past Anesthesia/Blood Transfusion Reactions: No Reported Reaction Past Psychological History: Anxiety, Depression, Panic Disorder, Schizoaffective Disorder, Schizophrenia Smoking Status: Current every day smoker Past Alcohol Use History: None Reported Past Drug Use History: None Reported - Past Family History Mother Family Medical History: No Reported History Father Family Medical History: No Reported History General Exam - General Exam Comments Initial Comments: Well appearing, 62 year old female, alert, oriented. No distress. No complaints of pain. Limitations: no limitations General appearance: alert, in no apparent distress Head exam: Present: atraumatic, normocephalic, normal inspection Eye exam: Present: normal appearance, PERRL, EOMI. Absent: scleral icterus, conjunctival injection, periorbital swelling ENT exam: Present: normal exam, mucous membranes moist Neck exam: Present: normal inspection. Absent: tenderness, meningismus, lymphadenopathy Respiratory exam: Present: normal lung sounds bilaterally. Absent: respiratory distress, wheezes, rales, rhonchi, stridor Cardiovascular Exam: Present: regular rate, normal rhythm, normal heart sounds. Absent: systolic murmur, diastolic murmur, rubs, gallop, clicks GI/Abdominal exam: Present: soft, normal bowel sounds. Absent: distended, tenderness, guarding, rebound, rigid Extremities exam: Present: normal inspection, full ROM, normal capillary refill. Absent: tenderness, pedal edema, joint swelling, calf tenderness Back exam: Present: normal inspection Neurological exam: Present: alert, oriented X3, CN II-XII intact Psychiatric exam: Present: normal affect, normal mood Course Vital Signs 09/12/17 09/12/17 09/12/17 08:31 10:13 10:38 Temperature 97.5 F L 97.5 F L Pulse Rate 67 65 65 Respiratory 18 18 18 Rate Blood Pressure 133/81 144/100 144/100 O2 Sat by Pulse 96 99 99 Oximetry Medical Decision Making - Medical Decision Making Patient is a 62 year old female presents to EMS for evaulation due to high blood pressure. She lives in adult foster longterm, They take her BP on wrist cuff with elevated numbers 210/100. EMS had BP of 140/80. Our blood pressures in ED have all been normal. She has no complaints. She relates she has an appt with PCP today. Discussed with no complaints and normal BP here, patietn can follow up with PCP for testing nad repeat BP. Discussed return parameters. Disposition Clinical Impression: Hypertension Disposition: HOME SELF-CARE Condition: Good Instructions: Hypertension (ED) Additional Instructions: Follow-up with primary care provider earlier today. Return to emergency department if any alarming signs or symptoms occur. Referrals: None,Stated [Primary Care Provider] - 1-2 days Time of Disposition: 10:01
[2017-09-12 10:14] VITALS: BP 144/100; PULSE 65
== END 2017-09-12 10:38 | disposition home or self-care (01) ==
LOC: EC 08:25
DX: I10 Essential (primary) hypertension (principal); F17.200 Nicotine dependence, unspecified, uncomplicated; E07.9 Disorder of thyroid, unspecified; F41.9 Anxiety disorder, unspecified; Z88.0 Allergy status to penicillin; Z86.14 Personal history of Methicillin resistant Staphylococcus aureus infection; Z87.440 Personal history of urinary (tract) infections; Z79.899 Other long term (current) drug therapy
CPT/HCPCS: 99284

== ENCOUNTER 2018-08-31 10:51 | Emergency (ER) | payer MEDICARE, OTHER ==
[2018-08-31 10:58] VITALS: PULSE 90; RESP 18; TEMP 98.5
[2018-08-31] MEDS ORDERED: fluPHENAZine DECANOATE 25 MG/ML 5ML MDV IM ONE ×2 (11:30)
[2018-08-31] MEDS ORDERED: cloNIDine HCL 0.2 MG TAB PO STA (11:46)
--- NOTE | 2018-08-31 12:34 | ED ---
Psych HPI - General Chief Complaint: Psychiatric Symptoms Stated Complaint: mental health Time Seen by Provider: 08/31/18 11:00 Source: patient, police, RN notes reviewed, old records reviewed Mode of arrival: ambulatory - History of Present Illness Initial Comments: This is a 37-year-old female the ER for evaluation. Patient resents today for evaluation of mental health. History of mental health disease. Noncompliant with medications currently. Patient presents with PD with pickup order MD Complaint: altered mental status, other (Noncompliant with medications) -: unknown History of same: Yes Quality: intermittent, getting worse Improves With: none Worsens With: none Associated Symptoms: denies other symptoms Treatments Prior to Arrival: placed on mental health hold - Related Data Home Medications Medication Instructions Recorded Confirmed Cholecalciferol (Vitamin D3) 2,000 unit PO DAILY 08/15/17 08/31/18 [Vitamin D3] Cyanocobalamin [Vitamin B-12] 500 mcg PO DAILY 08/15/17 08/31/18 LORazepam [Ativan] 1 mg PO QAM 09/12/17 08/31/18 cloNIDine 0.1 MG/24HR PATCH 1 patch TRANSDERM FR 09/12/17 08/31/18 [Catapres-TTS] LORazepam [Ativan] 2 mg PO HS 08/31/18 08/31/18 Levothyroxine Sodium [Synthroid] 125 mcg PO DAILY 08/31/18 08/31/18 Loratadine [Claritin] 10 mg PO DAILY PRN 08/31/18 08/31/18 amLODIPine BESYLATE/BENAZEPRIL 1 cap PO DAILY 08/31/18 08/31/18 [Lotrel 10-40 MG] fluPHENAZine DECANOATE [Prolixin 50 mg IM Q7D 08/31/18 08/31/18 Decanoate] Previous Rx's Medication Instructions Recorded Metoprolol Succinate (ER) [Toprol 100 mg PO DAILY 30 Days tab.er.24h 08/17/16 XL] Allergies Allergy/AdvReac Type Severity Reaction Status Date / Time Penicillins Allergy Anaphylaxis Verified 08/31/18 11:02 Review of Systems ROS Statement: Those systems with pertinent positive or pertinent negative responses have been documented in the HPI. ROS Other: All systems not noted in ROS Statement are negative. Past Medical History Past Medical History: Hypertension, Thyroid Disorder Additional Past Medical History / Comment(s): UTI, arthritis History of Any Multi-Drug Resistant Organisms: MRSA Date of last positivie culture/infection: 06/07/16 MDRO Source:: Buttock Past Surgical History: Cholecystectomy, Uterine Ablation Additional Past Surgical History / Comment(s): Hysterectomy, left gluteal abscess debridement Past Anesthesia/Blood Transfusion Reactions: No Reported Reaction Past Psychological History: Anxiety, Depression, Panic Disorder, Schizoaffective Disorder, Schizophrenia Smoking Status: Current every day smoker Past Alcohol Use History: None Reported Past Drug Use History: None Reported - Past Family History Mother Family Medical History: No Reported History Father Family Medical History: No Reported History General Exam Limitations: no limitations General appearance: alert, in no apparent distress Head exam: Present: atraumatic, normocephalic, normal inspection Eye exam: Present: normal appearance, PERRL, EOMI. Absent: scleral icterus, conjunctival injection, periorbital swelling ENT exam: Present: normal exam, mucous membranes moist Neck exam: Present: normal inspection. Absent: tenderness, meningismus, lymphadenopathy Respiratory exam: Present: normal lung sounds bilaterally. Absent: respiratory distress, wheezes, rales, rhonchi, stridor Cardiovascular Exam: Present: regular rate, normal rhythm, normal heart sounds. Absent: systolic murmur, diastolic murmur, rubs, gallop, clicks GI/Abdominal exam: Present: soft, normal bowel sounds. Absent: distended, tenderness, guarding, rebound, rigid Extremities exam: Present: normal inspection, full ROM, normal capillary refill. Absent: tenderness, pedal edema, joint swelling, calf tenderness Back exam: Present: normal inspection Neurological exam: Present: alert, oriented X3, CN II-XII intact Psychiatric exam: Present: normal affect, normal mood Skin exam: Present: warm, dry, intact, normal color. Absent: rash Course Vital Signs 08/31/18 08/31/18 08/31/18 10:54 11:33 12:34 Temperature 98.5 F Pulse Rate 90 Respiratory 18 Rate Blood Pressure 158/112 168/130 145/85 O2 Sat by Pulse 99 Oximetry - Reevaluation(s) Reevaluation #1: Medically clear for psychiatric evaluation Medical Decision Making - Medical Decision Making 63 female the ER for evaluation, patient seen evaluated with psychiatry here in emergency room. Patient's currently stable and can be discharged home Disposition Clinical Impression: Psychosis, Chronic schizophrenia, Noncompliance with medication regimen Disposition: HOME SELF-CARE Condition: Good Instructions (If sedation given, give patient instructions): Psychotic Disorder (ED) Is patient prescribed a controlled substance at d/c from ED?: No Referrals: None,Stated [Primary Care Provider] - 1-2 days
[2018-08-31 12:35] VITALS: BP 145/85
--- NOTE | 2018-09-01 03:08 | CDI ---
Documentation Clarification OP Dear Rolando SANDERS, DO Please do addendum to ED report for missing HPI and Physical examination. Thank you, Yesika Plummer Longshore Equipment Operator If you have any questions, please contact Production Control Planner at [phone] [facility]
== END 2018-08-31 12:43 | disposition home or self-care (01) ==
LOC: EC 10:51
DX: F29 Unspecified psychosis not due to a substance or known physiological condition (principal); F20.89 Other schizophrenia; Z91.14 Patient's other noncompliance with medication regimen; I10 Essential (primary) hypertension; E07.9 Disorder of thyroid, unspecified; F41.9 Anxiety disorder, unspecified; F17.200 Nicotine dependence, unspecified, uncomplicated; Z86.14 Personal history of Methicillin resistant Staphylococcus aureus infection; Z79.890 Hormone replacement therapy; Z79.899 Other long term (current) drug therapy; Z88.0 Allergy status to penicillin
CPT/HCPCS: 99285; 96372; J2680

== ENCOUNTER 2018-12-20 16:45 | Inpatient (IN) | payer MEDICARE, MEDICAID ==
[2018-12-20 16:53] VITALS: RESP 18
--- NOTE | 2018-12-20 19:26 | ED ---
Psych HPI - General Chief Complaint: Psychiatric Symptoms Stated Complaint: pickling operator order Time Seen by Provider: 12/20/18 17:04 Source: police Mode of arrival: ambulatory - History of Present Illness Initial Comments: 63-year-old female history of schizophrenia presenting for court ordered petition. Patient has not been complaining of medications. Patient is paranoid. Flight of ideas. Patient refuses to talk to me. Brought in BY [facility]. - Related Data Home Medications Medication Instructions Recorded Confirmed Cholecalciferol (Vitamin D3) 2,000 unit PO DAILY 08/15/17 12/20/18 [Vitamin D3] Cyanocobalamin [Vitamin B-12] 500 mcg PO DAILY 08/15/17 12/20/18 LORazepam [Ativan] 1 mg PO QAM 09/12/17 12/20/18 LORazepam [Ativan] 2 mg PO HS 08/31/18 12/20/18 Levothyroxine Sodium [Synthroid] 125 mcg PO DAILY 08/31/18 12/20/18 Loratadine [Claritin] 10 mg PO DAILY PRN 08/31/18 12/20/18 amLODIPine BESYLATE/BENAZEPRIL 1 cap PO DAILY 08/31/18 12/20/18 [Lotrel 10-40 MG] fluPHENAZine DECANOATE [Prolixin 100 mg IM Q14D 08/31/18 12/20/18 Decanoate] Acetaminophen [Tylenol] 650 mg PO Q6H PRN 12/20/18 12/20/18 Aspirin 325 mg PO QID PRN 12/20/18 12/20/18 Docusate [Colace] 100 mg PO DAILY PRN 12/20/18 12/20/18 Ibuprofen [Motrin Ib] 200 - 400 mg PO Q6H PRN 12/20/18 12/20/18 Darci-Tin 1 dose PO DIRECTED PRN 12/20/18 12/20/18 Loperamide HCl [Imodium A-D] 2 mg PO QID PRN 12/20/18 12/20/18 Magnesium Hydroxide [Milk of 2,400 mg PO DAILY PRN 12/20/18 12/20/18 Magnesia] Nicotine Polacrilex [Nicorette] 4 mg BUCCAL DAILY PRN 12/20/18 12/20/18 Pseudoephedrine HCl [Sudafed] 60 mg PO Q6H PRN 12/20/18 12/20/18 Psyllium Husk 100% [Metamucil 6 gm PO DAILY PRN 12/20/18 12/20/18 Packet] cloNIDine 0.2 MG/24HR PATCH 1 patch TRANSDERM Q7D 12/20/18 12/20/18 [Catapres-TTS] diphenhydrAMINE HCL [Benadryl] 25 mg PO QID PRN 12/20/18 12/20/18 fluvoxaMINE MALEATE [Luvox] 100 mg PO DAILY 12/20/18 12/20/18 guaiFENesin SYRUP 100MG/5ML 200 mg PO Q6H PRN 12/20/18 12/20/18 [Robitussin] Previous Rx's Medication Instructions Recorded Metoprolol Succinate (ER) [Toprol 100 mg PO DAILY 30 Days tab.er.24h 08/17/16 XL] Allergies Allergy/AdvReac Type Severity Reaction Status Date / Time Penicillins Allergy Anaphylaxis Verified 12/20/18 17:40 Review of Systems ROS Statement: Those systems with pertinent positive or pertinent negative responses have been documented in the HPI. ROS Other: All systems not noted in ROS Statement are negative. Past Medical History Past Medical History: Hypertension, Thyroid Disorder Additional Past Medical History / Comment(s): UTI, arthritis History of Any Multi-Drug Resistant Organisms: MRSA Date of last positivie culture/infection: 06/07/16 MDRO Source:: Buttock Past Surgical History: Cholecystectomy, Uterine Ablation Additional Past Surgical History / Comment(s): Hysterectomy, left gluteal abscess debridement Past Anesthesia/Blood Transfusion Reactions: No Reported Reaction Past Psychological History: Anxiety, Depression, Panic Disorder, Schizoaffective Disorder, Schizophrenia Smoking Status: Current every day smoker Past Alcohol Use History: None Reported Past Drug Use History: None Reported - Past Family History Mother Family Medical History: No Reported History Father Family Medical History: No Reported History General Exam - General Exam Comments Initial Comments: General: The patient is awake and alert Eye: Pupils are equal, round and reactive to light, extra-ocular movements are intact. No nystagmus. There is normal conjunctiva bilaterally. No signs of icterus. Ears, nose, mouth and throat: There are moist mucous membranes and no oral lesions. Neck: The neck is supple, there is no tenderness or JVD. Cardiovascular: There is a regular rate and rhythm. No murmur, rub or gallop is appreciated. Respiratory: Lungs are clear to auscultation, respirations are non-labored, breath sounds are equal. No wheezes, stridor, rales, or rhonchi. Gastrointestinal: Soft, non-distended, non-tender abdomen without masses or organomegaly noted. There is no rebound or guarding present. No CVA tenderness. Bowel sounds are unremarkable. Musculoskeletal: Normal ROM, no tenderness. Strength 5/5. Sensation intact. Pulses equal bilaterally 2+. Neurological: A&O x 3. CN II-XII intact, There are no obvious motor or sensory deficits. Coordination appears grossly intact. Speech is normal. Skin: Skin is warm and dry and no rashes or lesions are noted. Psychiatric: flight of ideas, paranoid, aggitated Limitations: no limitations Course Vital Signs 12/20/18 16:47 Temperature 97.9 F Pulse Rate 111 H Respiratory 18 Rate Blood Pressure 142/96 Medical Decision Making - Medical Decision Making 63yo female with history of schizophrenia presenting for noncompliance of medication. Patient appears paranoid. Flight of ideas. He should medical cleared. Patient was a poor historian. No abnormal physical examination findings. EPS recommended admission. Patient agreed to take medications and patient. Disposition Clinical Impression: Schizophrenia, Noncompliance Disposition: TRANSFER TO PSYCH HOSP/UNIT Condition: Serious Is patient prescribed a controlled substance at d/c from ED?: No Referrals: None,Stated [Primary Care Provider] - 1-2 days Time of Disposition: 20:08 Decision to Admit Reason: Admit from EC Decision Date: 12/20/18 Decision Time: 20:08
[2018-12-20] MEDS ORDERED: IBUPROFEN 400 MG TAB PO STA (19:46)
[2018-12-20] MEDS ORDERED: MAG HYDROX/AL HYDROX/SIMETH 30 ML CUP PO PRN (21:16)
[2018-12-20] MEDS ORDERED: ACETAMINOPHEN TAB 325 MG TAB PO PRN (21:16)
[2018-12-20] MEDS ORDERED: MAGNESIUM HYDROXIDE 2,400 MG/10 ML CUP PO PRN (21:16)
[2018-12-20] MEDS ORDERED: PSYLLIUM HUSK 100% 6 GM PACKET PO PRN (21:20)
[2018-12-20] MEDS ORDERED: diphenhydrAMINE 25 MG CAP PO PRN (21:20)
[2018-12-20] MEDS ORDERED: LORATADINE 10 MG TAB PO PRN (21:20)
[2018-12-20] MEDS ORDERED: DOCUSATE 100 MG CAP PO PRN (21:20)
[2018-12-20] MEDS ORDERED: NICOTINE 14MG/24HR PATCH TRANSDERM SCH (21:45)
[2018-12-20] MEDS ORDERED: fluPHENAZine DECANOATE 25 MG/ML 5ML MDV IM SCH (22:00)
[2018-12-20] MEDS ORDERED: cloNIDine 0.2 MG/24HR PATCH TRANSDERM SCH (22:00)
[2018-12-20] MEDS: NICOTINE POLACRILEX 2 MG GUM BUCCAL PRN (22:17)
--- NOTE | 2018-12-20 22:49 | P.CONS ---
History of Present Illness - Reason for Consult Consult date: 12/20/18 - History of Present Illness The patient is a 67-year-old female with a PMH of tobacco abuse, hypertension, hypothyroidism, and schizophrenia who presented via petition for noncompliance to medications. The patient was admitted to the mental health unit for active psychosis with delusions. The patient was seen in the mental health unit and reported no complaints. The patient was in psychosis during history taking and had paranoid delusions, reporting that she was poisoned previously by her friends and family, which gave her high blood pressure and hypothyroidism. She notes noncompliance to all her medications and states that she doesn't take anything at home. She denied any active complaints. She denied chest pain, shortness of breath, nausea, vomiting, abdominal pain, fever, chills, or dysuria. Review of Systems Pertinent positives and negatives as discussed in HPI, a complete review of systems was performed and all other systems are negative. Past Medical History Past Medical History: Hypertension, Thyroid Disorder Additional Past Medical History / Comment(s): UTI, arthritis History of Any Multi-Drug Resistant Organisms: MRSA Year Discovered:: 06/07/16 MDRO Source:: Buttock Past Surgical History: Cholecystectomy, Uterine Ablation Additional Past Surgical History / Comment(s): Hysterectomy, left gluteal abscess debridement Past Anesthesia/Blood Transfusion Reactions: No Reported Reaction Past Psychological History: Anxiety, Depression, Panic Disorder, Schizoaffective Disorder, Schizophrenia Smoking Status: Current every day smoker Past Alcohol Use History: None Reported Past Drug Use History: None Reported - Past Family History Mother Family Medical History: No Reported History Father Family Medical History: No Reported History Medications and Allergies Home Medications Medication Instructions Recorded Confirmed Type Metoprolol Succinate (ER) [Toprol 100 mg PO DAILY 30 Days tab.er.24h 08/17/16 12/20/18 Rx XL] Cholecalciferol (Vitamin D3) 2,000 unit PO DAILY 08/15/17 12/20/18 History [Vitamin D3] Cyanocobalamin [Vitamin B-12] 500 mcg PO DAILY 08/15/17 12/20/18 History LORazepam [Ativan] 1 mg PO QAM 09/12/17 12/20/18 History LORazepam [Ativan] 2 mg PO HS 08/31/18 12/20/18 History Levothyroxine Sodium [Synthroid] 125 mcg PO DAILY 08/31/18 12/20/18 History Loratadine [Claritin] 10 mg PO DAILY PRN 08/31/18 12/20/18 History amLODIPine BESYLATE/BENAZEPRIL 1 cap PO DAILY 08/31/18 12/20/18 History [Lotrel 10-40 MG] fluPHENAZine DECANOATE [Prolixin 100 mg IM Q14D 08/31/18 12/20/18 History Decanoate] Acetaminophen [Tylenol] 650 mg PO Q6H PRN 12/20/18 12/20/18 History Aspirin 325 mg PO QID PRN 12/20/18 12/20/18 History Docusate [Colace] 100 mg PO DAILY PRN 12/20/18 12/20/18 History Ibuprofen [Motrin Ib] 200 - 400 mg PO Q6H PRN 12/20/18 12/20/18 History Darci-Tin 1 dose PO DIRECTED PRN 12/20/18 12/20/18 History Loperamide HCl [Imodium A-D] 2 mg PO QID PRN 12/20/18 12/20/18 History Magnesium Hydroxide [Milk of 2,400 mg PO DAILY PRN 12/20/18 12/20/18 History Magnesia] Nicotine Polacrilex [Nicorette] 4 mg BUCCAL DAILY PRN 12/20/18 12/20/18 History Pseudoephedrine HCl [Sudafed] 60 mg PO Q6H PRN 12/20/18 12/20/18 History Psyllium Husk 100% [Metamucil 6 gm PO DAILY PRN 12/20/18 12/20/18 History Packet] cloNIDine 0.2 MG/24HR PATCH 1 patch TRANSDERM Q7D 12/20/18 12/20/18 History [Catapres-TTS] diphenhydrAMINE HCL [Benadryl] 25 mg PO QID PRN 12/20/18 12/20/18 History fluvoxaMINE MALEATE [Luvox] 100 mg PO DAILY 12/20/18 12/20/18 History guaiFENesin SYRUP 100MG/5ML 200 mg PO Q6H PRN 12/20/18 12/20/18 History [Robitussin] Allergies Allergy/AdvReac Type Severity Reaction Status Date / Time Penicillins Allergy Anaphylaxis Verified 12/20/18 17:40 Physical Exam Vitals: Vital Signs Temp Pulse Resp BP 12/20/18 16:47 97.9 F 111 H 18 142/96 Intake and Output 12/20/18 12/20/18 12/20/18 06:59 14:59 22:59 Other: Weight 79.379 kg General: non toxic, no distress, appears older than at stated age, obese Derm: no unusual rashes/lesions no unusual ecchymoses, warm, dry Head: atraumatic, normocephalic, symmetric Eyes: EOMI, no lid lag, anicteric sclera, pupils equal round reactive to light ENT: Nose and ears atraumatic, no thrush, no pharyngeal erythema Neck: No thyromegaly, no cervical lymphadenopathy, trachea midline, supple Mouth: no lip lesion, mucus membranes moist Cardiovascular: S1S2 reg, no murmur, positive posterior tibial pulse bilateral, no edema, capillary refill less than 2 seconds Lungs: CTA bilateral, no rhonchi, no rales , no accessory muscle use Abdominal: soft, nontender to palpation, no guarding, no appreciable organomegaly, normal bowel sounds Ext: no gross muscle atrophy, muscle strength 5 out of 5 in all 4 extremities grossly, no contractures, Neuro: CN II-XI grossly intact, light touch intact all 4 extremities, finger to nose within normal limits, Psych: Alert, oriented, appropriate affect, delusional Assessment and Plan Plan: Hypertension -Resume home antihypertensives Hypothyroidism -Resume home dose of Synthroid Tobacco abuse -Advised patient on importance of cessation -Nicotine patch when necessary Vilma and -As per psychiatry Thank you for allowing us to participate in the care of this patient. We will follow peripherally. Do not hesitate to contact us with questions. Someone can be reached from the [facility] hospitalist group at all hours of the day at [phone].
[2018-12-20] MEDS: IBUPROFEN 400 MG TAB PO PRN (23:30)
[2018-12-21 00:19] VITALS: TEMP 96.9
[2018-12-21] MEDS: IBUPROFEN 400 MG TAB PO PRN ×3 (04:43→20:05)
[2018-12-21] MEDS: LORazepam 1 MG TAB PO SCH ×3 (08:30→20:09)
[2018-12-21] MEDS: CYANOCOBALAMIN 500 MCG TAB PO SCH (09:36)
[2018-12-21] MEDS: amLODIPine 10 MG TAB PO SCH (09:36)
[2018-12-21] MEDS: CHOLECALCIFEROL 1,000 UNIT TAB PO SCH (09:36)
[2018-12-21] MEDS: LEVOTHYROXINE 125 MCG TAB PO SCH (09:36)
[2018-12-21] MEDS: LISINOPRIL 20 MG TAB PO SCH (09:37)
[2018-12-21] MEDS: METOPROLOL SUCCINATE (ER) 100 MG TAB.ER.24H PO SCH (09:37)
[2018-12-21] MEDS: NICOTINE POLACRILEX 2 MG GUM BUCCAL PRN (10:39)
--- NOTE | 2018-12-21 13:43 | P.HP ---
Psychiatric H&P - . H&P Date: 12/21/18 History & Physical: Allergies Allergy/AdvReac Type Severity Reaction Status Date / Time Penicillins Allergy Anaphylaxis Verified 12/20/18 17:40 Vital Signs Temp 96.9 F L 12/21/18 00:18 Pulse 75 12/21/18 00:18 Resp 18 12/21/18 00:18 BP 137/94 12/21/18 00:18 Pulse Ox Intake & Output 12/20/18 12/21/18 12/21/18 18:59 06:59 18:59 Weight 79.379 kg 12/21/18 13:34 Identification: Patient is a 63-year-old female who was brought to the emergency room by the police due to refusal to take medications at her senior care History of Present Illness: Patient is a 63-year-old female was brought to the emergency room by police after she was refusing to take medication or senior care stating that it was LSD. Patient refused to speak with me and I approached her on 2 separate occasions, she was offered to have staff accompany her and she continued to refuse to speak with me. Patient was due received long-acting injectable Prolixin on December 19 and apparently refused that and has been refusing oral medications at the senior care. Patient's dose of Prolixin a been increased on December 05 to 100 mg every 2 weeks from 50 mg every 2 weeks. Patient is also on Luvox 100 mg daily and Ativan 1 mg twice a day. Patient's history is obtained from the chart. Patient has a long history of schizophrenia and has had 4 prior admissions since 2014 to this hospital and numerous prior to that. She is currently living in a senior care and has a public guardian. She is currently receiving Prolixin long- acting 100 mg every 2 weeks, Luvox 100 mg daily and Ativan 1 mg twice a day as well as Benadryl 25 mg on an as-needed basis. Past Psychiatric History: Patient has a long history of schizophrenia her last admission here was in August 2017 she living at a senior care and has a public guardian. Patient apparently has been refusing her medications at the senior care and was brought to the emergency room under a court order. Past Medical/Surgical History: Patient is a history of hypertension, hypothyroidism and status post cholecystectomy, hysterectomy and status post gluteal abscess Family History: Unable to obtain Social History: Patient lives at a senior care and has a public guardian Substance Use History: Unable to obtain Legal History: Unable to obtain Mental status:Appearance/Attitude: Patient is dressed in casual clothes, long black hair with fair grooming, made only intermittent eye contact and refused to come with me to the interview room Behavior: Patient has been seen walking in the halls Speech/Language: Patient did not speak with me Thought Process: Unable to assess Thought Content: Unable to assess Suicidal/Homicidal Ideation: Unable to assess Sensorium/Cognition: Unable to assess Mood/Affect: Patient's mood is guarded affect is blunted Insight/Judgment: Unable to assess Intellectual Functioning: Unable to assess Strength/Weakness: Patient has housing/lack of compliance with medication Assessment: Patient refuses to speak with me, she was offered to have staff accompany her she refused to speak with me on 2 occasions when approached. Patient was brought to the emergency room by the police due to refusing to take her medications, she had been stating at the senior care that they were LSD. Patient has a long history of schizophrenia and a long history of noncompliance and is currently on a court order for treatment. Patient also has a guardian. Patient has been prescribed Prolixin long-acting 100 mg every 2 weeks which was recently increased to this dose on December 05. Patient is also on Luvox 100 mg daily Ativan 1 mg twice a day and Benadryl on an as-needed basis. Patient has been refusing all of her medications by mouth since her admission to the hospital. Admission Diagnosis: Schizophrenia Plan: Patient was admitted under an existing court order, placed on routine observation in group and activity therapy were ordered. Patient had routine laboratory studies and a medical consultation ordered. Patient was given her Prolixin long-acting 100 mg injectable yesterday evening as scheduled. Patient was also continued on her oral medications for her medical problems as well as her Luvox 100 mg, Ativan 1 mg twice a day and Benadryl as needed all of which the patient has continued to refuse all of her oral medication since admission. Patient requires hospitalization to target her psychotic symptoms. Patient continues to be encouraged to take her medications. Patient will continue to be approached to complete the assessment. 12/21/18 13:37 12/21/18 13:42
[2018-12-21] MEDS ORDERED: LORazepam 1 MG TAB PO SCH (21:00)
[2018-12-22] MEDS: CHOLECALCIFEROL 1,000 UNIT TAB PO SCH (10:40)
[2018-12-22] MEDS: amLODIPine 10 MG TAB PO SCH (10:40)
[2018-12-22] MEDS: LEVOTHYROXINE 125 MCG TAB PO SCH (10:40)
[2018-12-22] MEDS: CYANOCOBALAMIN 500 MCG TAB PO SCH (10:40)
[2018-12-22] MEDS: METOPROLOL SUCCINATE (ER) 100 MG TAB.ER.24H PO SCH (10:41)
[2018-12-22] MEDS: LISINOPRIL 20 MG TAB PO SCH (10:41)
[2018-12-22] MEDS: LORazepam 1 MG TAB PO SCH ×2 (10:41→21:21)
--- NOTE | 2018-12-22 13:25 | P.PN ---
Progress Note - Text Progress Note Date: 12/22/18 Interval history: Patient was found in the lounge. Attempted to see the patient in cross coverage today. She is declining meeting with me today. Mental status exam: She is found in the patient lounge. She refuses to meet with me today. Her affect is restricted. She does not show any agitation. Plan: We will reattempt tomorrow to meet with the patient cross coverage. We will continue to monitor her ongoing response to treatment. Monitor for any medication side effects and medication compliance.
[2018-12-22] MEDS: IBUPROFEN 400 MG TAB PO PRN ×2 (13:52→20:12)
[2018-12-22] MEDS: NICOTINE POLACRILEX 2 MG GUM BUCCAL PRN (14:22)
[2018-12-23] MEDS: IBUPROFEN 400 MG TAB PO PRN ×4 (02:30→21:07)
[2018-12-23] MEDS: LEVOTHYROXINE 125 MCG TAB PO SCH (05:54)
[2018-12-23] MEDS: amLODIPine 10 MG TAB PO SCH (09:20)
[2018-12-23] MEDS: CHOLECALCIFEROL 1,000 UNIT TAB PO SCH (09:20)
[2018-12-23] MEDS: METOPROLOL SUCCINATE (ER) 100 MG TAB.ER.24H PO SCH (09:21)
[2018-12-23] MEDS: LISINOPRIL 20 MG TAB PO SCH (09:21)
[2018-12-23] MEDS: CYANOCOBALAMIN 500 MCG TAB PO SCH (09:21)
[2018-12-23] MEDS: LORazepam 1 MG TAB PO SCH ×2 (09:21→21:59)
--- NOTE | 2018-12-23 11:42 | P.PN ---
Progress Note - Text Progress Note Date: 12/23/18 Interval history: Patient is seen in the hallway. She is not agreeable to come meet with me today. Mental status exam: Patient is found in the hallway. She is not agreeable to come meet with me today. She does not respond when asked if she has any questions. Her affect is restricted. She does not show any agitation. Plan: Patient will be maintained on current psychotropic medication regimen. Continue to monitor for any medication side effects and monitor her on [place] response to treatment.
[2018-12-23] MEDS: NICOTINE POLACRILEX 2 MG GUM BUCCAL PRN ×2 (16:43→22:25)
[2018-12-24] MEDS: IBUPROFEN 400 MG TAB PO PRN ×2 (02:43→19:31)
[2018-12-24] MEDS: LEVOTHYROXINE 125 MCG TAB PO SCH (05:12)
[2018-12-24] MEDS: amLODIPine 10 MG TAB PO SCH (09:50)
[2018-12-24] MEDS: CHOLECALCIFEROL 1,000 UNIT TAB PO SCH (09:51)
[2018-12-24] MEDS: LISINOPRIL 20 MG TAB PO SCH (09:51)
[2018-12-24] MEDS: LORazepam 1 MG TAB PO SCH ×3 (09:51→21:40)
[2018-12-24] MEDS: CYANOCOBALAMIN 500 MCG TAB PO SCH (09:51)
[2018-12-24] MEDS: METOPROLOL SUCCINATE (ER) 100 MG TAB.ER.24H PO SCH (09:51)
[2018-12-24 09:53] VITALS: BP 133/97; PULSE 110
--- NOTE | 2018-12-24 13:39 | P.PN ---
Progress Note - Text Progress Note Date: 12/24/18 Interval History: Patient is a 63-year-old female who initially refused to speak with me but then agreed to. She states that she wants a different fdc. Patient states that she took her medicines this morning, patient states that the TV sends her messages telling her that she is bipolar needs mental health and she doesn't believe that she does. Patient couldn't tell me why she had been refusing all of her oral medications. Mental Status: Appearance/Attitude: Patient is dressed in a hospital gown, grooming is fair she makes eye contact and was superficially cooperative Behavior: And did not exhibit any psychomotor agitation or retardation Speech/Language: Speech was spontaneous but limited to responding to my questions, she spoke in a normal volume and rhythm and was coherent Thought Process: Patient's responses were goal-directed there is no evidence of loose association or flight of ideas Thought Content: Patient denied auditory or visual hallucinations, stated that the TV sends her messages telling her she is bipolar needs mental health she states that she doesn't believe it. She states that she took her medications as morning but can't tell me why she is been refusing them other than to say that she doesn't need them and doesn't trust the people at the fdc. Patient has been sleeping and eating. Suicidal/Homicidal Ideation: Patient denied any current suicidal or homicidal ideation Sensorium/Cognition: Patient is alert and oriented to person, place and time Mood/Affect: Patient's mood remains irritable and her affect appropriate to her mood Insight/Judgment: Patient's insight and judgment are limited Assessment: Patient states that she wants to go to a different fdc because she doesn't like the one she is at and she doesn't trust the people and states that the reason she hasn't been taking her oral medication. Patient then stated that she doesn't want to receive an injection anymore because she thinks that it's damaging her liver. Patient refuses blood work however to check on her liver. Patient took her medications this morning for the first time since she was admitted. Patient is also reporting that the TV sends her messages telling her she is bipolar and that she needs mental health but she doesn't believe it. Plan: Patient will continue on Prolixin long-acting injectable which she already received, patient was encouraged to take her oral medications and I stated that she needed to take her medications regularly for several days in a row before I will consider discharge. Patient was asked again to have blood work done and she again refused.
[2018-12-24] MEDS: NICOTINE POLACRILEX 2 MG GUM BUCCAL PRN (19:57)
[2018-12-25] MEDS: LEVOTHYROXINE 125 MCG TAB PO SCH (07:10)
[2018-12-25] MEDS: IBUPROFEN 400 MG TAB PO PRN ×3 (07:12→21:32)
[2018-12-25] MEDS: CYANOCOBALAMIN 500 MCG TAB PO SCH (08:15)
[2018-12-25] MEDS: amLODIPine 10 MG TAB PO SCH (08:15)
[2018-12-25] MEDS: CHOLECALCIFEROL 1,000 UNIT TAB PO SCH (08:15)
[2018-12-25] MEDS: LISINOPRIL 20 MG TAB PO SCH (08:15)
[2018-12-25] MEDS: METOPROLOL SUCCINATE (ER) 100 MG TAB.ER.24H PO SCH (08:16)
--- NOTE | 2018-12-25 12:59 | P.PN ---
Progress Note - Text Progress Note Date: 12/25/18 Interval History: Patient is a 63-year-old female who was seen today in the hallway she refused to come to the interview room with me stating that she wants a new doctor. Patient states that she is taking her meds and wants to be discharged and is requesting to go to [facility]. Patient became tearful stating that she doesn't want injections because they give her the injections when she sleeping. Mental Status: Appearance/Attitude: Patient is casually dressed, makes eye contact and is superficially cooperative Behavior: Patient does not exhibit any psychomotor retardation but does become upset and agitated when discussing her discharge and placement Speech/Language: Patient's speech is not spontaneous, she is only responding to my questions, she speaks in a loud voice and is coherent Thought Process: Patient's responses are brief and non-elaborative no evidence of loose association or flight of ideas Thought Content: Patient denied any auditory or visual hallucinations and she stated that she felt the group homes or giving her her med patient specifically the injections at night, she states that she still suspicious of some of the staff at the shelter she had been at. Patient states she's been sleeping and is eating Suicidal/Homicidal Ideation: Patient denied any suicidal or homicidal ideation at this time Sensorium/Cognition: Patient is alert and oriented to person, place and situation Mood/Affect: Patient's mood remains irritable at times, at other times she is tearful and crying and her affect is appropriate to mood Insight/Judgment: Patient's insight and judgment are limited Assessment: Patient has been taking her oral medications yesterday and today, in team meeting [facility] reports that she will be placed in a different shelter on . Patient was reluctant to speak with me because she wanted to be discharged today, requesting a different physician, and requesting to go to [facility] and does not want to go to any other shelter. Plan: Patient will continue on her Prolixin long-acting injectable which she received on the day of admission, she continues on her oral medications and discharge is planned for , to a new shelter.
[2018-12-25] MEDS: LORazepam 1 MG TAB PO SCH (21:32)
[2018-12-26] MEDS: LEVOTHYROXINE 125 MCG TAB PO SCH (06:41)
[2018-12-26] MEDS: METOPROLOL SUCCINATE (ER) 100 MG TAB.ER.24H PO SCH (10:49)
[2018-12-26] MEDS: CHOLECALCIFEROL 1,000 UNIT TAB PO SCH (10:50)
[2018-12-26] MEDS: LORazepam 1 MG TAB PO SCH ×2 (10:50→21:39)
[2018-12-26] MEDS: LISINOPRIL 20 MG TAB PO SCH (10:50)
[2018-12-26] MEDS: CYANOCOBALAMIN 500 MCG TAB PO SCH (10:51)
[2018-12-26] MEDS: amLODIPine 10 MG TAB PO SCH (10:51)
--- NOTE | 2018-12-26 12:26 | P.PN ---
Progress Note - Text Progress Note Date: 12/26/18 Interval History: Patient is a 63-year-old female who was encouraged to come to the office to speak with me and she eventually did do so. Patient states that she is not hearing voices, not having suicidal thoughts and initially complained that she doesn't want to go to the [facility] that she has been changed to tomorrow. Patient eventually agreed that she would go there. Patient states that she's been taking her medications. Patient reports that she sleeps late into the morning and states that she typically does not eat breakfast. Patient then later stated that she is going to hire an disability attorney so that she doesn't have to keep getting injections of medication. Mental Status: Appearance/Attitude: Patient is dressed in a hospital gown, her grooming is fair, she makes eye contact and was cooperative Behavior: Patient does not exhibit any psychomotor agitation or retardation Speech/Language: Patient's speech is spontaneous, normal volume and rhythm and she is coherent Thought Process: Patient is goal-directed, her responses however brief and non- elaborative is no evidence of loose association or flight of ideas Thought Content: Patient denies any auditory or visual hallucinations and no delusions or paranoid ideation or elicited. Patient states that she's been taking her medications states that she doesn't think that she needs the shots a month to hire an disability attorney so that she can stop taking them. Patient states that she will continue to take them until the disability attorney says she doesn't have to. Patient is sleeping and eating well Suicidal/Homicidal Ideation: Patient denies any current suicidal or homicidal ideation Sensorium/Cognition: Patient is alert and oriented to person, place and time Mood/Affect: Patient's mood is irritable at times and her affect is appropriate to her mood Insight/Judgment: Patient's insight and judgment are limited Assessment: Patient has been taking her oral medications, she did comply with receiving the injection on the day of admission. Patient states that she didn't want to go to the new ch[facility] but then relented and said that she would go there. Patient also reported that she did not want to continue with the shots and wanted to hire an disability attorney so that she didn't have to take them anymore. Patient then agreed that she would continue taking the shots and states that she continues to want to hire an disability attorney to argue that. Patient has been eating and sleeping well on the unit and attending some groups and activities Plan: Patient continues on Prolixin long-acting injectable 100 mg every 2 weeks, patient will be discharged tomorrow to a [facility].
[2018-12-26] MEDS: IBUPROFEN 400 MG TAB PO PRN ×2 (15:10→21:39)
[2018-12-27] MEDS: LEVOTHYROXINE 125 MCG TAB PO SCH ×2 (06:23→08:04)
[2018-12-27] MEDS: CHOLECALCIFEROL 1,000 UNIT TAB PO SCH (08:04)
[2018-12-27] MEDS: amLODIPine 10 MG TAB PO SCH (08:04)
[2018-12-27] MEDS: CYANOCOBALAMIN 500 MCG TAB PO SCH (08:04)
[2018-12-27] MEDS: LISINOPRIL 20 MG TAB PO SCH (08:05)
[2018-12-27] MEDS: METOPROLOL SUCCINATE (ER) 100 MG TAB.ER.24H PO SCH (08:05)
[2018-12-27] MEDS: LORazepam 1 MG TAB PO SCH (08:05)
[2018-12-27] MEDS: IBUPROFEN 400 MG TAB PO PRN (09:05)
--- NOTE | 2018-12-27 09:13 | P.DS ---
Providers Date of admission: 12/20/18 20:59 Expected date of discharge: 12/27/18 Attending physician: Jessica Maurer MD Consults: 12/20/18 21:16 Consult Physician Routine Consulting Provider: [facility] Consult Reason/Comments: H & P and medical care Do you want consulting provider notified?: Yes Primary care physician: Stated None Hospital Course: Discharge Diagnosis: Schizophrenia Reason for Admission: Patient is a 63-year-old female who was brought to the emergency room by the police due to refusal to take medications at her shelter. Patient is a 63-year-old female was brought to the emergency room by police after she was refusing to take medication or shelter stating that it was LSD. Patient refused to speak with me and I approached her on 2 separate occasions, she was offered to have staff accompany her and she continued to refuse to speak with me. Patient was due received long-acting injectable Prolixin on December 19 and apparently refused that and has been refusing oral medications at the shelter. Patient's dose of Prolixin a been increased on December 05 to 100 mg every 2 weeks from 50 mg every 2 weeks. Patient is also on Luvox 100 mg daily and Ativan 1 mg twice a day. Patient's history is obtained from the chart. Patient has a long history of schizophrenia and has had 4 prior admissions since 2014 to this hospital and numerous prior to that. She is currently living in a shelter and has a public guardian. She is currently receiving Prolixin long- acting 100 mg every 2 weeks, Luvox 100 mg daily and Ativan 1 mg twice a day as well as Benadryl 25 mg on an as-needed basis. Mental status on Admission:Appearance/Attitude: Patient is dressed in casual clothes, long black hair with fair grooming, made only intermittent eye contact and refused to come with me to the interview room Behavior: Patient has been seen walking in the halls Speech/Language: Patient did not speak with me Thought Process: Unable to assess Thought Content: Unable to assess Suicidal/Homicidal Ideation: Unable to assess Sensorium/Cognition: Unable to assess Mood/Affect: Patient's mood is guarded affect is blunted Insight/Judgment: Unable to assess Hospital Course: Patient was admitted under an existing court order, placed on routine observation, group and activity therapy were ordered, patient refused routine laboratory studies and a medical consultation was obtained. Patient initially refused all of her medications orally for her medical problems and she was given Prolixin long-acting injection 100 mg on the night of admission as she was due for that. Patient eventually agreed to start taking her oral medications and did begin taking them. Patient was sleeping and eating on the unit, attending some groups and activities. Patient requested that her shelter be changed, it was an patient continued to be compliant with her medications. Patient continued to refuse any blood work during her hospital stay and none was obtained. Patient's shelter was changed, patient stated she was ready for discharge and would continue to take her medications and be compliant once she was discharged with both her oral medications and her long- acting injectable. Allergies Penicillins Allergy (Verified 12/20/18 17:40) Anaphylaxis Discharge Mental Status: Appearance/Attitude: Patient is casually dressed, appears slightly disheveled, makes intermittent eye contact and is cooperative Behavior: Patient does not display any psychomotor agitation or retardation Speech/Language: Patient's speech is spontaneous, of normal volume and rhythm at times slightly garbled and she is coherent Thought Process: Patient is goal-directed although her responses are brief and non-elaborative Thought Content: patient denies auditory or visual hallucinations and no delusions or paranoid ideation is elicited. Patient states she's been sleeping well, eating well. Patient has been taking her oral medications. Suicidal/Homicidal Ideation: patient denies any current suicidal or homicidal ideation Sensorium/Cognition: patient is alert and oriented to person place and time Mood/Affect: patient's mood is bland and her affect is slightly blunted Insight/Judgment: patient's insight and judgment are limited Risk Assessment: patient's risk for readmission is moderate should she refuse medications Discharge Plan:patient will be discharged, patient has a guardian and she will be returning to a shelter on [address]. Patient will continue on metoprolol XL 100 mg in the morning, Ativan 1 mg twice a day, Zestril 40 mg daily, Luvox 100 mg daily, vitamin B12 and vitamin D 3, Norvasc 10 mg daily, Synthroid 125 g daily, Catapres patch every 7 days and she is due for her next Prolixin decanoate injection 100 mg on January 03. Prescriptions will be given for all these medications the patient was encouraged to be compliant with her medications and follow-up care. Patient Condition at Discharge: Stable Plan - Discharge Summary New Discharge Prescriptions: New LORazepam [Ativan] 1 mg PO BID #56 tab Continue Loratadine [Claritin] 10 mg PO DAILY PRN PRN Reason: Allergy Symptoms Nicotine Polacrilex [Nicorette] 4 mg BUCCAL DAILY PRN PRN Reason: CRAVINGS guaiFENesin SYRUP 100MG/5ML [Robitussin] 200 mg PO Q6H PRN PRN Reason: Cough Pseudoephedrine HCl [Sudafed] 60 mg PO Q6H PRN PRN Reason: Congestion Psyllium Husk 100% [Metamucil Packet] 6 gm PO DAILY PRN PRN Reason: Constipation Magnesium Hydroxide [Milk of Magnesia] 2,400 mg PO DAILY PRN PRN Reason: Constipation Loperamide HCl [Imodium A-D] 2 mg PO QID PRN PRN Reason: Diarrhea Darci-Tin 1 dose PO DIRECTED PRN PRN Reason: Diarrhea Ibuprofen [Motrin Ib] 200 - 400 mg PO Q6H PRN PRN Reason: Headache Docusate [Colace] 100 mg PO DAILY PRN PRN Reason: Constipation Aspirin 325 mg PO QID PRN PRN Reason: Pain Acetaminophen [Tylenol] 650 mg PO Q6H PRN PRN Reason: Fever And/ Or Pain diphenhydrAMINE HCL [Benadryl] 25 mg PO QID PRN #56 tablet PRN Reason: Allergy Symptoms cloNIDine 0.2 MG/24HR PATCH [Catapres-TTS] 1 patch TRANSDERM Q7D #4 patch amLODIPine BESYLATE/BENAZEPRIL [Lotrel 10-40 MG] 1 cap PO DAILY #28 capsule fluvoxaMINE MALEATE [Luvox] 100 mg PO DAILY #28 tablet fluPHENAZine DECANOATE [Prolixin Decanoate] 100 mg IM Q14D #1 vial Levothyroxine Sodium [Synthroid] 125 mcg PO DAILY #28 tab Metoprolol Succinate (ER) [Toprol XL] 100 mg PO DAILY 28 Days tab.er.24h Cyanocobalamin [Vitamin B-12] 500 mcg PO DAILY #28 tab Cholecalciferol (Vitamin D3) [Vitamin D3] 2,000 unit PO DAILY #28 capsule Discontinued LORazepam [Ativan] 1 mg PO QAM LORazepam [Ativan] 2 mg PO HS Discharge Medication List Loratadine [Claritin] 10 mg PO DAILY PRN 08/31/18 [History] Acetaminophen [Tylenol] 650 mg PO Q6H PRN 12/20/18 [History] Aspirin 325 mg PO QID PRN 12/20/18 [History] Docusate [Colace] 100 mg PO DAILY PRN 12/20/18 [History] Ibuprofen [Motrin Ib] 200 - 400 mg PO Q6H PRN 12/20/18 [History] Darci-Tin 1 dose PO DIRECTED PRN 12/20/18 [History] Loperamide HCl [Imodium A-D] 2 mg PO QID PRN 12/20/18 [History] Magnesium Hydroxide [Milk of Magnesia] 2,400 mg PO DAILY PRN 12/20/18 [History] Nicotine Polacrilex [Nicorette] 4 mg BUCCAL DAILY PRN 12/20/18 [History] Pseudoephedrine HCl [Sudafed] 60 mg PO Q6H PRN 12/20/18 [History] Psyllium Husk 100% [Metamucil Packet] 6 gm PO DAILY PRN 12/20/18 [History] guaiFENesin SYRUP 100MG/5ML [Robitussin] 200 mg PO Q6H PRN 12/20/18 [History] Cholecalciferol (Vitamin D3) [Vitamin D3] 2,000 unit PO DAILY #28 capsule [Rx] Cyanocobalamin [Vitamin B-12] 500 mcg PO DAILY #28 tab 12/27/18 [Rx] LORazepam [Ativan] 1 mg PO BID #56 tab 12/27/18 [Rx] Levothyroxine Sodium [Synthroid] 125 mcg PO DAILY #28 tab 12/27/18 [Rx] Metoprolol Succinate (ER) [Toprol XL] 100 mg PO DAILY 28 Days tab.er.24h 12/27/18 [Rx] amLODIPine BESYLATE/BENAZEPRIL [Lotrel 10-40 MG] 1 cap PO DAILY #28 capsule 12/27/18 [Rx] cloNIDine 0.2 MG/24HR PATCH [Catapres-TTS] 1 patch TRANSDERM Q7D #4 patch 12/27/18 [Rx] diphenhydrAMINE HCL [Benadryl] 25 mg PO QID PRN #56 tablet 12/27/18 [Rx] fluPHENAZine DECANOATE [Prolixin Decanoate] 100 mg IM Q14D #1 vial 12/27/18 [Rx] fluvoxaMINE MALEATE [Luvox] 100 mg PO DAILY #28 tablet 12/27/18 [Rx] Follow up Appointment(s)/Referral(s): [facility] [Outside] - 01/02/19 10:00 am (with Divya Schwartz) [facility] - 1 Week Patient Instructions/Handouts: How to Stop Smoking (DC), Schizophrenia (DC), Psychotic Disorder (DC) Activity/Diet/Wound Care/Special Instructions: Activity and diet as tolerated. Avoid the use of street drugs and alcohol. Take all medications as prescribed. When you are in need of refills on your medications please contact your medical provider and/or outpatient psychiatrist to have this done. Please go to scheduled outpatient appointment for aftercare. If symptoms return or become worse call the crisis line at and/or go to the nearest emergency room for an evaluation. Discharge Disposition: OTHER INSTITUTION NOT DEFINED
== END 2018-12-27 14:16 | disposition home or self-care (01) | DRG 885 ==
LOC: EC 16:45 → 3MHU 20:59
PROVIDERS: ADMIT Psychiatry & Neurology Psychiatry; ATTEND Psychiatry & Neurology Psychiatry
DX: F20.9 Schizophrenia, unspecified (principal); E03.9 Hypothyroidism, unspecified; F31.9 Bipolar disorder, unspecified; F41.0 Panic disorder [episodic paroxysmal anxiety]; F17.200 Nicotine dependence, unspecified, uncomplicated; I10 Essential (primary) hypertension; Z79.890 Hormone replacement therapy; Z79.899 Other long term (current) drug therapy; Z90.49 Acquired absence of other specified parts of digestive tract; Z90.710 Acquired absence of both cervix and uterus; Z91.14 Patient's other noncompliance with medication regimen; Z91.19 Patient's noncompliance with other medical treatment and regimen; Z88.0 Allergy status to penicillin
CPT/HCPCS: 82075; 99285

== ENCOUNTER 2019-01-12 15:11 | Emergency (ER) | payer MEDICARE, OTHER ==
[2019-01-12 15:51] VITALS: BP 189/110; PULSE 89; RESP 16; TEMP 99
--- NOTE | 2019-01-12 16:37 | ED ---
Psych HPI - General Stated Complaint: Mental Health Time Seen by Provider: 01/12/19 15:26 Source: patient, police, RN notes reviewed Mode of arrival: ambulatory Limitations: no limitations - History of Present Illness Initial Comments: This is a 63-year-old female with long history of psychiatric disorders presents emergency Department for evaluation. Patient reportedly has not been taking her medication refusing take medications. Patient is refusing to shower or do any daily activities. Patient denies being suicidal or homicidal. Patient denies any physical complaints. - Related Data Home Medications Medication Instructions Recorded Confirmed Loratadine [Claritin] 10 mg PO DAILY PRN 08/31/18 01/12/19 Nicotine Polacrilex [Nicorette] 4 mg BUCCAL DAILY PRN 12/20/18 01/12/19 Ammonium Lactate Cream [Lac-Hydrin 1 applic TOPICAL DAILY 01/12/19 01/12/19 12% Cream] Ciclopirox [Penlac] 1 applic TOPICAL HS 01/12/19 01/12/19 Ketoconazole 2% Cream [Nizoral 2%] 1 applic TOPICAL DAILY 01/12/19 01/12/19 OLANZapine [ZyPREXA] 10 mg PO HS 01/12/19 01/12/19 fluPHENAZine DECANOATE [Prolixin 50 mg IM Q14D 01/12/19 01/12/19 Decanoate] Previous Rx's Medication Instructions Recorded Cholecalciferol (Vitamin D3) 2,000 unit PO DAILY #28 capsule 12/27/18 [Vitamin D3] Cyanocobalamin [Vitamin B-12] 500 mcg PO DAILY #28 tab 12/27/18 LORazepam [Ativan] 1 mg PO BID #56 tab 12/27/18 Levothyroxine Sodium [Synthroid] 125 mcg PO DAILY #28 tab 12/27/18 Metoprolol Succinate (ER) [Toprol 100 mg PO DAILY 28 Days tab.er.24h 12/27/18 XL] cloNIDine 0.2 MG/24HR PATCH 1 patch TRANSDERM Q7D #4 patch 12/27/18 [Catapres-TTS] diphenhydrAMINE HCL [Benadryl] 25 mg PO QID PRN #56 tablet 12/27/18 fluvoxaMINE MALEATE [Luvox] 100 mg PO DAILY #28 tablet 12/27/18 Allergies Allergy/AdvReac Type Severity Reaction Status Date / Time Penicillins Allergy Anaphylaxis Verified 01/12/19 17:51 Review of Systems ROS Statement: Those systems with pertinent positive or pertinent negative responses have been documented in the HPI. ROS Other: All systems not noted in ROS Statement are negative. Past Medical History Past Medical History: Hypertension, Thyroid Disorder Additional Past Medical History / Comment(s): UTI, arthritis History of Any Multi-Drug Resistant Organisms: MRSA Date of last positivie culture/infection: 06/07/16 MDRO Source:: Buttock Past Surgical History: Cholecystectomy, Uterine Ablation Additional Past Surgical History / Comment(s): Hysterectomy, left gluteal abscess debridement Past Anesthesia/Blood Transfusion Reactions: No Reported Reaction Past Psychological History: Anxiety, Depression, Panic Disorder, Schizoaffective Disorder, Schizophrenia Smoking Status: Current every day smoker Past Alcohol Use History: None Reported Past Drug Use History: None Reported - Past Family History Mother Family Medical History: No Reported History Father Family Medical History: No Reported History General Exam Limitations: altered mental status General appearance: alert, in no apparent distress Head exam: Present: atraumatic, normocephalic, normal inspection Eye exam: Present: normal appearance, PERRL, EOMI. Absent: scleral icterus, conjunctival injection, periorbital swelling ENT exam: Present: normal exam, normal oropharynx, mucous membranes moist Neck exam: Present: normal inspection, full ROM. Absent: tenderness, meningismus, lymphadenopathy Respiratory exam: Present: normal lung sounds bilaterally. Absent: respiratory distress, wheezes, rales, rhonchi, stridor Cardiovascular Exam: Present: regular rate, normal rhythm, normal heart sounds. Absent: systolic murmur, diastolic murmur, rubs, gallop, clicks GI/Abdominal exam: Present: soft, normal bowel sounds. Absent: distended, tenderness, guarding, rebound, rigid Neurological exam: Present: alert, oriented X3, CN II-XII intact Psychiatric exam: Present: flat affect Skin exam: Present: warm, dry, intact, normal color. Absent: rash Course Vital Signs 01/12/19 15:47 Temperature 99 F Pulse Rate 89 Respiratory 16 Rate Blood Pressure 189/110 O2 Sat by Pulse 95 Oximetry Medical Decision Making - Medical Decision Making 61-year-old female presented for psychiatric evaluation patient evaluated by EPS and case discussed with psychiatrist recommends patient be discharged she's not suicidal homicidal. She is not compliant with her medications though she is n ot a harm to herself or anyone else at this time. Disposition Clinical Impression: Noncompliance, Chronic schizophrenia Disposition: HOME SELF-CARE Condition: Stable Additional Instructions: Please return to the Emergency Department if symptoms worsen or any other concerns. Is patient prescribed a controlled substance at d/c from ED?: No Referrals: None,Stated [Primary Care Provider] - 1-2 days Time of Disposition: 19:39
[2019-01-12] MEDS ORDERED: NICOTINE POLACRILEX 2 MG GUM BUCCAL STA (17:28)
== END 2019-01-12 20:17 | disposition home or self-care (01) ==
LOC: EC 15:11
DX: F20.9 Schizophrenia, unspecified (principal); Z91.14 Patient's other noncompliance with medication regimen; R41.82 Altered mental status, unspecified; F31.9 Bipolar disorder, unspecified; F17.200 Nicotine dependence, unspecified, uncomplicated; Z88.0 Allergy status to penicillin; Z79.899 Other long term (current) drug therapy; Z86.14 Personal history of Methicillin resistant Staphylococcus aureus infection
CPT/HCPCS: 82075; 99284

== ENCOUNTER 2019-01-16 08:21 | Emergency (ER) | payer MEDICARE, OTHER ==
[2019-01-16 08:29] VITALS: TEMP 97.8
--- NOTE | 2019-01-16 08:48 | ED ---
General Adult HPI - General Chief complaint: Psychiatric Symptoms Stated complaint: molded goods spot picker order Time Seen by Provider: 01/16/19 08:32 Source: patient, police Mode of arrival: ambulatory Limitations: no limitations - History of Present Illness Initial comments: Dictation was produced using [employer] dictation software. please excuse any grammatical, word or spelling errors. Chief Complaint: 63-year-old female past medical history of psychiatric disease presents with law enforcement as a pickup order. History of Present Illness: A 63-year-old female she is brought in by law enforcement for pickup order. According to molded goods spot picker order written by [facility] patient has been noncompliant with her medications. Patient's been cooperative with law enforcement. Patient has no complaints at this time. She doesn't understand why she is here. She has no shortness of breath or chest pain. The ROS documented in this emergency department record has been reviewed and confirmed by me. Those systems with pertinent positive or negative responses have been documented in the HPI. All other systems are other negative and/or noncontributory. PHYSICAL EXAM: General Impression: Alert and oriented x3, not in acute distress HEENT: Normocephalic atraumatic, extra-ocular movements intact, pupils equal and reactive to light bilaterally, mucous membranes moist. Cardiovascular: Heart regular rate and rhythm, S1&S2 audible, no murmurs, rubs or gallops Chest: Lungs clear to auscultation bilaterally, no rhonchi, no wheeze, no rales Abdomen: Bowel sounds present, abdomen soft, non-tender, non-distended, no organomegaly Musculoskeletal: Pulses present and equal in all extremities, no peripheral edema Motor: no focal deficits noted Neurological: CN II-XII grossly intact, no focal motor or sensory deficits noted Skin: Intact with no visualized rashes Psych: Flat affect ED course: 63-year-old female brought in for pickup order by [facility]. Signs upon arrival are within acceptable limits. Patient's well- appearing. Patient medically cleared for EPS evaluation. Linda from [facility] approached me and states that patient is only here for IM injection. After patient receives IM injection she is cleared for discharge. The request the patient's blood pressure is below a certain threshold before she can receive injection. Psychiatry request that patient receive blood pressure medications in order to safely provide their psychiatric medication. Patient was given IM hydralazine with improvement of blood pressure. She received her IM injection which is ordered by psychiatry. Psychiatry requested that patient discharged after the IM injection. Patient reevaluated found with stable medical condition. She clear for discharge. - Related Data Home Medications Medication Instructions Recorded Confirmed Loratadine [Claritin] 10 mg PO DAILY PRN 08/31/18 01/16/19 Nicotine Polacrilex [Nicorette] 4 mg BUCCAL DAILY PRN 12/20/18 01/16/19 Ammonium Lactate Cream [Lac-Hydrin 1 applic TOPICAL DAILY 01/12/19 01/16/19 12% Cream] Ciclopirox [Penlac] 1 applic TOPICAL HS 01/12/19 01/16/19 Ketoconazole 2% Cream [Nizoral 2%] 1 applic TOPICAL DAILY 01/12/19 01/16/19 OLANZapine [ZyPREXA] 10 mg PO HS 01/12/19 01/16/19 fluPHENAZine DECANOATE [Prolixin 50 mg IM Q14D 01/12/19 01/16/19 Decanoate] Previous Rx's Medication Instructions Recorded Cholecalciferol (Vitamin D3) 2,000 unit PO DAILY #28 capsule 12/27/18 [Vitamin D3] Cyanocobalamin [Vitamin B-12] 500 mcg PO DAILY #28 tab 12/27/18 LORazepam [Ativan] 1 mg PO BID #56 tab 12/27/18 Levothyroxine Sodium [Synthroid] 125 mcg PO DAILY #28 tab 12/27/18 Metoprolol Succinate (ER) [Toprol 100 mg PO DAILY 28 Days tab.er.24h 12/27/18 XL] cloNIDine 0.2 MG/24HR PATCH 1 patch TRANSDERM Q7D #4 patch 12/27/18 [Catapres-TTS] diphenhydrAMINE HCL [Benadryl] 25 mg PO QID PRN #56 tablet 12/27/18 fluvoxaMINE MALEATE [Luvox] 100 mg PO DAILY #28 tablet 12/27/18 Allergies Allergy/AdvReac Type Severity Reaction Status Date / Time Penicillins Allergy Anaphylaxis Verified 01/16/19 09:20 Review of Systems ROS Statement: Those systems with pertinent positive or pertinent negative responses have been documented in the HPI. ROS Other: All systems not noted in ROS Statement are negative. Past Medical History Past Medical History: Hypertension, Thyroid Disorder Additional Past Medical History / Comment(s): UTI, arthritis History of Any Multi-Drug Resistant Organisms: MRSA Date of last positivie culture/infection: 06/07/16 MDRO Source:: Buttock Past Surgical History: Cholecystectomy, Uterine Ablation Additional Past Surgical History / Comment(s): Hysterectomy, left gluteal abscess debridement Past Anesthesia/Blood Transfusion Reactions: No Reported Reaction Past Psychological History: Anxiety, Depression, Panic Disorder, Schizoaffective Disorder, Schizophrenia Smoking Status: Current every day smoker Past Alcohol Use History: None Reported Past Drug Use History: None Reported - Past Family History Mother Family Medical History: No Reported History Father Family Medical History: No Reported History General Exam Limitations: no limitations Course Vital Signs 01/16/19 01/16/19 01/16/19 08:25 09:52 10:24 Temperature 97.8 F Pulse Rate 96 96 90 Respiratory 18 18 16 Rate Blood Pressure 181/134 168/99 131/94 O2 Sat by Pulse 92 L 97 97 Oximetry Disposition Clinical Impression: Psychiatric care Disposition: HOME SELF-CARE Condition: Good Instructions (If sedation given, give patient instructions): Medical Clearance for Psychiatric Care (ED) Is patient prescribed a controlled substance at d/c from ED?: No Referrals: None,Stated [Primary Care Provider] - 1-2 days Time of Disposition: 10:54
[2019-01-16] MEDS ORDERED: hydrALAZINE HCL 20 MG/ML 1 ML VIAL IM STA (09:14)
[2019-01-16 10:26] VITALS: BP 131/94; PULSE 90; RESP 16
== END 2019-01-16 12:00 | disposition home or self-care (01) ==
LOC: EC 08:21
DX: Z00.8 Encounter for other general examination (principal); F25.1 Schizoaffective disorder, depressive type; F17.200 Nicotine dependence, unspecified, uncomplicated; Z86.14 Personal history of Methicillin resistant Staphylococcus aureus infection; Z79.899 Other long term (current) drug therapy; Z88.0 Allergy status to penicillin
CPT/HCPCS: 82075; 99284; 96372; J0360

== ENCOUNTER → 2019-03-01 | Outpatient (CLI) | payer MEDICARE, OTHER ==
[~2019-03-01] MED LIST: fluPHENAZine DECANOATE 25 MG/ML 5ML MDV IM ONE
== END ==
LOC: LABMAIN 14:26
PROVIDERS: ATTEND Psychiatry & Neurology Psychiatry
DX: Z53.9 Procedure and treatment not carried out, unspecified reason (principal)

== ENCOUNTER → 2019-04-19 | Outpatient (CLI) | payer MEDICARE, OTHER | END | disposition home or self-care (01) | LOC: LABMAIN 14:03 | PROVIDERS: ATTEND Psychiatry & Neurology Psychiatry | DX: F22 Delusional disorders (principal) ==

== ENCOUNTER 2019-12-10 10:24 | Inpatient (IN) | payer MEDICARE, MEDICAID ==
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
[2019-12-10] MEDS ORDERED: MAG HYDROX/AL HYDROX/SIMETH 30 ML CUP PO PRN (14:09)
[2019-12-10] MEDS ORDERED: ZIPRASIDONE 20 MG VIAL IM PRN (14:09)
[2019-12-10] MEDS ORDERED: MAGNESIUM HYDROXIDE 2,400 MG/10 ML CUP PO PRN (14:09)
[2019-12-10] MEDS ORDERED: LORazepam 2 MG/ML INJ IM PRN (14:11)
[2019-12-10] MEDS: NICOTINE 14MG/24HR PATCH TRANSDERM SCH (15:58)
[2019-12-10] MEDS: LORazepam 1 MG TAB PO PRN (19:51)
[2019-12-10] MEDS: amLODIPine 10 MG TAB PO SCH (19:55)
[2019-12-10] MEDS: OLANZapine 10 MG TAB PO SCH (19:59)
[2019-12-10] MEDS: METOPROLOL SUCCINATE (ER) 100 MG TAB.ER.24H PO SCH (19:59)
[2019-12-10] MEDS: LISINOPRIL 20 MG TAB PO SCH (20:00)
[2019-12-11] MEDS: CHOLECALCIFEROL 1,000 UNIT TAB PO SCH (08:40)
[2019-12-11] MEDS: LEVOTHYROXINE 137 MCG TAB PO SCH (08:41)
[2019-12-11] MEDS: CYANOCOBALAMIN 500 MCG TAB PO SCH (08:41)
[2019-12-11] MEDS: NICOTINE 14MG/24HR PATCH TRANSDERM SCH (08:41)
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
[2019-12-11] MEDS ORDERED: CHOLECALCIFEROL 1,000 UNIT TAB ONE (11:33)
[2019-12-11] MEDS ORDERED: LORazepam 1 MG TAB ONE (11:33)
[2019-12-11] MEDS ORDERED: fluPHENAZine DECANOATE 25 MG/ML 5ML MDV ONE (11:33)
[2019-12-11] MEDS ORDERED: fluPHENAZine DECANOATE 25 MG/ML 5ML MDV IM ONE ×2 (12:42→14:53)
--- NOTE | 2019-12-11 13:58 | P.PN ---
Progress Note - Text Progress Note Date: 12/11/19 Patient refused to be seen. Patient states that she has no medical issues. Nursing was present during this conversation. Please call if patient is agreeable to be seen at a later time.
[2019-12-11] MEDS ORDERED: fluPHENAZine DECANOATE 25 MG/ML 5ML MDV IM PRN (15:37)
[2019-12-12] MEDS: OLANZapine 10 MG TAB PO SCH ×2 (06:54→21:06)
[2019-12-12] MEDS: LISINOPRIL 20 MG TAB PO SCH ×2 (06:54→21:05)
[2019-12-12] MEDS: METOPROLOL SUCCINATE (ER) 100 MG TAB.ER.24H PO SCH ×2 (06:54→21:06)
[2019-12-12] MEDS: amLODIPine 10 MG TAB PO SCH ×2 (06:55→21:05)
--- NOTE | 2019-12-12 09:56 | P.PN ---
Progress Note - Text Interval history: The patient is found in her room she follows me to an interview room. Several times she requests to be discharged. She indicates that she was fully compliant with her medication however it appears she took none of her medications yesterday. She did receive the Prolixin decanoate injection. She reports that she slept last night she indicates she did not eat breakfast. Group participation is unknown at this point. Staff report no behavioral disturbances so far. She continues to state that she should be released and she does not acknowledge that she is on a court order for treatment. Mental status exam: The patient is a female appearing older than her stated age she has a disheveled appearance she is dressed in her own clothing she ambulates slowly down the hallway without ataxia. Once in the interview room she stands for the entire session. She demonstrates psychomotor slowing with movement and speech. She indicates she does not feel tired however. She continues to demonstrate some disorganized symptoms of psychosis. She reports no thoughts of harming herself or others. Insight and judgment remain impaired. She demonstrates no verbal or physical aggressiveness she demonstrates no involuntary repetitive movements. She denies any presence of auditory or visual hallucinations or specific delusions. She is an impaired historian. Plan: The patient will continue to be offered the same psychotropic medications. We will monitor her compliance with the Luvox and Zyprexa. She is on a court order she will receive an injection of Geodon if she refuses those. We will monitor her for safety she is encouraged to participate in the milieu. I am aware that she does have psychosis at baseline we are evaluating her ability to participate in her ADLs and comply with her medications. Vital signs reviewed. We will continue to monitor her for safety.
[2019-12-12] MEDS: CYANOCOBALAMIN 500 MCG TAB PO SCH (10:42)
[2019-12-12] MEDS: NICOTINE 14MG/24HR PATCH TRANSDERM SCH (10:42)
[2019-12-12] MEDS: CHOLECALCIFEROL 1,000 UNIT TAB PO SCH (10:42)
[2019-12-12] MEDS: LEVOTHYROXINE 137 MCG TAB PO SCH (10:42)
[2019-12-12] MEDS: LORazepam 1 MG TAB PO PRN (22:09)
--- NOTE | 2019-12-13 11:19 | P.PN ---
Progress Note - Text Interval history: The patient's found in the hallway she follows me to an interview room. She indicates she would like to be discharged. She refused several her medications yesterday evening including the Luvox and Zyprexa. Staff report that she slept 4 hours. No reports of behavioral disturbance. She reports some participation with groups. She states that she ate yesterday but did not eat breakfast this morning. She continues to offer resistance will be discussed compliance with the oral psychotropic medications. Mental status exam: The patient is alert she is a disheveled appearance she remained standing during the session although she is offered a chair. Eye contact is intermittent. She demonstrates some psychomotor slowing. Speech is fluent at times nonpressured she continues to demonstrate some disorganization of thought she continues to demonstrate disorganized psychosis. Insight and judgment are impaired. She reports no suicidal or homicidal ideation intent or plan. She demonstrates no repetitive involuntary movements. She denies experiencing any auditory or visual hallucinations. She specifically denies experiencing any command auditory hallucinations. Plan: The patient will be offered the same psychotropic medications. Nursing staff are reminded that she is to receive a Geodon injection if she refuses the Zyprexa or Luvox. Once she demonstrates compliance with these oral medications we will consider discharging her. Vital signs reviewed. She is encouraged to participate in the milieu.
[2019-12-13] MEDS: CHOLECALCIFEROL 1,000 UNIT TAB PO SCH (12:16)
[2019-12-13] MEDS: CYANOCOBALAMIN 500 MCG TAB PO SCH (12:16)
[2019-12-13] MEDS: LEVOTHYROXINE 137 MCG TAB PO SCH (12:17)
[2019-12-13] MEDS: NICOTINE 14MG/24HR PATCH TRANSDERM SCH (12:18)
[2019-12-13] MEDS: amLODIPine 10 MG TAB PO SCH (19:34)
[2019-12-13] MEDS: OLANZapine 10 MG TAB PO SCH (19:34)
[2019-12-13] MEDS: LISINOPRIL 20 MG TAB PO SCH (19:38)
[2019-12-13] MEDS: METOPROLOL SUCCINATE (ER) 100 MG TAB.ER.24H PO SCH ×2 (19:41→19:46)
[2019-12-13 19:43] VITALS: RESP 18
[2019-12-13] MEDS: ACETAMINOPHEN TAB 325 MG TAB PO PRN (21:45)
[2019-12-14] MEDS: LORazepam 1 MG TAB PO PRN (03:21)
[2019-12-14] MEDS: CHOLECALCIFEROL 1,000 UNIT TAB PO SCH (07:58)
[2019-12-14] MEDS: CYANOCOBALAMIN 500 MCG TAB PO SCH (07:58)
[2019-12-14] MEDS: LEVOTHYROXINE 137 MCG TAB PO SCH (07:58)
[2019-12-14] MEDS: NICOTINE 14MG/24HR PATCH TRANSDERM SCH (07:58)
--- NOTE | 2019-12-14 17:44 | P.PN ---
Progress Note - Text Progress Note Date: 12/14/19 Subjective: Patient was seen today as a cross coverage for Dr. Carias. The patient was evaluated, chart reviewed, case discussed with the treatment team. Patient reported good sleep last night. Appetite was reported as "fair ". Patient has not been going to groups and other unit activities. The patient is compliant with her medications and denies any adverse reactions. The patient was fixated on discharge today and she denies feeling depressed, hopeless, or suicidal. She denies any hallucinations, paranoid ideation, or delusions. She denies any manic symptoms. As per nursing staff the patient has been compliant with her medications. Patient got very agitated because she was not discharge today and she left interview. The patient was alert but not fully oriented to time. Objective: Vitals has been reviewed. Mental status examination; Appearance: The patient appears stated age, adequately groomed and dressed, no specific features. Gait/posture: Normal gait, Normal arm swinging: No abnormal movements. Attitude and behavior: Not fully cooperative, eye contact. Motor activity: Normal psychomotor activity Speech: Normal rate, tone. Mood: Anxious, irritable Affect: Constricted Thought form: goal-directed, linear, coherent. Thought content: Non-delusional, denies suicidal thoughts, denies homicidal thoughts, denies intentions or plans. Perception: Denies any auditory or visual hallucinations Attention: No impairment. Orientation: Patient patient was fully oriented to place person and situation. Not fully oriented to time Insight: Patient has fair insight about her psychiatric disorder. Judgment: Patient has fair judgment about her psychiatric treatment. Assessment: Unspecified psychotic disorder. Rule out schizophrenia/schizoaffective disorder Plan: Continue inpatient level of care due to need for further stabilization and monitoring Precautions: Continue 15 minutes check for safety. Consider medical consultation if any acute medical issues arise. Provide the patient individual, group therapy, substance use disorder counseling to give better insight and learn coping skills. Continue follow-up with the patient daily to monitor progress of mood and psychotic symptoms.. Medications: Lovenox for depression and anxiety. Zyprexa for psychosis and mood stabilization. Continue as needed medication for anxiety and agitation. Continue non-psychiatric medications including Norvasc, levothyroxine, high blood pressure medication, and vitamin D. Discharge patient to OUTPATIENT services upon a stabilization
[2019-12-14] MEDS: METOPROLOL SUCCINATE (ER) 100 MG TAB.ER.24H PO SCH (21:34)
[2019-12-14] MEDS: LISINOPRIL 20 MG TAB PO SCH (21:35)
[2019-12-14] MEDS: OLANZapine 10 MG TAB PO SCH (21:35)
[2019-12-14] MEDS: amLODIPine 10 MG TAB PO SCH (21:36)
[2019-12-14 21:39] VITALS: BP 145/72; PULSE 53
[2019-12-14] MEDS: ACETAMINOPHEN TAB 325 MG TAB PO PRN (23:53)
[2019-12-15 06:42] VITALS: TEMP 0
[2019-12-15] MEDS: LEVOTHYROXINE 137 MCG TAB PO SCH (07:09)
[2019-12-15] MEDS: CHOLECALCIFEROL 1,000 UNIT TAB PO SCH (11:06)
[2019-12-15] MEDS: CYANOCOBALAMIN 500 MCG TAB PO SCH (11:06)
[2019-12-15] MEDS: NICOTINE 14MG/24HR PATCH TRANSDERM SCH (11:08)
--- NOTE | 2019-12-15 15:36 | P.PN ---
Progress Note - Text Progress Note Date: 12/15/19 Subjective: Patient was seen today as a cross coverage for Dr. Carias. The patient was evaluated, chart reviewed, case discussed with the treatment team. Patient refused evaluation today. As per nursing staff, no report of behavioral problems, suicidal thoughts, or psychotic behavior. Patient continues to take her psychiatric medications and no side effects reported. Patient does not participate in groups and other unit activities. Patient was alert and he responded by eye contact but clearly she refused to talk. Objective: Mental status examination; Appearance: The patient appears stated age, adequately groomed and dressed, no specific features. Gait/posture: Patient was seen lying on bed. Attitude and behavior: Not fully cooperative, poor eye contact. Motor activity: Normal psychomotor activity Speech: Patient refused to talk Mood: Anxious, irritable Affect: Constricted Thought form: Patient was not cooperative Thought content: No report of delusions, suicidal or homicidal ideation. Perception: No report of hallucinations. Attention: No impairment. Orientation: Patient was not cooperative Insight: Patient has limited insight about her psychiatric disorder. Judgment: Patient has limited judgment about her psychiatric treatment. Assessment: Unspecified psychotic disorder. Rule out schizophrenia/schizoaffective disorder Plan: Continue inpatient level of care due to need for further stabilization and monitoring Precautions: Continue 15 minutes check for safety. Consider medical consultation if any acute medical issues arise. Provide the patient individual, group therapy, substance use disorder counseling to give better insight and learn coping skills. Continue follow-up with the patient daily to monitor progress of mood and psychotic symptoms.. Medications: Luvox for depression and anxiety. Zyprexa for psychosis and mood stabilization. Continue as needed medication for anxiety and agitation. Continue non-psychiatric medications including Norvasc, levothyroxine, high blood pressure medication, and vitamin D. Discharge patient to OUTPATIENT services upon a stabilization
[2019-12-15] MEDS ORDERED: NICOTINE POLACRILEX 2 MG GUM BUCCAL PRN (16:44)
[2019-12-15] MEDS: amLODIPine 10 MG TAB PO SCH (21:45)
[2019-12-15] MEDS: METOPROLOL SUCCINATE (ER) 100 MG TAB.ER.24H PO SCH (21:45)
[2019-12-15] MEDS: LISINOPRIL 20 MG TAB PO SCH (21:45)
[2019-12-15] MEDS: OLANZapine 10 MG TAB PO SCH (21:46)
[2019-12-16] MEDS: CYANOCOBALAMIN 500 MCG TAB PO SCH ×2 (10:19→10:45)
[2019-12-16] MEDS: CHOLECALCIFEROL 1,000 UNIT TAB PO SCH ×2 (10:19→10:44)
[2019-12-16] MEDS: LEVOTHYROXINE 137 MCG TAB PO SCH ×2 (10:20→10:45)
--- NOTE | 2019-12-16 11:16 | P.PN ---
Progress Note - Text Interval history: The patient is found at my office door. She enters a room and asked when she can be discharged. It appears she has been complying with her psychotropic medication over the weekend and today. Staff report no behavioral disturbances. Vital signs reviewed. So far this morning she's been isolating her room. The patient has no questions or concerns regarding medication. Mental status exam: The patient is a short statured female appearing older than her stated age. She has a disheveled appearance she is dressed in clothing eye contact is appropriate. Speech is fluent nonpressured. She does continue to express psychotic thinking. She reports no suicidal or homicidal ideation. She is endorsing no auditory hallucinations. She endorses no command auditory hallucinations. Insight and judgment chronically limited. She demonstrates no behavioral disturbances during the session. She demonstrates no involuntary repetitive movements. Plan: The patient will continue on her current psychotropic medication. We will monitor her for safety and encourage full participation in the milieu. Vital si gns reviewed. We will consider discharging her tomorrow if she demonstrates continued clinical improvement and medication compliance.
[2019-12-16] MEDS: METOPROLOL SUCCINATE (ER) 100 MG TAB.ER.24H PO SCH (22:32)
[2019-12-16] MEDS: OLANZapine 10 MG TAB PO SCH (22:32)
[2019-12-16] MEDS: LISINOPRIL 20 MG TAB PO SCH (22:32)
[2019-12-16] MEDS: amLODIPine 10 MG TAB PO SCH (22:32)
[2019-12-17] MEDS ORDERED: cloNIDine 0.2 MG/24HR PATCH TRANSDERM SCH (07:00)
[2019-12-17] MEDS: CHOLECALCIFEROL 1,000 UNIT TAB PO SCH (09:07)
[2019-12-17] MEDS: CYANOCOBALAMIN 500 MCG TAB PO SCH (09:08)
[2019-12-17] MEDS: LEVOTHYROXINE 137 MCG TAB PO SCH (09:32)
[2019-12-17] MEDS ORDERED: fluPHENAZine DECANOATE 25 MG/ML 5ML MDV IM ONE (11:28)
--- NOTE | 2019-12-17 11:45 | P.DS ---
Providers Date of admission: 12/10/19 13:53 Expected date of discharge: 12/17/19 Attending physician: Onofre Carias Consults: 12/10/19 14:09 Consult Physician Routine Consulting Provider: Mary Jo Liu Consult Reason/Comments: H&P and medical Do you want consulting provider notified?: Yes Primary care physician: Stated None - Discharge Diagnosis(es) (1) Schizophrenia Current Visit: Yes Status: Acute Priority: High Hospital Course: Brief summary of admission note: This patient is a 64-year-old female who was admitted to the mental health unit through the emergency room for acute psychosis. The patient resides in a fci she has a diagnosis of schizophrenia and is cared for at [facility]. She had been noncompliant with her psychotropic medications and was demonstrating acute psychotic behavior. She described paranoid and persecutory thoughts. Mood was irritable area for full details please refer to the psychiatric evaluation dated 12/11/2019. Summary of hospital course: The patient was admitted to the mental health unit on an existing court order. We resumed the Luvox 100 mg twice daily Zyprexa 10 mg at bedtime and the Prolixin decanoate 50 mg weekly. She received the Prolixin decanoate 50 mg on 12/11/2019. The patient was seen by internal medicine for routine history and physical exam. The patient was also seen by social work to complete a psychosocial assessment and for discharge planning purposes. The patient demonstrated progressive improvement of her psychotic symptoms while here. She interacted with staff she was directable. She demonstrated no behavioral disturbances. She is known to have symptoms of psychosis at baseline and she appears to have approximated her known baseline. She is able to return to the same fci. Mental status exam: The patient is a shorter statured female appearing older than her stated age. The patient is dressed in her own clothing hygiene grooming fair. Eye contact is intermittent. She remained standing in the interview room. Speech is fluent spontaneous nonpressured. She does have a hearing impairment but we are able to effectively communicate. She reports no suicidal or homicidal ideation intent or plan. She is reporting no hopelessness thinking. She reports no auditory or visual hallucinations she denies having any symptoms of psychosis however she is likely under reporting. She is known to have some baseline paranoid thought. She demonstrates no verbal or physical aggressiveness she demonstrates no involuntary repetitive movements. Affect is bland. She does demonstrate future oriented thinking. Impressions 1. Schizophrenia Plan: The patient will continue on her current psychotropic medications including Prolixin decanoate 50 mg weekly she will be given a dose today prior to discharge, Luvox 100 mg twice daily, Zyprexa 10 mg at bedtime. She will continue to follow with [facility] for counseling and psychiatric medication services. At this time there is no imminent safety risk she is a ppropriate for transition back to outpatient care. She will return to the fci residents. She is instructed to return to the hospital with any acute safety concerns. Patient Condition at Discharge: Stable Plan - Discharge Summary New Discharge Prescriptions: New Nicotine Polacrilex [Nicorette] 2 mg BUCCAL Q6HR PRN #60 gum PRN Reason: Nicotine Cravings fluPHENAZine DECANOATE [Prolixin Decanoate] 50 mg IM ONCE #1 ml Continue Docusate [Colace] 100 mg PO DAILY PRN PRN Reason: Constipation Aspirin EC [Ecotrin] 325 - 650 mg PO Q4H PRN MDD 12 TABLETS PRN Reason: Pain Or Fever > 100.5 Cholecalciferol (Vitamin D3) [Vitamin D3] 2,000 unit PO DAILY@0700 Psyllium Husk 100% [Metamucil Packet] 6 gm PO DAILY PRN PRN Reason: Constipation Metoprolol Succinate (ER) [Toprol XL] 100 mg PO HS@1999 Cyanocobalamin [Vitamin B-12] 500 mcg PO DAILY@0700 cloNIDine 0.2 MG/24HR PATCH [Catapres-TTS] 1 patch TRANSDERM TU@0700 Levothyroxine Sodium [Synthroid] 137 mcg PO DAILY@0700 amLODIPine BESYLATE/BENAZEPRIL [amLODIPine BESYLATE/BENAZEPRIL 10-40 MG] 1 tab PO HS@1999 fluvoxaMINE MALEATE [Luvox] 100 mg PO BID@0700,1999 #60 tab OLANZapine [ZyPREXA] 10 mg PO HS@1999 #30 tab Discontinued diphenhydrAMINE HCL [Benadryl] 25 mg PO QID PRN #56 tablet PRN Reason: Allergy Symptoms Ammonium Lactate Cream [Lac-Hydrin 12% Cream] 1 applic TOPICAL DAILY PRN PRN Reason: FEET Loperamide [Imodium] 2 mg PO QID PRN PRN Reason: Diarrhea Ibuprofen [Motrin Ib] 200 mg PO Q4H PRN MDD 6 TABLETS PRN Reason: Pain/FEVER/MENSTRUAL PAIN [id number]-[id number]-[id number] Oint [Triple Antibiotic Ointment] 1 applic TOPICAL TID PRN PRN Reason: MINOR ABRASIONS, CUTS, BOWENS Pseudoephedrine HCl [Sudogest] 60 mg PO Q4H PRN MDD 4 TABLETS PRN Reason: STUFFINESS/COLD SYMPTOMS Robafen Syp 100/5ml 10 ml PO Q4H PRN PRN Reason: Cough/COLD SYPTOMS Magnesium Hydroxide [Milk of Magnesia] 2,400 mg PO DAILY PRN PRN Reason: Constipation Acetaminophen [Tylenol] 325 mg PO Q4H PRN PRN Reason: Pain Or Fever > 100.5 LORazepam [Ativan] 1 mg PO BID@ Darci-Tin Liquid 30 ml PO Q30M PRN MDD 240 ML PRN Reason: Diarrhea Discharge Medication List Aspirin EC [Ecotrin] 325 - 650 mg PO Q4H PRN MDD 12 TABLETS 12/10/19 [History] Cholecalciferol (Vitamin D3) [Vitamin D3] 2,000 unit PO DAILY@69912/10/19 [History] Cyanocobalamin [Vitamin B-12] 500 mcg PO DAILY@69912/10/19 [History] Docusate [Colace] 100 mg PO DAILY PRN 12/10/19 [History] Levothyroxine Sodium [Synthroid] 137 mcg PO DAILY@69912/10/19 [History] Metoprolol Succinate (ER) [Toprol XL] 100 mg PO HS@199912/10/19 [History] Psyllium Husk 100% [Metamucil Packet] 6 gm PO DAILY PRN 12/10/19 [History] amLODIPine BESYLATE/BENAZEPRIL [amLODIPine BESYLATE/BENAZEPRIL 10-40 MG] 1 tab PO HS@199912/10/19 [History] cloNIDine 0.2 MG/24HR PATCH [Catapres-TTS] 1 patch TRANSDERM TU@69912/10/19 [History] Nicotine Polacrilex [Nicorette] 2 mg BUCCAL Q6HR PRN #60 gum 12/17/19 [Rx] OLANZapine [ZyPREXA] 10 mg PO HS@1999 #30 tab 12/17/19 [Rx] fluPHENAZine DECANOATE [Prolixin Decanoate] 50 mg IM ONCE #1 ml 12/17/19 [Rx] fluvoxaMINE MALEATE [Luvox] 100 mg PO BID@ #60 tab 12/17/19 [Rx] Follow up Appointment(s)/Referral(s): [facility] [Outside] - 12/19/19 11:00 am (Dr. Hanson 12/18 @ 11:00) None,Stated [Primary Care Provider] - 1-2 days Activity/Diet/Wound Care/Special Instructions: Activity and diet as tolerated. Avoid the use of street drugs and alcohol. Take all medications as prescribed. When you are in need of refills on your medications please contact your medical provider and/or outpatient psychiatrist to have this done. Please go to scheduled outpatient appointment for aftercare treatment. If symptoms return or become worse, call the crisis line at and/or go to the nearest emergency room for evaluation
== END 2019-12-17 14:37 | disposition home or self-care (01) | DRG 885 ==
LOC: EC 10:24 → 3MHU 13:53
PROVIDERS: ADMIT Psychiatry & Neurology Psychiatry; ATTEND Psychiatry & Neurology Psychiatry
DX: F20.9 Schizophrenia, unspecified (principal); I10 Essential (primary) hypertension; M19.90 Unspecified osteoarthritis, unspecified site; F32.9 Major depressive disorder, single episode, unspecified; F41.0 Panic disorder [episodic paroxysmal anxiety]; F17.200 Nicotine dependence, unspecified, uncomplicated; E03.9 Hypothyroidism, unspecified; H91.90 Unspecified hearing loss, unspecified ear; Z91.14 Patient's other noncompliance with medication regimen; Z79.890 Hormone replacement therapy; Z90.710 Acquired absence of both cervix and uterus; Z79.899 Other long term (current) drug therapy; Z88.0 Allergy status to penicillin; Z87.440 Personal history of urinary (tract) infections; Z86.14 Personal history of Methicillin resistant Staphylococcus aureus infection; Z90.49 Acquired absence of other specified parts of digestive tract; Z98.890 Other specified postprocedural states
CPT/HCPCS: 82075; 99284

== ENCOUNTER 2020-08-13 20:28 | Inpatient (IN) | payer MEDICARE, OTHER ==
[2020-08-13] MEDS ORDERED: methylPREDNISolone SOD SUCCI 125 MG/2 ML VIAL IV STA (20:35)
[2020-08-13] MEDS ORDERED: IPRATROPIUM-ALBUTEROL 3 ML NEB INHALATION STA (20:35)
--- NOTE | 2020-08-13 20:41 | ED ---
SOB HPI - General Chief Complaint: Shortness of Breath Stated Complaint: JADIEL Time Seen by Provider: 08/13/20 20:28 Source: patient, EMS, RN notes reviewed Mode of arrival: EMS Limitations: no limitations - History of Present Illness Initial Comments: This is a 65-year-old female with a history of hypertension history of hypothyroidism a former smoker who presents by EMS from a [facility] with complaints of having lethargy and being tired all day and developing shortness of breath earlier. She had a pulse ox in the high 80s low 90s apparently mult iple people at this facility 11 testing positive for Covid 19. No reports of fevers chills sweats nausea vomiting the patient was given Ativan prior to discharge from the [facility] MD Complaint: shortness of breath - Related Data Home Medications Medication Instructions Recorded Confirmed Metoprolol Succinate (ER) [Toprol 100 mg PO HS@199912/10/19 08/13/20 XL] amLODIPine BESYLATE/BENAZEPRIL 1 tab PO HS@199912/10/19 08/13/20 [amLODIPine BESYLATE/BENAZEPRIL 10-40 MG] Ibuprofen [Motrin] 800 mg PO BID PRN 08/13/20 08/13/20 LORazepam [Ativan] 1 mg PO BID@0700,1700 08/13/20 08/13/20 LORazepam [Ativan] 2 mg PO HS@199908/13/20 08/13/20 Levothyroxine Sodium [Synthroid] 150 mcg PO DAILY@0700 08/13/20 08/13/20 OLANZapine 20 mg PO HS@199908/13/20 08/13/20 fluPHENAZine decanoate [Prolixin 50 mg IM Q7D 08/13/20 08/13/20 Decanoate] Previous Rx's Medication Instructions Recorded fluvoxaMINE MALEATE [Luvox] 100 mg PO BID@0700,1999 #60 tab 12/17/19 Allergies Allergy/AdvReac Type Severity Reaction Status Date / Time Penicillins Allergy Anaphylaxis Verified 08/13/20 21:30 Review of Systems ROS Statement: Those systems with pertinent positive or pertinent negative responses have been documented in the HPI. ROS Other: All systems not noted in ROS Statement are negative. Limitations: ROS unobtainable due to patients medical condition Past Medical History Past Medical History: Hypertension, Thyroid Disorder Additional Past Medical History / Comment(s): UTI, arthritis History of Any Multi-Drug Resistant Organisms: MRSA Date of last positivie culture/infection: 06/07/16 MDRO Source:: Buttock Past Surgical History: Cholecystectomy, Uterine Ablation Additional Past Surgical History / Comment(s): Hysterectomy, left gluteal abscess debridement Past Anesthesia/Blood Transfusion Reactions: No Reported Reaction Past Psychological History: Anxiety, Depression, Panic Disorder, Schizoaffective Disorder, Schizophrenia Smoking Status: Never smoker Past Alcohol Use History: None Reported Past Drug Use History: None Reported - Past Family History Mother Family Medical History: No Reported History Father Family Medical History: No Reported History General Exam - General Exam Comments Initial Comments: Is a well-developed well-nourished awake though somewhat lethargic female Limitations: no limitations General appearance: alert, lethargic Head exam: Present: atraumatic, normocephalic, normal inspection Eye exam: Present: normal appearance, PERRL, EOMI. Absent: scleral icterus, conjunctival injection, periorbital swelling ENT exam: Present: mucous membranes dry Neck exam: Present: normal inspection, full ROM, other. Absent: tenderness, meningismus, lymphadenopathy Respiratory exam: Present: wheezes, decreased breath sounds. Absent: respiratory distress, rales, rhonchi, stridor Cardiovascular Exam: Present: regular rate, normal rhythm, normal heart sounds. Absent: systolic murmur, diastolic murmur, rubs, gallop, clicks GI/Abdominal exam: Present: soft, normal bowel sounds. Absent: distended, tenderness, guarding, rebound, rigid Extremities exam: Present: normal inspection, full ROM, normal capillary refill. Absent: tenderness, pedal edema, joint swelling, calf tenderness Back exam: Present: normal inspection Neurological exam: Present: alert, oriented X3, CN II-XII intact Psychiatric exam: Present: normal affect, normal mood Skin exam: Present: warm, dry, intact, normal color. Absent: rash Course Vital Signs 08/13/20 08/13/20 08/13/20 20:29 21:03 21:54 Pulse Rate 78 74 72 Respiratory 20 16 Rate Blood Pressure 136/87 103/73 O2 Sat by Pulse 88 L 86 L Oximetry - Reevaluation(s) Reevaluation #1: 08/13/20 23:00 After albuterol and supplemental oxygen and the pulse ox has improved. Medical Decision Making - Medical Decision Making The case was discussed with Dr. Michelle patient will be admitted for inpatient evaluation and treatment of Covid 19 pneumonia - Lab Data Result diagrams: 08/13/20 21:33 08/13/20 21:33 Lab Results 08/13/20 08/13/20 08/13/20 Range/Units 21:33 21:33 21:33 WBC 6.0 (3.8-10.6) k/uL RBC 4.20 (3.80-5.40) m/uL Hgb 13.9 (11.4-16.0) gm/dL Hct 43.1 (34.0-46.0) % MCV 102.5 H (80.0-100.0) fL MCH 33.0 (25.0-35.0) pg MCHC 32.2 (31.0-37.0) g/dL RDW 15.8 H (11.5-15.5) % Plt Count 102 L (150-450) k/uL MPV 8.1 Neutrophils % 84 % Lymphocytes % 7 % Monocytes % 6 % Eosinophils % 2 % Basophils % 0 % Neutrophils # 5.0 (1.3-7.7) k/uL Lymphocytes # 0.4 L (1.0-4.8) k/uL Monocytes # 0.4 (0-1.0) k/uL Eosinophils # 0.1 (0-0.7) k/uL Basophils # 0.0 (0-0.2) k/uL Macrocytosis Slight PT 10.5 (9.0-12.0) sec INR 1.0 (<1.2) APTT 20.3 L (22.0-30.0) sec Sodium 133 L (137-145) mmol/L Potassium 4.7 (3.5-5.1) mmol/L Chloride 101 (98-107) mmol/L Carbon Dioxide 21 L (22-30) mmol/L Anion Gap 11 mmol/L BUN 37 H (7-17) mg/dL Creatinine 1.62 H (0.52-1.04) mg/dL Est GFR (CKD-EPI)AfAm 38 (>60 ml/min/1.73 sqM) Est GFR (CKD-EPI)NonAf 33 (>60 ml/min/1.73 sqM) Glucose 121 H (74-99) mg/dL Plasma Lactic Acid Vlad (0.7-2.0) mmol/L Calcium 8.6 (8.4-10.2) mg/dL Magnesium 1.8 (1.6-2.3) mg/dL Total Bilirubin 0.7 (0.2-1.3) mg/dL AST 37 H (14-36) U/L ALT 21 (4-34) U/L Alkaline Phosphatase 77 (38-126) U/L Creatine Kinase 209 H (30-135) U/L Troponin I (0.000-0.034) ng/mL NT-Pro-B Natriuret Pep pg/mL Total Protein 6.6 (6.3-8.2) g/dL Albumin 3.9 (3.5-5.0) g/dL Coronavirus (PCR) (Not Detectd) Influenza Type A RNA (Not Detectd) Influenza Type B (PCR) (Not Detectd) 08/13/20 08/13/20 08/13/20 Range/Units 21:33 21:33 21:33 WBC (3.8-10.6) k/uL RBC (3.80-5.40) m/uL Hgb (11.4-16.0) gm/dL Hct (34.0-46.0) % MCV (80.0-100.0) fL MCH (25.0-35.0) pg MCHC (31.0-37.0) g/dL RDW (11.5-15.5) % Plt Count (150-450) k/uL MPV Neutrophils % % Lymphocytes % % Monocytes % % Eosinophils % % Basophils % % Neutrophils # (1.3-7.7) k/uL Lymphocytes # (1.0-4.8) k/uL Monocytes # (0-1.0) k/uL Eosinophils # (0-0.7) k/uL Basophils # (0-0.2) k/uL Macrocytosis PT (9.0-12.0) sec INR (<1.2) APTT (22.0-30.0) sec Sodium (137-145) mmol/L Potassium (3.5-5.1) mmol/L Chloride (98-107) mmol/L Carbon Dioxide (22-30) mmol/L Anion Gap mmol/L BUN (7-17) mg/dL Creatinine (0.52-1.04) mg/dL Est GFR (CKD-EPI)AfAm (>60 ml/min/1.73 sqM) Est GFR (CKD-EPI)NonAf (>60 ml/min/1.73 sqM) Glucose (74-99) mg/dL Plasma Lactic Acid Vlad 1.1 (0.7-2.0) mmol/L Calcium (8.4-10.2) mg/dL Magnesium (1.6-2.3) mg/dL Total Bilirubin (0.2-1.3) mg/dL AST (14-36) U/L ALT (4-34) U/L Alkaline Phosphatase (38-126) U/L Creatine Kinase (30-135) U/L Troponin I 0.118 H* (0.000-0.034) ng/mL NT-Pro-B Natriuret Pep 64065 pg/mL Total Protein (6.3-8.2) g/dL Albumin (3.5-5.0) g/dL Coronavirus (PCR) (Not Detectd) Influenza Type A RNA (Not Detectd) Influenza Type B (PCR) (Not Detectd) 08/13/20 08/13/20 Range/Units 21:33 21:33 WBC (3.8-10.6) k/uL RBC (3.80-5.40) m/uL Hgb (11.4-16.0) gm/dL Hct (34.0-46.0) % MCV (80.0-100.0) fL MCH (25.0-35.0) pg MCHC (31.0-37.0) g/dL RDW (11.5-15.5) % Plt Count (150-450) k/uL MPV Neutrophils % % Lymphocytes % % Monocytes % % Eosinophils % % Basophils % % Neutrophils # (1.3-7.7) k/uL Lymphocytes # (1.0-4.8) k/uL Monocytes # (0-1.0) k/uL Eosinophils # (0-0.7) k/uL Basophils # (0-0.2) k/uL Macrocytosis PT (9.0-12.0) sec INR (<1.2) APTT (22.0-30.0) sec Sodium (137-145) mmol/L Potassium (3.5-5.1) mmol/L Chloride (98-107) mmol/L Carbon Dioxide (22-30) mmol/L Anion Gap mmol/L BUN (7-17) mg/dL Creatinine (0.52-1.04) mg/dL Est GFR (CKD-EPI)AfAm (>60 ml/min/1.73 sqM) Est GFR (CKD-EPI)NonAf (>60 ml/min/1.73 sqM) Glucose (74-99) mg/dL Plasma Lactic Acid Vlad (0.7-2.0) mmol/L Calcium (8.4-10.2) mg/dL Magnesium (1.6-2.3) mg/dL Total Bilirubin (0.2-1.3) mg/dL AST (14-36) U/L ALT (4-34) U/L Alkaline Phosphatase (38-126) U/L Creatine Kinase (30-135) U/L Troponin I (0.000-0.034) ng/mL NT-Pro-B Natriuret Pep pg/mL Total Protein (6.3-8.2) g/dL Albumin (3.5-5.0) g/dL Coronavirus (PCR) Detected A (Not Detectd) Influenza Type A RNA Not Detected (Not Detectd) Influenza Type B (PCR) Not Detected (Not Detectd) - EKG Data -: EKG Interpreted by Me EKG Comments: Sinus rhythm of 74. Interval was 76 QRS 82 QT since QTC 354/392 evidence of old lateral - Radiology Data Radiology results: report reviewed (Imaging reviewed evidence of bilateral multifocal lower and midlung opacities), image reviewed Critical Care Time Critical Care Time: Yes Total Critical Care Time: 39 Disposition Clinical Impression: Pneumonia due to COVID-19 virus, Hypoxemia, Bronchospasm, CHF (congestive heart failure), Elevated troponin Disposition: ADMITTED IP TO THIS HOSP Condition: Fair Referrals: None,Stated [Primary Care Provider] - 1-2 days
--- NOTE | 2020-08-13 21:53 | XR ---
EXAMINATION TYPE: XR chest 2V DATE OF EXAM: 08/13/2020 COMPARISON: Chest x-ray June 18, 2016 HISTORY: Shortness of breath TECHNIQUE: Frontal and lateral views of the chest are obtained. FINDINGS: The osseous structures are intact. Persistent cardiomegaly with atherosclerotic thoracic a sandra. Chronic parenteral changes with new multifocal mid to lower lung opacities bilaterally. No sign ificant new pleural effusion or pneumothorax. IMPRESSION: New multifocal mid to lower lung acute opacities worrisome for covid-19 infection in the current environment. Correlate clinically.
[2020-08-13 22:11] LABS: Basophils % (A) 0 %; Eosinophils # (A) 0.1 k/uL (0-0.7); Eosinophils % (A) 2 %; HCT 43.1 % (34.0-46.0); HGB 13.9 gm/dL (11.4-16.0); Lymphocytes # (A) 0.4 k/uL (1.0-4.8); Lymphocytes % (A) 7 %; MCHC 32.2 g/dL (31.0-37.0); MCV 102.5 fL (80.0-100.0); Macrocytosis Slight; Mean Platelet Volume 8.1; Monocytes # (A) 0.4 k/uL (0-1.0); Monocytes % (A) 6 %; Neutrophils % (A) 84 %; Platelet Count 102 k/uL (150-450); RDW 15.8 % (11.5-15.5)
[2020-08-13 22:14] LABS: Albumin 3.9 g/dL (3.5-5.0); Calcium 8.6 mg/dL (8.4-10.2); Magnesium 1.8 mg/dL (1.6-2.3); Potassium 4.7 mmol/L (3.5-5.1); Total Bilirubin 0.7 mg/dL (0.2-1.3); Total Protein 6.6 g/dL (6.3-8.2)
[2020-08-13 22:23] LABS: Partial Thromboplastin Time 20.3 sec (22.0-30.0); Prothrombin Time 10.5 sec (9.0-12.0)
[2020-08-13] MEDS ORDERED: DEXAMETHASONE SOD PHOSPHATE 10 MG/ML 1 ML VIAL IV STA (22:27)
[2020-08-13] MEDS ORDERED: FUROSEMIDE 10 MG/ML 4 ML VIAL IV STA (22:43)
[2020-08-13] MEDS ORDERED: FUROSEMIDE 10 MG/ML 4 ML VIAL IV SCH (23:15)
[2020-08-14] MEDS ORDERED: ALBUTEROL HFA INHALER INHALATION SCH
[2020-08-14 00:08] LABS: C Reactive Protein 8.8 mg/L (<10.0)
[2020-08-14] MEDS ORDERED: TOCILIZUMAB 400 MG in SODIUM CHLORIDE 0.9% 80 ML IV ONE (03:38)
--- NOTE | 2020-08-14 03:47 | P.HPIM ---
History of Present Illness H&P Date: 08/14/20 Chief Complaint: worsening shortness of breath 65 year old female with hypertension , hypothyroid, schizophrenia no clear history of CHF, or COPD, patient has strong history of smoking , she is currently resident of [facility]. patient was seen in the ED, unable to provide any meaningful history , due to being confused at this time, she just ripped off her IV, currently bleeding with RN attempting to control her bleeding from the left anticubital fossa around site of IV. patient cooperates with exam to some extent , and follows only simple commands with encouragement , she is currently on non rebreather. she was sent here by ambulance due to worsening SOB. there is no documented history of CHF. no report of fever , chills , or cough. however, there is report of at least 11 cases of COIVD 19 positive where she currently lives. per EMS, her oxygen sat was in the 80s , and staff reported increase SOB, feeling tired and lethargic all day. no further history is obtainable at this time patient tested positive for COVID19 CXR was concerning for patchy infilterates , inflamattory markers elevated , LA within normal limits Review of Systems ROS unobtainable: due to mental status Past Medical History Past Medical History: Hyperlipidemia, Hypertension, Thyroid Disorder Additional Past Medical History / Comment(s): UTI, arthritis History of Any Multi-Drug Resistant Organisms: MRSA Date of last positivie culture/infection: 06/07/16 MDRO Source:: Buttock Past Surgical History: Cholecystectomy, Uterine Ablation Additional Past Surgical History / Comment(s): Hysterectomy, left gluteal abscess debridement Past Anesthesia/Blood Transfusion Reactions: No Reported Reaction Past Psychological History: Anxiety, Depression, Panic Disorder, Schizoaffective Disorder, Schizophrenia Additional Psychological History / Comment(s): [facility]IVES AT [facility] [phone], IS INDEPENDANT WHEN UP. Smoking Status: Current every day smoker Past Alcohol Use History: None Reported Additional Past Alcohol Use History / Comment(s): PT STATED SHE SMOKES 1 CIG EVERY HOUR FROM THE HOURS OF 6AM TILL 11 PM Past Drug Use History: None Reported - Past Family History Mother Family Medical History: No Reported History Father Family Medical History: No Reported History Medications and Allergies Home Medications Medication Instructions Recorded Confirmed Type Metoprolol Succinate (ER) [Toprol 100 mg PO HS@199912/10/19 08/13/20 History XL] amLODIPine BESYLATE/BENAZEPRIL 1 tab PO HS@199912/10/19 08/13/20 History [amLODIPine BESYLATE/BENAZEPRIL 10-40 MG] fluvoxaMINE MALEATE [Luvox] 100 mg PO BID@0700,1999 #60 tab 12/17/19 08/13/20 Rx Ibuprofen [Motrin] 800 mg PO BID PRN 08/13/20 08/13/20 History LORazepam [Ativan] 1 mg PO BID@0700,1700 08/13/20 08/13/20 History LORazepam [Ativan] 2 mg PO HS@199908/13/20 08/13/20 History Levothyroxine Sodium [Synthroid] 150 mcg PO DAILY@0700 08/13/20 08/13/20 History OLANZapine 20 mg PO HS@199908/13/20 08/13/20 History fluPHENAZine decanoate [Prolixin 50 mg IM Q7D 08/13/20 08/13/20 History Decanoate] Allergies Allergy/AdvReac Type Severity Reaction Status Date / Time Penicillins Allergy Anaphylaxis Verified 08/13/20 21:30 Physical Exam Vitals: Vital Signs Temp Pulse Pulse Resp BP BP Pulse Ox 08/14/20 02:00 20 08/13/20 23:33 98.5 F 70 20 135/73 95 08/13/20 23:10 93 L 08/13/20 23:09 75 17 103/90 95 08/13/20 21:54 72 16 103/73 86 L 08/13/20 21:03 74 08/13/20 20:29 78 20 136/87 88 L Intake and Output 08/13/20 08/13/20 08/14/20 14:59 22:59 06:59 Intake Total 240 Balance 240 Intake: Oral 240 Other: Voiding Method Diaper # Voids 1 Weight 81.647 kg 81.647 kg Constitutional: patient laying in bed , restless , bleeding from left arm site of ripped IV line Eyes: Anicteric sclerae, moist conjunctiva, Pupils equal round reactive to light, slightly erythematus face around her eyes and lips ENMT: NC/AT Neck: Supple, FROM, no masses, or JVD No carotid bruits No thyromegaly Lungs: noisy breathing , but good breath sounds through out, no wheezing or rales. Clear to percussion Normal respiratory effort, no accessory muscle use Cardiovascular: Heart regular in rate and rhythm, No murmurs, gallops, or rubs No peripheral edema Abdominal: Soft Nontender, no guarding, rebound or rigidity Abdomen moving with respiration Normoactive bowel sounds No palpable mass Skin: Normal temperature, tone, texture, turgor No induration No subcutaneous nodules No rash, lesions No ulcers Extremities: No digital cyanosis No clubbing Pedal pulses intact and symmetrical Radial pulses intact and symmetrical No calf tenderness Psychiatric: patient is confused , following simple commands, unable to provide any meaningful history Neuro unable to perform at this time, patient could not cooperate with neuro exam Lymphatics: no palpable cervical or supraclavicular , or inguinal lymph nodes Results CBC & Chem 7: 08/13/20 21:33 08/13/20 21:33 Labs: Abnormal Lab Results - Last 24 Hours (Table) 08/13/20 08/13/20 08/13/20 Range/Units 21:33 21:33 21:33 MCV 102.5 H (80.0-100.0) fL RDW 15.8 H (11.5-15.5) % Plt Count 102 L (150-450) k/uL Lymphocytes # 0.4 L (1.0-4.8) k/uL APTT 20.3 L (22.0-30.0) sec D-Dimer (<0.60) mg/L FEU Sodium 133 L (137-145) mmol/L Carbon Dioxide 21 L (22-30) mmol/L BUN 37 H (7-17) mg/dL Creatinine 1.62 H (0.52-1.04) mg/dL Glucose 121 H (74-99) mg/dL AST 37 H (14-36) U/L Lactate Dehydrogenase (313-618) U/L Creatine Kinase 209 H (30-135) U/L Troponin I (0.000-0.034) ng/mL Coronavirus (PCR) (Not Detectd) 08/13/20 08/13/20 08/13/20 Range/Units 21:33 21:33 23:48 MCV (80.0-100.0) fL RDW (11.5-15.5) % Plt Count (150-450) k/uL Lymphocytes # (1.0-4.8) k/uL APTT (22.0-30.0) sec D-Dimer 8.99 H (<0.60) mg/L FEU Sodium (137-145) mmol/L Carbon Dioxide (22-30) mmol/L BUN (7-17) mg/dL Creatinine (0.52-1.04) mg/dL Glucose (74-99) mg/dL AST (14-36) U/L Lactate Dehydrogenase (313-618) U/L Creatine Kinase (30-135) U/L Troponin I 0.118 H* (0.000-0.034) ng/mL Coronavirus (PCR) Detected A (Not Detectd) 08/13/20 08/14/20 Range/Units 23:48 00:15 MCV (80.0-100.0) fL RDW (11.5-15.5) % Plt Count (150-450) k/uL Lymphocytes # (1.0-4.8) k/uL APTT (22.0-30.0) sec D-Dimer (<0.60) mg/L FEU Sodium (137-145) mmol/L Carbon Dioxide (22-30) mmol/L BUN (7-17) mg/dL Creatinine (0.52-1.04) mg/dL Glucose (74-99) mg/dL AST (14-36) U/L Lactate Dehydrogenase 761 H (313-618) U/L Creatine Kinase (30-135) U/L Troponin I 0.133 H* (0.000-0.034) ng/mL Coronavirus (PCR) (Not Detectd) Thrombosis Risk Factor Assmnt - Choose All That Apply Each Factor Represents 1 point: Obesity (BMI >25) Other Risk Factors: Yes Each Risk Factor Represents 2 Points: Age 61-74 years Other congenital or acquired thrombophilia - If yes, enter type in comment: No Thrombosis Risk Factor Assessment Total Risk Factor Score: 3 Thrombosis Risk Factor Assessment Level: Moderate Risk Assessment and Plan Assessment: acute hypoxic respiratory failure acute metabolic encephalopathy acute COVID 19 pneumonitis plan decadrone 6 mg daily for 10 days increase oxygen requirement , currently on 15 LPM non rebreather elevated inflammatory markers, will start Tocilizumab (4 mg/kg), consider repeating dose in 12 hours elevated d-dimer, will initiate lovenox 0.5 mg/kg BID (intermediate intensity) supportive care patient received one dose of lasix in ED, patient does not seem to be fluid overloaded based on my exam, will discontinue lasix at this time monitor inflammatory markers, and CBC , and oxygen requriiement ID consultation check ECHOcardiogram assess LVEF CKD , unknown baseline monitor renal function elevated troponins cardiology eval EKG no acute ST changes check echocardiogram trend trops chronic condition schizophrenia hypertension hypothyroid resume home meds CODE STATUS:unable to obtain due to AMS DVT prophylaxis: lovenox Discussed with: Patient, ER, RN Anticipated length of stay > than [address]: pending clinicla course A total of 75 minutes was spent on the care of this complex patient more than 50% of the time was spent in counseling and care coordination.
[2020-08-14] MEDS: ENOXAPARIN 40 MG/0.4 ML SYRINGE SQ SCH ×3 (04:24→20:30)
[2020-08-14 04:35] LABS: ABG Base Excess -3.7 mmol/L; ABG HCO3 24 mmol/L (21-25); ABG Oxygen Saturation 91.2 % (94-97); ABG PCO2 55 mmHg (35-45); ABG PH 7.25 (7.35-7.45); ABG PO2 68 mmHg (83-108); ABG TCO2 25 mmol/L (19-24); Allen Test Performed? Yes
[2020-08-14] MEDS: LEVOTHYROXINE 100 MCG TAB PO SCH (05:47)
[2020-08-14] MEDS: ALBUTEROL HFA INHALER INHALATION SCH ×4 (08:31→20:51)
[2020-08-14] MEDS: ASCORBIC ACID 500 MG TAB PO SCH (08:57)
[2020-08-14] MEDS: ZINC SULFATE 220 MG CAP PO SCH (08:57)
[2020-08-14] MEDS: ASPIRIN 81 MG PO SCH (08:57)
[2020-08-14] MEDS: CHOLECALCIFEROL 25 MCG (1000 IU) TABLET PO SCH (08:57)
[2020-08-14] MEDS ORDERED: dexAMETHasone 2 MG TAB PO SCH (09:00)
--- NOTE | 2020-08-14 10:33 | P.PN ---
Progress Note - Text Progress Note Date: 08/14/20 Pt seen at bedside today. She does not believe she has COVID despite requiring BIPAP for ventilatory support. She asks for a shower, her clothes, and to go outside, but we discussed why these things were not possible today. I agree with the plan as documented by my colleague earlier this morning, with the exception that we will hold off on Actemra for now, pending consultation/consideration from our pulmonary team.
--- NOTE | 2020-08-14 11:24 | P.CRDCN ---
History of Present Illness Consult date: 08/14/20 History of present illness: This is a 65-year-old female with history of short of hernia [facility]. She was brought to the hospital by paramedics because of increasing shortness of breath. Patient is uncooperative. Apparently didn't want to keep her oxygen on the and her chest x-ray and inflammatory markers are consistent with COVID infection. Most of the information is gathered from the chart and business risk consultant notes. This patient is not personally examined to reduce the risk of infection. Troponin values are mildly elevated but not consistent with acute coronary syndrome. EKG did not reveal any acute changes of ischemia. Echo Cardigan showed normal LV function without any significant valvular abnormalities. BNP levels are elevated but there is no evidence of active CHF. I would recommend pulmonary consultation and further treatment for COVID infection. We'll follow her as needed Review of Systems As per the chart Past Medical History Past Medical History: Hyperlipidemia, Hypertension, Thyroid Disorder Additional Past Medical History / Comment(s): UTI, arthritis History of Any Multi-Drug Resistant Organisms: MRSA Date of last positivie culture/infection: 06/07/16 MDRO Source:: Buttock Past Surgical History: Cholecystectomy, Uterine Ablation Additional Past Surgical History / Comment(s): Hysterectomy, left gluteal abscess debridement Past Anesthesia/Blood Transfusion Reactions: No Reported Reaction Past Psychological History: Anxiety, Depression, Panic Disorder, Schizoaffective Disorder, Schizophrenia Additional Psychological History / Comment(s): LIVES AT [facility] [phone], IS INDEPENDANT WHEN UP. Smoking Status: Current every day smoker Past Alcohol Use History: None Reported Additional Past Alcohol Use History / Comment(s): PT STATED SHE SMOKES 1 CIG EVERY HOUR FROM THE HOURS OF 6AM TILL 11 PM Past Drug Use History: None Reported - Past Family History Mother Family Medical History: No Reported History Father Family Medical History: No Reported History Medications and Allergies Home Medications Medication Instructions Recorded Confirmed Type Metoprolol Succinate (ER) [Toprol 100 mg PO HS@199912/10/19 08/13/20 History XL] amLODIPine BESYLATE/BENAZEPRIL 1 tab PO HS@199912/10/19 08/13/20 History [amLODIPine BESYLATE/BENAZEPRIL 10-40 MG] fluvoxaMINE MALEATE [Luvox] 100 mg PO BID@699,1999 #60 tab 12/17/19 08/13/20 Rx Ibuprofen [Motrin] 800 mg PO BID PRN 08/13/20 08/13/20 History LORazepam [Ativan] 1 mg PO BID@0700,1700 08/13/20 08/13/20 History LORazepam [Ativan] 2 mg PO HS@199908/13/20 08/13/20 History Levothyroxine Sodium [Synthroid] 150 mcg PO DAILY@0700 08/13/20 08/13/20 History OLANZapine 20 mg PO HS@199908/13/20 08/13/20 History fluPHENAZine decanoate [Prolixin 50 mg IM Q7D 08/13/20 08/13/20 History Decanoate] Allergies Allergy/AdvReac Type Severity Reaction Status Date / Time Penicillins Allergy Anaphylaxis Verified 08/13/20 21:30 Physical Exam Vitals: Vital Signs Temp Pulse Pulse Resp BP BP Pulse Ox 08/14/20 08:00 96.9 F L 65 20 117/61 96 08/14/20 03:40 98.8 F 66 20 140/74 94 L 08/14/20 02:00 20 08/13/20 23:33 98.5 F 70 20 135/73 95 08/13/20 23:10 93 L 08/13/20 23:09 75 17 103/90 95 08/13/20 21:54 72 16 103/73 86 L 08/13/20 21:03 74 08/13/20 20:29 78 20 136/87 88 L Intake and Output 08/13/20 08/14/20 08/14/20 22:59 06:59 14:59 Intake Total 240 Balance 240 Intake: Oral 240 Other: Voiding Method Diaper # Voids 1 1 Weight 81.647 kg 89.5 kg This patient is not personally examined. Information is gathered from the chart and consultation notes Results 08/13/20 21:33 08/13/20 21:33 Cardiac Enzymes 08/13/20 08/13/20 08/13/20 Range/Units 21:33 21:33 23:48 AST 37 H (14-36) U/L Lactate Dehydrogenase 761 H (313-618) U/L Troponin I 0.118 H* (0.000-0.034) ng/mL 08/14/20 08/14/20 Range/Units 00:15 03:28 AST (14-36) U/L Lactate Dehydrogenase (313-618) U/L Troponin I 0.133 H* 0.103 H* (0.000-0.034) ng/mL Coagulation 08/13/20 Range/Units 21:33 PT 10.5 (9.0-12.0) sec APTT 20.3 L (22.0-30.0) sec CBC 08/13/20 Range/Units 21:33 WBC 6.0 (3.8-10.6) k/uL RBC 4.20 (3.80-5.40) m/uL Hgb 13.9 (11.4-16.0) gm/dL Hct 43.1 (34.0-46.0) % Plt Count 102 L (150-450) k/uL Comprehensive Metabolic Panel 08/13/20 Range/Units 21:33 Sodium 133 L (137-145) mmol/L Potassium 4.7 (3.5-5.1) mmol/L Chloride 101 (98-107) mmol/L Carbon Dioxide 21 L (22-30) mmol/L BUN 37 H (7-17) mg/dL Creatinine 1.62 H (0.52-1.04) mg/dL Glucose 121 H (74-99) mg/dL Calcium 8.6 (8.4-10.2) mg/dL AST 37 H (14-36) U/L ALT 21 (4-34) U/L Alkaline Phosphatase 77 (38-126) U/L Total Protein 6.6 (6.3-8.2) g/dL Albumin 3.9 (3.5-5.0) g/dL Current Medications Generic Name Dose Route Start Last Admin Trade Name Freq PRN Reason Stop Dose Admin Albuterol Sulfate 2 puff 08/14/20 08:00 08/14/20 08:31 Albuterol Hfa Inhaler INHALATION 2 puff RT-QID VIMAL Administration Amlodipine Besylate 10 mg 08/14/20 20:00 Amlodipine 10 Mg Tab PO HS@2000 VIMAL Ascorbic Acid 1,000 mg 08/14/20 09:00 08/14/20 08:57 Ascorbic Acid 500 Mg Tab PO 1,000 mg DAILY VIMAL Administration Aspirin 81 mg 08/14/20 09:00 08/14/20 08:57 Aspirin 81 Mg PO 81 mg DAILY VIMAL Administration Cholecalciferol 100 mcg 08/14/20 09:00 08/14/20 08:57 Cholecalciferol 25 Mcg (1000 Iu) Tablet PO 100 mcg DAILY VIMAL Administration Dexamethasone 6 mg 08/14/20 09:00 08/14/20 08:57 Dexamethasone 2 Mg Tab PO 6 mg DAILY VIMAL Administration Enoxaparin Sodium 40 mg 08/14/20 03:38 08/14/20 09:00 Enoxaparin 40 Mg/0.4 Ml Syringe SQ 40 mg Q12HR [facility] Administration Fluphenazine Decanoate 50 mg 08/17/20 09:00 Fluphenazine Decanoate 25 Mg/Ml 5ml Mdv IM Q7D [facility] Fluvoxamine Maleate 100 mg 08/14/20 07:00 08/14/20 05:55 Fluvoxamine 50 Mg Tab PO 100 mg BID@0700,1999 [facility] Administration Ibuprofen 800 mg 08/13/20 23:11 Ibuprofen 800 Mg Tab PO BID PRN Pain Levothyroxine Sodium 150 mcg 08/14/20 07:00 08/14/20 05:47 Levothyroxine 100 Mcg Tab PO 150 mcg DAILY@0700 [facility] Administration Lisinopril 40 mg 08/14/20 20:00 Lisinopril 20 Mg Tab PO HS@1999 [facility] Metoprolol Succinate 100 mg 08/14/20 20:00 Metoprolol Succinate (Er) 100 Mg Tab.Er.24h PO HS@1999 [facility] Olanzapine 20 mg 08/14/20 20:00 Olanzapine 10 Mg Tab PO HS@1999 [facility] Zinc Sulfate 220 mg 08/14/20 09:00 08/14/20 08:57 Zinc Sulfate 220 Mg Cap PO 220 mg DAILY [facility] Administration Intake and Output 08/13/20 08/14/20 08/14/20 22:59 06:59 14:59 Intake Total 240 Balance 240 Intake: Oral 240 Other: Voiding Method Diaper # Voids 1 1 Weight 81.647 kg 89.5 kg 08/13/20 21:33 08/13/20 21:33 EKG Interpretations (text) Sinus rhythm Assessment and Plan (1) Elevated troponin Current Visit: Yes Status: Acute Code(s): R77.8 - OTHER SPECIFIED ABNORMALITIES OF PLASMA PROTEINS SNOMED Code(s): 616423509 (2) Hypoxemia Current Visit: Yes Status: Acute Code(s): R09.02 - HYPOXEMIA SNOMED Code(s): 711930729 (3) Pneumonia due to COVID-19 virus Current Visit: Yes Status: Acute Code(s): U07.1 - COVID-19; J12.82 - Pneumonia due to coronavirus disease 2019 SNOMED Code(s): 707193749651666746 (4) Hypertension Current Visit: No Status: Acute Code(s): I10 - ESSENTIAL (PRIMARY) HYPERTENSION SNOMED Code(s): 90472752 (5) Schizophrenia Current Visit: No Status: Acute Priority: High Code(s): F20.9 - SCHIZOPHRENIA, UNSPECIFIED SNOMED Code(s): 83308829 Plan: Though troponins are abnormal, not consistent with acute coronary syndrome. Could be nonspecific elevation related to: And hypoxemia. EKG showed evidence of possible old lateral wall myocardial infarction. Her echocardiogram showed normal LV function. Continue current treatment for pneumonia. We'll follow as needed
[2020-08-14 12:27] LABS: ABG Base Excess -3.8 mmol/L; ABG HCO3 24 mmol/L (21-25); ABG PCO2 60 mmHg (35-45); ABG PH 7.23 (7.35-7.45); ABG PO2 163 mmHg (83-108); Allen Test Performed? Yes
--- NOTE | 2020-08-14 12:43 | ECHOF ---
Referral Reason:LVEF ? MEASUREMENTS -------- HEIGHT: 154.9 cm WEIGHT: 81.6 kg BP: RVIDd: 3.7 cm (< 3.3) IVSd: 1.2 cm (0.6 - 1.1) LVIDd: 4.1 cm (3.9 - 5.3) LVPWd: 1.3 cm (0.6 - 1.1) IVSs: 1.9 cm LVIDs: 2.3 cm LVPWs: 1.8 cm Ao Diam: 2.7 cm (2.0 - 3.7) AV Cusp: 1.6 cm (1.5 - 2.6) LA Diam: 3.6 cm (2.7 - 3.8) MV EXCURSION: 9.024 mm (> 18.000) MV EF SLOPE: 28 mm/s (70 - 150) EPSS: 1.3 cm MV E Lexa: 0.95 m/s MV DecT: 204 ms MV A Lexa: 0.91 m/s MV E/A Ratio: 1.04 RAP: 5.00 mmHg RVSP: 27.50 mmHg FINDINGS -------- Sinus rhythm. This was a technically adequate study. The left ventricular size is normal. There is mild concentric left ventricular hypertrophy. Overa ll left ventricular systolic function is normal with, an EF between 55 - 60 %. The right ventricle is mild to moderately enlarged. The right ventricular systolic function is mild ly impaired. Moderator band is visualized in the right ventricular apex. The left atrial size is normal. The right atrial size is normal. The aortic valve is trileaflet, and appears structurally normal. No aortic stenosis or regurgitation. Mild mitral annular calcification present. Mild mitral regurgitation is present. The tricuspid valve appears structurally normal. Mild tricuspid regurgitation present. Right vent ricular systolic pressure is normal at < 35 mmHg. The pulmonic valve was not well visualized. There is no pulmonic regurgitation present. The aortic root size is normal. Normal inferior vena cava with normal inspiratory collapse consistent with estimated right atrial pre ssure of 5 mmHg. There is no pericardial effusion. CONCLUSIONS -------- 1. There is mild concentric left ventricular hypertrophy. 2. Overall left ventricular systolic function is normal with, an EF between 55 - 60 %. 3. The right ventricle is mild to moderately enlarged. 4. The right ventricular systolic function is mildly impaired. 5. The aortic valve is trileaflet, and appears structurally normal. No aortic stenosis or regurgitati on. 6. Mild mitral annular calcification present. 7. Mild mitral regurgitation is present. 8. Mild tricuspid regurgitation present. 9. There is no pericardial effusion. GRADER OPERATOR: Divya Gordon RDCS
[2020-08-14] MEDS: FUROSEMIDE 10 MG/ML 4 ML VIAL IV SCH ×3 (12:58→23:40)
--- NOTE | 2020-08-14 14:28 | P.CNPUL ---
History of Present Illness Consult date: 08/14/20 Requesting physician: Thien Maguire Reason for consult: dyspnea, hypoxemia, abnormal CXR/CT Chief complaint: Worsening shortness of breath, hypoxemia History of present illness: This 65-year-old white female patient was a poor historian, and most of the history was obtained from patient's chart, from the nursing staff, who resides in a alf and has a chronic developmental delay, hypertension, hypothyroidism, hyperlipidemia, schizoaffective disorder, history of MRSA infection in the wound and current every day smoker. She was brought into the emergency department on 08/13/2020 per EMS for evaluation of increased lethargy, fatigue, and developing shortness of breath earlier, she was found to be hypoxic with a pulse ox in the high 80s and lower 90s, and multiple people at the alf facility or testing positive for COVID 19. Onset of symptoms 's not clear as the patient not able to provide any information. There are no reports of fever chills, no sweats, no nausea vomiting or diarrhea. She has been afebrile while she was in the hospital, her pulse ox was only 88% on 6 L, and FiO2 was subsequently increased to 15 L and currently patient is on BiPAP with pressures of 12/6 and FiO2 of 100%, or gas was obtained showing pO2 of 68, pCO2 55, pH is 7.25. Patient is positive for COVID 19. Has not significantly elevated d-dimer at 8.99, LDH was 761, and CRP is 8.8, negative Protuss tone and at 0.09, her proBNP was significantly elevated at 21,000 with elevated troponins. Chest x- ray shows new multifocal mid to lower lung acute opacities. Patient was started on Decadron in the emergency department, vitamins, she was given a dose of IV Lasix, and was given breathing treatments. We were asked to see the patient in consultation for what appears to be a combination of cough COVID 19 related pneumonitis acute exacerbation of CHF with diastolic dysfunction, echocardiogram showed EF between 55 and 60%, moderate enlargement of the right ventricle, mild MR, mild TR, PA systolic was less than 35 mmHg. At the time of our evaluation she is very obtunded, blood gas was ordered pO2 of 68, pCO2 of 55, pH of 7.25, and her BiPAP settings were adjusted increase the IPAP to 14, and FiO2 was dropped down to 60%. Repeat blood gas in 2 hours is pending Review of Systems All systems: negative Constitutional: Denies chills, Denies fever Eyes: denies blurred vision, denies pain Ears, nose, mouth and throat: Denies headache, Denies sore throat Cardiovascular: Denies chest pain, Denies shortness of breath Respiratory: Reports dyspnea, Denies cough Gastrointestinal: Denies abdominal pain, Denies diarrhea, Denies nausea, Denies vomiting Genitourinary: Denies dysuria, Denies hematuria Musculoskeletal: Denies myalgias Integumentary: Denies pruritus, Denies rash Neurological: Denies numbness, Denies weakness Psychiatric: Denies anxiety, Denies depression Endocrine: Denies fatigue, Denies weight change Past Medical History Past Medical History: Hyperlipidemia, Hypertension, Thyroid Disorder Additional Past Medical History / Comment(s): UTI, arthritis History of Any Multi-Drug Resistant Organisms: MRSA Date of last positivie culture/infection: 06/07/16 MDRO Source:: Buttock Past Surgical History: Cholecystectomy, Uterine Ablation Additional Past Surgical History / Comment(s): Hysterectomy, left gluteal abscess debridement Past Anesthesia/Blood Transfusion Reactions: No Reported Reaction Past Psychological History: Anxiety, Depression, Panic Disorder, Schizoaffective Disorder, Schizophrenia Additional Psychological History / Comment(s): LIVES AT [facility] [phone], IS INDEPENDANT WHEN UP. Smoking Status: Current every day smoker Past Alcohol Use History: None Reported Additional Past Alcohol Use History / Comment(s): PT STATED SHE SMOKES 1 CIG EVERY HOUR FROM THE HOURS OF 6AM TILL 11 PM Past Drug Use History: None Reported - Past Family History Mother Family Medical History: No Reported History Father Family Medical History: No Reported History Medications and Allergies Home Medications Medication Instructions Recorded Confirmed Type Metoprolol Succinate (ER) [Toprol 100 mg PO HS@199912/10/19 08/13/20 History XL] amLODIPine BESYLATE/BENAZEPRIL 1 tab PO HS@199912/10/19 08/13/20 History [amLODIPine BESYLATE/BENAZEPRIL 10-40 MG] fluvoxaMINE MALEATE [Luvox] 100 mg PO BID@699,1999 #60 tab 12/17/19 08/13/20 Rx Ibuprofen [Motrin] 800 mg PO BID PRN 08/13/20 08/13/20 History LORazepam [Ativan] 1 mg PO BID@0700,1700 08/13/20 08/13/20 History LORazepam [Ativan] 2 mg PO HS@199908/13/20 08/13/20 History Levothyroxine Sodium [Synthroid] 150 mcg PO DAILY@0700 08/13/20 08/13/20 History OLANZapine 20 mg PO HS@199908/13/20 08/13/20 History fluPHENAZine decanoate [Prolixin 50 mg IM Q7D 08/13/20 08/13/20 History Decanoate] Allergies Allergy/AdvReac Type Severity Reaction Status Date / Time Penicillins Allergy Anaphylaxis Verified 08/13/20 21:30 Physical Exam Vitals: Vital Signs Temp Pulse Pulse Resp BP BP Pulse Ox 08/14/20 11:41 97.4 F L 55 L 20 124/71 99 08/14/20 08:00 96.9 F L 65 20 117/61 96 08/14/20 03:40 98.8 F 66 20 140/74 94 L 08/14/20 02:00 20 08/13/20 23:33 98.5 F 70 20 135/73 95 08/13/20 23:10 93 L 08/13/20 23:09 75 17 103/90 95 08/13/20 21:54 72 16 103/73 86 L 08/13/20 21:03 74 08/13/20 20:29 78 20 136/87 88 L Intake and Output 08/13/20 08/14/20 08/14/20 22:59 06:59 14:59 Intake Total 240 Balance 240 Intake: Oral 240 Other: Voiding Method Diaper External Catheter # Voids 1 1 Weight 81.647 kg 89.5 kg GENERAL EXAM: Very obtunded, 65-year-old white female, on BiPAP support with pressures of 12 and 6 and FiO2 100%, comfortable in no apparent distress. HEAD: Normocephalic/atraumatic. EYES: Normal reaction of pupils, equal size. Conjunctiva pink, sclera white. NOSE: Clear with pink turbinates. THROAT: No erythema or exudates. NECK: No masses, no JVD, no thyroid enlargement, no adenopathy. CHEST: No chest wall deformity. Symmetrical expansion. LUNGS: Equal air entry with no crackles, wheeze, rhonchi or dullness. CVS: Regular rate and rhythm, normal S1 and S2, no gallops, no murmurs, no rubs ABDOMEN: Soft, nontender. No hepatosplenomegaly, normal bowel sounds, no guarding or rigidity. EXTREMITIES: No clubbing, no edema, no cyanosis, 2+ pulses and upper and lower extremities. MUSCULOSKELETAL: Muscle strength and tone normal. SPINE: No scoliosis or deformity SKIN: No rashes CENTRAL NERVOUS SYSTEM: Obtunded No focal deficits, tone is normal in all 4 extremities. Results - Laboratory Findings CBC and BMP: 08/13/20 21:33 08/13/20 21:33 ABG ABG pH 7.23 (7.35-7.45) L 08/14/20 12:16 ABG pCO2 60 mmHg (35-45) H 08/14/20 12:16 ABG pO2 163 mmHg (83-108) H 08/14/20 12:16 ABG O2 Saturation 100.0 % (94-97) H 08/14/20 12:16 PT/INR, D-dimer PT 10.5 sec (9.0-12.0) 08/13/20 21:33 INR 1.0 (<1.2) 08/13/20 21:33 D-Dimer 8.99 mg/L FEU (<0.60) H 08/13/20 23:48 Abnormal lab findings: Abnormal Labs 08/13/20 08/13/20 08/13/20 21:33 21:33 21:33 MCV 102.5 H RDW 15.8 H Plt Count 102 L Lymphocytes # 0.4 L APTT 20.3 L D-Dimer ABG pH ABG pCO2 ABG pO2 ABG Total CO2 ABG O2 Saturation Sodium 133 L Carbon Dioxide 21 L BUN 37 H Creatinine 1.62 H Glucose 121 H AST 37 H Lactate Dehydrogenase Creatine Kinase 209 H Troponin I Coronavirus (PCR) 08/13/20 08/13/20 08/13/20 21:33 21:33 23:48 MCV RDW Plt Count Lymphocytes # APTT D-Dimer 8.99 H ABG pH ABG pCO2 ABG pO2 ABG Total CO2 ABG O2 Saturation Sodium Carbon Dioxide BUN Creatinine Glucose AST Lactate Dehydrogenase Creatine Kinase Troponin I 0.118 H* Coronavirus (PCR) Detected A 08/13/20 08/14/20 08/14/20 23:48 00:15 03:28 MCV RDW Plt Count Lymphocytes # APTT D-Dimer ABG pH ABG pCO2 ABG pO2 ABG Total CO2 ABG O2 Saturation Sodium Carbon Dioxide BUN Creatinine Glucose AST Lactate Dehydrogenase 761 H Creatine Kinase Troponin I 0.133 H* 0.103 H* Coronavirus (PCR) 08/14/20 08/14/20 04:33 12:16 MCV RDW Plt Count Lymphocytes # APTT D-Dimer ABG pH 7.25 L 7.23 L ABG pCO2 55 H 60 H ABG pO2 68 L 163 H ABG Total CO2 25 H ABG O2 Saturation 91.2 L 100.0 H Sodium Carbon Dioxide BUN Creatinine Glucose AST Lactate Dehydrogenase Creatine Kinase Troponin I Coronavirus (PCR) - Diagnostic Findings Chest x-ray: report reviewed, image reviewed Additional studies: Echocardiogram reviewed, EKG reviewed Assessment and Plan Plan: Assessment: #1. Acute hypoxic and hypercapnic respiratory failure related to acute exacerbation of COPD, acute COVID 19 pneumonia, and acute exacerbation of diastolic CHF. Patient is a poor historian, onset of symptoms is unknown #2. Elevated troponins, cardiology following, rule out possibility of non-ST elevated myocardial infarction #3. Hypertension #4. Hyperlipidemia #5. Hypothyroidism #6. History of developmental delay #7. Resident of a alf, with multiple residents positive for COVID 19 #8. History of MRSA infection #9. Suspect underlying COPD #10. Current every day smoker Plan: Current medical treatment, d-dimer is elevated, we'll increase Lovenox to 40 mg twice daily, we'll start Lasix every 8 hours around the clock, continue BiPAP support, with pressures of 14 and 6 and FiO2 of 60%, increased Decadron to 6 mg IV twice a day. Place Steele catheter for accurate intake and output. Chest x- ray and CTA chest has been reviewed. Patient's onset of symptoms is unclear, continue with current management, follow-up chest x-ray inflammatory markers and d-dimer in the morning. I performed a history & physical examination of the patient and discussed their management with my nurse practitioner, Dina Reed. I reviewed the nurse practitioner's note and agree with the documented findings and plan of care. Lung sounds are positive for diminished breath sounds. The findings and the impression was discussed with the patient. I attest to the documentation by the nurse practitioner. Time with Patient: Greater than 30
[2020-08-14 15:14] LABS: Ferritin 249.2 ng/mL (10.0-291.0)
[2020-08-14 16:03] LABS: ABG Base Excess -0.9 mmol/L; ABG HCO3 26 mmol/L (21-25); ABG PCO2 57 mmHg (35-45); ABG PH 7.27 (7.35-7.45); ABG PO2 88 mmHg (83-108); ABG TCO2 28 mmol/L (19-24); Allen Test Performed? Yes
[2020-08-14 16:04] LABS: ABG Oxygen Saturation 97.3 % (94-97)
[2020-08-14] MEDS: METOPROLOL SUCCINATE (ER) 100 MG TAB.ER.24H PO SCH (20:27)
[2020-08-14] MEDS: DEXAMETHASONE SOD PHOSPHATE 10 MG/ML 1 ML VIAL IV SCH (20:27)
[2020-08-14] MEDS: amLODIPine 10 MG TAB PO SCH (20:27)
[2020-08-14] MEDS: lisinopriL 20 MG TAB PO SCH (20:27)
[2020-08-14] MEDS: IBUPROFEN 800 MG TAB PO PRN (20:28)
[2020-08-14] MEDS: OLANZapine 10 MG TAB PO SCH (20:32)
[2020-08-14] MEDS ORDERED: ASPIRIN 325 MG TAB PO SCH (23:10)
[2020-08-15] MEDS: LEVOTHYROXINE 100 MCG TAB PO SCH (06:57)
--- NOTE | 2020-08-15 07:41 | XR ---
EXAMINATION TYPE: XR chest 1V portable DATE OF EXAM: 08/15/2020 COMPARISON: 08/13/2020 HISTORY: Shortness of breath Covid 19 TECHNIQUE: Single frontal view of the chest is obtained. FINDINGS: There has been mild interval worsening in the left lung with an increasing partially consol idative opacity in the retrocardiac region. The partially consolidative opacity in the right lung bas e seen previously has cleared in the interval. The upper lung zones are essentially clear. There is n o pneumothorax or pleural effusion. Heart size is normal. The osseous structures are intact. IMPRESSION: Mild interval worsening in the left lung base and significant interval improvement in the right lung bases described above.
[2020-08-15] MEDS: ALBUTEROL HFA INHALER INHALATION SCH ×4 (08:12→19:49)
[2020-08-15 08:45] LABS: LDH 845 U/L (313-618)
[2020-08-15] MEDS ORDERED: ENOXAPARIN 40 MG/0.4 ML SYRINGE SQ SCH (09:00)
[2020-08-15 09:02] LABS: C Reactive Protein <5.0 mg/L (<10.0)
[2020-08-15] MEDS: FUROSEMIDE 10 MG/ML 4 ML VIAL IV SCH ×3 (09:59→23:16)
[2020-08-15] MEDS: ASCORBIC ACID 500 MG TAB PO SCH (10:00)
[2020-08-15] MEDS: CHOLECALCIFEROL 25 MCG (1000 IU) TABLET PO SCH (10:00)
[2020-08-15] MEDS: DEXAMETHASONE SOD PHOSPHATE 10 MG/ML 1 ML VIAL IV SCH ×2 (10:00→20:21)
[2020-08-15] MEDS: ENOXAPARIN 40 MG/0.4 ML SYRINGE SQ SCH ×3 (10:00→20:46)
[2020-08-15] MEDS: ASPIRIN 81 MG PO SCH (10:00)
[2020-08-15] MEDS: ZINC SULFATE 220 MG CAP PO SCH (10:00)
[2020-08-15] MEDS: IBUPROFEN 800 MG TAB PO PRN ×2 (10:07→20:24)
[2020-08-15] MEDS: PANTOPRAZOLE 40 MG TABLET PO SCH (12:09)
--- NOTE | 2020-08-15 12:11 | P.PN ---
Subjective Progress Note Date: 08/15/20 History of present illness: This is a 65-year-old female with history of short of hernia living in a assisted. She was brought to the hospital by paramedics because of increasing shortness of breath. Patient is uncooperative. Apparently didn't want to keep her oxygen on the and her chest x-ray and inflammatory markers are consistent with COVID infection. Most of the information is gathered from the chart and road consultant notes. This patient is not personally examined to reduce the risk of infection. Troponin values are mildly elevated but not consistent with acute coronary syndrome. EKG did not reveal any acute changes of ischemia. Echo Cardigan showed normal LV function without any significant valvular abnormalities. BNP levels are elevated but there is no evidence of active CHF. I would recommend pulmonary consultation and further treatment for COVID infection. 08/15: She has been reviewed. Patient's been afebrile, heart rate in the 50s, blood pressure 127/79, pulse ox 97% on high flow nasal cannula. cardiac monitor technician sinus rhythm. D-dimer and LDH are elevated. Patient is complaining of of heartburn discomfort. Chest x-ray reveals mild interval worsening in the left lung base and significant improvement in the right lung base. She has been on Lasix 40 mg IV every 12 hours. Physical examination: Deferred as patient is in Covid isolation. Information is gathered from the chart and consultation notes. Assessment: Abnormal troponins but not consistent with acute coronary syndrome. EKG showed evidence of possible old lateral wall infarct. Possible acute diastolic heart failure, improvement in chest x-ray with diuretics Plan: Continue diuresing at Lasix 40 mg IV every 8 hours Continue aspirin, lisinopril 40 mg at bedtime and Toprol-XL 100 mg at bedtime. Monitor I&O and daily weights Monitor electrolytes and renal function Nurse practitioner note has been reviewed, I agree with documented findings and plan of care. Patient was seen and examined. Objective - Vital Signs Vital signs: Vital Signs Temp 98.1 F 08/15/20 08:00 Pulse 54 L 08/15/20 08:00 Resp 18 08/15/20 10:08 BP 127/79 08/15/20 08:00 Pulse Ox 98 08/15/20 10:08 Intake & Output 08/14/20 08/15/20 08/15/20 18:59 06:59 18:59 Intake Total 136 240 Output Total 1500 900 Balance -6744 -660 Weight 89.5 kg 96.5 kg Intake: Oral 136 240 Output: Urine 1500 900 Other: Voiding Method External Catheter External Catheter # Voids 1 - Labs CBC & Chem 7: 08/13/20 21:33 08/13/20 21:33 Labs: Abnormal Lab Results - Last 24 Hours (Table) 08/14/20 08/14/20 08/15/20 Range/Units 12:16 15:54 06:43 D-Dimer 8.43 H (<0.60) mg/L FEU ABG pH 7.23 L 7.27 L (7.35-7.45) ABG pCO2 60 H 57 H (35-45) mmHg ABG pO2 163 H (83-108) mmHg ABG HCO3 26 H (21-25) mmol/L ABG Total CO2 28 H (19-24) mmol/L ABG O2 Saturation 100.0 H 97.3 H (94-97) % Lactate Dehydrogenase (313-618) U/L 08/15/20 Range/Units 06:43 D-Dimer (<0.60) mg/L FEU ABG pH (7.35-7.45) ABG pCO2 (35-45) mmHg ABG pO2 (83-108) mmHg ABG HCO3 (21-25) mmol/L ABG Total CO2 (19-24) mmol/L ABG O2 Saturation (94-97) % Lactate Dehydrogenase 845 H (313-618) U/L Microbiology - Last 24 Hours (Table) 08/13/20 21:45 Blood Culture - Preliminary Blood No Growth after 24 hours 08/13/20 21:33 Blood Culture - Preliminary Blood No Growth after 24 hours
--- NOTE | 2020-08-15 13:41 | P.PN ---
Subjective Progress Note Date: 08/15/20 Principal diagnosis: Acute CoVID 19 pneumonia, COPD exacerbation, CHF exacerbation This 65-year-old white female patient was a poor historian, and most of the history was obtained from patient's chart, from the nursing staff, who resides in a long-term and has a chronic developmental delay, hypertension, hypothyroidism, hyperlipidemia, schizoaffective disorder, history of MRSA infection in the wound and current every day smoker. She was brought into the emergency department on 08/13/2020 per EMS for evaluation of increased lethargy, fatigue, and developing shortness of breath earlier, she was found to be hypoxic with a pulse ox in the high 80s and lower 90s, and multiple people at the long-term facility or testing positive for COVID 19. Onset of symptoms 's not clear as the patient not able to provide any information. There are no reports of fever chills, no sweats, no nausea vomiting or diarrhea. She has been afebrile while she was in the hospital, her pulse ox was only 88% on 6 L, and FiO2 was subsequently increased to 15 L and currently patient is on BiPAP with pressures of 12/6 and FiO2 of 100%, or gas was obtained showing pO2 of 68, pCO2 55, pH is 7.25. Patient is positive for COVID 19. Has not significantly elevated d-dimer at 8.99, LDH was 761, and CRP is 8.8, negative Protuss tone and at 0.09, her proBNP was significantly elevated at 21,000 with elevated troponins. Chest x- ray shows new multifocal mid to lower lung acute opacities. Patient was started on Decadron in the emergency department, vitamins, she was given a dose of IV Lasix, and was given breathing treatments. We were asked to see the patient in consultation for what appears to be a combination of cough COVID 19 related pneumonitis acute exacerbation of CHF with diastolic dysfunction, echocardiogram showed EF between 55 and 60%, moderate enlargement of the right ventricle, mild MR, mild TR, PA systolic was less than 35 mmHg. At the time of our evaluation she is very obtunded, blood gas was ordered pO2 of 68, pCO2 of 55, pH of 7.25, and her BiPAP settings were adjusted increase the IPAP to 14, and FiO2 was dropped down to 60%. Repeat blood gas in 2 hours is pending. The patient is seen today 08/15/2020 and follow-up on the selective care unit. She is currently resting in bed. She did utilize BiPAP throughout the evening, 14/6 and 55% FiO2. She did desaturate to 66% O2 saturation on room air. Currently on 10 L high flow nasal cannula and maintaining O2 saturations in the 90s. Chest x-ray continues to show basilar opacities slightly worse than the l eft lung and some improvement in the right lung base. Blood culture revealing no growth to date. INR 8.43. LDH 845. C-reactive protein less than 5. Arterial blood gases last evening on 60% FiO2 revealed a PaO2 of 88, pCO2 57, pH 7.27. She is continued on Decadron, Lovenox, vitamin supplements. Remains on IV diuretics. Objective - Vital Signs Vital signs: Vital Signs Temp 98.1 F 08/15/20 08:00 Pulse 58 L 08/15/20 12:00 Resp 18 08/15/20 12:10 BP 145/77 08/15/20 12:00 Pulse Ox 93 L 08/15/20 12:10 Intake & Output 08/14/20 08/15/20 08/15/20 18:59 06:59 18:59 Intake Total 136 240 Output Total 1500 900 Balance -1364 -660 Weight 89.5 kg 96.5 kg Intake: Oral 136 240 Output: Urine 1500 900 Other: Voiding Method External Catheter External Catheter # Voids 1 - Exam GENERAL EXAM: Obtunded, 65-year-old female patient, on 10 L high flow nasal cannula, comfortable in no apparent distress. HEAD: Normocephalic/atraumatic. EYES: Normal reaction of pupils, equal size. Conjunctiva pink, sclera white. NOSE: Clear with pink turbinates. THROAT: No erythema or exudates. NECK: No masses, no JVD, no thyroid enlargement, no adenopathy. CHEST: No chest wall deformity. Symmetrical expansion. LUNGS: Equal air entry with crackles in the bilateral posterior bases CVS: Regular rate and rhythm, normal S1 and S2, no gallops, no murmurs, no rubs ABDOMEN: Soft, nontender. No hepatosplenomegaly, normal bowel sounds, no guard ing or rigidity. EXTREMITIES: No clubbing, no edema, no cyanosis, 2+ pulses and upper and lower extremities. MUSCULOSKELETAL: Muscle strength and tone normal. SPINE: No scoliosis or deformity SKIN: No rashes CENTRAL NERVOUS SYSTEM: Obtunded No focal deficits, tone is normal in all 4 extremities. - Labs CBC & Chem 7: 08/13/20 21:33 08/13/20 21:33 Labs: Abnormal Lab Results - Last 24 Hours (Table) 08/14/20 08/15/20 08/15/20 Range/Units 15:54 06:43 06:43 D-Dimer 8.43 H (<0.60) mg/L FEU ABG pH 7.27 L (7.35-7.45) ABG pCO2 57 H (35-45) mmHg ABG HCO3 26 H (21-25) mmol/L ABG Total CO2 28 H (19-24) mmol/L ABG O2 Saturation 97.3 H (94-97) % Lactate Dehydrogenase 845 H (313-618) U/L Microbiology - Last 24 Hours (Table) 08/13/20 21:45 Blood Culture - Preliminary Blood No Growth after 24 hours 08/13/20 21:33 Blood Culture - Preliminary Blood No Growth after 24 hours Assessment and Plan Assessment: 1 Acute hypoxic and hypercapnic respiratory failure related to acute exacerbation of COPD, acute COVID 19 pneumonia, and acute exacerbation of diastolic CHF. Patient is a poor historian, onset of symptoms is unknown 2 Elevated troponins, cardiology following, rule out possibility of non-ST elevated myocardial infarction 3 Hypertension 4 Hyperlipidemia 5 Hypothyroidism 6 History of developmental delay 7 Resident of a long-term, with multiple residents positive for COVID 19 8 History of MRSA infection 9 Suspect underlying COPD 10 Current every day smoker Plan: The patient was seen and evaluated by Dr. Monique We will continue the current treatment plan for now Titrate down the FiO2 as tolerated Alternating with BiPAP Repeat inflammatory markers in a.m. We will continue to follow I, the cosigning physician, performed a history & physical examination of the patient. Lungs sounds are clear bilateral posterior bases. Maintaining good O2 saturations in the 90s on 10 L high flow nasal cannula. I discussed the assessment and plan of care with my nurse practitioner, Imelda Raya. I attest to the above note as dictated by her.
--- NOTE | 2020-08-15 14:05 | P.PN ---
Subjective Progress Note Date: 08/15/20 No new complaints today. Continues to have elevated inflammatory markers. Attempted to interview patient, but she would only open her eyes, but did not want to speak to me. Currently on high flow nasal cannula, saturating well. CXR this morning showed improvement in improvement in right lung, with some worsening in left. Objective - Vital Signs Vital signs: Vital Signs Temp 98.1 F 08/15/20 08:00 Pulse 58 L 08/15/20 12:00 Resp 18 08/15/20 12:10 BP 145/77 08/15/20 12:00 Pulse Ox 93 L 08/15/20 12:10 Intake & Output 08/14/20 08/15/20 08/15/20 18:59 06:59 18:59 Intake Total 136 240 Output Total 1500 900 Balance -1364 -660 Weight 89.5 kg 96.5 kg Intake: Oral 136 240 Output: Urine 1500 900 Other: Voiding Method External Catheter External Catheter # Voids 1 - Exam Gen: awake, alert HEENT: normocephalic, atraumatic, good hearing acuity, moist mucous membranes Resp: good air exchange, breathing comfortably with no accessory muscle use CVS: good distal perfusion x 4, GI: soft, NTTP, ND : no SPT, no CVAT, red catheter not present MSK: no pitting edema, no clubbing Neuro: non-focal, moving all extremities Psych: cooperative, euthymic mood - Labs CBC & Chem 7: 08/13/20 21:33 08/13/20 21:33 Labs: Abnormal Lab Results - Last 24 Hours (Table) 08/14/20 08/15/20 08/15/20 Range/Units 15:54 06:43 06:43 D-Dimer 8.43 H (<0.60) mg/L FEU ABG pH 7.27 L (7.35-7.45) ABG pCO2 57 H (35-45) mmHg ABG HCO3 26 H (21-25) mmol/L ABG Total CO2 28 H (19-24) mmol/L ABG O2 Saturation 97.3 H (94-97) % Lactate Dehydrogenase 845 H (313-618) U/L Microbiology - Last 24 Hours (Table) 08/13/20 21:45 Blood Culture - Preliminary Blood No Growth after 24 hours 08/13/20 21:33 Blood Culture - Preliminary Blood No Growth after 24 hours Assessment and Plan Assessment: 1. Acute hypoxic respiratory failure likely secondary to COPD exacerbation and #3 2. Acute metabolic encephalopathy 3. Acute COVID 19 pneumonitis with ARDS 4. Chronic Systolic Heart Failure 5. Schizophrenia 6. Hypertension 7. HLD 8. Hypothyroidism 9. CKD, stage IIIb plan decadrone 6 mg BID for 10 days increase oxygen requirement , currently on 10L HFNC elevated inflammatory markers, BNP elevated d-dimer, will initiate lovenox 0.5 mg/kg BID (intermediate intensity) patient received one dose of lasix in ED, continue 40mg lasix IV q8h pulmonary consultation, appreciate recs cardiology consultation, appreciate recs CODE STATUS: Full Code DVT prophylaxis: lovenox Discussed with: Patient, ER, RN Anticipated length of stay > than [address]: pending clinical course
[2020-08-15] MEDS: lisinopriL 20 MG TAB PO SCH (20:21)
[2020-08-15] MEDS: OLANZapine 10 MG TAB PO SCH (20:22)
[2020-08-15] MEDS: amLODIPine 10 MG TAB PO SCH (20:23)
[2020-08-16] MEDS: METOPROLOL SUCCINATE (ER) 100 MG TAB.ER.24H PO SCH (00:42)
[2020-08-16] MEDS: LEVOTHYROXINE 100 MCG TAB PO SCH (06:55)
[2020-08-16] MEDS: PANTOPRAZOLE 40 MG TABLET PO SCH (07:01)
[2020-08-16] MEDS: ENOXAPARIN 40 MG/0.4 ML SYRINGE SQ SCH ×3 (07:53→21:27)
[2020-08-16] MEDS: DEXAMETHASONE SOD PHOSPHATE 10 MG/ML 1 ML VIAL IV SCH ×2 (07:54→21:26)
[2020-08-16] MEDS: FUROSEMIDE 10 MG/ML 4 ML VIAL IV SCH ×2 (07:54→16:02)
[2020-08-16] MEDS: ASCORBIC ACID 500 MG TAB PO SCH (07:54)
[2020-08-16] MEDS: ASPIRIN 81 MG PO SCH (07:55)
[2020-08-16] MEDS: ZINC SULFATE 220 MG CAP PO SCH (07:55)
[2020-08-16] MEDS: CHOLECALCIFEROL 25 MCG (1000 IU) TABLET PO SCH (07:55)
[2020-08-16] MEDS: ALBUTEROL HFA INHALER INHALATION SCH ×4 (08:16→19:57)
[2020-08-16] MEDS: IBUPROFEN 800 MG TAB PO PRN ×2 (11:59→21:27)
--- NOTE | 2020-08-16 12:54 | P.PN ---
Subjective Progress Note Date: 08/16/20 History of present illness: This is a 65-year-old female with history of short of [facility]nia [facility]. She was brought to the hospital by paramedics because of increasing shortness of breath. Patient is uncooperative. Apparently didn't want to keep her oxygen on the and her chest x-ray and inflammatory markers are consistent with COVID infection. Most of the information is gathered from the chart and security and privacy consultant notes. This patient is not personally examined to reduce the risk of infection. Troponin values are mildly elevated but not consistent with acute coronary syndrome. EKG did not reveal any acute changes of ischemia. Echo Cardigan showed normal LV function without any significant valvular abnormalities. BNP levels are elevated but there is no evidence of active CHF. I would recommend pulmonary consultation and further treatment for COVID infection. 08/15: She has been reviewed. Patient's been afebrile, heart rate in the 50s, blood pressure 127/79, pulse ox 97% on high flow nasal cannula. 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 D-dimer and LDH are elevated. Patient is complaining of of heartburn discomfort. Chest x-ray reveals mild interval worsening in the left lung base and significant improvement in the right lung base. She has been on Lasix 40 mg IV every 12 hours. 08/16: Metformin was changed last evening and again this morning her heart rate was in the 50s. She is on metoprolol XL at 100 mg at bedtime which we will change to 50. Patient is refusing her morning medications. Blood pressure 149/74, pulse ox 95% on 12 L high flow nasal cannula. Patient refused lab draw this morning. Physical examination: Deferred as patient is in Covid isolation. Information is gathered from the chart and consultation notes. Assessment: Abnormal troponins but not consistent with acute coronary syndrome. EKG showed evidence of possible old lateral wall infarct. Possible acute diastolic heart failure, improvement in chest x-ray with diuretics Plan: Continue diuresing at Lasix 40 mg IV every 8 hours Continue aspirin, lisinopril 40 mg at bedtime Decrease Toprol-XL t 50 mg at bedtime. Monitor I&O and daily weights Monitor electrolytes and renal function Nurse practitioner note has been reviewed, I agree with documented findings and plan of care. Patient was seen and examined. Objective - Vital Signs Vital signs: Vital Signs Temp 99.4 F 08/16/20 07:47 Pulse 70 03/14/21 07:47 Resp 18 08/16/20 09:04 BP 149/74 08/16/20 07:47 Pulse Ox 95 08/16/20 09:04 Intake & Output 08/15/20 08/16/20 08/16/20 17:59 06:59 18:59 Intake Total Output Total Balance Weight Intake: Oral Output: Urine Other: Voiding Method # Voids - Labs CBC & Chem 7: 08/13/20 21:33 08/13/20 21:33 Labs: Abnormal Lab Results - Last 24 Hours (Table) 08/15/20 Range/Units 06:43 Lactate Dehydrogenase 845 H (313-618) U/L Microbiology - Last 24 Hours (Table) 08/13/20 21:45 Blood Culture - Preliminary Blood No Growth after 48 hours 08/13/20 21:33 Blood Culture - Preliminary Blood No Growth after 48 hours
--- NOTE | 2020-08-16 14:24 | P.PN ---
Subjective Progress Note Date: 08/16/20 Pt again did not want to participate in interview, and this morning refused to let me obtain a physical exam. Objective - Vital Signs Vital signs: Vital Signs Temp 99.4 F 08/16/20 07:47 Pulse 67 08/16/20 10:55 Resp 18 08/16/20 13:30 BP 161/83 08/16/20 10:55 Pulse Ox 91 L 08/16/20 13:30 Intake & Output 08/15/20 08/16/20 08/16/20 17:59 06:59 18:59 Intake Total 600 Output Total 200 Balance 400 Weight Intake: Oral 600 Output: Urine 200 Other: Voiding Method External Catheter # Voids 1 - Exam Gen: awake, alert HEENT: normocephalic, atraumatic, good hearing acuity, moist mucous membranes Resp: breathing comfortably with no accessory muscle use : red catheter not present Neuro: moving all extremities Psych: uncooperative, euthymic mood - Labs CBC & Chem 7: 08/13/20 21:33 08/13/20 21:33 Labs: Microbiology - Last 24 Hours (Table) 08/13/20 21:45 Blood Culture - Preliminary Blood No Growth after 48 hours 08/13/20 21:33 Blood Culture - Preliminary Blood No Growth after 48 hours Assessment and Plan Assessment: 1. Acute hypoxic respiratory failure likely secondary to COPD exacerbation and #3 2. Acute metabolic encephalopathy 3. Acute COVID 19 pneumonitis with ARDS 4. Chronic Systolic Heart Failure 5. Schizophrenia 6. Hypertension 7. HLD 8. Hypothyroidism 9. CKD, stage IIIb plan decadrone 6 mg BID for 10 days increase oxygen requirement , currently on 10L HFNC elevated inflammatory markers, BNP elevated d-dimer, will initiate lovenox 0.5 mg/kg BID (intermediate intensity) patient received one dose of lasix in ED, continue 40mg lasix IV q8h pulmonary consultation, appreciate recs cardiology consultation, appreciate recs CODE STATUS: Full Code DVT prophylaxis: lovenox Discussed with: Patient, ER, RN Anticipated length of stay > than [address]: pending clinical course
--- NOTE | 2020-08-16 15:28 | P.PN ---
Subjective Progress Note Date: 08/16/20 Principal diagnosis: Acute hypoxic failure secondary to acute covered 19 pneumonia. This 65-year-old white female patient was a poor historian, and most of the history was obtained from patient's chart, from the nursing staff, who resides in a half-way and has a chronic developmental delay, hypertension, hypothyroidism, hyperlipidemia, schizoaffective disorder, history of MRSA infection in the wound and current every day smoker. She was brought into the emergency department on 08/13/2020 per EMS for evaluation of increased lethargy, fatigue, and developing shortness of breath earlier, she was found to be hypoxic with a pulse ox in the high 80s and lower 90s, and multiple people at the half-way facility or testing positive for COVID 19. Onset of symptoms 's not clear as the patient not able to provide any information. There are no reports of fever chills, no sweats, no nausea vomiting or diarrhea. She has been afebrile while she was in the hospital, her pulse ox was only 88% on 6 L, and FiO2 was subsequently increased to 15 L and currently patient is on BiPAP with pressures of 12/6 and FiO2 of 100%, or gas was obtained showing pO2 of 68, pCO2 55, pH is 7.25. Patient is positive for COVID 19. Has not significantly elevated d-dimer at 8.99, LDH was 761, and CRP is 8.8, negative Protuss tone and at 0.09, her proBNP was significantly elevated at 21,000 with elevated troponins. Chest x- ray shows new multifocal mid to lower lung acute opacities. Patient was started on Decadron in the emergency department, vitamins, she was given a dose of IV Lasix, and was given breathing treatments. We were asked to see the patient in consultation for what appears to be a combination of cough COVID 19 related pneumonitis acute exacerbation of CHF with diastolic dysfunction, echocardiogram showed EF between 55 and 60%, moderate enlargement of the right ventricle, mild MR, mild TR, PA systolic was less than 35 mmHg. At the time of our evaluation she is very obtunded, blood gas was ordered pO2 of 68, pCO2 of 55, pH of 7.25, and her BiPAP settings were adjusted increase the IPAP to 14, and FiO2 was dropped down to 60%. Repeat blood gas in 2 hours is pending. The patient is seen today 08/15/2020 and follow-up on the selective care unit. She is currently resting in bed. She did utilize BiPAP throughout the evening, 14/6 and 55% FiO2. She did desaturate to 66% O2 saturation on room air. Currently on 10 L high flow nasal cannula and maintaining O2 saturations in the 90s. Chest x-ray continues to show basilar opacities slightly worse than the l eft lung and some improvement in the right lung base. Blood culture revealing no growth to date. INR 8.43. LDH 845. C-reactive protein less than 5. Arterial blood gases last evening on 60% FiO2 revealed a PaO2 of 88, pCO2 57, pH 7.27. She is continued on Decadron, Lovenox, vitamin supplements. Remains on IV diuretics. Patient was reevaluated today on 08/16/2020, remains on the selective care unit, remains on high flow nasal cannula at 8 L, intermittently on BiPAP, patient seems to be comfortable, and in no distress. Patient does not follow any instructions, does not like to participate in any conversation. And when pressure is applied on her chest, patient pushes me away. But does not verbalize. Remains on the Covid 19 cocktails. Remains on Lasix. Refusing to use BiPAP. LDH was 845 yesterday, and her d-dimer is 8.43, patient refused any labs to be drawn today. Objective - Vital Signs Vital signs: Vital Signs Temp 99.4 F 08/16/20 07:47 Pulse 67 08/16/20 13:30 Resp 18 08/16/20 13:30 BP 161/83 08/16/20 10:55 Pulse Ox 91 L 08/16/20 13:30 Intake & Output 08/15/20 08/16/20 08/16/20 17:59 06:59 18:59 Intake Total 600 Output Total 200 Balance 400 Weight Intake: Oral 600 Output: Urine 200 Other: Voiding Method External Catheter # Voids 1 - Exam Physical Exam: Revealed a 65-year-old female on high flow nasal cannula, in no distress, seems to be very comfortable. Head: Atraumatic, normocephalic. HEENT:[Neck is supple.] [No neck masses.] [No thyromegaly.] [No JVD.] Chest: [Fine crackles at the bases no rhonchi and no wheezes. Symmetrical chest expansion noted. Cardiac Exam: [Normal S1 and S2, no S3 gallop, no murmur.] Abdomen: [Soft, nontender, no megaly, no rebound, no guarding, normal bowel sounds.] Extremities: [No clubbing, no edema, no cyanosis.] Neurological Exam: Does not follow any instructions, awake, responds basically to pain. Psychiatric: Blunted affect, and nonverbal. Possibly confused - Labs CBC & Chem 7: 08/13/20 21:33 08/13/20 21:33 Labs: Microbiology - Last 24 Hours (Table) 08/13/20 21:45 Blood Culture - Preliminary Blood No Growth after 48 hours 08/13/20 21:33 Blood Culture - Preliminary Blood No Growth after 48 hours Assessment and Plan Assessment: 1 Acute hypoxic and hypercapnic respiratory failure related to acute exacerbation of COPD, acute COVID 19 pneumonia, and acute exacerbation of diastolic CHF. Patient is a poor historian, onset of symptoms is unknown 2 Elevated troponins, cardiology following, rule out possibility of non-ST elevated myocardial infarction 3 Hypertension 4 Hyperlipidemia 5 Hypothyroidism 6 History of developmental delay 7 Resident of a half-way, with multiple residents positive for COVID 19 8 History of MRSA infection 9 Suspect underlying COPD 10 Current every day smoker Recommendation: Continue present supportive care measures. Continue to titrate the FiO2 accordingly Use BiPAP as needed. Continue the Covid 19 cocktail. Monitor labs and the patient is agreeable apparently she refused her labs to be drawn today. We'll continue to follow. Time with Patient: Less than 30
[2020-08-16] MEDS: lisinopriL 20 MG TAB PO SCH (21:24)
[2020-08-16] MEDS: OLANZapine 10 MG TAB PO SCH (21:25)
[2020-08-16] MEDS: amLODIPine 10 MG TAB PO SCH (21:25)
[2020-08-16] MEDS: METOPROLOL SUCCINATE (ER) 50 MG TAB.ER.24H PO SCH (21:25)
[2020-08-17] MEDS: FUROSEMIDE 10 MG/ML 4 ML VIAL IV SCH ×3 (00:17→15:37)
[2020-08-17 04:11] LABS: Glucose,Whole Blood 226 mg/dL (75-99)
[2020-08-17] MEDS: ALBUTEROL HFA INHALER INHALATION SCH ×4 (08:52→20:05)
--- NOTE | 2020-08-17 09:14 | P.PN ---
Subjective Progress Note Date: 08/17/20 Pt is now on room air, saturating well; she did not participate in interview, but lung sounds are still coarse. Objective - Vital Signs Vital signs: Vital Signs Temp 98.7 F 08/17/20 08:31 Pulse 68 08/17/20 08:31 Resp 18 08/17/20 08:31 BP 133/76 08/17/20 08:31 Pulse Ox 97 08/17/20 08:31 Intake & Output 08/16/20 08/17/20 08/17/20 18:59 06:59 18:59 Intake Total 600 240 Output Total 550 600 Balance 50 -360 Weight 81 kg Intake: Oral 600 240 Output: Urine 550 600 Other: Voiding Method External Catheter External Catheter # Voids 1 1 - Exam Gen: awake, alert HEENT: normocephalic, atraumatic, good hearing acuity, moist mucous membranes Resp: breathing comfortably with no accessory muscle use, coarse breath sounds CVS: RRR, no murmurs : red catheter not present Neuro: moving all extremities Psych: minimally cooperative, reserved mood - Labs CBC & Chem 7: 08/13/20 21:33 08/13/20 21:33 Labs: Abnormal Lab Results - Last 24 Hours (Table) 08/17/20 Range/Units 04:10 POC Glucose (mg/dL) 226 H (75-99) mg/dL Microbiology - Last 24 Hours (Table) 08/13/20 21:45 Blood Culture - Preliminary Blood No Growth after 72 hours 08/13/20 21:33 Blood Culture - Preliminary Blood No Growth after 72 hours Assessment and Plan Assessment: 1. Acute hypoxic respiratory failure likely secondary to COPD exacerbation and #3 2. Acute metabolic encephalopathy 3. Acute COVID 19 pneumonitis with ARDS 4. Chronic Systolic Heart Failure 5. Schizophrenia 6. Hypertension 7. HLD 8. Hypothyroidism 9. CKD, stage IIIb plan decadrone 6 mg BID for 10 days sustaining saturation on room air elevated inflammatory markers, BNP elevated d-dimer, will initiate lovenox 0.5 mg/kg BID (intermediate intensity) patient received one dose of lasix in ED, continue 40mg lasix IV q8h pulmonary consultation, appreciate recs cardiology consultation, appreciate recs CODE STATUS: Full Code DVT prophylaxis: lovenox Discussed with: Patient, ER, RN Anticipated length of stay > than [address]: anticipate back to alf tomorrow
[2020-08-17] MEDS: ASPIRIN 81 MG PO SCH (11:04)
[2020-08-17] MEDS: LEVOTHYROXINE 100 MCG TAB PO SCH (11:04)
[2020-08-17] MEDS: PANTOPRAZOLE 40 MG TABLET PO SCH (11:04)
[2020-08-17] MEDS: ENOXAPARIN 40 MG/0.4 ML SYRINGE SQ SCH ×2 (11:04→20:39)
[2020-08-17] MEDS: fluPHENAZine DECANOATE 25 MG/ML 5ML MDV IM SCH ×2 (11:04→15:06)
[2020-08-17] MEDS: DEXAMETHASONE SOD PHOSPHATE 10 MG/ML 1 ML VIAL IV SCH ×2 (11:04→20:31)
[2020-08-17] MEDS: ASCORBIC ACID 500 MG TAB PO SCH (11:04)
[2020-08-17] MEDS: ZINC SULFATE 220 MG CAP PO SCH (11:04)
[2020-08-17] MEDS: CHOLECALCIFEROL 25 MCG (1000 IU) TABLET PO SCH (11:04)
--- NOTE | 2020-08-17 13:16 | P.PN ---
Subjective Progress Note Date: 08/17/20 HISTORY OF PRESENT ILLNESS: This is a 65-year-old female with history of short of hernia living in a [facility]. She was brought to the hospital by paramedics because of increasing shortness of breath. Patient is uncooperative. Apparently didn't want to keep her oxygen on the and her chest x-ray and inflammatory markers are consistent with COVID infection. Most of the information is gathered from the chart and applications sales consultant notes. This patient is not personally examined to reduce the risk of infection. Troponin values are mildly elevated but not consistent with acute coronary syndrome. EKG did not reveal any acute changes of ischemia. Echo Cardigan showed normal LV function without any significant valvular abnormalities. BNP levels are elevated but there is no evidence of active CHF. I would recommend pulmonary consultation and further treatment for COVID infect ion. 08/15: She has been reviewed. Patient's been afebrile, heart rate in the 50s, blood pressure 127/79, pulse ox 97% on high flow nasal cannula. monitoring coordinator sinus rhythm. D-dimer and LDH are elevated. Patient is complaining of of heartburn discomfort. Chest x-ray reveals mild interval worsening in the left lung base and significant improvement in the right lung base. She has been on Lasix 40 mg IV every 12 hours. 08/16: Metformin was changed last evening and again this morning her heart rate was in the 50s. She is on metoprolol XL at 100 mg at bedtime which we will change to 50. Patient is refusing her morning medications. Blood pressure 149/74, pulse ox 95% on 12 L high flow nasal cannula. Patient refused lab draw this morning. 08/17/2020 Patient remains on the cardiac stepdown unit. Patient's vital signs are stable. Blood pressure 125/73. Heart rate in the 60s. She is on 8 L high flow nasal cannula with oxygen saturations greater than 92%. She remains on IV Lasix 40 mg every 8 hours. Fluid balance over the last 24 hours is -300 mL. PHYSICAL EXAM: Thorough physical exam not completed secondary to limited evaluation/examination and due to Covid19 ASSESSMENT: Covid 19 Abnormal troponins, not consistent with myocardial injury, suspect secondary to above Acute hypoxic respiratory failure requiring supplemental oxygen Acute diastolic heart failure, ejection fraction 55-60% Hypertension Hyperlipidemia Chronic kidney disease Hypothyroidism Schizophrenia PLAN: Continue current cardiac medications Continue IV Lasix per pulmonary Monitor kidney function Daily weights Accurate I&O We will sign off. Please re-consult if needed. Nurse practitioner note has been reviewed by physician. Signing provider agrees with the documented findings, assessment, and plan of care. Objective - Vital Signs Vital signs: Vital Signs Temp 98.7 F 08/17/20 08:31 Pulse 66 08/17/20 11:35 Resp 18 08/17/20 11:35 BP 125/73 08/17/20 11:35 Pulse Ox 93 L 08/17/20 11:35 Intake & Output 08/16/20 08/17/20 08/17/20 18:59 06:59 18:59 Intake Total 600 240 Output Total 550 600 Balance 50 -360 Weight 81 kg Intake: Oral 600 240 Output: Urine 550 600 Other: Voiding Method External Catheter External Catheter # Voids 1 2 - Labs CBC & Chem 7: 08/13/20 21:33 08/13/20 21:33 Labs: Abnormal Lab Results - Last 24 Hours (Table) 08/17/20 Range/Units 04:10 POC Glucose (mg/dL) 226 H (75-99) mg/dL Microbiology - Last 24 Hours (Table) 08/13/20 21:45 Blood Culture - Preliminary Blood No Growth after 72 hours 08/13/20 21:33 Blood Culture - Preliminary Blood No Growth after 72 hours
--- NOTE | 2020-08-17 14:02 | P.CN ---
Psychiatric Consult - . Consult date: 08/17/20 Consult:: IDENTIFYING DATA: This patient is a 65-year-old female with a significant history of schizophrenia was admitted to the hospital for acute hypoxic failure secondary to Covid Pneumonia HISTORY OF PRESENT ILLNESS: The patient presented to the hospital on 08/13/2020, brought in by EMS from her [facility] due to complaints of lethargy, fatigue, and shortness of breath. She had a pulse ox in the high 80s and low 90s. The patient was admitted for management of hypoxia secondary to Covid 19, acute diastolic heart failure, and COPD exacerbation. Multiple people at her facility were testing positive for Covid 19. Currently, the patient is not participating in the psychiatric evaluation. Review of her past psychiatric notes reveals that the patient has been diagnosed with schizophrenia that has been treatment resistant. She is on a regimen of Prolixin Decanoate that she has been receiving weekly, Luvox, and Zyprexa. She has been intermittently adherent with her medications. She is currently displaying significant symptoms of paranoia and responding to internal stimuli. The patient refuses to answer any further questioning regarding any symptoms of depression. She does not respond to questioning regarding any suicidal or homicidal ideation, intention, and/or plan. The patient does have a guardian due to the severity of her mental illness. Of concern, the patient is also been refusing medical treatment along with her prescribed psychotropic medications. The patient's [facility] medical review note from 07/03/2020 was reviewed. At baseline, the patient does appear to be complaining of significant paranoia. She reported at the time that "the [place] are reading my mind." Despite also being prescribed oral medications, she has inconsistent in taking these medications. PAST PSYCHIATRIC HISTORY: The patient has a significant history of schizophrenia that has been treatment resistant. She has been admitted to [facility] multiple times, with the last time being this past December. She has been receiving Prolixin Decanoate injections 50 mg weekly. Her other home medications include Luvox 100 mg by mouth twice a day, Zyprexa 20 mg by mouth daily at bedtime, and Ativan 1 mg twice a day and 2 mg at bedtime. She currently follows with Dr. Hanson at [facility]. PAST MEDICAL HISTORY: Past Medical History: Hyperlipidemia, Hypertension, Thyroid Disorder Additional Past Medical History / Comment(s): UTI, arthritis History of Any Multi-Drug Resistant Organisms: MRSA Date of last positivie culture/infection: 06/07/16 MDRO Source:: Buttock Past Surgical History: Cholecystectomy, Uterine Ablation Additional Past Surgical History / Comment(s): Hysterectomy, left gluteal abscess debridement Past Anesthesia/Blood Transfusion Reactions: No Reported Reaction ALLERGIES: Penicillins CHEMICAL DEPENDENCY HISTORY: The patient smokes tobacco, approximately 1 cigarette per day. No reported history of alcohol, cannabis, cocaine, or other illicit drugs. FAMILY PSYCHIATRIC/SUBSTANCE USE HISTORY: Unable to obtain SOCIAL HISTORY: The patient is currently staying at [facility]. She does have a legal public guardian. She is unable to respond to any further questioning. MENTAL STATUS EXAM: General Appearance: Patient appears to be stated age is alert, suspicious, and uncooperative. The patient appears disheveled, dressed in a hospital gown, and has a nasal cannula in place. Behavior: Patient is seated calmly but with elevated psychomotor activity. Eye contact is intermittent but intense. Speech: Patient's speech is minimally responsive. Nonspontaneous. She responds in short abrupt sentences. Mood/Affect: The patient does not verbalize what her mood is. Affect appears to be suspicious and paranoid. Suicidality/Homicidality: Unable to assess Perceptions: Unable to assess Though content/process: She does appear to be responding to internal stimuli. Memory and concentration: Unable to assess. Grossly poor. Judgment and insight: Very poor at baseline. IMPRESSIONS: Schizophrenia PLAN: -At this time patient DOES meet criteria for inpatient psychiatric admission. The patient is psychotic, paranoid, and non-adherent with treatment. Due to Covid, we are unable to accommodate on our unit [facility]. -Patient DOES NOT have decision making capacity at this time and is unable to reason through and communicate/appreciate the risks, benefits and alternatives to treatment. -Delirium precautions recommended with patient including - avoiding use of narcotics and TRAINING PROGRAM MANAGER sedatives, limit anticholinergic medications when possible, frequent re-orientation, minimize use of restraints, open window shades during the day and close them at night -Would recommend the following medication changes/additions: Continue Zyprexa 20 mg at bedtime for schizophrenia. Continue Luvox 100 mg by mouth twice daily for depression/anxiety Continue Prolixin Decanoate 50 mg IM weekly for schizophrenia. - This provider has requested the probate court to fax documentation that the patient is on a mental health court order for medications. If so, this provider will start IM medications if the patient continues to refuse her oral antipsychotic. -Discussed with the patient's nurse to reattempt to give Prolixin decanoate and Luvox at a later time if patient is more willing then. -Cannot leave AMA at this time. Patient will need a petition and certification if attempting to leave AMA. -Will continue to follow along -When medically stable, patient is eligible for transfer to a psych bed when available. May consider placement in a Psychiatric unit that accommodates COVID patients. 08/17/20 13:40
--- NOTE | 2020-08-17 15:55 | P.PN ---
Subjective Progress Note Date: 08/17/20 Principal diagnosis: COVID 19 pneumonia. The patient is seen today 08/15/2020 and follow-up on the selective care unit. She is currently resting in bed. She did utilize BiPAP throughout the evening, 14/6 and 55% FiO2. She did desaturate to 66% O2 saturation on room air. Curr ently on 10 L high flow nasal cannula and maintaining O2 saturations in the 90s. Chest x-ray continues to show basilar opacities slightly worse than the left lung and some improvement in the right lung base. Blood culture revealing no growth to date. INR 8.43. LDH 845. C-reactive protein less than 5. Arterial blood gases last evening on 60% FiO2 revealed a PaO2 of 88, pCO2 57, pH 7.27. She is continued on Decadron, Lovenox, vitamin supplements. Remains on IV diuretics. Patient was reevaluated today on 08/16/2020, remains on the selective care unit, remains on high flow nasal cannula at 8 L, intermittently on BiPAP, patient seems to be comfortable, and in no distress. Patient does not follow any instructions, does not like to participate in any conversation. And when pressure is applied on her chest, patient pushes me away. But does not verbalize. Remains on the Covid 19 cocktails. Remains on Lasix. Refusing to use BiPAP. LDH was 845 yesterday, and her d-dimer is 8.43, patient refused any labs to be drawn today. Progress note dated 08/17/2020. Currently, as is a 65-year-old female who was admitted back on August 13, the diagnosis of COVID 19 pneumonia. The patient is currently on nasal O2 at 7 L, high flow, and yesterday, she was on 8 L nasal cannula high flow. In addition, the patient has a history of diastolic CHF, possible non-ST segment elevation myocardial infarction, hypertension, hyperlipidemia, hypothyroidism, developmental delay, history of MRSA infection, possible underlying COPD and current every day tobacco use. The patient's last d-dimer was 8.43 on August 15, and the most recent blood gas was on August 14. The patient also had troponins that were mildly elevated at 0.118 and 0.103 on the and 14 of August. More recently, the patient's not had any additional blood work. In addition, there is no recent chest x-ray. Objective - Vital Signs Vital signs: Vital Signs Temp 98.7 F 08/17/20 08:31 Pulse 88 08/17/20 14:50 Resp 18 08/17/20 14:50 BP 136/84 08/17/20 14:50 Pulse Ox 92 L 08/17/20 14:50 Intake & Output 08/16/20 08/17/20 08/17/20 18:59 06:59 18:59 Intake Total 600 240 240 Output Total 550 600 Balance 50 -360 240 Weight 81 kg Intake: Oral 600 240 240 Output: Urine 550 600 Other: Voiding Method External Catheter External Catheter # Voids 1 2 - Exam No acute distress, oriented 3. High flow nasal O2 on at 7 L/m. No conversatio nal dyspnea or audible wheezing noted. HEENT examination is grossly unremarkable. Mucous membranes are moist. No oral lesions. Neck supple. Full range of motion. No adenopathy thyromegaly or neck vein distention. Cardiovascular examination reveals regular rhythm rate. S1-S2 normal. No S3 or S4. No discernible murmur noted. Heart rate is 88 bpm. Lungs reveal fine crackles at the bases. Breath sounds equal bilaterally. No wheezes or rhonchi. Abdomen soft bowel sounds are heard. No masses or tenderness. Extremities are intact. No cyanosis clubbing or edema. Skin is without rash or lesion. Neurologic examination reveals a nonverbal, and possibly confused female patient. She does move all 4 extremities. She does respond to pain. - Labs CBC & Chem 7: 08/13/20 21:33 08/13/20 21:33 Labs: Abnormal Lab Results - Last 24 Hours (Table) 08/17/20 Range/Units 04:10 POC Glucose (mg/dL) 226 H (75-99) mg/dL Microbiology - Last 24 Hours (Table) 08/13/20 21:45 Blood Culture - Preliminary Blood No Growth after 72 hours 08/13/20 21:33 Blood Culture - Preliminary Blood No Growth after 72 hours Assessment and Plan Assessment: Acute hypoxemic and hypercapnic respiratory failure, secondary to an acute exacerbation of COPD, acute COVID 19 pneumonia, and an acute exacerbation of diastolic CHF. Elevated troponins, rule out non-ST segment elevation myocardial infarction. History of essential hypertension. History of hyperlipidemia. History of hypothyroidism. History of developmental delay. History of MRSA infection. Probable underlying COPD from chronic tobacco use. Plan: Plan dated 08/17/2020. We continue with high flow oxygen therapy, weaning it down as saturations tolerate. The patient can continue using BiPAP as needed. Continue with the COVID 19 vitamin cocktail. We'll continue to monitor labs. Continue with Decadron, as well as her other medications. Also, should continue with Lovenox at 40 mg subcutaneously every 12h, and GI prophylaxis. Prognosis is guarded. We'll continue to follow. No additional recommendations are made at this time. Time with Patient: Less than 30
[2020-08-17] MEDS: OLANZapine 10 MG TAB PO SCH (20:31)
[2020-08-17] MEDS: METOPROLOL SUCCINATE (ER) 50 MG TAB.ER.24H PO SCH (20:31)
[2020-08-17] MEDS: lisinopriL 20 MG TAB PO SCH (20:31)
[2020-08-17] MEDS: amLODIPine 10 MG TAB PO SCH (20:31)
[2020-08-17] MEDS: IBUPROFEN 800 MG TAB PO PRN (20:40)
[2020-08-18] MEDS: FUROSEMIDE 10 MG/ML 4 ML VIAL IV SCH ×3 (01:27→16:35)
[2020-08-18] MEDS: PANTOPRAZOLE 40 MG TABLET PO SCH ×2 (05:36→09:11)
[2020-08-18] MEDS: LEVOTHYROXINE 100 MCG TAB PO SCH ×2 (05:36→09:11)
[2020-08-18 07:18] LABS: Calcium 8.4 mg/dL (8.4-10.2)
[2020-08-18 08:02] LABS: Potassium 3.7 mmol/L (3.5-5.1)
[2020-08-18] MEDS: ALBUTEROL HFA INHALER INHALATION SCH ×4 (08:53→21:01)
[2020-08-18] MEDS: ZINC SULFATE 220 MG CAP PO SCH (09:10)
[2020-08-18] MEDS: ASCORBIC ACID 500 MG TAB PO SCH (09:11)
[2020-08-18] MEDS: CHOLECALCIFEROL 25 MCG (1000 IU) TABLET PO SCH (09:12)
[2020-08-18] MEDS: ENOXAPARIN 40 MG/0.4 ML SYRINGE SQ SCH (09:12)
[2020-08-18] MEDS: DEXAMETHASONE SOD PHOSPHATE 10 MG/ML 1 ML VIAL IV SCH ×2 (09:12→20:55)
[2020-08-18] MEDS: ASPIRIN 81 MG PO SCH (09:13)
--- NOTE | 2020-08-18 11:39 | P.PN ---
Subjective Principal diagnosis: Pt again does not participate with interview. She has been refusing oxygen, and desaturates to 70s without, but does not appear symptomatic. She appears comfortable in bed at this time. Psych consult appreciated; patient does not have capacity to leave AMA and is court ordered to take her psychiatry meds; but whether she can be forced to wear oxygen and otherwise comply with her care is up in the air. Chemical/Physical restraints in order to make her comply with oxygen may provide more harm than benefit since patient appears comfortable at rest. Objective - Vital Signs Vital signs: Vital Signs Temp 97.5 F L 08/18/20 08:00 Pulse 51 L 08/18/20 08:00 Resp 16 08/18/20 08:00 BP 108/63 08/18/20 08:00 Pulse Ox 92 L 08/18/20 08:00 Intake & Output 08/17/20 08/18/20 08/18/20 18:59 06:59 18:59 Intake Total 240 860 0 Balance 240 860 0 Weight 80.5 kg Intake: Oral 240 860 0 Other: Voiding Method Bedside Commode Bedside Commode Incontinent Incontinent # Voids 3 3 1 - Exam Gen: awake, alert HEENT: normocephalic, atraumatic, good hearing acuity, moist mucous membranes Resp: breathing comfortably with no accessory muscle use, coarse breath sounds CVS: RRR, no murmurs : red catheter not present Neuro: moving all extremities Psych: ucooperative, reserved mood - Labs CBC & Chem 7: 08/13/20 21:33 08/18/20 06:30 Labs: Abnormal Lab Results - Last 24 Hours (Table) 08/18/20 Range/Units 06:30 Sodium 131 L (137-145) mmol/L Chloride 90 L (98-107) mmol/L BUN 81 H (7-17) mg/dL Creatinine 2.10 H (0.52-1.04) mg/dL Glucose 192 H (74-99) mg/dL Microbiology - Last 24 Hours (Table) 08/13/20 21:45 Blood Culture - Preliminary Blood No Growth after 96 hours 08/13/20 21:33 Blood Culture - Preliminary Blood No Growth after 96 hours Assessment and Plan Assessment: 1. Acute hypoxic respiratory failure likely secondary to COPD exacerbation and #3 2. Acute metabolic encephalopathy 3. Acute COVID 19 pneumonitis with ARDS 4. Chronic Systolic Heart Failure 5. Schizophrenia 6. Hypertension 7. HLD 8. Hypothyroidism 9. CKD, stage IIIb plan decadrone 6 mg BID for 10 days sustaining saturation on room air elevated inflammatory markers, BNP elevated d-dimer, will initiate lovenox 0.5 mg/kg BID (intermediate intensity) patient received one dose of lasix in ED, continue 40mg lasix IV q8h pulmonary consultation, appreciate recs cardiology consultation, appreciate recs CODE STATUS: Full Code DVT prophylaxis: lovenox Discussed with: Patient, ER, RN Anticipated length of stay > than [address]: patient will require transfer to inpt psych unit that can accomodate COVID+ patients, vs possibly MHU transfer after completing course of quarantine
[2020-08-18] MEDS ORDERED: OLANZapine 10 MG VIAL IM PRN ×2 (11:47→11:48)
--- NOTE | 2020-08-18 11:57 | P.PN ---
Progress Note - Text Progress Note Date: 08/18/20 Interval History: Patient was seen resting in bed comfortably with nasal canula in place. At this time, he would be more therapeutic to let the patient resting in bed rather than wake the patient for a psychiatric interview. As per discussion with patient's nurse, the patient has had intermittent episodes of disorganization and agitation, often wandering out of her room without any clothes on. She continues to refuse care, including wearing telemetry, her nasal cannula, or taking any of her medications. She is intermittently adherent with her prescribed medication regimen. She currently court ordered for mental health medications and received 50 mg IM of Prolixin Decanoate yesterday. Mental Status Exam: General Appearance: Patient is currently resting comfortably in bed, with nasal cannula in place, appears her stated age, dressed in hospital gown, and slightly disheveled. Behavior: Patient is currently sleeping. No agitated behavior noted at this time. Speech: Unable to assess at this time. Mood/Affect: Unable to assess Suicidality/Homicidality: Unable to assess Perceptions: Unable to assess Though content/process: Unable to assess Memory and concentration: Unable to assess. Grossly poor. Judgment and insight: Very poor at baseline. Assessment Schizophrenia Covid-19 pneumonia PLAN: -At this time patient DOES meet criteria for inpatient psychiatric admission. The patient is psychotic, paranoid, and non-adherent with treatment. Due to Covid, we are unable to accommodate the patient in our psychiatric unit on [facility]. Strongly recommend placement in a psychiatric unit that accommodates COVID-19 patients. SW referral. -Patient DOES NOT have decision making capacity at this time and is unable to reason through and communicate/appreciate the risks, benefits and alternatives to treatment. -Delirium precautions recommended with patient including - avoiding use of narcotics and [employer] sedatives, limit anticholinergic medications when possible, frequent re-orientation, minimize use of restraints, open window shades during the day and close them at night -Would recommend the following medication changes/additions: Continue Zyprexa 20 mg at bedtime for schizophrenia. Continue Luvox 100 mg by mouth twice daily for depression/anxiety Continue Prolixin Decanoate 50 mg IM weekly for schizophrenia. -Patient is court ordered for her psychotropic medications. The patient refuses Zyprexa orally at bedtime, she will be administered 10 mg IM of Zyprexa as n eeded. -We will also start Zyprexa 5 mg IM twice a day when necessary for agitation. -EKG reviewed - QTc of 392ms - NSR -Cannot leave AMA at this time. Patient will need a petition and certification if attempting to leave AMA. -Will continue to follow along -When medically stable, patient is eligible for transfer to a psych bed when available.
--- NOTE | 2020-08-18 15:20 | P.PN ---
Subjective Progress Note Date: 08/18/20 Principal diagnosis: COVID 19 pneumonia. The patient is seen today 08/15/2020 and follow-up on the selective care unit. She is currently resting in bed. She did utilize BiPAP throughout the evening, 14/6 and 55% FiO2. She did desaturate to 66% O2 saturation on room air. Curr ently on 10 L high flow nasal cannula and maintaining O2 saturations in the 90s. Chest x-ray continues to show basilar opacities slightly worse than the left lung and some improvement in the right lung base. Blood culture revealing no growth to date. INR 8.43. LDH 845. C-reactive protein less than 5. Arterial blood gases last evening on 60% FiO2 revealed a PaO2 of 88, pCO2 57, pH 7.27. She is continued on Decadron, Lovenox, vitamin supplements. Remains on IV diuretics. Patient was reevaluated today on 08/16/2020, remains on the selective care unit, remains on high flow nasal cannula at 8 L, intermittently on BiPAP, patient seems to be comfortable, and in no distress. Patient does not follow any instructions, does not like to participate in any conversation. And when pressure is applied on her chest, patient pushes me away. But does not verbalize. Remains on the Covid 19 cocktails. Remains on Lasix. Refusing to use BiPAP. LDH was 845 yesterday, and her d-dimer is 8.43, patient refused any labs to be drawn today. Progress note dated 08/17/2020. Currently, as is a 65-year-old female who was admitted back on August 13, the diagnosis of COVID 19 pneumonia. The patient is currently on nasal O2 at 7 L, high flow, and yesterday, she was on 8 L nasal cannula high flow. In addition, the patient has a history of diastolic CHF, possible non-ST segment elevation myocardial infarction, hypertension, hyperlipidemia, hypothyroidism, developmental delay, history of MRSA infection, possible underlying COPD and current every day tobacco use. The patient's last d-dimer was 8.43 on August 15, and the most recent blood gas was on August 14. The patient also had troponins that were mildly elevated at 0.118 and 0.103 on the and 14 of August. More recently, the patient's not had any additional blood work. In addition, there is no recent chest x-ray. Progress note dated 08/18/2020. This is a 65-year-old female was admitted back on August 13, with a diagnosis of COVID 19 pneumonia. Currently, she is on 11 L high flow nasal O2. Actually, her oxygen requirements have increased over the last 24 hours. She does have a history of diastolic CHF, possible non-ST segment elevation myocardial infarction, essential hypertension, hyperlipidemia, hypothyroidism, develo pmental delay, history of MRSA infection, and possible underlying COPD, secondary to current every day tobacco use. Labs today include a sodium of 131, potassium 3.7, chlorides 90, CO2 29, anion gap 12, BUN 81, and creatinine 2.10. Clinically, the patient is doing about the same, even though her oxygen requirements have increased. There is no conversational dyspnea, or use of accessory muscles. Objective - Vital Signs Vital signs: Vital Signs Temp 97.5 F L 08/18/20 12:00 Pulse 63 08/18/20 12:00 Resp 16 08/18/20 12:00 BP 113/58 08/18/20 12:00 Pulse Ox 95 08/18/20 12:00 Intake & Output 08/17/20 08/18/20 08/18/20 18:59 06:59 18:59 Intake Total 240 860 118 Balance 240 860 118 Weight 80.5 kg Intake: Oral 240 860 118 Other: Voiding Method Bedside Commode Bedside Commode Incontinent Incontinent # Voids 3 3 3 - Exam No acute distress, oriented 3. High flow nasal O2 on at 11 L/m. No audible wheezing noted. HEENT examination is grossly unremarkable. Mucous membranes are moist. No oral lesions. Neck supple. Full range of motion. No adenopathy thyromegaly or neck vein distention. Cardiovascular examination reveals regular rhythm rate. S1-S2 normal. No S3 or S4. No discernible murmur noted. Heart rate is 63 bpm. Lungs reveal bilateral coarse rhonchi, and bibasilar fine crackles. Breath so unds equal bilaterally. No wheezes. Breath sounds are diminished throughout. Abdomen soft bowel sounds are heard. No masses or tenderness. Extremities are intact. No cyanosis clubbing or edema. Skin is without rash or lesion. Neurologic examination reveals a nonverbal, and possibly confused female patient. She does move all 4 extremities. She does respond to pain. - Labs CBC & Chem 7: 08/13/20 21:33 08/18/20 06:30 Labs: Abnormal Lab Results - Last 24 Hours (Table) 08/18/20 Range/Units 06:30 Sodium 131 L (137-145) mmol/L Chloride 90 L (98-107) mmol/L BUN 81 H (7-17) mg/dL Creatinine 2.10 H (0.52-1.04) mg/dL Glucose 192 H (74-99) mg/dL Microbiology - Last 24 Hours (Table) 08/13/20 21:45 Blood Culture - Preliminary Blood No Growth after 96 hours 08/13/20 21:33 Blood Culture - Preliminary Blood No Growth after 96 hours Assessment and Plan Assessment: Acute hypoxemic and hypercapnic respiratory failure, secondary to an acute exacerbation of COPD, acute COVID 19 pneumonia, and an acute exacerbation of diastolic CHF. Elevated troponins, rule out non-ST segment elevation myocardial infarction. History of essential hypertension. History of hyperlipidemia. History of hypothyroidism. History of developmental delay. History of MRSA infection. Probable underlying COPD from chronic tobacco use. Plan: Plan dated 08/18/2020. We continue with high flow oxygen therapy, weaning it down as saturations tolerate. The patient can continue using BiPAP as needed. Continue with the COVID 19 vitamin cocktail. We'll continue to monitor labs. Continue with Decadron, as well as her other medications. Also, should continue with Lovenox at 40 mg subcutaneously every 12h, and GI prophylaxis. Prognosis is guarded. We'll continue to follow. No additional recommendations are made at this time. A chest x-rays were ordered for the morning. Time with Patient: Less than 30
[2020-08-18] MEDS: amLODIPine 10 MG TAB PO SCH (20:54)
[2020-08-18] MEDS: lisinopriL 20 MG TAB PO SCH (20:54)
[2020-08-18] MEDS: METOPROLOL SUCCINATE (ER) 50 MG TAB.ER.24H PO SCH (20:54)
[2020-08-18] MEDS: OLANZapine 10 MG TAB PO SCH (20:55)
[2020-08-19] MEDS: FUROSEMIDE 10 MG/ML 4 ML VIAL IV SCH ×2 (00:02→09:45)
[2020-08-19] MEDS: OLANZapine 10 MG TAB PO SCH ×2 (00:33→21:42)
[2020-08-19] MEDS: lisinopriL 20 MG TAB PO SCH (00:33)
[2020-08-19] MEDS: METOPROLOL SUCCINATE (ER) 50 MG TAB.ER.24H PO SCH ×2 (00:33→22:15)
[2020-08-19] MEDS: amLODIPine 10 MG TAB PO SCH ×2 (00:33→22:15)
[2020-08-19] MEDS: LEVOTHYROXINE 100 MCG TAB PO SCH (06:52)
[2020-08-19] MEDS: PANTOPRAZOLE 40 MG TABLET PO SCH (06:52)
[2020-08-19] MEDS: ALBUTEROL HFA INHALER INHALATION SCH ×4 (09:03→21:09)
[2020-08-19] MEDS: ASPIRIN 81 MG PO SCH (09:44)
[2020-08-19] MEDS: ASCORBIC ACID 500 MG TAB PO SCH (09:44)
[2020-08-19] MEDS: ZINC SULFATE 220 MG CAP PO SCH (09:45)
[2020-08-19] MEDS: DEXAMETHASONE SOD PHOSPHATE 10 MG/ML 1 ML VIAL IV SCH ×2 (09:45→21:42)
[2020-08-19] MEDS: ENOXAPARIN 40 MG/0.4 ML SYRINGE SQ SCH (09:45)
[2020-08-19] MEDS: CHOLECALCIFEROL 25 MCG (1000 IU) TABLET PO SCH (09:45)
[2020-08-19] MEDS ORDERED: SODIUM CHLORIDE 0.9% 1,000 ML IV SCH (10:30)
--- NOTE | 2020-08-19 11:16 | P.PN ---
<Adan Snyder - Last Filed: 08/19/20 10:29> Subjective Progress Note Date: 08/19/20 Principal diagnosis: Acute Covid 19 virus infection with pneumonitis and ARDS resulting in COPD exacerbation and acute respiratory failure with hypoxia Hospital course: Patient is a 65-year-old female with a past medical history of COPD not home oxygen dependent, hypertension, hypothyroidism, CKD stage III, schizophrenia, and nicotine abuse. Patient resides in an extended care facility and presented to the hospital on 08/13/20 with a chief complaint of increasing shortness of breath and was reportedly found by EMS to have oxygen saturation in the 80s on room air and was placed on nonrebreather mask. Upon arrival to our facility patient was found to be in acute respiratory distress with hypoxia with SpO2 66% on room air requiring oxygen supplementation with thigh-high flow nasal cannula and admission under our services accompanied by pulmonology and cardiology consultations for continued close medical management. Covid 19 PCR was positive. EKG was completed showing normal sinus rhythm at 74 bpm with no noted T-wave or ST abnormalities showing no signs of acute ischemia. Chest x-ray was completed revealing new multifocal mid to lower lung acute opacities. Echocardiogram completed revealing a normal ejection fraction of 55-60%. Patient has been placed on Decadron with today being day 7 of 10, MDIs as needed for shortness of breath and/or wheezing, pink, vitamin C, and vitamin D3. Patient has not been cooperative or compliant with care throughout hospital stay. Patient has been reportedly refusing oxygen and medication resulting in desaturation SpO2 into the 70s. Physical exam: Patient was seen and fully evaluated at the bedside this morning. She was sitting up in bed and per RN patient removed oxygen, refused to take morning medications, and refused to eat breakfast this morning. Upon examination patient initially uncooperative and would not respond to questions asked. Patient was combing her hair, upon complementing patient's hair patient began to respond to other questions asked by examiner. Patient was not wearing her oxygen. SpO2 was 84% on room air. Patient was cooperative and place oxygen back on after educated on importance of needing oxygen to get better to enable her to go back to her home. Patient denied feeling short of breath or having any chest pain. Patient would not make eye contact throughout examination and selective with questions that she would answer. Patient would change the subject and go back to talking about her hair and how it would be much longer if they did not cut it back at her home. Morning labs revealed patient to have mild hyponatremia with sodium of 131, mild hypochloremia with chloride of 90, and acute kidney injury with BUN 81, creatinine 2.10, and GFR of 24. General: non toxic, no distress, appears at stated age Derm: warm, dry Head: atraumatic, normocephalic, symmetric Eyes: no lid lag, anicteric sclera Mouth: no lip lesion, mucus membranes dry Cardiovascular: S1S2 reg, no murmur, positive posterior tibial pulse bilateral, Lungs: Respirations even, regular, and unlabored. No accessory muscle use. Patient with bilateral coarse rhonchi. Abdominal: soft, nontender to palpation, no guarding, no appreciable organ omegaly Ext: no gross muscle atrophy, no edema, no contractures Neuro: Moving all extremities independently without any noted weakness. Psych: Patient is alert but withdrawn. Patient not fully cooperative throughout exam and responding only to selective questions and would not follow commands. When speaking, speech is clear. Assessment and Plan of Care: Acute Covid 19 virus infection with pneumonitis and ARDS resulting in COPD exacerbation and acute respiratory failure with hypoxia -Continue oxygenation to maintain SpO2 equal to or greater than 92%, wean as patient tolerates. -Pulmonology following, appreciate further recommendations. -Covid 19 PCR was positive on 08/13/20. -Continue Decadron, day 7 of . -Continue zinc, vitamin C, and vitamin D3. -MDIs as needed for shortness of breath and/or wheezing. Acute kidney injury on chronic kidney disease stage III, likely secondary to daily diuretic use -Upon arrival to Hospital labs revealed a BUN of 37, creatinine 1.62, and GFR of 33, morning labs found patient to have worsening renal function with BUN 81, creatinine 2.10, and GFR of 24. -Decrease Lasix dose to 40 mg daily. -Monitor I's and O's -Continue close monitoring with repeat a.m. labs. Hyponatremia, mild -Sodium 131 -Hyponatremia likely secondary to daily diuretic use as pt appears dry. Lasix dose decreased to 40 mg daily. -We will continue to monitor with repeat a.m. labs. Schizophrenia with Developmental Delay -Continue home medication regimen with Zyprexa, Fluphenazine, and Fluvoxamine. -Psychiatry following, appreciate recommendations. -Patient does not have the capacity to leave AMA and per documentation in chart, pt is court ordered to take her psychiatry medications. -Continued encouragement for patient to participate in plan of care. Diastolic congestive heart failure -Lasix dose decreased to 40 mg daily secondary to DEE. -Echocardiogram completed revealing a normal ejection fraction of 55-60%. -Cardiology following, appreciate further recommendations. Hypertension -Monitor vital signs and Continue daily medication regimen. Hypothyroidism -Continue daily medication management with levothyroxine 150 mg each morning. Nicotine dependence -Continue education and encouragement on the importance of smoking cessation and risks of continued use up to and including . CODE STATUS: Full code DVT prophylaxis: Lovenox Discussed with: Patient and RN Anticipated discharge date: Clinical course to determine Anticipated discharge place: Back to her extended care facility/senior living A total of 40 minutes was spent on the care of this complex patient more than 50% of the time was spent in counseling and care coordination. Objective - Vital Signs Vital signs: Vital Signs Temp 97.5 F L 08/18/20 12:00 Pulse 60 08/19/20 01:22 Resp 17 08/19/20 01:22 BP 118/68 08/19/20 00:00 Pulse Ox 92 L 08/19/20 00:00 Intake & Output 08/18/20 08/19/20 08/19/20 18:59 06:59 18:59 Intake Total 718 882 Output Total 875 Balance 718 7 Weight 80.5 kg 86 kg Intake: Oral 718 882 Output: Urine 875 Other: Voiding Method Bedside Commode Bedside Commode Incontinent Incontinent # Voids 3 1 - Labs CBC & Chem 7: 08/13/20 21:33 08/18/20 06:30 Labs: Microbiology - Last 24 Hours (Table) 08/13/20 21:45 Blood Culture - Preliminary Blood No Growth after 120 hours 08/13/20 21:33 Blood Culture - Preliminary Blood No Growth after 120 hours <Sherita Garibay - Last Filed: 08/19/20 16:25> Objective - Vital Signs Vital signs: Vital Signs Temp 98.2 F 08/19/20 08:00 Pulse 60 08/19/20 08:00 Resp 18 08/19/20 16:15 BP 119/64 08/19/20 08:00 Pulse Ox 91 L 08/19/20 16:15 Intake & Output 08/18/20 08/19/20 08/19/20 18:59 06:59 18:59 Intake Total 718 882 222 Output Total 875 Balance 718 7 222 Weight 80.5 kg 86 kg Intake: Oral 718 882 222 Output: Urine 875 Other: Voiding Method Bedside Commode Bedside Commode Bedside Commode Incontinent Incontinent Incontinent # Voids 3 1 0 # Bowel Movements 0 - Labs CBC & Chem 7: 08/13/20 21:33 08/18/20 06:30 Labs: Microbiology - Last 24 Hours (Table) 08/13/20 21:45 Blood Culture - Preliminary Blood No Growth after 120 hours 08/13/20 21:33 Blood Culture - Preliminary Blood No Growth after 120 hours Assessment and Plan Assessment: Patient seen and examined independently. Patient was also seen by Adan Snyder NP and case was discussed. I am in agreement with subjective, physical exam, assessment and plan as written above and amended below. Patient seen and examined at bedside. She does not appear to be short of breath, she is asking for beef broth, she is demanding to be discharged. General: non toxic, no distress, appears at stated age Lungs: Speaking in sentences, no labored breathing Neuro: CN II-XI grossly intact, no tremor noted Psych: Awake, appears easily upset Discussed with nursing that patient cannot refuse her Zyprexa and I am is to be given if she does refuse Zyprexa. Patient has been noncompliant with oxygen. Nursing has been encouraging her to keep oxygen on. They're looking into possibly getting a sitter for the patient to encourage her to be compliant with oxygen therapy, however this needs to wait out with the risks of Covid. Patient will need to return to the mental health unit upon discharge. Currently they are unable to accommodate her because she is Covid 19 positive. DEE- agree with decreasing diuretics, stop lisinopril and motrin as well and monitor renal function
--- NOTE | 2020-08-19 11:41 | XR ---
EXAMINATION TYPE: XR chest 1V portable DATE OF EXAM: 08/19/2020 COMPARISON: 08/15/2020 INDICATION: Coated pneumonia TECHNIQUE: Single frontal view of the chest is obtained. FINDINGS: The heart size is normal. The pulmonary vasculature is normal. Patchy infiltrates are present bilaterally. Findings are nonspecific but can be compatible with atypi eugene pneumonia. Findings are worsening over the interval. IMPRESSION: 1. Worsening bilateral patchy infiltrates can be compatible with atypical pneumonia. Follow-up is rec ommended.
--- NOTE | 2020-08-19 12:24 | P.PN ---
Subjective Progress Note Date: 08/19/20 Principal diagnosis: Acute CoVID 19 pneumonia, COPD exacerbation, CHF exacerbation This 65-year-old white female patient was a poor historian, and most of the history was obtained from patient's chart, from the nursing staff, who resides in a [facility]ci and has a chronic developmental delay, hypertension, hypothyroidism, hyperlipidemia, schizoaffective disorder, history of MRSA infection in the wound and current every day smoker. She was brought into the emergency department on 08/13/2020 per EMS for evaluation of increased lethargy, fatigue, and developing shortness of breath earlier, she was found to be hypoxic with a pulse ox in the high 80s and lower 90s, and multiple people at the fci facility or testing positive for COVID 19. Onset of symptoms 's not clear as the patient not able to provide any information. There are no reports of fever chills, no sweats, no nausea vomiting or diarrhea. She has been afebrile while she was in the hospital, her pulse ox was only 88% on 6 L, and FiO2 was subsequently increased to 15 L and currently patient is on BiPAP with pressures of 12/6 and FiO2 of 100%, or gas was obtained showing pO2 of 68, pCO2 55, pH is 7.25. Patient is positive for COVID 19. Has not significantly elevated d-dimer at 8.99, LDH was 761, and CRP is 8.8, negative Protuss tone and at 0.09, her proBNP was significantly elevated at 21,000 with elevated troponins. Chest x- ray shows new multifocal mid to lower lung acute opacities. Patient was started on Decadron in the emergency department, vitamins, she was given a dose of IV Lasix, and was given breathing treatments. We were asked to see the patient in consultation for what appears to be a combination of cough COVID 19 related pneumonitis acute exacerbation of CHF with diastolic dysfunction, echocardiogram showed EF between 55 and 60%, moderate enlargement of the right ventricle, mild MR, mild TR, PA systolic was less than 35 mmHg. At the time of our evaluation she is very obtunded, blood gas was ordered pO2 of 68, pCO2 of 55, pH of 7.25, and her BiPAP settings were adjusted increase the IPAP to 14, and FiO2 was dropped down to 60%. Repeat blood gas in 2 hours is pending. The patient is seen today 08/15/2020 and follow-up on the selective care unit. She is currently resting in bed. She did utilize BiPAP throughout the evening, 14/6 and 55% FiO2. She did desaturate to 66% O2 saturation on room air. Currently on 10 L high flow nasal cannula and maintaining O2 saturations in the 90s. Chest x-ray continues to show basilar opacities slightly worse than the l eft lung and some improvement in the right lung base. Blood culture revealing no growth to date. INR 8.43. LDH 845. C-reactive protein less than 5. Arterial blood gases last evening on 60% FiO2 revealed a PaO2 of 88, pCO2 57, pH 7.27. She is continued on Decadron, Lovenox, vitamin supplements. Remains on IV diuretics. Progress note dated 08/17/2020. Currently, as is a 65-year-old female who was admitted back on August 13, the diagnosis of COVID 19 pneumonia. The patient is currently on nasal O2 at 7 L, high flow, and yesterday, she was on 8 L nasal cannula high flow. In addition, the patient has a history of diastolic CHF, possible non-ST segment elevation myocardial infarction, hypertension, hyperlipidemia, hypothyroidism, developmental delay, history of MRSA infection, possible underlying COPD and current every day tobacco use. The patient's last d-dimer was 8.43 on August 15, and the most recent blood gas was on August 14. The patient also had troponins that were mildly elevated at 0.118 and 0.103 on the and 14 of August. More recently, the patient's not had any additional blood work. In addition, there is no recent chest x-ray. Progress note dated 08/18/2020. This is a 65-year-old female was admitted back on August 13, with a diagnosis of COVID 19 pneumonia. Currently, she is on 11 L high flow nasal O2. Actually, her oxygen requirements have increased over the last 24 hours. She does have a history of diastolic CHF, possible non-ST segment elevation myocardial infarction, essential hypertension, hyperlipidemia, hypothyroidism, developmental delay, history of MRSA infection, and possible underlying COPD, secondary to current every day tobacco use. Labs today include a sodium of 131, potassium 3.7, chlorides 90, CO2 29, anion gap 12, BUN 81, and creatinine 2.10. Clinically, the patient is doing about the same, even though her oxygen requirements have increased. There is no conversational dyspnea, or use of accessory muscles. The patient is seen today 08/19/2020 in follow-up on the selective care unit. She is currently sitting up in a chair at the bedside. Awake and alert. She's been quite noncompliant with wearing her oxygen and taking her medications. She is to be on 15 L high flow nasal cannula. Chest x-ray reveals worsening bilateral patchy infiltrates compatible with CoVID pneumonia. She remains on dexamethasone, Lovenox, vitamin supplements. Refusing breathing treatments. Objective - Vital Signs Vital signs: Vital Signs Temp 98.2 F 08/19/20 08:00 Pulse 60 08/19/20 08:00 Resp 16 08/19/20 08:00 BP 119/64 08/19/20 08:00 Pulse Ox 92 L 08/19/20 08:00 Intake & Output 08/18/20 08/19/20 08/19/20 18:59 06:59 18:59 Intake Total 718 882 0 Output Total 875 Balance 718 7 0 Weight 80.5 kg 86 kg Intake: Oral 718 882 0 Output: Urine 875 Other: Voiding Method Bedside Commode Bedside Commode Bedside Commode Incontinent Incontinent Incontinent # Voids 3 1 0 # Bowel Movements 0 - Exam GENERAL EXAM: Obtunded, 65-year-old female patient, on 15 L high flow nasal cannula, comfortable in no apparent distress. HEAD: Normocephalic/atraumatic. EYES: Normal reaction of pupils, equal size. Conjunctiva pink, sclera white. NOSE: Clear with pink turbinates. THROAT: No erythema or exudates. NECK: No masses, no JVD, no thyroid enlargement, no adenopathy. CHEST: No chest wall deformity. Symmetrical expansion. LUNGS: Equal air entry with crackles in the bilateral posterior bases CVS: Regular rate and rhythm, normal S1 and S2, no gallops, no murmurs, no rubs ABDOMEN: Soft, nontender. No hepatosplenomegaly, normal bowel sounds, no guarding or rigidity. EXTREMITIES: No clubbing, no edema, no cyanosis, 2+ pulses and upper and lower extremities. MUSCULOSKELETAL: Muscle strength and tone normal. SPINE: No scoliosis or deformity SKIN: No rashes CENTRAL NERVOUS SYSTEM: Obtunded No focal deficits, tone is normal in all 4 extremities. - Labs CBC & Chem 7: 08/13/20 21:33 03 06:30 Labs: Microbiology - Last 24 Hours (Table) 08/13/20 21:45 Blood Culture - Preliminary Blood No Growth after 120 hours 08/13/20 21:33 Blood Culture - Preliminary Blood No Growth after 120 hours Assessment and Plan Assessment: 1 Acute hypoxic and hypercapnic respiratory failure related to acute exacerbation of COPD, acute COVID 19 pneumonia, and acute exacerbation of diastolic CHF. Patient is a poor historian, onset of symptoms is unknown 2 Elevated troponins, cardiology following, rule out possibility of non-ST elevated myocardial infarction 3 Hypertension 4 Hyperlipidemia 5 Hypothyroidism 6 History of developmental delay 7 Resident of a fci, with multiple residents positive for COVID 19 8 History of MRSA infection 9 Suspect underlying COPD 10 Current every day smoker Plan: The patient was seen and evaluated by Dr. Lay Chest x-ray reviewed, worsening Needs increased encouragement to wear her oxygen, take medications, allow lab draws, breathing treatments Titrate the FiO2 as tolerated Alternating with BiPAP Repeat inflammatory markers in a.m. We will continue to follow I, the cosigning physician, performed a history & physical examination of the patient. Lungs sounds with crackles in the bilateral posterior bases. Maintaining good O2 saturations in the 90s on 15 L high flow nasal cannula. I discussed the assessment and plan of care with my nurse practitioner, Imelda Raya. I attest to the above note as dictated by her.
--- NOTE | 2020-08-19 14:06 | P.PN ---
Progress Note - Text Progress Note Date: 08/19/20 Interval History: Patient was seen sitting upright in her chair. The patient continues to refuse to participate in the psychiatric interview. She will nod or shake her head to a few questions. She nods her head in agreement that she does not want to be bothered at this time. She does not respond when inquiring about her mental health symptoms. She does not reply if she is endorsing any auditory or visual hallucinations. She does not reply if she is experiencing any paranoia or other symptoms. The patient continues to intermittently refuse both general health and mental health medications. SHe Mental Status Exam: General Appearance: Patient is currently resting comfortably in bed, with nasal cannula in place, appears her stated age, dressed in hospital gown, and disheveled. Behavior: Patient is seated upright in her chair without any agitation. Eye contact is poor. Speech: Unable to assess at this time. Mood/Affect: Unable to assess Suicidality/Homicidality: Unable to assess Perceptions: Unable to assess Though content/process: Unable to assess Memory and concentration: Unable to assess. Grossly poor. Judgment and insight: Very poor at baseline. Assessment Schizophrenia Covid-19 pneumonia PLAN: -At this time patient DOES meet criteria for inpatient psychiatric admission. The patient is psychotic, paranoid, and non-adherent with treatment. Due to Covid, we are unable to accommodate the patient in our psychiatric unit on [facility]. Strongly recommend placement in a psychiatric unit that accommodates COVID-19 patients. -Patient DOES NOT have decision making capacity at this time and is unable to reason through and communicate/appreciate the risks, benefits and alternatives to treatment. -Delirium precautions recommended with patient including - avoiding use of narcotics and PLANER HAND sedatives, limit anticholinergic medications when possible, frequent re-orientation, minimize use of restraints, open window shades during the day and close them at night -Would recommend the following medication changes/additions: Continue Zyprexa 20 mg at bedtime for schizophrenia. Continue Luvox 100 mg by mouth twice daily for depression/anxiety Continue Prolixin Decanoate 50 mg IM weekly for schizophrenia. -Patient is court ordered for her psychotropic medications. If the patient refuses Zyprexa orally at bedtime, she will be administered 10 mg IM of Zyprexa as needed. Unfortunately there are not IM/IV medications that would replace luvox. -We will also start Zyprexa 5 mg IM twice a day when necessary for agitation. -If no further improvement will likely schedule zyprexa in the morning as well. -Cannot leave AMA at this time. Patient will need a petition and certification if attempting to leave AMA. -Will continue to follow along -When medically stable, patient is eligible for transfer to a psych bed when available.
[2020-08-19] MEDS ORDERED: FUROSEMIDE 10 MG/ML 4 ML VIAL IV SCH (21:00)
[2020-08-20] MEDS: PANTOPRAZOLE 40 MG TABLET PO SCH (07:05)
[2020-08-20] MEDS: LEVOTHYROXINE 100 MCG TAB PO SCH (07:05)
[2020-08-20] MEDS ORDERED: FUROSEMIDE 10 MG/ML 4 ML VIAL IV SCH (09:00)
[2020-08-20 09:01] LABS: Calcium 9.2 mg/dL (8.4-10.2); Magnesium 1.8 mg/dL (1.6-2.3); Potassium 3.1 mmol/L (3.5-5.1)
[2020-08-20] MEDS: ALBUTEROL HFA INHALER INHALATION SCH ×4 (09:04→21:19)
[2020-08-20 09:21] LABS: HCT 52.1 % (34.0-46.0); MCH 32.5 pg (25.0-35.0); MCV 98.4 fL (80.0-100.0); Mean Platelet Volume 8.6; Platelet Count 123 k/uL (150-450); RBC 5.29 m/uL (3.80-5.40); RDW 15.1 % (11.5-15.5); WBC 7.1 k/uL (3.8-10.6)
[2020-08-20 09:25] LABS: HGB 17.2 gm/dL (11.4-16.0)
[2020-08-20] MEDS: DEXAMETHASONE SOD PHOSPHATE 10 MG/ML 1 ML VIAL IV SCH (09:36)
[2020-08-20] MEDS: ASPIRIN 81 MG PO SCH (09:37)
[2020-08-20] MEDS: ASCORBIC ACID 500 MG TAB PO SCH (09:37)
[2020-08-20] MEDS: ENOXAPARIN 40 MG/0.4 ML SYRINGE SQ SCH (09:37)
[2020-08-20] MEDS: CHOLECALCIFEROL 25 MCG (1000 IU) TABLET PO SCH (09:37)
[2020-08-20] MEDS: ZINC SULFATE 220 MG CAP PO SCH (09:37)
--- NOTE | 2020-08-20 12:52 | P.PN ---
<Adan Snyder - Last Filed: 08/20/20 12:39> Subjective Progress Note Date: 08/20/20 Principal diagnosis: Acute Covid 19 virus infection with pneumonitis and ARDS resulting in COPD exacerbation and acute respiratory failure with hypoxia Hospital course: Patient is a 65-year-old female with a past medical history of COPD not home oxygen dependent, hypertension, hypothyroidism, CKD stage III, schizophrenia, and nicotine abuse. Patient resides in an extended care facility and presented to the hospital on 08/13/20 with a chief complaint of increasing shortness of breath and was reportedly found by EMS to have oxygen saturation in the 80s on room air and was placed on nonrebreather mask. Upon arrival to our facility patient was found to be in acute respiratory distress with hypoxia with SpO2 66% on room air requiring oxygen supplementation with thigh-high flow nasal cannula and admission under our services accompanied by pulmonology and cardiology consultations for continued close medical management. Covid 19 PCR was positive. EKG was completed showing normal sinus rhythm at 74 bpm with no noted T-wave or ST abnormalities showing no signs of acute ischemia. Chest x-ray was completed revealing new multifocal mid to lower lung acute opacities. Echocardiogram completed revealing a normal ejection fraction of 55-60%. Patient has been placed on Decadron with today being day 7 of 10, MDIs as needed for shortness of breath and/or wheezing, pink, vitamin C, and vitamin D3. Patient has not been cooperative or compliant with care throughout hospital stay and intermittently continues to remove oxygen, refuse medications and lab draws and has been found to be hypoxic with SpO2 dropping as low as down into the 70s. Sitter being placed at bedside for patient's safety. Physical exam: Patient was seen and fully evaluated at the bedside this morning. She was sitting up in the chair next to her bed. She was wearing her oxygen this morning and SPO2 was 94% on 15L via high-flow NC. RN reports that pt has continued to take oxygen throughout the night and will refuse to wear at times. Pt was more cooperative this morning allowing lab draws and took her morning medications without difficulties. Patient was minimally responsive throughout examination. Answering only a couple questions. She denied having any chest pain or feeling short of breath. Morning labs reveal polycythemia with hemoglobin of 17.2 and hematocrit of 52.1, hyponatremia with sodium of 134, hyperchloremia with ch loride of 90, bicarb elevated at 32, and significantly elevated at 106, creatinine 1.55, and GFR of 35. General: non toxic, no distress, appears at stated age Derm: warm, dry Head: atraumatic, normocephalic, symmetric Eyes: no lid lag, anicteric sclera Mouth: no lip lesion, mucus membranes dry Cardiovascular: S1S2 reg, no murmur, positive posterior tibial pulse bilateral, Lungs: Respirations even, regular, and unlabored on 15 L high flow nasal cannula. No accessory muscle use. Patient with bilateral diffuse coarse rhonchi. Abdominal: soft, nontender to palpation, no guarding, no appreciable organomegaly Ext: no gross muscle atrophy, no edema, no contractures Neuro: Moving all extremities independently without any noted weakness. Psych: Patient is alert but withdrawn. Patient not fully cooperative throughout exam and responding only to selective questions and would not follow commands. When speaking, speech is clear. Assessment and Plan of Care: Acute Covid 19 virus infection with pneumonitis and ARDS resulting in COPD exacerbation and acute respiratory failure with hypoxia -Continue oxygenation to maintain SpO2 equal to or greater than 92%, wean as patient tolerates. -Pulmonology following, appreciate further recommendations. -Covid 19 PCR was positive on 08/13/20. -Continue Decadron, day 7 of . -Continue zinc, vitamin C, and vitamin D3. -MDIs as needed for shortness of breath and/or wheezing. Acute kidney injury on chronic kidney disease stage III, likely secondary to daily diuretic use -BUN 106, creatinine 1.55, and GFR 35. -Lasix and lisinopril were discontinued. -Monitor I's and O's -Continue close monitoring with repeat a.m. labs. Polycythemia -Hemoglobin 17.2 and hematocrit of 52.. -Likely secondary polycythemia resulting from hypoxemia. -Continue to encourage patient to keep oxygen on to prevent hypoxia. -Sitter brought to bedside to monitor closely for when patient attempts to remove oxygen. -Continue to monitor with repeat a.m. labs. Hypokalemia -Potassium 3.1. Replaced. -We will continue to monitor with repeat a.m. labs. Hyponatremia, improving -Sodium 134 -Hyponatremia likely secondary to daily diuretic use as pt appears dry. Lasix discontinued. -We will continue to monitor with repeat a.m. labs. Schizophrenia with Developmental Delay -Continue home medication regimen with Zyprexa, Fluphenazine, and Fluvoxamine. -Psychiatry following, recommending inpatient psychiatric hospitalization once medically stable for discharge. -Patient does not have the capacity to leave AMA and per documentation in chart, pt is court ordered to take her psychiatry medications. -Continued encouragement for patient to participate in plan of care. Diastolic congestive heart failure -Lasix discontinued secondary to DEE -Echocardiogram completed revealing a normal ejection fraction of 55-60%. -Cardiology following, appreciate further recommendations. Hypertension -Monitor vital signs and Continue daily medication regimen. Hypothyroidism -Continue daily medication management with levothyroxine 150 mg each morning. Nicotine dependence -Continue education and encouragement on the importance of smoking cessation and risks of continued use up to and including . CODE STATUS: Full code DVT prophylaxis: Lovenox Discussed with: Patient and RN Anticipated discharge date: Clinical course to determine Anticipated discharge place: Upon discharge, psychiatry recommending patient for inpatient psychiatric admission to mental health unit. A total of 40 minutes was spent on the care of this complex patient more than 50% of the time was spent in counseling and care coordination. Objective - Vital Signs Vital signs: Vital Signs Temp 98.0 F 08/19/20 23:55 Pulse 91 08/20/20 06:55 Resp 18 08/20/20 07:00 BP 134/91 08/19/20 23:55 Pulse Ox 89 L 08/20/20 07:00 Intake & Output 08/19/20 08/20/20 08/20/20 18:59 06:59 18:59 Intake Total 222 Balance 222 Weight 90 kg Intake: Oral 222 Other: Voiding Method Bedside Commode Bedside Commode Incontinent Incontinent # Voids 0 1 # Bowel Movements 0 1 - Labs CBC & Chem 7: 08/20/20 08:12 08/20/20 08:12 Labs: Microbiology - Last 24 Hours (Table) 08/13/20 21:45 Blood Culture - Final Blood No Growth after 144 hours 08/13/20 21:33 Blood Culture - Final Blood No Growth after 144 hours <Sherita Garibay - Last Filed: 08/20/20 13:38> Objective - Vital Signs Vital signs: Vital Signs Temp 98.0 F 08/19/20 23:55 Pulse 71 08/20/20 12:00 Resp 16 08/20/20 12:00 BP 128/74 08/20/20 12:00 Pulse Ox 92 L 08/20/20 12:00 Intake & Output 08/19/20 08/20/20 08/20/20 18:59 06:59 18:59 Intake Total 222 240 Balance 222 240 Weight 90 kg Intake: Oral 222 240 Other: Voiding Method Bedside Commode Bedside Commode Bedside Commode Incontinent Incontinent Incontinent # Voids 0 1 # Bowel Movements 0 1 - Labs CBC & Chem 7: 08/20/20 08:12 08/20/20 08:12 Labs: Abnormal Lab Results - Last 24 Hours (Table) 08/20/20 08/20/20 Range/Units 08:12 08:12 Hgb 17.2 H D (11.4-16.0) gm/dL Hct 52.1 H (34.0-46.0) % Plt Count 123 L (150-450) k/uL Sodium 134 L (137-145) mmol/L Potassium 3.1 L (3.5-5.1) mmol/L Chloride 90 L (98-107) mmol/L Carbon Dioxide 32 H (22-30) mmol/L BUN 106 H* (7-17) mg/dL Creatinine 1.55 H (0.52-1.04) mg/dL Glucose 241 H (74-99) mg/dL Microbiology - Last 24 Hours (Table) 08/13/20 21:45 Blood Culture - Final Blood No Growth after 144 hours 08/13/20 21:33 Blood Culture - Final Blood No Growth after 144 hours Assessment and Plan Assessment: Patient seen and examined independently. Patient was also seen by Adan Snyder NP and case was discussed. I am in agreement with subjective, physical exam, assessment and plan as written above and amended below. Patient asking to go home. She clearly does not understand the severity of her illness or consequences of her action. Recommend a sitter replaced at bedside as patient continues to remove her oxygen. General: non toxic, no distress, appears at stated age Derm: warm, dry Head: atraumatic, normocephalic, symmetric Eyes: EOMI, no lid lag, anicteric sclera Mouth: no lip lesion, mucus membranes moist Cardiovascular: S1S2 reg, no murmur, positive posterior tibial pulse bilateral, Lungs: Coarse breath sounds bilateral, no accessory muscle use Abdominal: soft, nontender to palpation, no guarding, no appreciable orga nomegaly Ext: no gross muscle atrophy, no edema, no contractures Neuro: CN II-XI grossly intact, no focal neuro deficits Psych: Alert, oriented, easily angered, withdrawn at other times. Suspect polycythemia is secondary to forced diuresis. Discontinue Lasix. Monitor BUN and creatinine closely. Hold off on IV fluids at this point in time and encourage oral fluid intake. Continue off YENIFER inhibitor for an additional 24 hours.
--- NOTE | 2020-08-20 13:05 | P.PN ---
Progress Note - Text Progress Note Date: 08/20/20 Interval History: Patient was seen sitting in her chair comfortably with nasal canula in place. She participates in the psychiatric interview today. She reports no suicidal or homicidal ideation, intention, and/or plan today. She does endorse auditory hallucinations and paranoid delusions regarding [place] surveillance. She states, "I hear the [place]." She otherwise does not report any visual hallucinations. Review of her [facility] medication review from 07/03/2020 reveal that this is an ongoing delusional theme she endorses as she reported to [facility] then "The [place] are reading my mind." She has been adherent with her medications today and has been wearing her nasal canula. The patient does express a strong desire to return back to the long term. Mental Status Exam: General Appearance: Patient is currently resting comfortably in her chair, with nasal cannula in place, appears her stated age, dressed in hospital gown, and slightly disheveled. Behavior: Pcychomotor slowing is evident. Eye contact is poor. Speech: Nonspontaneous, minimal mostly, but otherwise with normal tone and volum e. Mood/Affect: Patient states, "I just want to go home." Affect is flat. Suicidality/Homicidality: Patient denies any suicidal or homicidal ideation, intention, and/or plan. Perceptions: She endorses auditory hallucinations. Though content/process: Delusional thought content is evident. Paranoid. Memory and concentration: Intact for the purposes of this session. Judgment and insight: Very poor at baseline. Assessment Schizophrenia Covid-19 pneumonia PLAN: -After review of her [facility] medication review from 07/03/2020 - It is possible that the patient is likely at her baseline. If medically stable, recommend psychiatry evaluate her on the day of whether she will require placement into a Psychiatric unit or consider discharge back to her long term. She is receiving prolixin decanoate weekly to ensure compliance. She has been adherent with her medications today. -Patient DOES NOT have decision making capacity at this time and is unable to reason through and communicate/appreciate the risks, benefits and alternatives to treatment. -Delirium precautions recommended with patient including - avoiding use of narcotics and TELEPHONE TECHNICIAN sedatives, limit anticholinergic medications when possible, frequent re-orientation, minimize use of restraints, open window shades during the day and close them at night -Would recommend the following medication changes/additions: Continue Zyprexa 20 mg at bedtime for schizophrenia. Continue Luvox 100 mg by mouth twice daily for depression/anxiety Continue Prolixin Decanoate 50 mg IM weekly for schizophrenia. -Patient is court ordered for her psychotropic medications. If the patient refuses Zyprexa orally at bedtime, she will be administered 10 mg IM of Zyprexa as needed. -Continue Zyprexa 5 mg IM twice a day when necessary for agitation. -EKG reviewed - QTc of 392ms - NSR -Cannot leave AMA at this time. Patient will need a petition and certification if attempting to leave AMA. -Will continue to follow along
--- NOTE | 2020-08-20 14:22 | P.PN ---
Subjective Progress Note Date: 08/20/20 Principal diagnosis: Acute CoVID 19 pneumonia, COPD exacerbation, CHF exacerbation This 65-year-old white female patient was a poor historian, and most of the history was obtained from patient's chart, from the nursing staff, who resides in a shelter and has a chronic developmental delay, hypertension, hypothyroidism, hyperlipidemia, schizoaffective disorder, history of MRSA infection in the wound and current every day smoker. She was brought into the emergency department on 08/13/2020 per EMS for evaluation of increased lethargy, fatigue, and developing shortness of breath earlier, she was found to be hypoxic with a pulse ox in the high 80s and lower 90s, and multiple people at the shelter facility or testing positive for COVID 19. Onset of symptoms 's not clear as the patient not able to provide any information. There are no reports of fever chills, no sweats, no nausea vomiting or diarrhea. She has been afebrile while she was in the hospital, her pulse ox was only 88% on 6 L, and FiO2 was subsequently increased to 15 L and currently patient is on BiPAP with pressures of 12/6 and FiO2 of 100%, or gas was obtained showing pO2 of 68, pCO2 55, pH is 7.25. Patient is positive for COVID 19. Has not significantly elevated d-dimer at 8.99, LDH was 761, and CRP is 8.8, negative Protuss tone and at 0.09, her proBNP was significantly elevated at 21,000 with elevated troponins. Chest x- ray shows new multifocal mid to lower lung acute opacities. Patient was started on Decadron in the emergency department, vitamins, she was given a dose of IV Lasix, and was given breathing treatments. We were asked to see the patient in consultation for what appears to be a combination of cough COVID 19 related pneumonitis acute exacerbation of CHF with diastolic dysfunction, echocardiogram showed EF between 55 and 60%, moderate enlargement of the right ventricle, mild MR, mild TR, PA systolic was less than 35 mmHg. At the time of our evaluation she is very obtunded, blood gas was ordered pO2 of 68, pCO2 of 55, pH of 7.25, and her BiPAP settings were adjusted increase the IPAP to 14, and FiO2 was dropped down to 60%. Repeat blood gas in 2 hours is pending. The patient is seen today 08/15/2020 and follow-up on the selective care unit. She is currently resting in bed. She did utilize BiPAP throughout the evening, 14/6 and 55% FiO2. She did desaturate to 66% O2 saturation on room air. Currently on 10 L high flow nasal cannula and maintaining O2 saturations in the 90s. Chest x-ray continues to show basilar opacities slightly worse than the l eft lung and some improvement in the right lung base. Blood culture revealing no growth to date. INR 8.43. LDH 845. C-reactive protein less than 5. Arterial blood gases last evening on 60% FiO2 revealed a PaO2 of 88, pCO2 57, pH 7.27. She is continued on Decadron, Lovenox, vitamin supplements. Remains on IV diuretics. Progress note dated 08/17/2020. Currently, as is a 65-year-old female who was admitted back on August 13, the diagnosis of COVID 19 pneumonia. The patient is currently on nasal O2 at 7 L, high flow, and yesterday, she was on 8 L nasal cannula high flow. In addition, the patient has a history of diastolic CHF, possible non-ST segment elevation myocardial infarction, hypertension, hyperlipidemia, hypothyroidism, developmental delay, history of MRSA infection, possible underlying COPD and current every day tobacco use. The patient's last d-dimer was 8.43 on August 15, and the most recent blood gas was on August 14. The patient also had troponins that were mildly elevated at 0.118 and 0.103 on the and 14 of August. More recently, the patient's not had any additional blood work. In addition, there is no recent chest x-ray. Progress note dated 08/18/2020. This is a 65-year-old female was admitted back on August 13, with a diagnosis of COVID 19 pneumonia. Currently, she is on 11 L high flow nasal O2. Actually, her oxygen requirements have increased over the last 24 hours. She does have a history of diastolic CHF, possible non-ST segment elevation myocardial infarction, essential hypertension, hyperlipidemia, hypothyroidism, developmental delay, history of MRSA infection, and possible underlying COPD, secondary to current every day tobacco use. Labs today include a sodium of 131, potassium 3.7, chlorides 90, CO2 29, anion gap 12, BUN 81, and creatinine 2.10. Clinically, the patient is doing about the same, even though her oxygen requirements have increased. There is no conversational dyspnea, or use of accessory muscles. The patient is seen today 08/19/2020 in follow-up on the selective care unit. She is currently sitting up in a chair at the bedside. Awake and alert. She's been quite noncompliant with wearing her oxygen and taking her medications. She is to be on 15 L high flow nasal cannula. Chest x-ray reveals worsening bilateral patchy infiltrates compatible with CoVID pneumonia. She remains on dexamethasone, Lovenox, vitamin supplements. Refusing breathing treatments. The patient is seen today 08/20/2020 in follow-up on the selective care unit. She is currently sitting up in a chair at the bedside. She is awake and alert. A sitter is at the bedside. She is now wearing her oxygen. She has taken some oral medications for the nursing staff. Continue O2 saturations in the low 90s on 12 L high flow nasal cannula. White count 7.1. Hemoglobin 17.2. Platelet count 123. Sodium 134. Potassium 3.1. Creatinine 1.55. BUN 106. She remains on Lovenox, Decadron, vitamin supplements. Received additional Lasix 40 mg IVP 1 today. Objective - Vital Signs Vital signs: Vital Signs Temp 98.0 F 08/19/20 23:55 Pulse 71 08/20/20 12:00 Resp 16 08/20/20 12:00 BP 128/74 08/20/20 12:00 Pulse Ox 92 L 08/20/20 12:00 Intake & Output 08/19/20 08/20/20 08/20/20 18:59 06:59 18:59 Intake Total 222 240 Balance 222 240 Weight 90 kg Intake: Oral 222 240 Other: Voiding Method Bedside Commode Bedside Commode Bedside Commode Incontinent Incontinent Incontinent # Voids 0 1 # Bowel Movements 0 1 - Exam GENERAL EXAM: Obtunded, 65-year-old female patient, on 12 L high flow nasal cannula, comfortable in no apparent distress. HEAD: Normocephalic/atraumatic. EYES: Normal reaction of pupils, equal size. Conjunctiva pink, sclera white. NOSE: Clear with pink turbinates. THROAT: No erythema or exudates. NECK: No masses, no JVD, no thyroid enlargement, no adenopathy. CHEST: No chest wall deformity. Symmetrical expansion. LUNGS: Equal air entry with crackles in the bilateral posterior bases CVS: Regular rate and rhythm, normal S1 and S2, no gallops, no murmurs, no rubs ABDOMEN: Soft, nontender. No hepatosplenomegaly, normal bowel sounds, no guarding or rigidity. EXTREMITIES: No clubbing, no edema, no cyanosis, 2+ pulses and upper and lower extremities. MUSCULOSKELETAL: Muscle strength and tone normal. SPINE: No scoliosis or deformity SKIN: No rashes CENTRAL NERVOUS SYSTEM: Obtunded No focal deficits, tone is normal in all 4 extremities. - Labs CBC & Chem 7: 08/20/20 08:12 08/20/20 08:12 Labs: Abnormal Lab Results - Last 24 Hours (Table) 08/20/20 08/20/20 Range/Units 08:12 08:12 Hgb 17.2 H D (11.4-16.0) gm/dL Hct 52.1 H (34.0-46.0) % Plt Count 123 L (150-450) k/uL Sodium 134 L (137-145) mmol/L Potassium 3.1 L (3.5-5.1) mmol/L Chloride 90 L (98-107) mmol/L Carbon Dioxide 32 H (22-30) mmol/L BUN 106 H* (7-17) mg/dL Creatinine 1.55 H (0.52-1.04) mg/dL Glucose 241 H (74-99) mg/dL Microbiology - Last 24 Hours (Table) 08/13/20 21:45 Blood Culture - Final Blood No Growth after 144 hours 08/13/20 21:33 Blood Culture - Final Blood No Growth after 144 hours Assessment and Plan Assessment: 1 Acute hypoxic and hypercapnic respiratory failure related to acute exacerbation of COPD, acute COVID 19 pneumonia, and acute exacerbation of diastolic CHF. Patient is a poor historian, onset of symptoms is unknown 2 Acute renal failure. Current creatinine 1.55 3 Hypertension 4 Hyperlipidemia 5 Hypothyroidism 6 History of developmental delay 7 Resident of a shelter, with multiple residents positive for COVID 19 8 History of MRSA infection 9 Suspect underlying COPD 10 Current every day smoker Plan: The patient was seen and evaluated by Dr. Lay We will discontinue dexamethasone, initiate IV Solu-Medrol Continue IV diuretics Titrate the FiO2 as tolerated Alternating with BiPAP Repeat inflammatory markers in a.m. We will continue to follow I, the cosigning physician, performed a history & physical examination of the patient. Lungs sounds with crackles in the bilateral posterior bases. Maintaining good O2 saturations in the 90s on 12 L high flow nasal cannula. I discussed the assessment and plan of care with my nurse practitioner, Imelda Raya. I attest to the above note as dictated by her.
[2020-08-20] MEDS: methylPREDNISolone SOD SUCCI 125 MG/2 ML VIAL IV SCH ×2 (16:47→16:48)
[2020-08-20] MEDS: POTASSIUM CHLORIDE 20 MEQ in WATER FOR INJECTION 1 100ML.BAG IVPB SCH ×2 (16:47→18:44)
[2020-08-20] MEDS: amLODIPine 10 MG TAB PO SCH (20:53)
[2020-08-20] MEDS: METOPROLOL SUCCINATE (ER) 50 MG TAB.ER.24H PO SCH (20:53)
[2020-08-20] MEDS: OLANZapine 10 MG TAB PO SCH (20:54)
[2020-08-21] MEDS: methylPREDNISolone SOD SUCCI 125 MG/2 ML VIAL IV SCH ×5 (00:08→23:22)
[2020-08-21] MEDS: LEVOTHYROXINE 100 MCG TAB PO SCH (06:44)
[2020-08-21] MEDS: PANTOPRAZOLE 40 MG TABLET PO SCH (06:44)
[2020-08-21] MEDS: ALBUTEROL HFA INHALER INHALATION SCH ×4 (08:03→19:59)
[2020-08-21] MEDS: ZINC SULFATE 220 MG CAP PO SCH (08:17)
[2020-08-21] MEDS: CHOLECALCIFEROL 25 MCG (1000 IU) TABLET PO SCH (08:18)
[2020-08-21] MEDS: ASCORBIC ACID 500 MG TAB PO SCH (08:18)
[2020-08-21] MEDS: ASPIRIN 81 MG PO SCH (08:18)
[2020-08-21] MEDS: ENOXAPARIN 40 MG/0.4 ML SYRINGE SQ SCH (08:18)
--- NOTE | 2020-08-21 09:55 | P.PN ---
<Adan Snyder - Last Filed: 08/21/20 09:35> Subjective Progress Note Date: 08/21/20 Principal diagnosis: Acute Covid 19 virus infection with pneumonitis and ARDS resulting in COPD exacerbation and acute respiratory failure with hypoxia Hospital course: Patient is a 65-year-old female with a past medical history of COPD not home oxygen dependent, hypertension, hypothyroidism, CKD stage III, schizophrenia, and nicotine abuse. Patient resides in an extended care facility and presented to the hospital on 08/13/20 with a chief complaint of increasing shortness of breath and was reportedly found by EMS to have oxygen saturation in the 80s on room air and was placed on nonrebreather mask. Upon arrival to our facility patient was found to be in acute respiratory distress with hypoxia with SpO2 66% on room air requiring oxygen supplementation with thigh-high flow nasal cannula and admission under our services accompanied by pulmonology and cardiology consultations for continued close medical management. Covid 19 PCR was positive. EKG was completed showing normal sinus rhythm at 74 bpm with no noted T-wave or ST abnormalities showing no signs of acute ischemia. Chest x-ray was completed revealing new multifocal mid to lower lung acute opacities. Echocardiogram completed revealing a normal ejection fraction of 55-60%. Patient has been placed on Decadron with today being day 7 of 10, MDIs as needed for shortness of breath and/or wheezing, pink, vitamin C, and vitamin D3. Patient has not been cooperative or compliant with care throughout hospital stay and intermittently continues to remove oxygen, refuse medications and lab draws and has been found to be hypoxic with SpO2 dropping as low as down into the 70s. Currently patient on 15 L high flow nasal cannula with SpO2 of 94%. Sitter remains at bedside for patient's safety. Physical exam: Patient was seen and fully evaluated at the bedside this morning. She was resting in bed and easily awoken via verbal stimuli. At time of assessment patient was wearing her oxygen (15 L high flow) and was maintaining SpO2 at 94%. Vital signs reviewed and otherwise stable. RN reports patient refused morning labs and was attempting to refuse medications. Have discussed with patient regarding needs for labs as renal function yesterday revealed a critical BUN, compromises were made and RN gave patient a Pepsi which resulted in patient agreeing to take medications. We will reorder labs and reattempt to obtain as patient states she is now agreeable. Patient continues to avoid all I contact and remains minimally interactive throughout examination. Patient did deny having any chest pain or shortness of breath at this time. General: non toxic, no distress, appears at stated age Derm: warm, dry Head: atraumatic, normocephalic, symmetric Eyes: no lid lag, anicteric sclera Mouth: no lip lesion, mucus membranes dry Cardiovascular: S1S2 reg, no murmur, gallop or rub . Positive posterior tibial pulses bilaterally, no edema. Lungs: Respirations even, regular, and unlabored on 15 L high flow nasal cannula with SpO2 94%. No accessory muscle use. Upon auscultation of lungs, bilateral diffuse coarse rhonchi remains. Abdominal: Soft, nontender to palpation, no guarding, no appreciable organomegaly. Ext: No gross muscle atrophy, no edema, and no contractures. Neuro: Moving all extremities independently without any noted weakness. Psych: Patient is alert but withdrawn. Patient not fully cooperative throughout exam and responding only to selective questions and would not follow commands. When speaking, speech is clear. Assessment and Plan of Care: Acute Covid 19 virus infection with pneumonitis and ARDS resulting in COPD exacerbation and acute respiratory failure with hypoxia -Continue oxygenation to maintain SpO2 equal to or greater than 92%, wean as patient tolerates. -Pulmonology following, appreciate further recommendations. -Covid 19 PCR was positive on 08/13/20. -Continue Decadron, day 7 of 10. -Continue zinc, vitamin C, and vitamin D3. -MDIs as needed for shortness of breath and/or wheezing. Acute kidney injury on chronic kidney disease stage III, likely secondary to daily diuretic use -BUN 106, creatinine 1.55, and GFR 35. -Lasix and lisinopril were discontinued. -Monitor I's and O's -Continue close monitoring with repeat a.m. labs. Polycythemia -Hemoglobin 17.2 and hematocrit of 52.. -Likely secondary polycythemia resulting from hypoxemia vs moderate dehydration. -Continue to monitor and encourage patient to keep oxygen on to prevent hypoxia. -Lasix was discontinued. -Awaiting repeat labs, as pt initially refused morning lab draw. Hypokalemia -Potassium 3.1. Replaced. -Awaiting repeat labs, as pt initially refused morning lab draw. Hyponatremia, improving -Sodium 134 -Hyponatremia likely secondary to daily diuretic use as pt appears dry. Lasix discontinued. -Awaiting repeat labs, as pt initially refused morning lab draw. Schizophrenia with Developmental Delay -Continue home medication regimen with Zyprexa, Fluphenazine, and Fluvoxamine. -Psychiatry following, recommending inpatient psychiatric hospitalization once medically stable for discharge. -Patient does not have the capacity to leave AMA and per documentation in chart, pt is court ordered to take her psychiatry medications. -Continued encouragement for patient to participate in plan of care. Diastolic congestive heart failure -Lasix discontinued secondary to DEE -Echocardiogram completed revealing a normal ejection fraction of 55-60%. -Cardiology following, appreciate further recommendations. Hypertension -Monitor vital signs and Continue daily medication regimen. Hypothyroidism -Continue daily medication management with levothyroxine 150 mg each morning. Nicotine dependence -Continue education and encouragement on the importance of smoking cessation and risks of continued use up to and including . CODE STATUS: Full code DVT prophylaxis: Lovenox Discussed with: Patient and RN Anticipated discharge date: Clinical course to determine Anticipated discharge place: Upon discharge, psychiatry recommending patient for inpatient psychiatric admission to mental health unit. A total of 40 minutes was spent on the care of this complex patient more than 50% of the time was spent in counseling and care coordination. Objective - Vital Signs Vital signs: Vital Signs Temp 98.5 F 08/21/20 08:14 Pulse 65 08/21/20 08:14 Resp 18 08/21/20 08:14 BP 133/72 08/21/20 08:14 Pulse Ox 88 L 08/21/20 08:14 Intake & Output 08/20/20 08/21/20 08/21/20 18:59 06:59 18:59 Intake Total 240 900 240 Balance 240 900 240 Weight 90 kg 72 kg Intake: Oral 240 900 240 Other: Voiding Method Bedside Commode Incontinent # Voids 0 1 # Bowel Movements 0 - Labs CBC & Chem 7: 08/20/20 08:12 08/20/20 08:12 Labs: Abnormal Lab Results - Last 24 Hours (Table) 08/20/20 Range/Units 08:12 Sodium 134 L (137-145) mmol/L Potassium 3.1 L (3.5-5.1) mmol/L Chloride 90 L (98-107) mmol/L Carbon Dioxide 32 H (22-30) mmol/L BUN 106 H* (7-17) mg/dL Creatinine 1.55 H (0.52-1.04) mg/dL Glucose 241 H (74-99) mg/dL <Sherita Garibay - Last Filed: 08/21/20 11:25> Objective - Vital Signs Vital signs: Vital Signs Temp 98.5 F 08/21/20 08:14 Pulse 65 08/21/20 08:14 Resp 18 08/21/20 08:14 BP 133/72 08/21/20 08:14 Pulse Ox 88 L 08/21/20 08:14 Intake & Output 08/20/20 08/21/20 08/21/20 18:59 06:59 18:59 Intake Total 240 900 240 Balance 240 900 240 Weight 90 kg 72 kg Intake: Oral 240 900 240 Other: Voiding Method Bedside Commode Bedside Commode Incontinent Incontinent # Voids 0 1 # Bowel Movements 0 - Labs CBC & Chem 7: 08/20/20 08:12 08/20/20 08:12 Assessment and Plan Assessment: Patient seen and examined independently. Patient was also seen by Adan Snyder NP and case was discussed. I am in agreement with subjective, physical exam, assessment and plan as written above and amended below. Patient sleeping with oxygen off and SPO2 88% and O2 was applied agian. Patient denies being sick, needing oxygen, and having COVID General: ill appearing, moderate distress, appears at stated age Derm: warm, dry Head: atraumatic, normocephalic, symmetric Eyes: EOMI, no lid lag, anicteric sclera Mouth: no lip lesion, mucus membranes moist Cardiovascular: S1S2 reg, no murmur, positive posterior tibial pulse bilateral, Lungs: Ronchi bilateral, no rhonchi, no rales , no accessory muscle use Abdominal: soft, nontender to palpation, no guarding, no appreciable organomegaly Ext: no gross muscle atrophy, no edema, no contractures Neuro: CN II-XI grossly intact, no focal neuro deficits Psych: Alert, oriented, appropriate affect
[2020-08-21 11:27] LABS: Basophils % (A) 0 %; Eosinophils % (A) 0 %; HCT 47.7 % (34.0-46.0); HGB 15.5 gm/dL (11.4-16.0); Lymphocytes # (A) 0.3 k/uL (1.0-4.8); Lymphocytes % (A) 4 %; MCHC 32.5 g/dL (31.0-37.0); MCV 98.3 fL (80.0-100.0); Mean Platelet Volume 8.3; Monocytes # (A) 0.3 k/uL (0-1.0); Monocytes % (A) 4 %; Neutrophils # (A) 7.2 k/uL (1.3-7.7); Neutrophils % (A) 91 %; Platelet Count 152 k/uL (150-450); RBC 4.85 m/uL (3.80-5.40); RDW 15.1 % (11.5-15.5); WBC 7.9 k/uL (3.8-10.6)
[2020-08-21 11:36] LABS: Calcium 9.1 mg/dL (8.4-10.2); Potassium 3.6 mmol/L (3.5-5.1)
--- NOTE | 2020-08-21 15:56 | P.PN ---
Subjective Progress Note Date: 08/21/20 Principal diagnosis: Acute CoVID 19 pneumonia, COPD exacerbation, CHF exacerbation This 65-year-old white female patient was a poor historian, and most of the history was obtained from patient's chart, from the nursing staff, who resides in a [facility] and has a chronic developmental delay, hypertension, hypothyroidism, hyperlipidemia, schizoaffective disorder, history of MRSA infection in the wound and current every day smoker. She was brought into the emergency department on 08/13/2020 per EMS for evaluation of increased lethargy, fatigue, and developing shortness of breath earlier, she was found to be hypoxic with a pulse ox in the high 80s and lower 90s, and multiple people at the penitentiary facility or testing positive for COVID 19. Onset of symptoms 's not clear as the patient not able to provide any information. There are no reports of fever chills, no sweats, no nausea vomiting or diarrhea. She has been afebrile while she was in the hospital, her pulse ox was only 88% on 6 L, and FiO2 was subsequently increased to 15 L and currently patient is on BiPAP with pressures of 12/6 and FiO2 of 100%, or gas was obtained showing pO2 of 68, pCO2 55, pH is 7.25. Patient is positive for COVID 19. Has not significantly elevated d-dimer at 8.99, LDH was 761, and CRP is 8.8, negative Protuss tone and at 0.09, her proBNP was significantly elevated at 21,000 with elevated troponins. Chest x- ray shows new multifocal mid to lower lung acute opacities. Patient was started on Decadron in the emergency department, vitamins, she was given a dose of IV Lasix, and was given breathing treatments. We were asked to see the patient in consultation for what appears to be a combination of cough COVID 19 related pneumonitis acute exacerbation of CHF with diastolic dysfunction, echocardiogram showed EF between 55 and 60%, moderate enlargement of the right ventricle, mild MR, mild TR, PA systolic was less than 35 mmHg. At the time of our evaluation she is very obtunded, blood gas was ordered pO2 of 68, pCO2 of 55, pH of 7.25, and her BiPAP settings were adjusted increase the IPAP to 14, and FiO2 was dropped down to 60%. Repeat blood gas in 2 hours is pending. The patient is seen today 08/15/2020 and follow-up on the selective care unit. She is currently resting in bed. She did utilize BiPAP throughout the evening, 14/6 and 55% FiO2. She did desaturate to 66% O2 saturation on room air. Currently on 10 L high flow nasal cannula and maintaining O2 saturations in the 90s. Chest x-ray continues to show basilar opacities slightly worse than the l eft lung and some improvement in the right lung base. Blood culture revealing no growth to date. INR 8.43. LDH 845. C-reactive protein less than 5. Arterial blood gases last evening on 60% FiO2 revealed a PaO2 of 88, pCO2 57, pH 7.27. She is continued on Decadron, Lovenox, vitamin supplements. Remains on IV diuretics. Progress note dated 08/17/2020. Currently, as is a 65-year-old female who was admitted back on August 13, the diagnosis of COVID 19 pneumonia. The patient is currently on nasal O2 at 7 L, high flow, and yesterday, she was on 8 L nasal cannula high flow. In addition, the patient has a history of diastolic CHF, possible non-ST segment elevation myocardial infarction, hypertension, hyperlipidemia, hypothyroidism, developmental delay, history of MRSA infection, possible underlying COPD and current every day tobacco use. The patient's last d-dimer was 8.43 on August 15, and the most recent blood gas was on August 14. The patient also had troponins that were mildly elevated at 0.118 and 0.103 on the and 14 of August. More recently, the patient's not had any additional blood work. In addition, there is no recent chest x-ray. Progress note dated 08/18/2020. This is a 65-year-old female was admitted back on August 13, with a diagnosis of COVID 19 pneumonia. Currently, she is on 11 L high flow nasal O2. Actually, her oxygen requirements have increased over the last 24 hours. She does have a history of diastolic CHF, possible non-ST segment elevation myocardial infarction, essential hypertension, hyperlipidemia, hypothyroidism, developmental delay, history of MRSA infection, and possible underlying COPD, secondary to current every day tobacco use. Labs today include a sodium of 131, potassium 3.7, chlorides 90, CO2 29, anion gap 12, BUN 81, and creatinine 2.10. Clinically, the patient is doing about the same, even though her oxygen requirements have increased. There is no conversational dyspnea, or use of accessory muscles. The patient is seen today 08/19/2020 in follow-up on the selective care unit. She is currently sitting up in a chair at the bedside. Awake and alert. She's been quite noncompliant with wearing her oxygen and taking her medications. She is to be on 15 L high flow nasal cannula. Chest x-ray reveals worsening bilateral patchy infiltrates compatible with CoVID pneumonia. She remains on dexamethasone, Lovenox, vitamin supplements. Refusing breathing treatments. The patient is seen today 08/20/2020 in follow-up on the selective care unit. She is currently sitting up in a chair at the bedside. She is awake and alert. A sitter is at the bedside. She is now wearing her oxygen. She has taken some oral medications for the nursing staff. Continue O2 saturations in the low 90s on 12 L high flow nasal cannula. White count 7.1. Hemoglobin 17.2. Platelet count 123. Sodium 134. Potassium 3.1. Creatinine 1.55. BUN 106. She remains on Lovenox, Decadron, vitamin supplements. Received additional Lasix 40 mg IVP 1 today. The patient is seen today 08/21/2020 in follow-up on the selective care unit. She is currently sitting up in a chair at the bedside. Awake and alert in no acute distress. A sitter is at the bedside. The patient is a bit more cooperative today. She took her morning medications. She is keeping her oxygen on. It remains at 12 L high flow to maintain O2 saturations at 88%. Lungs sounds with continued scattered rhonchi bilaterally. White count 7.9. Hemoglobin 15.5. Lymphocytes 0.3. Sodium 1:30. Potassium 3.6. Creatinine 1.35. BUN 98. Remains on Lovenox, IV Solu-Medrol, vitamin supplements. Objective - Vital Signs Vital signs: Vital Signs Temp 98.5 F 08/21/20 11:42 Pulse 62 08/21/20 14:00 Resp 18 08/21/20 14:00 BP 111/67 08/21/20 11:42 Pulse Ox 88 L 08/21/20 11:42 Intake & Output 03/18/21 03/19/21 03/19/21 18:59 06:59 18:59 Intake Total 240 900 240 Balance 240 900 240 Weight 90 kg 72 kg Intake: Oral 240 900 240 Other: Voiding Method Bedside Commode Bedside Commode Incontinent Incontinent # Voids 0 1 # Bowel Movements 0 - Exam GENERAL EXAM: Awake, alert, 65-year-old female patient, on 12 L high flow nasal cannula, comfortable in no apparent distress. HEAD: Normocephalic/atraumatic. EYES: Normal reaction of pupils, equal size. Conjunctiva pink, sclera white. NOSE: Clear with pink turbinates. THROAT: No erythema or exudates. NECK: No masses, no JVD, no thyroid enlargement, no adenopathy. CHEST: No chest wall deformity. Symmetrical expansion. LUNGS: Equal air entry with scattered rhonchi, crackles in the bilateral posterior bases CVS: Regular rate and rhythm, normal S1 and S2, no gallops, no murmurs, no rubs ABDOMEN: Soft, nontender. No hepatosplenomegaly, normal bowel sounds, no guarding or rigidity. EXTREMITIES: No clubbing, no edema, no cyanosis, 2+ pulses and upper and lower extremities. MUSCULOSKELETAL: Muscle strength and tone normal. SPINE: No scoliosis or deformity SKIN: No rashes CENTRAL NERVOUS SYSTEM: Obtunded No focal deficits, tone is normal in all 4 extremities. - Labs CBC & Chem 7: 08/21/20 10:49 08/21/20 10:49 Labs: Abnormal Lab Results - Last 24 Hours (Table) 08/21/20 08/21/20 Range/Units 10:49 10:49 Hct 47.7 H (34.0-46.0) % Lymphocytes # 0.3 L (1.0-4.8) k/uL Sodium 130 L (137-145) mmol/L Chloride 91 L (98-107) mmol/L Carbon Dioxide 32 H (22-30) mmol/L BUN 98 H (7-17) mg/dL Creatinine 1.35 H (0.52-1.04) mg/dL Glucose 176 H (74-99) mg/dL Assessment and Plan Assessment: 1 Acute hypoxic and hypercapnic respiratory failure related to acute exacerbation of COPD, acute COVID 19 pneumonia, and acute exacerbation of diastolic CHF. Patient is a poor historian, onset of symptoms is unknown 2 Acute renal failure. Current creatinine 1.35 3 Hypertension 4 Hyperlipidemia 5 Hypothyroidism 6 History of developmental delay 7 Resident of a penitentiary, with multiple residents positive for COVID 19 8 History of MRSA infection 9 Suspect underlying COPD 10 Current every day smoker Plan: The patient was seen and evaluated by Dr. Lay Continue the current treatment plan Titrate the FiO2 as tolerated Alternating with BiPAP Repeat chest x-ray, inflammatory markers in a.m. We will continue to follow I, the cosigning physician, performed a history & physical examination of the patient. Lungs sounds with few scattered rhonchi, crackles in the bilateral posterior bases. Maintaining good O2 saturations in the 90s on 12 L high flow nasal cannula. I discussed the assessment and plan of care with my nurse practitioner, Imelda Raya. I attest to the above note as dictated by her.
[2020-08-21] MEDS: OLANZapine 10 MG TAB PO SCH (20:35)
[2020-08-21] MEDS: amLODIPine 10 MG TAB PO SCH (20:35)
[2020-08-21] MEDS: METOPROLOL SUCCINATE (ER) 50 MG TAB.ER.24H PO SCH (20:36)
[2020-08-22] MEDS: methylPREDNISolone SOD SUCCI 125 MG/2 ML VIAL IV SCH ×3 (06:35→17:22)
[2020-08-22] MEDS: PANTOPRAZOLE 40 MG TABLET PO SCH (06:35)
[2020-08-22] MEDS: LEVOTHYROXINE 100 MCG TAB PO SCH (06:36)
[2020-08-22] MEDS: ALBUTEROL HFA INHALER INHALATION SCH ×4 (07:57→20:17)
[2020-08-22] MEDS: ZINC SULFATE 220 MG CAP PO SCH (09:30)
[2020-08-22] MEDS: ENOXAPARIN 40 MG/0.4 ML SYRINGE SQ SCH ×3 (09:30→20:17)
[2020-08-22] MEDS: ASPIRIN 81 MG PO SCH (09:30)
[2020-08-22] MEDS: CHOLECALCIFEROL 25 MCG (1000 IU) TABLET PO SCH (09:30)
[2020-08-22] MEDS: ASCORBIC ACID 500 MG TAB PO SCH (09:30)
--- NOTE | 2020-08-22 11:30 | XR ---
EXAMINATION TYPE: XR chest 1V portable DATE OF EXAM: 08/22/2020 COMPARISON: 08/19/2020 INDICATION: Covid Pneumonia TECHNIQUE: Single frontal view of the chest is obtained. FINDINGS: The heart size is normal. The pulmonary vasculature is normal. Diffuse patchy infiltrates are present bilaterally can be compatible with atypical pneumonia. This ma y be worsening at the left base. IMPRESSION: 1. Worsening left lower lobe infiltrate. 2. Diffuse bilateral lung infiltrates can be compatible with atypical pneumonia.
[2020-08-22 12:08] LABS: C Reactive Protein 58.8 mg/L (<10.0); Calcium 8.9 mg/dL (8.4-10.2); Potassium 3.9 mmol/L (3.5-5.1)
--- NOTE | 2020-08-22 13:41 | P.PN ---
<Adan Snyder - Last Filed: 08/22/20 13:51> Subjective Progress Note Date: 08/22/20 Principal diagnosis: Acute Covid 19 virus infection with pneumonitis and ARDS resulting in COPD exacerbation and acute respiratory failure with hypoxia Hospital course: Patient is a 65-year-old female with a past medical history of COPD not home oxygen dependent, hypertension, hypothyroidism, CKD stage III, schizophrenia, and nicotine abuse. Patient resides in an extended care facility and presented to the hospital on 08/13/20 with a chief complaint of increasing shortness of breath and was reportedly found by EMS to have oxygen saturation in the 80s on room air and was placed on nonrebreather mask. Upon arrival to our facility patient was found to be in acute respiratory distress with hypoxia with SpO2 66% on room air requiring oxygen supplementation with thigh-high flow nasal cannula and admission under our services accompanied by pulmonology and cardiology consultations for continued close medical management. Covid 19 PCR was positive. EKG was completed showing normal sinus rhythm at 74 bpm with no noted T-wave or ST abnormalities showing no signs of acute ischemia. Chest x-ray was completed revealing new multifocal mid to lower lung acute opacities. Echocardiogram completed revealing a normal ejection fraction of 55-60%. Patient has been placed on Decadron with today being day 7 of 10, MDIs as needed for shortness of breath and/or wheezing, pink, vitamin C, and vitamin D3. Patient has not been cooperative or compliant with care throughout hospital stay and intermittently continues to remove oxygen, refuse medications and lab draws and has been found to be hypoxic with SpO2 dropping as low as down into the 70s. Currently patient on 15 L high flow nasal cannula with SpO2 of 89%. Sitter remains at bedside for patient's safety. Physical exam: Patient was seen and fully evaluated at the bedside this morning. She was resting in bed and easily awoken via verbal stimuli. At time of assessment patient was wearing her oxygen (15 L high flow) and was maintaining SpO2 at 94%. Vital signs reviewed and otherwise stable. RN reports patient refused morning labs and was attempting to refuse medications. Have discussed with patient regarding needs for labs as renal function yesterday revealed a critical BUN, compromises were made and RN gave patient a Pepsi which resulted in patient agreeing to take medications. We will reorder labs and reattempt to obtain as patient states she is now agreeable. Patient continues to avoid all I contact and remains minimally interactive throughout examination. Patient did deny having any chest pain or shortness of breath at this time. General: non toxic, no distress, appears at stated age Derm: warm, dry Head: atraumatic, normocephalic, symmetric Eyes: no lid lag, anicteric sclera Mouth: no lip lesion, mucus membranes dry Cardiovascular: S1S2 reg, no murmur, gallop or rub . Positive posterior tibial pulses bilaterally, no edema. Lungs: Respirations even, regular, and unlabored on 15 L high flow nasal cannula with SpO2 94%. No accessory muscle use. Upon auscultation of lungs, bilateral diffuse coarse rhonchi remains. Abdominal: Soft, nontender to palpation, no guarding, no appreciable organomegaly. Ext: No gross muscle atrophy, no edema, and no contractures. Neuro: Moving all extremities independently without any noted weakness. Psych: Patient is alert but withdrawn. Patient not fully cooperative throughout exam and responding only to selective questions and would not follow commands. When speaking, speech is clear. Assessment and Plan of Care: Acute Covid 19 virus infection with pneumonitis and ARDS resulting in COPD exacerbation and acute respiratory failure with hypoxia -Inflammatory markers: CRP increasing from previous 8.8 now 58.8 and LDH increasing from previous 761 now 1170. D-dimer did increase from previous 8.99 down to 7.23. -Continue oxygenation to maintain SpO2 equal to or greater than 92%, wean as patient tolerates. Patient currently on 15 L high flow nasal with SpO2 of 89%. -Pulmonology following, appreciate further recommendations. -Covid 19 PCR was positive on 08/13/20. -Continue Decadron, day 8 . -Continue zinc, vitamin C, and vitamin D3. -MDIs as needed for shortness of breath and/or wheezing. Acute kidney injury on chronic kidney disease stage III, improving -BUN 87, creatinine 1.24, and GFR 46 -Lasix and lisinopril were discontinued. -Continue close monitoring with repeat a.m. labs. Hyponatremia -Sodium 129 -Hyponatremia remains despite discontinuation of Lasix. -Hyponatremia possibly secondary to decreased oral intake vs SSRI medications fluvoxamine vs other. -We will continue to monitor with repeat a.m. labs and also obtain a TSH, serum osmolality, uric acid, urine osmolality, and urine sodium level. Schizophrenia with Developmental Delay -Continue home medication regimen with Zyprexa, Fluphenazine, and Fluvoxamine. -Psychiatry following, recommending inpatient psychiatric hospitalization once medically stable for discharge. -Patient does not have the capacity to leave AMA and per documentation in chart, pt is court ordered to take her psychiatry medications. -Continued encouragement for patient to participate in plan of care. Diastolic congestive heart failure -Lasix discontinued secondary to DEE -Echocardiogram completed revealing a normal ejection fraction of 55-60%. -Cardiology following, appreciate further recommendations. Hypertension -Monitor vital signs and Continue daily medication regimen. Hypothyroidism -Continue daily medication management with levothyroxine 150 mg each morning. Nicotine dependence -Continue education and encouragement on the importance of smoking cessation and risks of continued use up to and including . Polycythemia, resolved Hypokalemia, resolved CODE STATUS: Full code DVT prophylaxis: Lovenox Discussed with: Patient and RN Anticipated discharge date: Clinical course to determine Anticipated discharge place: Upon discharge, psychiatry recommending patient for inpatient psychiatric admission to mental health unit. A total of 40 minutes was spent on the care of this complex patient more than 50% of the time was spent in counseling and care coordination. Objective - Vital Signs Vital signs: Vital Signs Temp 98.3 F 08/22/20 04:00 Pulse 64 08/22/20 04:00 Resp 18 08/22/20 04:00 BP 121/64 08/22/20 04:00 Pulse Ox 93 L 08/22/20 04:00 Intake & Output 08/21/20 08/22/20 08/22/20 18:59 06:59 18:59 Intake Total 460 475 Output Total 950 Balance -490 475 Weight 59 kg Intake: Oral 460 475 Output: Urine 950 Other: Voiding Method Bedside Commode Bedside Commode Incontinent Incontinent # Voids 2 - Labs CBC & Chem 7: 08/21/20 10:49 08/22/20 11:37 Labs: Abnormal Lab Results - Last 24 Hours (Table) 08/21/20 08/21/20 Range/Units 10:49 10:49 Hct 47.7 H (34.0-46.0) % Lymphocytes # 0.3 L (1.0-4.8) k/uL Sodium 130 L (137-145) mmol/L Chloride 91 L (98-107) mmol/L Carbon Dioxide 32 H (22-30) mmol/L BUN 98 H (7-17) mg/dL Creatinine 1.35 H (0.52-1.04) mg/dL Glucose 176 H (74-99) mg/dL <PhoenixSherita donovan - Last Filed: 08/22/20 17:02> Objective - Vital Signs Vital signs: Vital Signs Temp 97.5 F L 08/22/20 11:59 Pulse 69 08/22/20 11:59 Resp 20 08/22/20 11:59 BP 126/73 08/22/20 11:59 Pulse Ox 87 L 08/22/20 11:59 Intake & Output 08/21/20 08/22/20 08/22/20 18:59 06:59 18:59 Intake Total 624 338 2266 Output Total 950 Balance -249 252 0751 Weight 59 kg Intake: Oral 463 011 4707 Output: Urine 950 Other: Voiding Method Bedside Commode Bedside Commode Bedside Commode Incontinent Incontinent Incontinent # Voids 2 2 # Bowel Movements 1 - Labs CBC & Chem 7: 08/21/20 10:49 08/22/20 11:37 Labs: Abnormal Lab Results - Last 24 Hours (Table) 08/22/20 08/22/20 Range/Units 11:37 11:37 D-Dimer 7.23 H (<0.60) mg/L FEU Sodium 129 L (137-145) mmol/L Chloride 89 L (98-107) mmol/L Carbon Dioxide 31 H (22-30) mmol/L BUN 87 H (7-17) mg/dL Creatinine 1.24 H (0.52-1.04) mg/dL Glucose 268 H (74-99) mg/dL Lactate Dehydrogenase 1170 H (313-618) U/L C-Reactive Protein 58.8 H (<10.0) mg/L Assessment and Plan Assessment: Patient seen and examined independently. Patient was also seen by Adan Snyder NP and case was discussed. I am in agreement with subjective, physical exam, a ssessment and plan as written above and amended below. States she does not have Kovic and wants to be discharged from the hospital. General: Ill-appearing, disheveled, appears older than stated age Derm: warm, dry Head: atraumatic, normocephalic, symmetric Eyes: EOMI, no lid lag, anicteric sclera Mouth: no lip lesion, mucous membranes dry Lungs: No accessory muscle use, chest rises equal bilaterally Neuro: CN II-XI grossly intact, moving all 4 extremities independently Psych: Initially appears cold, calm, collected poor insight and judgment, asking to leave the hospital, stating she does not have COVID, becomes increasingly agitated Hyponatremia -Sodium 129 -Attempt to repeat labs at 5 PM if patient is willing -Check urine sodium, urine osmole, and serum osmole to assess for SIADH from SSRI versus poor oral intake. -Check TSH. -Off of Lasix
--- NOTE | 2020-08-22 14:37 | P.PN ---
Subjective Progress Note Date: 08/22/20 Principal diagnosis: Acute CoVID 19 pneumonia, COPD exacerbation, CHF exacerbation This 65-year-old white female patient was a poor historian, and most of the history was obtained from patient's chart, from the nursing staff, who resides in a detention and has a chronic developmental delay, hypertension, hypothyroidism, hyperlipidemia, schizoaffective disorder, history of MRSA infection in the wound and current every day smoker. She was brought into the emergency department on 08/13/2020 per EMS for evaluation of increased lethargy, fatigue, and developing shortness of breath earlier, she was found to be hypoxic with a pulse ox in the high 80s and lower 90s, and multiple people at the detention facility or testing positive for COVID 19. Onset of symptoms 's not clear as the patient not able to provide any information. There are no reports of fever chills, no sweats, no nausea vomiting or diarrhea. She has been afebrile while she was in the hospital, her pulse ox was only 88% on 6 L, and FiO2 was subsequently increased to 15 L and currently patient is on BiPAP with pressures of 12/6 and FiO2 of 100%, or gas was obtained showing pO2 of 68, pCO2 55, pH is 7.25. Patient is positive for COVID 19. Has not significantly elevated d-dimer at 8.99, LDH was 761, and CRP is 8.8, negative Protuss tone and at 0.09, her proBNP was significantly elevated at 21,000 with elevated troponins. Chest x- ray shows new multifocal mid to lower lung acute opacities. Patient was started on Decadron in the emergency department, vitamins, she was given a dose of IV Lasix, and was given breathing treatments. We were asked to see the patient in consultation for what appears to be a combination of cough COVID 19 related pneumonitis acute exacerbation of CHF with diastolic dysfunction, echocardiogram showed EF between 55 and 60%, moderate enlargement of the right ventricle, mild MR, mild TR, PA systolic was less than 35 mmHg. At the time of our evaluation she is very obtunded, blood gas was ordered pO2 of 68, pCO2 of 55, pH of 7.25, and her BiPAP settings were adjusted increase the IPAP to 14, and FiO2 was dropped down to 60%. Repeat blood gas in 2 hours is pending. The patient is seen today 08/15/2020 and follow-up on the selective care unit. She is currently resting in bed. She did utilize BiPAP throughout the evening, 14/6 and 55% FiO2. She did desaturate to 66% O2 saturation on room air. Currently on 10 L high flow nasal cannula and maintaining O2 saturations in the 90s. Chest x-ray continues to show basilar opacities slightly worse than the l eft lung and some improvement in the right lung base. Blood culture revealing no growth to date. INR 8.43. LDH 845. C-reactive protein less than 5. Arterial blood gases last evening on 60% FiO2 revealed a PaO2 of 88, pCO2 57, pH 7.27. She is continued on Decadron, Lovenox, vitamin supplements. Remains on IV diuretics. Progress note dated 08/17/2020. Currently, as is a 65-year-old female who was admitted back on August 13, the diagnosis of COVID 19 pneumonia. The patient is currently on nasal O2 at 7 L, high flow, and yesterday, she was on 8 L nasal cannula high flow. In addition, the patient has a history of diastolic CHF, possible non-ST segment elevation myocardial infarction, hypertension, hyperlipidemia, hypothyroidism, developmental delay, history of MRSA infection, possible underlying COPD and current every day tobacco use. The patient's last d-dimer was 8.43 on August 15, and the most recent blood gas was on August 14. The patient also had troponins that were mildly elevated at 0.118 and 0.103 on the and 14 of August. More recently, the patient's not had any additional blood work. In addition, there is no recent chest x-ray. Progress note dated 08/18/2020. This is a 65-year-old female was admitted back on August 13, with a diagnosis of COVID 19 pneumonia. Currently, she is on 11 L high flow nasal O2. Actually, her oxygen requirements have increased over the last 24 hours. She does have a history of diastolic CHF, possible non-ST segment elevation myocardial infarction, essential hypertension, hyperlipidemia, hypothyroidism, developmental delay, history of MRSA infection, and possible underlying COPD, secondary to current every day tobacco use. Labs today include a sodium of 131, potassium 3.7, chlorides 90, CO2 29, anion gap 12, BUN 81, and creatinine 2.10. Clinically, the patient is doing about the same, even though her oxygen requirements have increased. There is no conversational dyspnea, or use of accessory muscles. The patient is seen today 08/19/2020 in follow-up on the selective care unit. She is currently sitting up in a chair at the bedside. Awake and alert. She's been quite noncompliant with wearing her oxygen and taking her medications. She is to be on 15 L high flow nasal cannula. Chest x-ray reveals worsening bilateral patchy infiltrates compatible with CoVID pneumonia. She remains on dexamethasone, Lovenox, vitamin supplements. Refusing breathing treatments. The patient is seen today 08/20/2020 in follow-up on the selective care unit. She is currently sitting up in a chair at the bedside. She is awake and alert. A sitter is at the bedside. She is now wearing her oxygen. She has taken some oral medications for the nursing staff. Continue O2 saturations in the low 90s on 12 L high flow nasal cannula. White count 7.1. Hemoglobin 17.2. Platelet count 123. Sodium 134. Potassium 3.1. Creatinine 1.55. BUN 106. She remains on Lovenox, Decadron, vitamin supplements. Received additional Lasix 40 mg IVP 1 today. The patient is seen today 08/21/2020 in follow-up on the selective care unit. She is currently sitting up in a chair at the bedside. Awake and alert in no acute distress. A sitter is at the bedside. The patient is a bit more cooperative today. She took her morning medications. She is keeping her oxygen on. It remains at 12 L high flow to maintain O2 saturations at 88%. Lungs sounds with continued scattered rhonchi bilaterally. White count 7.9. Hemoglobin 15.5. Lymphocytes 0.3. Sodium 1:30. Potassium 3.6. Creatinine 1.35. BUN 98. Remains on Lovenox, IV Solu-Medrol, vitamin supplements. The patient is seen today 08/22/2020 in follow-up on the selective care unit. She is currently resting quite comfortably in bed. Awake and alert in no acute distress. Still requiring 15 L high flow nasal cannula to maintain O2 saturation the high 80s low 90s. She's afebrile. D-dimer 7.23. Sodium 129. Potassium 3.9. Creatinine 1.24. BUN 87. LDH 1170. C-reactive protein 58.8. She is continued on IV Solu-Medrol, Lovenox, vitamin supplements. Objective - Vital Signs Vital signs: Vital Signs Temp 97.5 F L 08/22/20 11:59 Pulse 69 08/22/20 11:59 Resp 20 08/22/20 11:59 BP 126/73 08/22/20 11:59 Pulse Ox 87 L 08/22/20 11:59 Intake & Output 08/21/20 08/22/20 08/22/20 18:59 06:59 18:59 Intake Total 460 475 480 Output Total 950 Balance -490 475 480 Weight 59 kg Intake: Oral 460 475 480 Output: Urine 950 Other: Voiding Method Bedside Commode Bedside Commode Bedside Commode Incontinent Incontinent Incontinent # Voids 2 - Exam GENERAL EXAM: Awake, alert, 65-year-old female patient, on 15 L high flow nasal cannula, comfortable in no apparent distress. HEAD: Normocephalic/atraumatic. EYES: Normal reaction of pupils, equal size. Conjunctiva pink, sclera white. NOSE: Clear with pink turbinates. THROAT: No erythema or exudates. NECK: No masses, no JVD, no thyroid enlargement, no adenopathy. CHEST: No chest wall deformity. Symmetrical expansion. LUNGS: Equal air entry with scattered rhonchi, crackles in the bilateral posterior bases CVS: Regular rate and rhythm, normal S1 and S2, no gallops, no murmurs, no rubs ABDOMEN: Soft, nontender. No hepatosplenomegaly, normal bowel sounds, no guarding or rigidity. EXTREMITIES: No clubbing, no edema, no cyanosis, 2+ pulses and upper and lower extremities. MUSCULOSKELETAL: Muscle strength and tone normal. SPINE: No scoliosis or deformity SKIN: No rashes CENTRAL NERVOUS SYSTEM: Obtunded No focal deficits, tone is normal in all 4 extremities. - Labs CBC & Chem 7: 08/21/20 10:49 08/22/20 11:37 Labs: Abnormal Lab Results - Last 24 Hours (Table) 08/22/20 08/22/20 Range/Units 11:37 11:37 D-Dimer 7.23 H (<0.60) mg/L FEU Sodium 129 L (137-145) mmol/L Chloride 89 L (98-107) mmol/L Carbon Dioxide 31 H (22-30) mmol/L BUN 87 H (7-17) mg/dL Creatinine 1.24 H (0.52-1.04) mg/dL Glucose 268 H (74-99) mg/dL Lactate Dehydrogenase 1170 H (313-618) U/L C-Reactive Protein 58.8 H (<10.0) mg/L Assessment and Plan Assessment: 1 Acute hypoxic and hypercapnic respiratory failure related to acute exacerbation of COPD, acute COVID 19 pneumonia, and acute exacerbation of diastolic CHF. Patient is a poor historian, onset of symptoms is unknown 2 Acute renal failure. Current creatinine 1.24 3 Hypertension 4 Hyperlipidemia 5 Hypothyroidism 6 History of developmental delay 7 Resident of a detention, with multiple residents positive for COVID 19 8 History of MRSA infection 9 Suspect underlying COPD 10 Current every day smoker Plan: The patient was seen and evaluated by Dr. Lay Chest x-ray and labs reviewed Increase Lovenox to 40 mg subcu twice a day Titrate the FiO2 as tolerated Alternating with BiPAP We will continue to follow I, the cosigning physician, performed a history & physical examination of the patient. Lungs sounds with few scattered rhonchi, crackles in the bilateral posterior bases. Maintaining good O2 saturations in the 90s on 15 L high flow nasal cannula. I discussed the assessment and plan of care with my nurse practitioner, Imelda Raya. I attest to the above note as dictated by her.
[2020-08-22 17:36] LABS: Calcium 9.1 mg/dL (8.4-10.2)
[2020-08-22] MEDS: amLODIPine 10 MG TAB PO SCH (20:13)
[2020-08-22] MEDS: METOPROLOL SUCCINATE (ER) 50 MG TAB.ER.24H PO SCH (20:13)
[2020-08-22] MEDS: OLANZapine 10 MG TAB PO SCH (20:13)
[2020-08-23] MEDS: methylPREDNISolone SOD SUCCI 125 MG/2 ML VIAL IV SCH ×5 (00:26→22:56)
[2020-08-23] MEDS: PANTOPRAZOLE 40 MG TABLET PO SCH (06:41)
[2020-08-23] MEDS: LEVOTHYROXINE 100 MCG TAB PO SCH (06:41)
[2020-08-23] MEDS: ASPIRIN 81 MG PO SCH (08:14)
[2020-08-23] MEDS: CHOLECALCIFEROL 25 MCG (1000 IU) TABLET PO SCH (08:14)
[2020-08-23] MEDS: ENOXAPARIN 40 MG/0.4 ML SYRINGE SQ SCH ×2 (08:14→20:32)
[2020-08-23] MEDS: ASCORBIC ACID 500 MG TAB PO SCH (08:14)
[2020-08-23] MEDS: ZINC SULFATE 220 MG CAP PO SCH (08:14)
[2020-08-23] MEDS: ALBUTEROL HFA INHALER INHALATION SCH ×3 (08:35→20:37)
--- NOTE | 2020-08-23 11:09 | P.PN ---
<Adan Snyder - Last Filed: 08/23/20 10:56> Subjective Progress Note Date: 08/23/20 Principal diagnosis: Acute Covid 19 virus infection with pneumonitis and ARDS resulting in COPD exacerbation and acute respiratory failure with hypoxia Hospital course: Patient is a 65-year-old female with a past medical history of COPD not home oxygen dependent, hypertension, hypothyroidism, CKD stage III, schizophrenia, and nicotine abuse. Patient resides in an extended care facility and presented to the hospital on 08/13/20 with a chief complaint of increasing shortness of breath and was reportedly found by EMS to have oxygen saturation in the 80s on room air and was placed on nonrebreather mask. Upon arrival to our facility patient was found to be in acute respiratory distress with hypoxia with SpO2 66% on room air requiring oxygen supplementation with thigh-high flow nasal cannula and admission under our services accompanied by pulmonology and cardiology consultations for continued close medical management. Covid 19 PCR was positive. EKG was completed showing normal sinus rhythm at 74 bpm with no noted T-wave or ST abnormalities showing no signs of acute ischemia. Chest x-ray was completed revealing new multifocal mid to lower lung acute opacities. Echocardiogram completed revealing a normal ejection fraction of 55-60%. Patient has been placed on Decadron with today being day 9 of 10, MDIs as needed for shortness of breath and/or wheezing, pink, vitamin C, and vitamin D3. Patient has not been cooperative or compliant with care throughout hospital stay and intermittently continues to remove oxygen, refuse medications and lab draws and has been found to be hypoxic with SpO2 dropping as low as down into the 70s. Currently patient remains on 15 L high flow nasal cannula with SpO2 of 88-91%. Repeat chest x-ray completed 08/22/20 revealing worsening left lower lobe infiltrate with diffuse bilateral lung infiltrates. Sitter remains at bedside for patient's safety. Physical exam: Patient was seen and fully evaluated at the bedside this morning. She was resting in bed and easily awoken via verbal stimuli. At time of assessment patient was wearing her oxygen (15 L high flow) with SpO2 of 89% at that time. Vital signs reviewed and otherwise stable. Patient was cooperative and took medication as prescribed this morning, again declined morning labs so they were rescheduled for 11 AM. Patient continues to avoid all eye contact and remains minimally interactive throughout examination. She continues to deny having any chest pain or shortness of breath at this time. General: non toxic, no distress, appears at stated age Derm: warm, dry Head: atraumatic, normocephalic, symmetric Eyes: no lid lag, anicteric sclera Mouth: no lip lesion, mucus membranes dry Cardiovascular: S1S2 reg, no murmur, gallop or rub . Positive posterior tibial pulses bilaterally, no edema. Lungs: Respirations even, regular, and unlabored on 15 L high flow nasal cannula with SpO2 89%. No accessory muscle use. Upon auscultation of lungs, bilateral diffuse coarse rhonchi remains. Abdominal: Soft, nontender to palpation, no guarding, no appreciable organomegaly. Ext: No gross muscle atrophy, no edema, and no contractures. Neuro: Moving all extremities independently without any noted weakness. Psych: Patient is alert but withdrawn. Patient not fully cooperative throughout exam and responding only to selective questions and would not follow commands. When speaking, speech is clear. Assessment and Plan of Care: Acute Covid 19 virus infection with pneumonitis and ARDS resulting in COPD exacerbation and acute respiratory failure with hypoxia -Inflammatory markers: CRP increasing from previous 8.8 now 58.8 and LDH increasing from previous 761 now 1170. D-dimer did increase from previous 8.99 down to 7.23. Awaiting morning labs to be drawn. -Repeat chest x-ray completed 08/22/20 revealing worsening left lower lobe infiltrate with diffuse bilateral lung infiltrates. -Continue oxygenation. Patient currently remains on 15 L high flow nasal with SpO2 of 89%. -Pulmonology following, appreciate further recommendations. -Covid 19 PCR was positive on 08/13/20. -Continue Decadron, day 9 . -Continue zinc, vitamin C, and vitamin D3. -MDIs as needed for shortness of breath and/or wheezing. Acute kidney injury on chronic kidney disease stage III, improving -BUN 89, creatinine 1.38, and GFR 40 -Continue to hold Lasix and lisinopril. -Continue close monitoring with repeat a.m. labs. Hyponatremia, improving -Sodium 131 -Hyponatremia is chronic in nature and likely secondary to SSRI medication fluvoxamine. -We will continue to monitor with repeat a.m. labs and also obtain a TSH, serum osmolality, uric acid, urine osmolality, and urine sodium levels. Schizophrenia with Developmental Delay -Continue home medication regimen with Zyprexa, Fluphenazine, and Fluvoxamine. -Psychiatry following, recommending inpatient psychiatric hospitalization once medically stable for discharge. -Patient does not have the capacity to leave AMA and per documentation in chart, pt is court ordered to take her psychiatry medications. -Continued encouragement for patient to participate in plan of care. Chronic Diastolic congestive heart failure -Lasix discontinued secondary to DEE -Echocardiogram completed revealing a normal ejection fraction of 55-60%. -Cardiology following, appreciate further recommendations. Hypertension -Monitor vital signs and Continue daily medication regimen. Hypothyroidism -Continue daily medication management with levothyroxine 150 mg each morning. -TSH Nicotine dependence -Continue education and encouragement on the importance of smoking cessation and risks of continued use up to and including . Polycythemia, resolved Hypokalemia, resolved CODE STATUS: Full code DVT prophylaxis: Lovenox Discussed with: Patient and RN Anticipated discharge date: Clinical course to determine Anticipated discharge place: Inpatient psychiatric mental health facility vs back to [facility] A total of 45 minutes was spent on the care of this complex patient more than 50% of the time was spent in counseling and care coordination. Objective - Vital Signs Vital signs: Vital Signs Temp 96.5 F L 08/23/20 08:00 Pulse 71 08/23/20 08:00 Resp 20 08/23/20 08:00 BP 146/77 08/23/20 08:00 Pulse Ox 88 L 08/23/20 08:00 Intake & Output 08/22/20 08/23/20 08/23/20 18:59 06:59 18:59 Intake Total 1920 Output Total 1200 Balance 1920 -1200 Weight 70.5 kg Intake: Oral 1920 Output: Urine 1200 Other: Voiding Method Bedside Commode Bedside Commode Toilet Incontinent Incontinent Incontinent # Voids 2 1 # Bowel Movements 1 - Labs CBC & Chem 7: 08/21/20 10:49 08/22/20 17:12 Labs: Abnormal Lab Results - Last 24 Hours (Table) 08/22/20 08/22/20 08/22/20 Range/Units 11:37 11:37 17:12 D-Dimer 7.23 H (<0.60) mg/L FEU Sodium 129 L 131 L (137-145) mmol/L Chloride 89 L 90 L (98-107) mmol/L Carbon Dioxide 31 H 32 H (22-30) mmol/L BUN 87 H 89 H (7-17) mg/dL Creatinine 1.24 H 1.38 H (0.52-1.04) mg/dL Glucose 268 H 218 H (74-99) mg/dL Osmolality 305 H (280-301) mosm/kg Lactate Dehydrogenase 1170 H (313-618) U/L C-Reactive Protein 58.8 H (<10.0) mg/L <Sherita Garibay - Last Filed: 08/23/20 14:46> Objective - Vital Signs Vital signs: Vital Signs Temp 97.6 F 08/23/20 11:54 Pulse 70 08/23/20 11:54 Resp 20 08/23/20 13:07 BP 133/72 08/23/20 11:54 Pulse Ox 95 08/23/20 13:07 Intake & Output 08/22/20 08/23/20 08/23/20 18:59 06:59 18:59 Intake Total 1920 Output Total 1200 Balance 1920 -1200 Weight 70.5 kg Intake: Oral 1920 Output: Urine 1200 Other: Voiding Method Bedside Commode Bedside Commode Toilet Incontinent Incontinent Incontinent # Voids 2 1 # Bowel Movements 1 - Labs CBC & Chem 7: 08/23/20 10:56 08/23/20 10:56 Labs: Abnormal Lab Results - Last 24 Hours (Table) 08/22/20 08/23/20 Range/Units 17:12 10:56 Sodium 131 L 133 L (137-145) mmol/L Chloride 90 L 92 L (98-107) mmol/L Carbon Dioxide 32 H 33 H (22-30) mmol/L BUN 89 H 86 H (7-17) mg/dL Creatinine 1.38 H 1.37 H (0.52-1.04) mg/dL Glucose 218 H 170 H (74-99) mg/dL Osmolality 305 H (280-301) mosm/kg Uric Acid 13.6 H (3.7-7.4) mg/dL Lactate Dehydrogenase 1037 H (313-618) U/L C-Reactive Protein 36.6 H (<10.0) mg/L Assessment and Plan Assessment: Patient seen and examined independently. Patient was also seen by Adan Snyder NP and case was discussed. I am in agreement with subjective, physical exam, assessment and plan as written above and amended below. Patient is sleeping and does not want to be uncovered. She denies any pain. General: non toxic, no distress, appears at stated age, disheveled Derm: warm, dry Head: atraumatic, normocephalic, symmetric Eyes: EOMI, no lid lag, anicteric sclera Mouth: no lip lesion, mucus membranes moist Cardiovascular: S1S2 reg, no murmur, positive posterior tibial pulse bilateral, Lungs: Coarse breath sounds bilateral, no rhonchi, no rales , no accessory muscle use Abdominal: soft, nontender to palpation, no guarding, no appreciable organomegaly Ext: no gross muscle atrophy, no edema, no contractures Neuro: CN II-XI grossly intact, no focal neuro deficits Psych: Alert, oriented, appropriate affect
[2020-08-23 11:16] LABS: HCT 44.8 % (34.0-46.0); HGB 15.9 gm/dL (11.4-16.0); MCH 34.5 pg (25.0-35.0); MCHC 35.5 g/dL (31.0-37.0); MCV 97.1 fL (80.0-100.0); Mean Platelet Volume 8.1; Platelet Count 187 k/uL (150-450); RBC 4.61 m/uL (3.80-5.40); RDW 14.2 % (11.5-15.5); WBC 9.1 k/uL (3.8-10.6)
[2020-08-23 11:35] LABS: C Reactive Protein 36.6 mg/L (<10.0); Potassium 4.1 mmol/L (3.5-5.1); Uric Acid 13.6 mg/dL (3.7-7.4)
--- NOTE | 2020-08-23 14:27 | P.PN ---
Subjective Progress Note Date: 08/23/20 Principal diagnosis: Acute CoVID 19 pneumonia, COPD exacerbation, CHF exacerbation This 65-year-old white female patient was a poor historian, and most of the history was obtained from patient's chart, from the nursing staff, who resides in a detention and has a chronic developmental delay, hypertension, hypothyroidism, hyperlipidemia, schizoaffective disorder, history of MRSA infection in the wound and current every day smoker. She was brought into the emergency department on 08/13/2020 per EMS for evaluation of increased lethargy, fatigue, and developing shortness of breath earlier, she was found to be hypoxic with a pulse ox in the high 80s and lower 90s, and multiple people at the detention facility or testing positive for COVID 19. Onset of symptoms 's not clear as the patient not able to provide any information. There are no reports of fever chills, no sweats, no nausea vomiting or diarrhea. She has been afebrile while she was in the hospital, her pulse ox was only 88% on 6 L, and FiO2 was subsequently increased to 15 L and currently patient is on BiPAP with pressures of 12/6 and FiO2 of 100%, or gas was obtained showing pO2 of 68, pCO2 55, pH is 7.25. Patient is positive for COVID 19. Has not significantly elevated d-dimer at 8.99, LDH was 761, and CRP is 8.8, negative Protuss tone and at 0.09, her proBNP was significantly elevated at 21,000 with elevated troponins. Chest x- ray shows new multifocal mid to lower lung acute opacities. Patient was started on Decadron in the emergency department, vitamins, she was given a dose of IV Lasix, and was given breathing treatments. We were asked to see the patient in consultation for what appears to be a combination of cough COVID 19 related pneumonitis acute exacerbation of CHF with diastolic dysfunction, echocardiogram showed EF between 55 and 60%, moderate enlargement of the right ventricle, mild MR, mild TR, PA systolic was less than 35 mmHg. At the time of our evaluation she is very obtunded, blood gas was ordered pO2 of 68, pCO2 of 55, pH of 7.25, and her BiPAP settings were adjusted increase the IPAP to 14, and FiO2 was dropped down to 60%. Repeat blood gas in 2 hours is pending. The patient is seen today 08/15/2020 and follow-up on the selective care unit. She is currently resting in bed. She did utilize BiPAP throughout the evening, 14/6 and 55% FiO2. She did desaturate to 66% O2 saturation on room air. Currently on 10 L high flow nasal cannula and maintaining O2 saturations in the 90s. Chest x-ray continues to show basilar opacities slightly worse than the l eft lung and some improvement in the right lung base. Blood culture revealing no growth to date. INR 8.43. LDH 845. C-reactive protein less than 5. Arterial blood gases last evening on 60% FiO2 revealed a PaO2 of 88, pCO2 57, pH 7.27. She is continued on Decadron, Lovenox, vitamin supplements. Remains on IV diuretics. Progress note dated 08/17/2020. Currently, as is a 65-year-old female who was admitted back on August 13, the diagnosis of COVID 19 pneumonia. The patient is currently on nasal O2 at 7 L, high flow, and yesterday, she was on 8 L nasal cannula high flow. In addition, the patient has a history of diastolic CHF, possible non-ST segment elevation myocardial infarction, hypertension, hyperlipidemia, hypothyroidism, developmental delay, history of MRSA infection, possible underlying COPD and current every day tobacco use. The patient's last d-dimer was 8.43 on August 15, and the most recent blood gas was on August 14. The patient also had troponins that were mildly elevated at 0.118 and 0.103 on the and 14 of August. More recently, the patient's not had any additional blood work. In addition, there is no recent chest x-ray. Progress note dated 08/18/2020. This is a 65-year-old female was admitted back on August 13, with a diagnosis of COVID 19 pneumonia. Currently, she is on 11 L high flow nasal O2. Actually, her oxygen requirements have increased over the last 24 hours. She does have a history of diastolic CHF, possible non-ST segment elevation myocardial infarction, essential hypertension, hyperlipidemia, hypothyroidism, developmental delay, history of MRSA infection, and possible underlying COPD, secondary to current every day tobacco use. Labs today include a sodium of 131, potassium 3.7, chlorides 90, CO2 29, anion gap 12, BUN 81, and creatinine 2.10. Clinically, the patient is doing about the same, even though her oxygen requirements have increased. There is no conversational dyspnea, or use of accessory muscles. The patient is seen today 08/19/2020 in follow-up on the selective care unit. She is currently sitting up in a chair at the bedside. Awake and alert. She's been quite noncompliant with wearing her oxygen and taking her medications. She is to be on 15 L high flow nasal cannula. Chest x-ray reveals worsening bilateral patchy infiltrates compatible with CoVID pneumonia. She remains on dexamethasone, Lovenox, vitamin supplements. Refusing breathing treatments. The patient is seen today 08/20/2020 in follow-up on the selective care unit. She is currently sitting up in a chair at the bedside. She is awake and alert. A sitter is at the bedside. She is now wearing her oxygen. She has taken some oral medications for the nursing staff. Continue O2 saturations in the low 90s on 12 L high flow nasal cannula. White count 7.1. Hemoglobin 17.2. Platelet count 123. Sodium 134. Potassium 3.1. Creatinine 1.55. BUN 106. She remains on Lovenox, Decadron, vitamin supplements. Received additional Lasix 40 mg IVP 1 today. The patient is seen today 08/21/2020 in follow-up on the selective care unit. She is currently sitting up in a chair at the bedside. Awake and alert in no acute distress. A sitter is at the bedside. The patient is a bit more cooperative today. She took her morning medications. She is keeping her oxygen on. It remains at 12 L high flow to maintain O2 saturations at 88%. Lungs sounds with continued scattered rhonchi bilaterally. White count 7.9. Hemoglobin 15.5. Lymphocytes 0.3. Sodium 1:30. Potassium 3.6. Creatinine 1.35. BUN 98. Remains on Lovenox, IV Solu-Medrol, vitamin supplements. The patient is seen today 08/22/2020 in follow-up on the selective care unit. She is currently resting quite comfortably in bed. Awake and alert in no acute distress. Still requiring 15 L high flow nasal cannula to maintain O2 saturation the high 80s low 90s. She's afebrile. D-dimer 7.23. Sodium 129. Potassium 3.9. Creatinine 1.24. BUN 87. LDH 1170. C-reactive protein 58.8. She is continued on IV Solu-Medrol, Lovenox, vitamin supplements. The patient is seen today 08/23/2020 in follow-up on the selective care unit. She is currently resting comfortably in bed. Awake and alert in no acute distress. She is feeling more cooperative this morning. She is still requiring 15 L high flow nasal cannula to maintain O2 saturations 88-94%. Most recent chest x-ray shows worsening left lower lobe infiltrate. Diffuse bilateral lung infiltrates. White count 9.1. Hemoglobin 15.9. Sodium 133. Potassium 4.1. Creatinine 1.37. LDH 1037. C-reactive protein 36.6. Continued on IV Solu- Medrol, Lovenox, vitamin supplements. Objective - Vital Signs Vital signs: Vital Signs Temp 97.6 F 08/23/20 11:54 Pulse 70 08/23/20 11:54 Resp 20 08/23/20 13:07 BP 133/72 08/23/20 11:54 Pulse Ox 95 08/23/20 13:07 Intake & Output 08/22/20 08/23/20 08/23/20 18:59 06:59 18:59 Intake Total 1920 Output Total 1200 Balance 1920 -1200 Weight 70.5 kg Intake: Oral 1920 Output: Urine 1200 Other: Voiding Method Bedside Commode Bedside Commode Toilet Incontinent Incontinent Incontinent # Voids 2 1 # Bowel Movements 1 - Exam GENERAL EXAM: Awake, alert, 65-year-old female patient, on 15 L high flow nasal cannula, comfortable in no apparent distress. HEAD: Normocephalic/atraumatic. EYES: Normal reaction of pupils, equal size. Conjunctiva pink, sclera white. NOSE: Clear with pink turbinates. THROAT: No erythema or exudates. NECK: No masses, no JVD, no thyroid enlargement, no adenopathy. CHEST: No chest wall deformity. Symmetrical expansion. LUNGS: Equal air entry with scattered rhonchi, crackles in the bilateral posterior bases CVS: Regular rate and rhythm, normal S1 and S2, no gallops, no murmurs, no rubs ABDOMEN: Soft, nontender. No hepatosplenomegaly, normal bowel sounds, no guarding or rigidity. EXTREMITIES: No clubbing, no edema, no cyanosis, 2+ pulses and upper and lower extremities. MUSCULOSKELETAL: Muscle strength and tone normal. SPINE: No scoliosis or deformity SKIN: No rashes CENTRAL NERVOUS SYSTEM: Obtunded No focal deficits, tone is normal in all 4 extremities. - Labs CBC & Chem 7: 08/23/20 10:56 08/23/20 10:56 Labs: Abnormal Lab Results - Last 24 Hours (Table) 08/22/20 08/23/20 Range/Units 17:12 10:56 Sodium 131 L 133 L (137-145) mmol/L Chloride 90 L 92 L (98-107) mmol/L Carbon Dioxide 32 H 33 H (22-30) mmol/L BUN 89 H 86 H (7-17) mg/dL Creatinine 1.38 H 1.37 H (0.52-1.04) mg/dL Glucose 218 H 170 H (74-99) mg/dL Osmolality 305 H (280-301) mosm/kg Uric Acid 13.6 H (3.7-7.4) mg/dL Lactate Dehydrogenase 1037 H (313-618) U/L C-Reactive Protein 36.6 H (<10.0) mg/L Assessment and Plan Assessment: 1 Acute hypoxic and hypercapnic respiratory failure related to acute exacerbation of COPD, acute COVID 19 pneumonia, and acute exacerbation of diastolic CHF. Patient is a poor historian, onset of symptoms is unknown 2 Acute renal failure. Current creatinine 1.37 3 Hypertension 4 Hyperlipidemia 5 Hypothyroidism 6 History of developmental delay 7 Resident of a detention, with multiple residents positive for COVID 19 8 History of MRSA infection 9 Suspect underlying COPD 10 Current every day smoker Plan: The patient was seen and evaluated by Dr. Lay Titrate the FiO2 as tolerated Alternating with BiPAP Continue the current treatment plan Increase activity as tolerated We will continue to follow I, the cosigning physician, performed a history & physical examination of the patient. Lungs sounds with few scattered rhonchi, crackles in the bilateral posterior bases. Maintaining good O2 saturations in the 90s on 15 L high flow nasal cannula. I discussed the assessment and plan of care with my nurse practi layne, Imelda Raya. I attest to the above note as dictated by her.
[2020-08-23] MEDS: OLANZapine 10 MG TAB PO SCH (20:32)
[2020-08-23] MEDS: METOPROLOL SUCCINATE (ER) 50 MG TAB.ER.24H PO SCH (20:32)
[2020-08-23] MEDS: amLODIPine 10 MG TAB PO SCH (20:32)
[2020-08-24] MEDS: ACETAMINOPHEN TAB 500 MG TAB PO PRN (01:10)
[2020-08-24] MEDS: methylPREDNISolone SOD SUCCI 125 MG/2 ML VIAL IV SCH ×4 (05:59→23:27)
[2020-08-24] MEDS: PANTOPRAZOLE 40 MG TABLET PO SCH (05:59)
[2020-08-24] MEDS: LEVOTHYROXINE 100 MCG TAB PO SCH (05:59)
[2020-08-24] MEDS: ALBUTEROL HFA INHALER INHALATION SCH ×4 (08:39→20:19)
[2020-08-24] MEDS: ENOXAPARIN 40 MG/0.4 ML SYRINGE SQ SCH ×2 (09:10→20:59)
[2020-08-24] MEDS: CHOLECALCIFEROL 25 MCG (1000 IU) TABLET PO SCH (09:11)
[2020-08-24] MEDS: ASPIRIN 81 MG PO SCH (09:11)
[2020-08-24] MEDS: ASCORBIC ACID 500 MG TAB PO SCH (09:11)
[2020-08-24] MEDS: ZINC SULFATE 220 MG CAP PO SCH (09:11)
[2020-08-24] MEDS: fluPHENAZine DECANOATE 25 MG/ML 5ML MDV IM SCH (09:12)
--- NOTE | 2020-08-24 10:23 | P.PN ---
<Adan Snyder - Last Filed: 08/24/20 10:09> Subjective Progress Note Date: 08/24/20 Principal diagnosis: Acute Covid 19 virus infection with pneumonitis and ARDS resulting in COPD exacerbation and acute respiratory failure with hypoxia Hospital course: Patient is a 65-year-old female with a past medical history of COPD not home oxygen dependent, hypertension, hypothyroidism, CKD stage III, schizophrenia, and nicotine abuse. Patient resides in an extended care facility and presented to the hospital on 08/13/20 with a chief complaint of increasing shortness of breath and was reportedly found by EMS to have oxygen saturation in the 80s on room air and was placed on nonrebreather mask. Upon arrival to our facility patient was found to be in acute respiratory distress with hypoxia with SpO2 66% on room air requiring oxygen supplementation with thigh-high flow nasal cannula and admission under our services accompanied by pulmonology and cardiology consultations for continued close medical management. Covid 19 PCR was positive. EKG was completed showing normal sinus rhythm at 74 bpm with no noted T-wave or ST abnormalities showing no signs of acute ischemia. Chest x-ray was completed revealing new multifocal mid to lower lung acute opacities. Echocardiogram completed revealing a normal ejection fraction of 55-60%. Patient has been placed on Decadron with today being day 10 of steroids, MDIs as needed for shortness of breath and/or wheezing, pink, vitamin C, and vitamin D3. Patient has not been cooperative or compliant with care throughout hospital stay and intermittently continues to remove oxygen, refuse medications and lab draws and has been found to be hypoxic with SpO2 dropping as low as down into the 70s. Currently patient remains on 15 L high flow nasal cannula with SpO2 of 88-91%. Repeat chest x-ray completed 08/22/20 revealed worsening left lower lobe infiltrate with diffuse bilateral lung infiltrates. Sitter remains at bedside for patient's safety. Physical exam: 08/24/20 Patient was seen and fully evaluated at the bedside this morning. She was resting in bed and was awoken via tactile stimuli, appeared more sleepy this morning than she has on previous days. At time of assessment she was wearing her oxygen (15 L high flow) with SpO2 of 90% at that time. Vital signs reviewed and otherwise remained stable. Morning labs reviewed with LDH increasing to 1395. D-dimer decreasing to 5.73 and CRP slightly decreasing to 34.0 Patient awoke in the tactile stimuli, was minimally interactive throughout examination. Patient appeared very sleepy. Patient did not eat breakfast this morning, but has been drinking fluids. She continues to deny having any headache, lightheadedness, dizziness, chest pain or shortness of breath at this time. General: non toxic, no distress, appears at stated age Derm: warm, dry Head: atraumatic, normocephalic, symmetric Eyes: no lid lag, anicteric sclera Mouth: no lip lesion, mucus membranes dry Cardiovascular: S1S2 reg, no murmur, gallop or rub . Positive posterior tibial pulses bilaterally, no edema. Lungs: Respirations even, regular, and unlabored on 15 L high flow nasal cannula with SpO2 89%. No accessory muscle use. Upon auscultation of lungs, bilateral diffuse coarse rhonchi remains. Abdominal: Soft, nontender to palpation, no guarding, no appreciable organomegaly. Ext: No gross muscle atrophy, no edema, and no contractures. Neuro: Moving all extremities independently without any noted weakness. Psych: Patient is alert but withdrawn. Patient minimally interactive throughout examination. When speaking, speech is clear. Assessment and Plan of Care: Acute Covid 19 virus infection with pneumonitis and ARDS resulting in COPD exa cerbation and acute respiratory failure with hypoxia -Inflammatory markers: CRP slightly decreasing to 34.0 and D-dimer decreasing to 5.73. LDH increasing to 1395 this morning. -Repeat chest x-ray completed 08/22/20 revealed worsening left lower lobe infiltrate with diffuse bilateral lung infiltrates. -Continue oxygenation. Patient currently remains on 15 L high flow nasal with SpO2 of 90%. -Pulmonology following, appreciate further recommendations. -Covid 19 PCR was positive on 08/13/20. -Continue Decadron, day 10 of steroids -Continue zinc, vitamin C, and vitamin D3. -MDIs as needed for shortness of breath and/or wheezing. Acute kidney injury on chronic kidney disease stage III, improving -BUN 86, creatinine 1.37, and GFR 41 -Continue to hold Lasix and lisinopril. -Continue close monitoring with repeat a.m. labs. Hyponatremia, improving -Sodium 133 -Hyponatremia is chronic in nature and likely secondary to SSRI medication fluvoxamine. -Continue to monitor with repeat a.m. labs Schizophrenia with Developmental Delay -Continue home medication regimen with Zyprexa, Fluphenazine, and Fluvoxamine. -Psychiatry following, recommending inpatient psychiatric hospitalization once medically stable for discharge. -Patient does not have the capacity to leave AMA and per documentation in chart, pt is court ordered to take her psychiatry medications. -Continued encouragement for patient to participate in plan of care. Chronic Diastolic congestive heart failure -Lasix discontinued secondary to DEE -Echocardiogram completed revealing a normal ejection fraction of 55-60%. -Cardiology following, appreciate further recommendations. Hypertension -Monitor vital signs and Continue daily medication regimen. Hypothyroidism -Continue daily medication management with levothyroxine 150 mg each morning. -TSH 2.220 Nicotine dependence -Continue education and encouragement on the importance of smoking cessation and risks of continued use up to and including . Polycythemia, resolved Hypokalemia, resolved CODE STATUS: Full code DVT prophylaxis: Lovenox Discussed with: Patient and RN Anticipated discharge date: Clinical course to determine Anticipated discharge place: Inpatient psychiatric mental health facility vs back to [facility] A total of 45 minutes was spent on the care of this complex patient more than 50% of the time was spent in counseling and care coordination. Objective - Vital Signs Vital signs: Vital Signs Temp 98.9 F 08/24/20 09:38 Pulse 84 08/24/20 09:38 Resp 18 08/24/20 09:38 BP 169/73 08/24/20 09:38 Pulse Ox 90 L 08/24/20 09:38 Intake & Output 08/23/20 08/24/20 08/24/20 18:59 06:59 18:59 Intake Total 2640 960 Output Total 600 Balance 2640 360 Weight 73 kg Intake: Oral 2640 960 Output: Urine 600 Other: Voiding Method Toilet Toilet Toilet Incontinent Incontinent Incontinent # Voids 3 2 # Bowel Movements 1 - Labs CBC & Chem 7: 08/23/20 10:56 08/23/20 10:56 Labs: Abnormal Lab Results - Last 24 Hours (Table) 08/23/20 08/24/20 08/24/20 Range/Units 10:56 07:01 07:01 D-Dimer 5.73 H (<0.60) mg/L FEU Sodium 133 L (137-145) mmol/L Chloride 92 L (98-107) mmol/L Carbon Dioxide 33 H (22-30) mmol/L BUN 86 H (7-17) mg/dL Creatinine 1.37 H (0.52-1.04) mg/dL Glucose 170 H (74-99) mg/dL Uric Acid 13.6 H (3.7-7.4) mg/dL Lactate Dehydrogenase 1037 H 1395 H (313-618) U/L C-Reactive Protein 36.6 H 34.0 H (<10.0) mg/L <Sherita Garibay - Last Filed: 08/24/20 19:54> Objective - Vital Signs Vital signs: Vital Signs Temp 98.3 F 08/24/20 17:26 Pulse 83 08/24/20 17:26 Resp 18 08/24/20 17:26 BP 146/67 08/24/20 14:00 Pulse Ox 88 L 08/24/20 17:26 Intake & Output 08/24/20 08/24/20 08/25/20 06:59 18:59 06:59 Intake Total 960 Output Total 600 Balance 360 Weight 73 kg 73 kg Intake: Oral 960 Output: Urine 600 Other: Voiding Method Toilet Toilet Incontinent Incontinent # Voids 2 # Bowel Movements 1 - Labs CBC & Chem 7: 08/23/20 10:56 08/24/20 07:03 Labs: Abnormal Lab Results - Last 24 Hours (Table) 08/24/20 08/24/20 08/24/20 Range/Units 07:01 07:01 07:03 D-Dimer 5.73 H (<0.60) mg/L FEU Sodium 128 L (137-145) mmol/L Chloride 92 L (98-107) mmol/L BUN 76 H (7-17) mg/dL Creatinine 1.23 H (0.52-1.04) mg/dL Glucose 224 H (74-99) mg/dL Lactate Dehydrogenase 1395 H (313-618) U/L C-Reactive Protein 34.0 H (<10.0) mg/L Assessment and Plan Assessment: Patient seen and examined independently. Patient was also seen by Adan Snyder NP and case was discussed. I am in agreement with subjective, physical exam, assessment and plan as written above and amended below. sleeping and difficult to arouse. Asking me to leave her alone. General: non toxic, no distress, appears at stated age Derm: warm, dry Head: atraumatic, normocephalic, symmetric Eyes: EOMI, no lid lag, anicteric sclera Mouth: no lip lesion, mucus membranes moist Cardiovascular: S1S2 reg, no murmur, positive posterior tibial pulse bilateral, Lungs: Lung expansion equal bilaterally, no sensory muscle use Psych: Lethargic, awakens to sternal rub, easily angered Lethargy noted -Patient has been consistently taking her psychiatric medications -Suspect it may be secondary to medication use -We will decrease nighttime Zyprexa. DEE resolved
[2020-08-24 10:40] LABS: Calcium 8.8 mg/dL (8.4-10.2)
[2020-08-24 10:46] LABS: Magnesium 1.8 mg/dL (1.6-2.3); Potassium 4.3 mmol/L (3.5-5.1)
--- NOTE | 2020-08-24 11:01 | P.PN ---
Subjective Progress Note Date: 08/24/20 Acute CoVID 19 pneumonia, COPD exacerbation, CHF exacerbation This 65-year-old white female patient was a poor historian, and most of the history was obtained from patient's chart, from the nursing staff, who resides in a correction and has a chronic developmental delay, hypertension, hypothyroidism, hyperlipidemia, schizoaffective disorder, history of MRSA infection in the wound and current every day smoker. She was brought into the emergency department on 08/13/2020 per EMS for evaluation of increased lethargy, fatigue, and developing shortness of breath earlier, she was found to be hypoxic with a pulse ox in the high 80s and lower 90s, and multiple people at the correction facility or testing positive for COVID 19. Onset of symptoms 's not clear as the patient not able to provide any information. There are no reports of fever chills, no sweats, no nausea vomiting or diarrhea. She has been afebrile while she was in the hospital, her pulse ox was only 88% on 6 L, and FiO2 was subsequently increased to 15 L and currently patient is on BiPAP with pressures of 12/6 and FiO2 of 100%, or gas was obtained showing pO2 of 68, pCO2 55, pH is 7.25. Patient is positive for COVID 19. Has not significantly elevated d-dimer at 8.99, LDH was 761, and CRP is 8.8, negative Protuss tone and at 0.09, her proBNP was significantly elevated at 21,000 with elevated troponins. Chest x- ray shows new multifocal mid to lower lung acute opacities. Patient was started on Decadron in the emergency department, vitamins, she was given a dose of IV Lasix, and was given breathing treatments. We were asked to see the patient in consultation for what appears to be a combination of cough COVID 19 related pneumonitis acute exacerbation of CHF with diastolic dysfunction, echocardiogram showed EF between 55 and 60%, moderate enlargement of the right ventricle, mild MR, mild TR, PA systolic was less than 35 mmHg. At the time of our evaluation she is very obtunded, blood gas was ordered pO2 of 68, pCO2 of 55, pH of 7.25, and her BiPAP settings were adjusted increase the IPAP to 14, and FiO2 was dr opped down to 60%. Repeat blood gas in 2 hours is pending. The patient is seen today 08/15/2020 and follow-up on the selective care unit. She is currently resting in bed. She did utilize BiPAP throughout the evening, 14/6 and 55% FiO2. She did desaturate to 66% O2 saturation on room air. Curre ntly on 10 L high flow nasal cannula and maintaining O2 saturations in the 90s. Chest x-ray continues to show basilar opacities slightly worse than the left lung and some improvement in the right lung base. Blood culture revealing no growth to date. INR 8.43. LDH 845. C-reactive protein less than 5. Arterial blood gases last evening on 60% FiO2 revealed a PaO2 of 88, pCO2 57, pH 7.27. She is continued on Decadron, Lovenox, vitamin supplements. Remains on IV diuretics. Progress note dated 08/17/2020. Currently, as is a 65-year-old female who was admitted back on August 13, the diagnosis of COVID 19 pneumonia. The patient is currently on nasal O2 at 7 L, high flow, and yesterday, she was on 8 L nasal cannula high flow. In addition, the patient has a history of diastolic CHF, possible non-ST segment elevation myocardial infarction, hypertension, hyperlipidemia, hypothyroidism, de velopmental delay, history of MRSA infection, possible underlying COPD and current every day tobacco use. The patient's last d-dimer was 8.43 on August 15, and the most recent blood gas was on August 14. The patient also had troponins that were mildly elevated at 0.118 and 0.103 on the and 14 of August. More recently, the patient's not had any additional blood work. In addition, there is no recent chest x-ray. Progress note dated 08/18/2020. This is a 65-year-old female was admitted back on August 13, with a diagnosis of COVID 19 pneumonia. Currently, she is on 11 L high flow nasal O2. Actually, her oxygen requirements have increased over the last 24 hours. She does have a history of diastolic CHF, possible non-ST segment elevation myocardial infarction, essential hypertension, hyperlipidemia, hypothyroidism, developmental delay, history of MRSA infection, and possible underlying COPD, secondary to current every day tobacco use. Labs today include a sodium of 131, potassium 3.7, chlorides 90, CO2 29, anion gap 12, BUN 81, and creatinine 2.10. Clinically, the patient is doing about the same, even though her oxygen requirements have increased. There is no conversational dyspnea, or use of accessory muscles. The patient is seen today 08/19/2020 in follow-up on the selective care unit. She is currently sitting up in a chair at the bedside. Awake and alert. She's been quite noncompliant with wearing her oxygen and taking her medications. She is to be on 15 L high flow nasal cannula. Chest x-ray reveals worsening bilateral patchy infiltrates compatible with CoVID pneumonia. She remains on dexamethasone, Lovenox, vitamin supplements. Refusing breathing treatments. The patient is seen today 08/20/2020 in follow-up on the selective care unit. She is currently sitting up in a chair at the bedside. She is awake and alert. A sitter is at the bedside. She is now wearing her oxygen. She has taken some oral medications for the nursing staff. Continue O2 saturations in the low 90s on 12 L high flow nasal cannula. White count 7.1. Hemoglobin 17.2. Platelet count 123. Sodium 134. Potassium 3.1. Creatinine 1.55. BUN 106. She remains on Lovenox, Decadron, vitamin supplements. Received additional Lasix 40 mg IVP 1 today. The patient is seen today 08/21/2020 in follow-up on the selective care unit. She is currently sitting up in a chair at the bedside. Awake and alert in no acute distress. A sitter is at the bedside. The patient is a bit more cooperative today. She took her morning medications. She is keeping her oxygen on. It remains at 12 L high flow to maintain O2 saturations at 88%. Lungs sounds with continued scattered rhonchi bilaterally. White count 7.9. Hemoglobin 15.5. Lymphocytes 0.3. Sodium 1:30. Potassium 3.6. Creatinine 1.35. BUN 98. Remains on Lovenox, IV Solu-Medrol, vitamin supplements. The patient is seen today 08/22/2020 in follow-up on the selective care unit. She is currently resting quite comfortably in bed. Awake and alert in no acute distress. Still requiring 15 L high flow nasal cannula to maintain O2 saturation the high 80s low 90s. She's afebrile. D-dimer 7.23. Sodium 129. P otassium 3.9. Creatinine 1.24. BUN 87. LDH 1170. C-reactive protein 58.8. She is continued on IV Solu-Medrol, Lovenox, vitamin supplements. The patient is seen today 08/23/2020 in follow-up on the selective care unit. She is currently resting comfortably in bed. Awake and alert in no acute d istress. She is feeling more cooperative this morning. She is still requiring 15 L high flow nasal cannula to maintain O2 saturations 88-94%. Most recent chest x-ray shows worsening left lower lobe infiltrate. Diffuse bilateral lung infiltrates. White count 9.1. Hemoglobin 15.9. Sodium 133. Potassium 4.1. Creatinine 1.37. LDH 1037. C-reactive protein 36.6. Continued on IV Solu- Medrol, Lovenox, vitamin supplements. 08/24/2020 the patient is being seen in follow-up. The patient is being treated for acute hypoxic and hypercapnic respiratory failure related to COPD exacerbation. The patient also had an acute Covid 19 related pneumonia and acute exacerbation of diastolic heart failure. The patient is quite debilitated. The patient has also developed an acute kidney injury in the creatinine was around 1.37 from yesterday. The patient resides in a correction. Multiple other residents are also affected with the same virus. Other comorbidities include hypertension, hyperlipidemia, hypothyroidism. For now, the patient is on high flow oxygen at 15 L per minute nasal cannula. The chest x-ray showing left lower lobe pulmonary infiltrate from 08/22/2020 and diffuse bilateral lung infiltrates compatible with the bilateral pneumonia. The patient also is on a IV Solu-Medrol, vitamin supplements and Lovenox. Lovenox is being administered at a dose of 40 mg subcutaneously every 12 hours. The patient is on IV Solu Medrol high-dose 60 mg every 6 hours. The patient is lethargic. She is not doing a whole lot that she is laying down in bed at 15 L of oxygen by nasal cannula. She did not utilize her BiPAP overnight. LDH is 1395 and CRP is at 34 and the creatinine is at 1.23. Objective - Vital Signs Vital signs: Vital Signs Temp 98.9 F 08/24/20 09:38 Pulse 84 08/24/20 09:38 Resp 18 08/24/20 09:38 BP 169/73 08/24/20 09:38 Pulse Ox 90 L 08/24/20 09:38 Intake & Output 08/23/20 08/24/20 08/24/20 18:59 06:59 18:59 Intake Total 2640 960 Output Total 600 Balance 2640 360 Weight 73 kg Intake: Oral 2640 960 Output: Urine 600 Other: Voiding Method Toilet Toilet Toilet Incontinent Incontinent Incontinent # Voids 3 2 # Bowel Movements 1 - Exam GENERAL EXAM: Awake, alert, 65-year-old female patient, on 15 L high flow nasal cannula, comfortable in no apparent distress. HEAD: Normocephalic/atraumatic. EYES: Normal reaction of pupils, equal size. Conjunctiva pink, sclera white. NOSE: Clear with pink turbinates. THROAT: No erythema or exudates. NECK: No masses, no JVD, no thyroid enlargement, no adenopathy. CHEST: No chest wall deformity. Symmetrical expansion. LUNGS: Equal air entry with scattered rhonchi, crackles in the bilateral posterior bases CVS: Regular rate and rhythm, normal S1 and S2, no gallops, no murmurs, no rubs ABDOMEN: Soft, nontender. No hepatosplenomegaly, normal bowel sounds, no guarding or rigidity. EXTREMITIES: No clubbing, no edema, no cyanosis, 2+ pulses and upper and lower extremities. MUSCULOSKELETAL: Muscle strength and tone normal. SPINE: No scoliosis or deformity SKIN: No rashes CENTRAL NERVOUS SYSTEM: Obtunded No focal deficits, tone is normal in all 4 extremities. - Labs CBC & Chem 7: 08/23/20 10:56 08/24/20 07:03 Labs: Abnormal Lab Results - Last 24 Hours (Table) 08/23/20 08/24/20 08/24/20 Range/Units 10:56 07:01 07:01 D-Dimer 5.73 H (<0.60) mg/L FEU Sodium 133 L (137-145) mmol/L Chloride 92 L (98-107) mmol/L Carbon Dioxide 33 H (22-30) mmol/L BUN 86 H (7-17) mg/dL Creatinine 1.37 H (0.52-1.04) mg/dL Glucose 170 H (74-99) mg/dL Uric Acid 13.6 H (3.7-7.4) mg/dL Lactate Dehydrogenase 1037 H 1395 H (313-618) U/L C-Reactive Protein 36.6 H 34.0 H (<10.0) mg/L 08/24/20 Range/Units 07:03 D-Dimer (<0.60) mg/L FEU Sodium 128 L (137-145) mmol/L Chloride 92 L (98-107) mmol/L Carbon Dioxide (22-30) mmol/L BUN 76 H (7-17) mg/dL Creatinine 1.23 H (0.52-1.04) mg/dL Glucose 224 H (74-99) mg/dL Uric Acid (3.7-7.4) mg/dL Lactate Dehydrogenase (313-618) U/L C-Reactive Protein (<10.0) mg/L Assessment and Plan Plan: 1 Acute hypoxic and hypercapnic respiratory failure related to acute exacerbation of COPD, acute COVID 19 pneumonia, and acute exacerbation of diastolic CHF. Patient is a poor historian, onset of symptoms is unknown. Meanwhile, the patient remains on high flow oxygen at 15 L per minute nasal cannula. The patient is on Decadron. The patient is also on Lovenox 40 mg subcu every 12 hours. Chest x-ray from 08/22/2020 showed diffuse breath and pulmonary infiltrates consistent with pneumonia. The inflammatory markers including LDH and CRP remains elevated and the levels are 1037 and 36 respectively from yesterday. D-dimer was elevated at around 7.2 from 08/22/2020 and the patient remains on Lovenox 40 mg twice a day. For now, the patient is on high flow oxygen and he is also using BiPAP on and off during the day alternating with a high flow. The patient is a correction resident. 2 Acute renal failure. Current creatinine 1.23 3 Hypertension 4 Hyperlipidemia 5 Hypothyroidism 6 History of developmental delay 7 Resident of a correction, with multiple residents positive for COVID 19 8 History of MRSA infection 9 Suspect underlying COPD 10 Current every day smoker Plan: Titrate the FiO2 as tolerated, currently on 15 L of oxygen by nasal cannula. Inflammatory markers remain elevated. The patient's is going to have another chest x-ray in a.m. She remains on Decadron. She is also on Lovenox. Alternating with BiPAP Continue the current treatment plan Increase activity as tolerated We will continue to follow
--- NOTE | 2020-08-24 12:36 | P.PN ---
Progress Note - Text Progress Note Date: 08/24/20 Interval History: Patient was seen resting in bed comfortably with a nasal canula in place. Prese nt in the room is her sitter. Patient is currently sleeping and arousable. She received her evening and morning medications without incident. She received her 50 mg IM of prolixin decanoate this morning. As per discussion with the patient's nurse and sitter, there has been no episodes of agitation. The patient will intermittently refuse care and typically be quiet when assessed. She will occasionally make psychotic and paranoid statements but this appears to be her baseline. She has been saturating with an SpO2 of 90-91%. There is also noted worsening of left lower lobe infilitrate with diffuse bilateral lung infiltrates as per repeat X-ray from 08/22/2020. The patient has been intermittently refusing care complicating and prolonging her hospital stay. She is court ordered for psychotropic medications. Mental Status Exam: General Appearance: Patient is currently resting comfortably in bed, with nasal cannula in place, appears her stated age, dressed in hospital gown, and slightly disheveled. Behavior: Psychomotor slowing is evident. Eye contact is poor. Speech: Patient is nonverbal at this time. Mood/Affect: Patient does not respond when assessing mood. Affect appears comfortable. Suicidality/Homicidality: Unable to assess. Perceptions: At baseline she endorses hallucinations. Though content/process: At baseline there is paranoia and other delusional thought content. Memory and concentration: Intact for the purposes of this session. Judgment and insight: Very poor at baseline. Assessment Schizophrenia Covid-19 pneumonia PLAN: -After review of her [facility] medication review from 07/03/2020, and discussion with Dr Hanson, her outpatient psychiatrist for the last 20 years, the patient is at her baseline when endorsing psychotic mild psychotic symptoms and intermittently refusing care. The goal of her psychiatric treatment at this time is to prevent noncompliance with treatment with prolixinc dec which she received today and to continue to encourage her adherence with her medical medications. -The patient currently DOES NOT meet criteria for inpatient psychiatric hospitalization. As patient is at baseline psychiatrically, there appears to be no therapeutic benefit from inpatient psychiatric hospitalization. Once medically stable, patient is to be discharged. -Patient DOES NOT have decision making capacity at this time and is unable to reason through and communicate/appreciate the risks, benefits and alternatives to treatment. -Delirium precautions recommended with patient including - avoiding use of narcotics and [employer] sedatives, limit anticholinergic medications when possible, frequent re-orientation, minimize use of restraints, open window shades during the day and close them at night -Would recommend the following medication changes/additions: Continue Zyprexa 20 mg at bedtime for schizophrenia. Continue Luvox 100 mg by mouth twice daily for depression/anxiety Continue Prolixin Decanoate 50 mg IM weekly for schizophrenia. Last dose administered this morning. -Patient is court ordered for her psychotropic medications. If the patient refuses Zyprexa orally at bedtime, she will be administered 10 mg IM of Zyprexa as needed. -Continue Zyprexa 5 mg IM twice a day when necessary for agitation. -EKG reviewed - QTc of 392ms - NSR -Cannot leave AMA at this time. Patient lacks capacity to engage in medical de cision making. -Will continue to follow along
[2020-08-24 14:00] VITALS: BMI 30.4
[2020-08-24] MEDS: amLODIPine 10 MG TAB PO SCH (21:00)
[2020-08-24] MEDS: OLANZapine 10 MG TAB PO SCH (21:00)
[2020-08-24] MEDS: METOPROLOL SUCCINATE (ER) 50 MG TAB.ER.24H PO SCH (21:09)
[2020-08-25] MEDS: PANTOPRAZOLE 40 MG TABLET PO SCH (06:28)
[2020-08-25] MEDS: LEVOTHYROXINE 100 MCG TAB PO SCH (06:28)
[2020-08-25] MEDS: methylPREDNISolone SOD SUCCI 125 MG/2 ML VIAL IV SCH (06:28)
[2020-08-25 07:21] LABS: Basophils % (A) 0 %; Eosinophils % (A) 0 %; HCT 45.8 % (34.0-46.0); HGB 15.3 gm/dL (11.4-16.0); Lymphocytes # (A) 0.1 k/uL (1.0-4.8); Lymphocytes % (A) 1 %; MCH 32.4 pg (25.0-35.0); MCHC 33.4 g/dL (31.0-37.0); Mean Platelet Volume 7.8; Monocytes # (A) 0.3 k/uL (0-1.0); Monocytes % (A) 2 %; Neutrophils # (A) 11.4 k/uL (1.3-7.7); Neutrophils % (A) 96 %; Platelet Count 229 k/uL (150-450); RBC 4.72 m/uL (3.80-5.40); RDW 14.7 % (11.5-15.5); WBC 11.9 k/uL (3.8-10.6)
[2020-08-25 07:52] LABS: Calcium 8.7 mg/dL (8.4-10.2); Magnesium 1.8 mg/dL (1.6-2.3); Potassium 4.2 mmol/L (3.5-5.1)
[2020-08-25] MEDS: ALBUTEROL HFA INHALER INHALATION SCH ×4 (08:37→19:39)
[2020-08-25] MEDS: ASCORBIC ACID 500 MG TAB PO SCH (08:40)
[2020-08-25] MEDS: CHOLECALCIFEROL 25 MCG (1000 IU) TABLET PO SCH (08:41)
[2020-08-25] MEDS: ENOXAPARIN 40 MG/0.4 ML SYRINGE SQ SCH ×2 (08:41→19:52)
[2020-08-25] MEDS: ZINC SULFATE 220 MG CAP PO SCH (08:41)
[2020-08-25] MEDS: ASPIRIN 81 MG PO SCH (08:41)
--- NOTE | 2020-08-25 09:39 | XR ---
EXAMINATION TYPE: XR chest 1V portable DATE OF EXAM: 08/25/2020 COMPARISON: Chest x-ray 08/22/2020 HISTORY: Shortness breath, Covid TECHNIQUE: Single frontal view of the chest is obtained. FINDINGS: Interstitium is increased, patchy airspace disease present bilaterally. Patient is rotated . Cardiac mediastinal silhouette not significantly changed. Aorta is dense. IMPRESSION: Correlate for pneumonia
--- NOTE | 2020-08-25 11:21 | P.PN ---
Subjective Progress Note Date: 08/25/20 Principal diagnosis: Acute Covid 19 virus infection with pneumonitis and ARDS resulting in COPD exacerbation and acute respiratory failure with hypoxia Hospital course: Patient is a 65-year-old female with a past medical history of COPD not home oxygen dependent, hypertension, hypothyroidism, CKD stage III, schizophrenia, and nicotine abuse. Patient resides in an extended care facility and presented to the hospital on 08/13/20 with a chief complaint of increasing shortness of breath and was reportedly found by EMS to have oxygen saturation in the 80s on room air and was placed on nonrebreather mask. Upon arrival to our facility patient was found to be in acute respiratory distress with hypoxia with SpO2 66% on room air requiring oxygen supplementation with thigh-high flow nasal cannula and admission under our services accompanied by pulmonology and cardiology consultations for continued close medical management. Covid 19 PCR was positive. EKG was completed showing normal sinus rhythm at 74 bpm with no noted T-wave or ST abnormalities showing no signs of acute ischemia. Chest x-ray was completed revealing new multifocal mid to lower lung acute opacities. Echocardiogram completed revealing a normal ejection fraction of 55-60%. Pt treated with steroids, MDIs as needed for shortness of breath and/or wheezing, [place], vitamin C, and vitamin D3. Patient has not been cooperative or compliant with care throughout hospital stay and intermittently continues to remove oxygen, refuse medications and lab draws and has been found to be hypoxic with SpO2 dropping as low as down into the 70s. Currently patient remains on 15 L high flow nasal cannula with SpO2 of 88-91%. Repeat chest x-ray completed 08/22/20 revealed worsening left lower lobe infiltrate with diffuse bilateral lung infiltrates. Sitter remains at bedside for patient's safety. Physical exam: 08/25/20 Patient was seen and fully evaluated at the bedside this morning. She was lying in bed awake and alert. Patient much more alert this morning after decreasing Zyprexa to 10 mg nightly from previous 20 mg. Sitter at bedside reports that patient even ate breakfast this morning which is something that she has not done in the past 2 days. Patient remains on 15 L high flow nasal cannula with SpO2 of 89% this morning. Vital signs reviewed and otherwise remained stable. She denies having shortness of breath. Repeat chest x-ray completed this morning revealing Interstitium is increased with patchy airspace disease present bilaterally. Sodium 128, possibly secondary to decreased oral intake over the previous 2 days. Patient started on gentle hydration with 0.9% normal saline at 50 mL's per hour and we will repeat sodium levels with a.m. labs. Pt has been cooperative with labs and medications today. She continues to deny having any headache, lightheadedness, dizziness, chest pain or shortness of breath. General: non toxic, no distress, appears at stated age Derm: warm, dry Head: atraumatic, normocephalic, symmetric Eyes: no lid lag, anicteric sclera. Mouth: no lip lesion, mucus membranes dry Cardiovascular: S1S2 reg, no murmur, gallop or rub . Positive posterior tibial pulses bilaterally, no edema. Lungs: Respirations even, regular, and unlabored on 15 L high flow nasal cannula with SpO2 89%. No accessory muscle use. Upon auscultation of lungs, bilateral diffuse coarse rhonchi remains. Abdominal: Soft, nontender to palpation, no guarding, no appreciable organomegaly. Ext: No gross muscle atrophy, no edema, and no contractures. Neuro: Moving all extremities independently without any noted weakness. Psych: Patient is alert but withdrawn. Patient minimally interactive throughout examination. When speaking, speech is clear. Assessment and Plan of Care: Acute Covid 19 virus infection with pneumonitis and ARDS resulting in COPD exacerbation and acute respiratory failure with hypoxia -Inflammatory markers: CRP slightly decreasing to 34.0 and D-dimer decreasing to 5.73. LDH increasing to 1395. -Continue oxygenation. Patient currently remains on 15 L high flow nasal with SpO2 of 90%. -Pulmonology following, appreciate further recommendations. -Covid 19 PCR was positive on 08/13/20. -Patient received 5 days of Decadron followed by 5 days of IV Solu-Medrol and then transferred to oral steroids Prednisone 60 mg daily. Today is day 11 of steroids. -Continue zinc, vitamin C, and vitamin D3. -MDIs as needed for shortness of breath and/or wheezing. Acute kidney injury on chronic kidney disease stage III, improving -BUN 71, creatinine 1.18, and GFR 49 -Continue to hold Lasix and lisinopril. -Continue close monitoring with repeat a.m. labs. Hyponatremia -Sodium 128 -Hyponatremia is chronic in nature and likely secondary to SSRI medication fluvoxamine. -Hyponatremia slightly worsen this morning likely secondary to decreased oral intake over the past 48 hours. Pt placed on 0.9% NS at 50 mL/hour for 24 hours and we will repeat sodium levels with a.m labs. Continue to monitor with repeat a.m. labs. Schizophrenia with Developmental Delay -Continue home medication regimen with Zyprexa, Fluphenazine, and Fluvoxamine. (Home Zyprexa dose was reduced from 20 mg nightly down to 10 mg nightly). -Psychiatry following, recommending inpatient psychiatric hospitalization once medically stable for discharge. -Patient does not have the capacity to leave AMA and per documentation in chart, pt is court ordered to take her psychiatry medications. -Continued encouragement for patient to participate in plan of care. Chronic Diastolic congestive heart failure -Lasix discontinued secondary to DEE. -Echocardiogram completed revealing a normal ejection fraction of 55-60%. -Cardiology following, appreciate further recommendations. Hypertension -Monitor vital signs and Continue daily medication regimen. Hypothyroidism -Continue daily medication management with levothyroxine 150 mg each morning. -TSH 2.220 Nicotine dependence -Continue education and encouragement on the importance of smoking cessation and risks of continued use up to and including . Polycythemia, resolved Hypokalemia, resolved CODE STATUS: Full code DVT prophylaxis: Lovenox Discussed with: Patient and RN Anticipated discharge date: Clinical course to determine Anticipated discharge place: Inpatient psychiatric mental health facility vs back to custodial A total of 45 minutes was spent on the care of this complex patient more than 50% of the time was spent in counseling and care coordination. Objective - Vital Signs Vital signs: Vital Signs Temp 97.9 F 08/25/20 08:48 Pulse 82 08/25/20 08:48 Resp 20 08/25/20 08:48 BP 127/62 08/25/20 08:48 Pulse Ox 85 L 08/25/20 08:48 Intake & Output 08/24/20 08/25/20 08/25/20 18:59 06:59 18:59 Intake Total 240 Balance 240 Weight 73 kg 65 kg Intake: Oral 240 Other: Voiding Method Toilet Toilet Incontinent Incontinent # Voids 1 1 - Labs CBC & Chem 7: 08/25/20 07:05 08/25/20 07:05 Labs: Abnormal Lab Results - Last 24 Hours (Table) 08/25/20 08/25/20 Range/Units 07:05 07:05 WBC 11.9 H (3.8-10.6) k/uL Neutrophils # 11.4 H (1.3-7.7) k/uL Lymphocytes # 0.1 L (1.0-4.8) k/uL Sodium 128 L (137-145) mmol/L Chloride 90 L (98-107) mmol/L Carbon Dioxide 31 H (22-30) mmol/L BUN 71 H (7-17) mg/dL Creatinine 1.18 H (0.52-1.04) mg/dL Glucose 185 H (74-99) mg/dL
--- NOTE | 2020-08-25 11:24 | P.PN ---
Subjective Progress Note Date: 08/25/20 Acute CoVID 19 pneumonia, COPD exacerbation, CHF exacerbation This 65-year-old white female patient was a poor historian, and most of the history was obtained from patient's chart, from the nursing staff, who [facility] in a [facility] and has a chronic developmental delay, hypertension, hypothyroidism, hyperlipidemia, schizoaffective disorder, history of MRSA infection in the wound and current every day smoker. She was brought into the emergency department on 08/13/2020 per EMS for evaluation of increased lethargy, fatigue, and developing shortness of breath earlier, she was found to be hypoxic with a pulse ox in the high 80s and lower 90s, and multiple people at the [facility] facility or testing positive for COVID 19. Onset of symptoms 's not clear as the patient not able to provide any information. There are no reports of fever chills, no sweats, no nausea vomiting or diarrhea. She has been afebrile while she was in the hospital, her pulse ox was only 88% on 6 L, and FiO2 was subsequently increased to 15 L and currently patient is on BiPAP with pressures of 12/6 and FiO2 of 100%, or gas was obtained showing pO2 of 68, pCO2 55, pH is 7.25. Patient is positive for COVID 19. Has not significantly elevated d-dimer at 8.99, LDH was 761, and CRP is 8.8, negative Protuss tone and at 0.09, her proBNP was significantly elevated at 21,000 with elevated troponins. Chest x- ray shows new multifocal mid to lower lung acute opacities. Patient was started on Decadron in the emergency department, vitamins, she was given a dose of IV Lasix, and was given breathing treatments. We were asked to see the patient in consultation for what appears to be a combination of cough COVID 19 related pneumonitis acute exacerbation of CHF with diastolic dysfunction, echocardiogram showed EF between 55 and 60%, moderate enlargement of the right ventricle, mild MR, mild TR, PA systolic was less than 35 mmHg. At the time of our evaluation she is very obtunded, blood gas was ordered pO2 of 68, pCO2 of 55, pH of 7.25, and her BiPAP settings were adjusted increase the IPAP to 14, and FiO2 was d ropped down to 60%. Repeat blood gas in 2 hours is pending. The patient is seen today 08/15/2020 and follow-up on the selective care unit. She is currently resting in bed. She did utilize BiPAP throughout the evening, 14/6 and 55% FiO2. She did desaturate to 66% O2 saturation on room air. Curr ently on 10 L high flow nasal cannula and maintaining O2 saturations in the 90s. Chest x-ray continues to show basilar opacities slightly worse than the left lung and some improvement in the right lung base. Blood culture revealing no growth to date. INR 8.43. LDH 845. C-reactive protein less than 5. Arterial blood gases last evening on 60% FiO2 revealed a PaO2 of 88, pCO2 57, pH 7.27. She is continued on Decadron, Lovenox, vitamin supplements. Remains on IV diuretics. Progress note dated 08/17/2020. Currently, as is a 65-year-old female who was admitted back on August 13, the diagnosis of COVID 19 pneumonia. The patient is currently on nasal O2 at 7 L, high flow, and yesterday, she was on 8 L nasal cannula high flow. In addition, the patient has a history of diastolic CHF, possible non-ST segment elevation myocardial infarction, hypertension, hyperlipidemia, hypothyroidism, d evelopmental delay, history of MRSA infection, possible underlying COPD and current every day tobacco use. The patient's last d-dimer was 8.43 on August 15, and the most recent blood gas was on August 14. The patient also had troponins that were mildly elevated at 0.118 and 0.103 on the and 14 of August. More recently, the patient's not had any additional blood work. In addition, there is no recent chest x-ray. Progress note dated 08/18/2020. This is a 65-year-old female was admitted back on August 13, with a diagnosis of COVID 19 pneumonia. Currently, she is on 11 L high flow nasal O2. Actually, her oxygen requirements have increased over the last 24 hours. She does have a history of diastolic CHF, possible non-ST segment elevation myocardial infarction, essential hypertension, hyperlipidemia, hypothyroidism, developmental delay, history of MRSA infection, and possible underlying COPD, secondary to current every day tobacco use. Labs today include a sodium of 131, potassium 3.7, chlorides 90, CO2 29, anion gap 12, BUN 81, and creatinine 2.10. Clinically, the patient is doing about the same, even though her oxygen requirements have increased. There is no conversational dyspnea, or use of accessory muscles. The patient is seen today 08/19/2020 in follow-up on the selective care unit. She is currently sitting up in a chair at the bedside. Awake and alert. She's been quite noncompliant with wearing her oxygen and taking her medications. She is to be on 15 L high flow nasal cannula. Chest x-ray reveals worsening bilateral patchy infiltrates compatible with CoVID pneumonia. She remains on dexamethasone, Lovenox, vitamin supplements. Refusing breathing treatments. The patient is seen today 08/20/2020 in follow-up on the selective care unit. She is currently sitting up in a chair at the bedside. She is awake and alert. A sitter is at the bedside. She is now wearing her oxygen. She has taken some oral medications for the nursing staff. Continue O2 saturations in the low 90s on 12 L high flow nasal cannula. White count 7.1. Hemoglobin 17.2. Platelet count 123. Sodium 134. Potassium 3.1. Creatinine 1.55. BUN 106. She remains on Lovenox, Decadron, vitamin supplements. Received additional Lasix 40 mg IVP 1 today. The patient is seen today 08/21/2020 in follow-up on the selective care unit. She is currently sitting up in a chair at the bedside. Awake and alert in no acute distress. A sitter is at the bedside. The patient is a bit more cooperative today. She took her morning medications. She is keeping her oxygen on. It remains at 12 L high flow to maintain O2 saturations at 88%. Lungs sounds with continued scattered rhonchi bilaterally. White count 7.9. Hemoglobin 15.5. Lymphocytes 0.3. Sodium 1:30. Potassium 3.6. Creatinine 1.35. BUN 98. Remains on Lovenox, IV Solu-Medrol, vitamin supplements. The patient is seen today 08/22/2020 in follow-up on the selective care unit. She is currently resting quite comfortably in bed. Awake and alert in no acute distress. Still requiring 15 L high flow nasal cannula to maintain O2 saturation the high 80s low 90s. She's afebrile. D-dimer 7.23. Sodium 129. Potassium 3.9. Creatinine 1.24. BUN 87. LDH 1170. C-reactive protein 58.8. She is continued on IV Solu-Medrol, Lovenox, vitamin supplements. The patient is seen today 08/23/2020 in follow-up on the selective care unit. She is currently resting comfortably in bed. Awake and alert in no acute distress. She is feeling more cooperative this morning. She is still requiring 15 L high flow nasal cannula to maintain O2 saturations 88-94%. Most recent chest x-ray shows worsening left lower lobe infiltrate. Diffuse bilateral lung infiltrates. White count 9.1. Hemoglobin 15.9. Sodium 133. Potassium 4.1. Creatinine 1.37. LDH 1037. C-reactive protein 36.6. Continued on IV Solu-Medrol, Lovenox, vitamin supplements. 08/24/2020 the patient is being seen in follow-up. The patient is being treated for acute hypoxic and hypercapnic respiratory failure related to COPD exacerbation. The patient also had an acute Covid 19 related pneumonia and acute exacerbation of diastolic heart failure. The patient is quite debilitated. The patient has also developed an acute kidney injury in the creatinine was around 1.37 from yesterday. The patient resides in a penit[facility]iary. Multiple other residents are also affected with the same virus. Other comorbidities include hypertension, hyperlipidemia, hypothyroidism. For now, the patient is on high flow oxygen at 15 L per minute nasal cannula. The chest x-ray showing left lower lobe pulmonary infiltrate from 08/22/2020 and diffuse bilateral lung infiltrates compatible with the bilateral pneumonia. The patient also is on a IV Solu-Medrol, vitamin supplements and Lovenox. Lovenox is being administered at a dose of 40 mg subcutaneously every 12 hours. The patient is on IV Solu Medrol high-dose 60 mg every 6 hours. The patient is lethargic. She is not doing a whole lot that she is laying down in bed at 15 L of oxygen by nasal cannula. She did not utilize her BiPAP overnight. LDH is 1395 and CRP is at 34 and the creatinine is at 1.23. On today's evaluation of 08/25/2020, the patient is sitting up on a recliner. She is currently on oxygen which is running at 15 L by nasal cannula and her pulse ox is around 85-89%. Repeat chest x-ray was done today and this chest x- ray was compared to the earlier film that was done on 08/22/2020 and the findings are essentially stable. The patient continues to have diffuse bilateral pulmonary infiltrates which remain. The inflammatory markers as measured shows a d-dimer of 5.73 from yesterday and the markers from today are not present although the numbers from yesterday were showing an LDH level of 1395. Creatinine is at 1.1 which is slightly improved and the sodium level is at 128. The patient has history of psychiatric problems including depression. She has hypertension and hyperlipidemia and hypothyroidism. She is a poor historian and she is very hard to communicate with. She is quite debilitated. Does not seem to be in any significant respiratory distress pH is off the BiPAP for now. Objective - Vital Signs Vital signs: Vital Signs Temp 97.9 F 08/25/20 08:48 Pulse 82 08/25/20 08:48 Resp 20 08/25/20 08:48 BP 127/62 08/25/20 08:48 Pulse Ox 85 L 08/25/20 08:48 Intake & Output 08/24/20 08/25/20 08/25/20 18:59 06:59 18:59 Intake Total 240 Balance 240 Weight 73 kg 65 kg Intake: Oral 240 Other: Voiding Method Toilet Toilet Incontinent Incontinent # Voids 1 1 - Exam GENERAL EXAM: Awake, alert, 65-year-old female patient, on 15 L high flow nasal cannula, comfortable in no apparent distress. HEAD: Normocephalic/atraumatic. EYES: Normal reaction of pupils, equal size. Conjunctiva pink, sclera white. NOSE: Clear with pink turbinates. THROAT: No erythema or exudates. NECK: No masses, no JVD, no thyroid enlargement, no adenopathy. CHEST: No chest wall deformity. Symmetrical expansion. LUNGS: Equal air entry with scattered rhonchi, crackles in the bilateral posterior bases CVS: Regular rate and rhythm, normal S1 and S2, no gallops, no murmurs, no rubs ABDOMEN: Soft, nontender. No hepatosplenomegaly, normal bowel sounds, no guarding or rigidity. EXTREMITIES: No clubbing, no edema, no cyanosis, 2+ pulses and upper and lower extremities. MUSCULOSKELETAL: Muscle strength and tone normal. SPINE: No scoliosis or deformity SKIN: No rashes CENTRAL NERVOUS SYSTEM: Obtunded No focal deficits, tone is normal in all 4 extremities. - Labs CBC & Chem 7: 08/25/20 07:05 08/25/20 07:05 Labs: Abnormal Lab Results - Last 24 Hours (Table) 08/25/20 08/25/20 Range/Units 07:05 07:05 WBC 11.9 H (3.8-10.6) k/uL Neutrophils # 11.4 H (1.3-7.7) k/uL Lymphocytes # 0.1 L (1.0-4.8) k/uL Sodium 128 L (137-145) mmol/L Chloride 90 L (98-107) mmol/L Carbon Dioxide 31 H (22-30) mmol/L BUN 71 H (7-17) mg/dL Creatinine 1.18 H (0.52-1.04) mg/dL Glucose 185 H (74-99) mg/dL Assessment and Plan Plan: 1 Acute hypoxic and hypercapnic respiratory failure related to acute exacerbation of COPD, acute COVID 19 pneumonia, and acute exacerbation of diastolic CHF. Patient is a poor historian, onset of symptoms is unknown. Meanwhile, the patient remains on high flow oxygen at 15 L per minute nasal cannula. The patient is on Decadron. The patient is also on Lovenox 40 mg subcu every 12 hours. Chest x-ray from 08/22/2020 showed diffuse breath and pulmonary infiltrates consistent with pneumonia. The chest x-ray from today did not show any major interval change compared to the earlier chest x-ray. The inflammatory markers including LDH and CRP remains elevated and the levels are 1037 and 36 respectively from yesterday. D-dimer was elevated at around 5 from 08/22/2020 and the patient remains on Lovenox 40 mg twice a day. For now, the patient is on high flow oxygen and he is also using BiPAP on and off during the day alternating with a high flow. The patient is a penit[facility]iary resident. Not the any major interval change and overall pulmonary status since yesterday. The patient remains on 15 L about 2 by nasal cannula. She is not utilizing the BiPAP. 2 Acute renal failure. Current creatinine 1.23 3 Hypertension 4 Hyperlipidemia 5 Hypothyroidism 6 History of developmental delay 7 Resident of a penitentiary, with multiple residents positive for COVID 19 8 History of MRSA infection 9 Suspect underlying COPD 10 Current every day smoker Plan: Titrate the FiO2 as tolerated, currently on 15 L of oxygen by nasal cannula. Inflammatory markers remain elevated. She remains on Decadron. She is also on Lovenox. No major changes in her oxygenation since yesterday and the chest x-ray findings are essentially stable. Continue the current treatment plan Increase activity as tolerated We will continue to follow
--- NOTE | 2020-08-25 13:13 | P.PN ---
Progress Note - Text Progress Note Date: 08/25/20 Interval History: Patient was seen sitting upright in her chair with the nasal canula in place. Patient remains mostly nonverbal during this interview aside from stating "I want to return to my [facility] today" multiple times. She was informed that she is not medically stable for discharge and that she is currently being treated for Covid pneumonia. She has been adherent with her medications over the last 24 hours. This provider discussed with the patient at length that he has spoken with Dr. Hanson and that she can be discharged back to the [facility] once she is medically cleared and would not have to go to the psychiatric unit. The patient does not answer if she is suicidal or homicidal. She does not answer she is expressing any hallucinations or paranoia. She is currently not reporting any somatic symptoms to this provider at this time. Mental Status Exam: General Appearance: Patient is currently sitting upright in her chair, with nasal cannula in place, appears her stated age, dressed in hospital gown, and slightly disheveled. Behavior: Psychomotor slowing is evident. Eye contact is intermittent but improving. Speech: Patient is spontaneous. Repetitive. Only states, "I want to return to my [facility] today." Mood/Affect: Patient does not respond when assessing mood. Affect appears slightly irritable. Suicidality/Homicidality: Unable to assess. Perceptions: At baseline she endorses hallucinations. Though content/process: At baseline there is paranoia and other delusional thought content. Memory and concentration: Intact for the purposes of this session. Judgment and insight: Very poor at baseline. Assessment Schizophrenia Covid-19 pneumonia PLAN: -After review of her [facility] medication review from 07/03/2020, and discussion with Dr Hanson, her outpatient psychiatrist for the last 20 years, the patient is at her baseline when endorsing psychotic mild psychotic symptoms and intermittently refusing care. The goal of her psychiatric treatment at this time is to prevent noncompliance with treatment with prolixin dec which she received yesterday and to continue to encourage her adherence with her medical medications. -The patient currently DOES NOT meet criteria for inpatient psychiatric hospitalization. The patient is at baseline psychiatrically. When medically cleared she is to be discharged back to her [facility]. -Patient DOES NOT have decision making capacity at this time and is unable to reason through and communicate/appreciate the risks, benefits and alternatives to treatment. -Delirium precautions recommended with patient including - avoiding use of narcotics and [employer] sedatives, limit anticholinergic medications when possible, frequent re-orientation, minimize use of restraints, open window shades during the day and close them at night -Would recommend the following medication changes/additions: Continue Zyprexa 20 mg at bedtime for schizophrenia. Continue Luvox 100 mg by mouth twice daily for depression/anxiety Continue Prolixin Decanoate 50 mg IM weekly for schizophrenia. Last dose admi nistered this morning. -Patient is court ordered for her psychotropic medications. If the patient refuses Zyprexa orally at bedtime, she will be administered 10 mg IM of Zyprexa as needed. -Continue Zyprexa 5 mg IM twice a day when necessary for agitation. -EKG reviewed - QTc of 392ms - NSR -Cannot leave AMA at this time. Patient lacks capacity to engage in medical decision making. -Will continue to follow along
[2020-08-25] MEDS: amLODIPine 10 MG TAB PO SCH (19:51)
[2020-08-25] MEDS: OLANZapine 10 MG TAB PO SCH (19:51)
[2020-08-25] MEDS: METOPROLOL SUCCINATE (ER) 50 MG TAB.ER.24H PO SCH (19:52)
[2020-08-25] MEDS: SODIUM CHLORIDE 0.9% 1,000 ML IV SCH (21:47)
[2020-08-26] MEDS: PANTOPRAZOLE 40 MG TABLET PO SCH (06:06)
[2020-08-26] MEDS: LEVOTHYROXINE 100 MCG TAB PO SCH (06:06)
[2020-08-26] MEDS: SODIUM CHLORIDE 0.9% 1,000 ML IV SCH (06:09)
[2020-08-26] MEDS: ENOXAPARIN 40 MG/0.4 ML SYRINGE SQ SCH ×2 (08:53→19:41)
[2020-08-26] MEDS: ASPIRIN 81 MG PO SCH (08:54)
[2020-08-26] MEDS: CHOLECALCIFEROL 25 MCG (1000 IU) TABLET PO SCH (08:54)
[2020-08-26] MEDS: ASCORBIC ACID 500 MG TAB PO SCH (08:54)
[2020-08-26] MEDS: ZINC SULFATE 220 MG CAP PO SCH (08:54)
[2020-08-26] MEDS: predniSONE 20 MG TAB PO SCH (08:55)
[2020-08-26] MEDS: ALBUTEROL HFA INHALER INHALATION SCH ×4 (09:47→20:54)
[2020-08-26 10:14] LABS: C Reactive Protein 50.2 mg/L (<10.0); Calcium 8.3 mg/dL (8.4-10.2); Potassium 4.1 mmol/L (3.5-5.1)
--- NOTE | 2020-08-26 10:45 | P.PN ---
Subjective Progress Note Date: 08/26/20 Acute CoVID 19 pneumonia, COPD exacerbation, CHF exacerbation This 65-year-old white female patient was a poor historian, and most of the history was obtained from patient's chart, from the nursing staff, who resides in a custodial and has a chronic developmental delay, hypertension, hypothyroidism, hyperlipidemia, schizoaffective disorder, history of MRSA infection in the wound and current every day smoker. She was brought into the emergency department on 08/13/2020 per EMS for evaluation of increased lethargy, fatigue, and developing shortness of breath earlier, she was found to be hypoxic with a pulse ox in the high 80s and lower 90s, and multiple people at the custodial facility or testing positive for COVID 19. Onset of symptoms 's not clear as the patient not able to provide any information. There are no reports of fever chills, no sweats, no nausea vomiting or diarrhea. She has been afebrile while she was in the hospital, her pulse ox was only 88% on 6 L, and FiO2 was subsequently increased to 15 L and currently patient is on BiPAP with pressures of 12/6 and FiO2 of 100%, or gas was obtained showing pO2 of 68, pCO2 55, pH is 7.25. Patient is positive for COVID 19. Has not significantly elevated d-dimer at 8.99, LDH was 761, and CRP is 8.8, negative Protuss tone and at 0.09, her proBNP was significantly elevated at 21,000 with elevated troponins. Chest x- ray shows new multifocal mid to lower lung acute opacities. Patient was started on Decadron in the emergency department, vitamins, she was given a dose of IV Lasix, and was given breathing treatments. We were asked to see the patient in consultation for what appears to be a combination of cough COVID 19 related pneumonitis acute exacerbation of CHF with diastolic dysfunction, echocardiogram showed EF between 55 and 60%, moderate enlargement of the right ventricle, mild MR, mild TR, PA systolic was less than 35 mmHg. At the time of our evaluation she is very obtunded, blood gas was ordered pO2 of 68, pCO2 of 55, pH of 7.25, and her BiPAP settings were adjusted increase the IPAP to 14, and FiO2 was d ropped down to 60%. Repeat blood gas in 2 hours is pending. The patient is seen today 08/15/2020 and follow-up on the selective care unit. She is currently resting in bed. She did utilize BiPAP throughout the evening, 14/6 and 55% FiO2. She did desaturate to 66% O2 saturation on room air. Curr ently on 10 L high flow nasal cannula and maintaining O2 saturations in the 90s. Chest x-ray continues to show basilar opacities slightly worse than the left lung and some improvement in the right lung base. Blood culture revealing no growth to date. INR 8.43. LDH 845. C-reactive protein less than 5. Arterial blood gases last evening on 60% FiO2 revealed a PaO2 of 88, pCO2 57, pH 7.27. She is continued on Decadron, Lovenox, vitamin supplements. Remains on IV diuretics. Progress note dated 08/17/2020. Currently, as is a 65-year-old female who was admitted back on August 13, the diagnosis of COVID 19 pneumonia. The patient is currently on nasal O2 at 7 L, high flow, and yesterday, she was on 8 L nasal cannula high flow. In addition, the patient has a history of diastolic CHF, possible non-ST segment elevation myocardial infarction, hypertension, hyperlipidemia, hypothyroidism, d evelopmental delay, history of MRSA infection, possible underlying COPD and current every day tobacco use. The patient's last d-dimer was 8.43 on August 15, and the most recent blood gas was on August 14. The patient also had troponins that were mildly elevated at 0.118 and 0.103 on the and 14 of August. More recently, the patient's not had any additional blood work. In addition, there is no recent chest x-ray. Progress note dated 08/18/2020. This is a 65-year-old female was admitted back on August 13, with a diagnosis of COVID 19 pneumonia. Currently, she is on 11 L high flow nasal O2. Actually, her oxygen requirements have increased over the last 24 hours. She does have a history of diastolic CHF, possible non-ST segment elevation myocardial infarction, essential hypertension, hyperlipidemia, hypothyroidism, developmental delay, history of MRSA infection, and possible underlying COPD, secondary to current every day tobacco use. Labs today include a sodium of 131, potassium 3.7, chlorides 90, CO2 29, anion gap 12, BUN 81, and creatinine 2.10. Clinically, the patient is doing about the same, even though her oxygen requirements have increased. There is no conversational dyspnea, or use of accessory muscles. The patient is seen today 08/19/2020 in follow-up on the selective care unit. She is currently sitting up in a chair at the bedside. Awake and alert. She's been quite noncompliant with wearing her oxygen and taking her medications. She is to be on 15 L high flow nasal cannula. Chest x-ray reveals worsening bilateral patchy infiltrates compatible with CoVID pneumonia. She remains on dexamethasone, Lovenox, vitamin supplements. Refusing breathing treatments. The patient is seen today 08/20/2020 in follow-up on the selective care unit. She is currently sitting up in a chair at the bedside. She is awake and alert. A sitter is at the bedside. She is now wearing her oxygen. She has taken some oral medications for the nursing staff. Continue O2 saturations in the low 90s on 12 L high flow nasal cannula. White count 7.1. Hemoglobin 17.2. Platelet count 123. Sodium 134. Potassium 3.1. Creatinine 1.55. BUN 106. She remains on Lovenox, Decadron, vitamin supplements. Received additional Lasix 40 mg IVP 1 today. The patient is seen today 08/21/2020 in follow-up on the selective care unit. She is currently sitting up in a chair at the bedside. Awake and alert in no acute distress. A sitter is at the bedside. The patient is a bit more cooperative today. She took her morning medications. She is keeping her oxygen on. It remains at 12 L high flow to maintain O2 saturations at 88%. Lungs sounds with continued scattered rhonchi bilaterally. White count 7.9. Hemoglobin 15.5. Lymphocytes 0.3. Sodium 1:30. Potassium 3.6. Creatinine 1.35. BUN 98. Remains on Lovenox, IV Solu-Medrol, vitamin supplements. The patient is seen today 08/22/2020 in follow-up on the selective care unit. She is currently resting quite comfortably in bed. Awake and alert in no acute distress. Still requiring 15 L high flow nasal cannula to maintain O2 saturation the high 80s low 90s. She's afebrile. D-dimer 7.23. Sodium 129. Potassium 3.9. Creatinine 1.24. BUN 87. LDH 1170. C-reactive protein 58.8. She is continued on IV Solu-Medrol, Lovenox, vitamin supplements. The patient is seen today 08/23/2020 in follow-up on the selective care unit. She is currently resting comfortably in bed. Awake and alert in no acute distress. She is feeling more cooperative this morning. She is still requiring 15 L high flow nasal cannula to maintain O2 saturations 88-94%. Most recent chest x-ray shows worsening left lower lobe infiltrate. Diffuse bilateral lung infiltrates. White count 9.1. Hemoglobin 15.9. Sodium 133. Potassium 4.1. Creatinine 1.37. LDH 1037. C-reactive protein 36.6. Continued on IV Solu-Medrol, Lovenox, vitamin supplements. 08/24/2020 the patient is being seen in follow-up. The patient is being treated for acute hypoxic and hypercapnic respiratory failure related to COPD exacerbation. The patient also had an acute Covid 19 related pneumonia and acute exacerbation of diastolic heart failure. The patient is quite debilitated. The patient has also developed an acute kidney injury in the creatinine was around 1.37 from yesterday. The patient resides in a custodial. Multiple other residents are also affected with the same virus. Other comorbidities include hypertension, hyperlipidemia, hypothyroidism. For now, the patient is on high flow oxygen at 15 L per minute nasal cannula. The chest x-ray showing left lower lobe pulmonary infiltrate from 08/22/2020 and diffuse bilateral lung infiltrates compatible with the bilateral pneumonia. The patient also is on a IV Solu-Medrol, vitamin supplements and Lovenox. Lovenox is being administered at a dose of 40 mg subcutaneously every 12 hours. The patient is on IV Solu Medrol high-dose 60 mg every 6 hours. The patient is lethargic. She is not doing a whole lot that she is laying down in bed at 15 L of oxygen by nasal cannula. She did not utilize her BiPAP overnight. LDH is 1395 and CRP is at 34 and the creatinine is at 1.23. On today's evaluation of 08/25/2020, the patient is sitting up on a recliner. She is currently on oxygen which is running at 15 L by nasal cannula and her pulse ox is around 85-89%. Repeat chest x-ray was done today and this chest x- ray was compared to the earlier film that was done on 08/22/2020 and the findings are essentially stable. The patient continues to have diffuse bilateral pulmonary infiltrates which remain. The inflammatory markers as measured shows a d-dimer of 5.73 from yesterday and the markers from today are not present although the numbers from yesterday were showing an LDH level of 1395. Creatinine is at 1.1 which is slightly improved and the sodium level is at 128. The patient has history of psychiatric problems including depression. She has hypertension and hyperlipidemia and hypothyroidism. She is a poor historian and she is very hard to communicate with. She is quite debilitated. Does not seem to be in any significant respiratory distress pH is off the BiPAP for now. The 2020 the patient is in oxygen at 15 L. As mentioned earlier, her oxygen level was higher yesterday at 15 L. The patient has diffuse by the pulmonary infiltrates on chest x-rays and the last chest x-ray was done on 08/26/2020 which is today. Findings on the x-rays probably slightly improved especially on the left where we can see the left hemidiaphragm and the right where there is better aeration of the right lung. The patient's inflammatory markers was showing an elevated d-dimer and the most recent d-dimer is at 11.1 which is higher compared to earlier value. LDH is 1184 and the CRP level is 50.2 CONSISTENT with active Covid 19 related pneumonia. The patient is eager to be released. However I don't think she is ready is as long as his oxygen requ irements remain quite elevated. The patient's creatinine today is stable at 1.3 and the total level is at 129 and she is chronically hyponatremic probably related to the various medications that she's been on. Some fluid restriction needs to be implemented. Otherwise, the patient remains on prednisone 60 mg and the Lovenox dose 40 sc bid Objective - Vital Signs Vital signs: Vital Signs Temp 99.6 F 08/26/20 08:00 Pulse 76 08/26/20 08:00 Resp 22 08/26/20 08:00 BP 123/75 08/26/20 08:00 Pulse Ox 86 L 08/26/20 08:00 Intake & Output 08/25/20 08/26/20 08/26/20 18:59 06:59 18:59 Intake Total 720 Balance 720 Weight 68 kg Intake: Oral 720 Other: Voiding Method Toilet Toilet Incontinent Incontinent # Voids 2 2 - Exam GENERAL EXAM: Awake, alert, 65-year-old female patient, on 15 L high flow nasal cannula, comfortable in no apparent distress. HEAD: Normocephalic/atraumatic. EYES: Normal reaction of pupils, equal size. Conjunctiva pink, sclera white. NOSE: Clear with pink turbinates. THROAT: No erythema or exudates. NECK: No masses, no JVD, no thyroid enlargement, no adenopathy. CHEST: No chest wall deformity. Symmetrical expansion. LUNGS: Equal air entry with scattered rhonchi, crackles in the bilateral posterior bases CVS: Regular rate and rhythm, normal S1 and S2, no gallops, no murmurs, no rubs ABDOMEN: Soft, nontender. No hepatosplenomegaly, normal bowel sounds, no guarding or rigidity. EXTREMITIES: No clubbing, no edema, no cyanosis, 2+ pulses and upper and lower extremities. MUSCULOSKELETAL: Muscle strength and tone normal. SPINE: No scoliosis or deformity SKIN: No rashes CENTRAL NERVOUS SYSTEM: Obtunded No focal deficits, tone is normal in all 4 extremities. - Labs CBC & Chem 7: 08/25/20 07:05 08/26/20 09:31 Labs: Abnormal Lab Results - Last 24 Hours (Table) 08/26/20 08/26/20 Range/Units 09:31 09:31 D-Dimer 11.14 H (<0.60) mg/L FEU Sodium 129 L (137-145) mmol/L Chloride 93 L (98-107) mmol/L BUN 61 H (7-17) mg/dL Creatinine 1.33 H (0.52-1.04) mg/dL Glucose 266 H (74-99) mg/dL Calcium 8.3 L (8.4-10.2) mg/dL Lactate Dehydrogenase 1184 H (313-618) U/L C-Reactive Protein 50.2 H (<10.0) mg/L Assessment and Plan Plan: 1 Acute hypoxic and hypercapnic respiratory failure related to acute exacerbation of COPD, acute COVID 19 pneumonia, and acute exacerbation of diastolic CHF. Patient is a poor historian, onset of symptoms is unknown. Meanwhile, the patient remains on high flow oxygen at 15 L per minute nasal cannula. The patient is on prednisone 60 mg by mouth daily. The patient is also on Lovenox 40 mg subcu every 12 hours. Chest x-ray from 08/26/2020 showed diffuse breath and pulmonary infiltrates consistent with pneumonia that may be some probable interval improvement of the chest x-ray findings.. The inflammatory markers and the d-dimer remain quite elevated for now. Not ready for discharge. Production requirements remain high at 15 L per minute. She states that her cough has subsided. 2 Acute renal failure. Current creatinine 1.33 3 Hypertension 4 Hyperlipidemia 5 Hypothyroidism 6 History of developmental delay 7 Resident of a custodial, with multiple residents positive for COVID 19 8 History of MRSA infection 9 Suspect underlying COPD 10 Current every day smoker 11 chronic hyponatremia Plan: Titrate the FiO2 as tolerated, currently on 15 L of oxygen by nasal cannula. Inflammatory markers remain elevated. She remains on prednisone 60 mg by mouth daily . She is also on Lovenox. No major changes in her oxygenation since yesterday and the chest x-ray findings are essentially stable, probably some limited improvement today's chest x-ray. Implement fluid restriction regarding her chronic hyponatremia Continue the current treatment plan Increase activity as tolerated We will continue to follow
--- NOTE | 2020-08-26 11:34 | P.PN ---
Subjective Progress Note Date: 08/26/20 Pt appears to have labored breathing today and admits to me that she is short of breath. She was seen shortly after ambulation to the bathroom and back. CXR appears improved, but still contains b/l infiltrate. Pt still on high O2 requirement of 15L NC. Objective - Vital Signs Vital signs: Vital Signs Temp 99.6 F 08/26/20 08:00 Pulse 76 08/26/20 08:00 Resp 22 08/26/20 08:00 BP 123/75 08/26/20 08:00 Pulse Ox 86 L 08/26/20 08:00 Intake & Output 08/25/20 08/26/20 08/26/20 18:59 06:59 18:59 Intake Total 720 Balance 720 Weight 68 kg Intake: Oral 720 Other: Voiding Method Toilet Toilet Incontinent Incontinent # Voids 2 2 - Exam Gen: awake, alert HEENT: normocephalic, atraumatic, good hearing acuity, moist mucous membranes Resp: labored breathing with tachypnea, coarse breath sounds but improved CVS: RRR, no murmurs : red catheter not present Neuro: moving all extremities Psych: cooperative, euthymic mood - Labs CBC & Chem 7: 08/25/20 07:05 08/26/20 09:31 Labs: Abnormal Lab Results - Last 24 Hours (Table) 08/26/20 08/26/20 Range/Units 09:31 09:31 D-Dimer 11.14 H (<0.60) mg/L FEU Sodium 129 L (137-145) mmol/L Chloride 93 L (98-107) mmol/L BUN 61 H (7-17) mg/dL Creatinine 1.33 H (0.52-1.04) mg/dL Glucose 266 H (74-99) mg/dL Calcium 8.3 L (8.4-10.2) mg/dL Lactate Dehydrogenase 1184 H (313-618) U/L C-Reactive Protein 50.2 H (<10.0) mg/L Assessment and Plan Assessment: Acute Covid 19 virus infection with pneumonitis and ARDS resulting in COPD exacerbation and acute respiratory failure with hypoxia -Inflammatory markers: CRP slightly increasing to 50.2 and D-dimer increased to 11.14. LDH increasing to 1395. -Continue oxygenation. Patient currently remains on 15 L high flow nasal with SpO2 of 90%. -Pulmonology following, appreciate further recommendations. -Covid 19 PCR was positive on 08/13/20. -Patient received 5 days of Decadron followed by 5 days of IV Solu-Medrol and then transferred to oral steroids Prednisone 60 mg daily. Today is day 12 of steroids. -Continue zinc, vitamin C, and vitamin D3. -MDIs as needed for shortness of breath and/or wheezing. Acute kidney injury on chronic kidney disease stage III, improving -BUN 71, creatinine 1.18, and GFR 49 -Continue to hold Lasix and lisinopril. -Continue close monitoring with repeat a.m. labs. Hyponatremia -Sodium 129 -Hyponatremia is chronic in nature and likely secondary to SSRI medication fluvoxamine. -Hyponatremia slightly worsen this morning likely secondary to decreased oral intake over the past 48 hours. -Pt placed on 0.9% NS at 50 mL/hour for 24 hours from 08/25-08/26; we will d/c on 08/26 - may need additional diuresis Schizophrenia with Developmental Delay -Continue home medication regimen with Zyprexa, Fluphenazine, and Fluvoxamine. (Home Zyprexa dose was reduced from 20 mg nightly down to 10 mg nightly). -Psychiatry following, recommending inpatient psychiatric hospitalization once medically stable for discharge. -Patient does not have the capacity to leave AMA and per documentation in chart, pt is court ordered to take her psychiatry medications. -Continued encouragement for patient to participate in plan of care. Chronic Diastolic congestive heart failure -Lasix discontinued secondary to DEE. -Echocardiogram completed revealing a normal ejection fraction of 55-60%. -Cardiology following, appreciate further recommendations. Hypertension -Monitor vital signs and Continue daily medication regimen. Hypothyroidism -Continue daily medication management with levothyroxine 150 mg each morning. -TSH 2.220 Nicotine dependence -Continue education and encouragement on the importance of smoking cessation and risks of continued use up to and including . Polycythemia, resolved Hypokalemia, resolved CODE STATUS: Full code DVT prophylaxis: Lovenox Discussed with: Patient and RN Anticipated discharge date: Clinical course to determine Anticipated discharge place: Inpatient psychiatric mental health facility vs back to snf
--- NOTE | 2020-08-26 11:47 | XR ---
EXAMINATION TYPE: XR chest 1V portable DATE OF EXAM: 08/26/2020 COMPARISON: 08/25/2020 INDICATION: Cough, covid TECHNIQUE: Single frontal view of the chest is obtained. FINDINGS: The heart size is upper limits of normal. The pulmonary vasculature is normal. Scattered bilateral mid and lower lung field infiltrates are present. This may have slight improvemen t at the left base. IMPRESSION: 1. Bilateral lung infiltrates which are nonspecific. Findings can be compatible with atypical pneumon ia.
--- NOTE | 2020-08-26 13:02 | P.PN ---
Progress Note - Text Progress Note Date: 08/26/20 Interval History: Patient was seen lying in bed and was arousable but refused to participate in t he psychiatric interview. The patient refuses to answer questions today. As per discussion with the patient's sitter she has been cooperating with direction. She overall remains mainly quiet. As per chart review, patient's CRP has increased, and O2 saturation continues to be in the mid 80s. She has been intermittently cooperative with treatment interventions. Psychiatrically, this is the patient's baseline. She has severe, treatment-resistant schizophrenia and is on high dose antipsychotic medication. Mental Status Exam: General Appearance: Patient appears stated age, has poor dentition, with nasal cannula in place, appears her stated age, dressed in hospital gown, and slightly disheveled. Wearing her jacket while in bed. Appears to be somewhat diaphoretic. Behavior: Patient is resting in bed without any agitated behavior. Speech: Nonspontaneous and nonverbal. Mood/Affect:Unable to assess mood. Affect appears annoyed. Suicidality/Homicidality: Unable to assess. Perceptions: Unable to assess. At baseline she endorses hallucinations. Though content/process: Unable to assess. At baseline she endorses paranoia and delusions of surveillance. Memory and concentration: Unable to assess. Judgment and insight: Very poor at baseline. Assessment Schizophrenia Covid-19 pneumonia PLAN: -After review of her [facility] medication review from 07/03/2020, and discussion with Dr Hanson, her outpatient psychiatrist for the last 20 years, the patient is at her baseline when endorsing psychotic mild psychotic symptoms and intermittently refusing care. The goal of her psychiatric treatment at this time is to prevent noncompliance with treatment with prolixin dec which she received yesterday and to continue to encourage her adherence with her medical medications. -The patient currently DOES NOT meet criteria for inpatient psychiatric hospitalization. The patient is at baseline psychiatrically. When medically cleared she is to be discharged back to her [facility]. -Patient DOES NOT have decision making capacity at this time and is unable to reason through and communicate/appreciate the risks, benefits and alternatives to treatment. -Delirium precautions recommended with patient including - avoiding use of narcotics and LIME [employer]MER sedatives, limit anticholinergic medications when possible, frequent re-orientation, minimize use of restraints, open window shades during the day and close them at night -Medications: Continue Zyprexa 20 mg at bedtime for schizophrenia. Continue Luvox 100 mg by mouth twice daily for depression/anxiety Continue Prolixin Decanoate 50 mg IM weekly for schizophrenia. Last dose administered this morning. -Patient is court ordered for her psychotropic medications. If the patient refuses Zyprexa orally at bedtime, she will be administered 10 mg IM of Zyprexa as needed. -Continue Zyprexa 5 mg IM twice a day when necessary for agitation. -Psychiatry will sign off at this time. Please call if any questions or reconsult if necessary. Thank you for allowing us to participate in the care of this patient.
[2020-08-26] MEDS: ACETAMINOPHEN TAB 500 MG TAB PO PRN (14:47)
[2020-08-26 17:12] LABS: Glucose,Whole Blood 366 mg/dL (75-99)
[2020-08-26] MEDS ORDERED: VANCOMYCIN IV PER PHARMACY 1 EACH MISC MISCELLANE PRN (17:21)
[2020-08-26] MEDS ORDERED: VANCOMYCIN 1,500 MG in SODIUM CHLORIDE 0.9% 250 ML IVPB ONE (19:00)
[2020-08-26] MEDS: METOPROLOL SUCCINATE (ER) 50 MG TAB.ER.24H PO SCH (19:41)
[2020-08-26] MEDS: amLODIPine 10 MG TAB PO SCH (19:41)
[2020-08-26] MEDS: OLANZapine 10 MG TAB PO SCH (19:41)
[2020-08-26] MEDS: CEFEPIME 1 GM in SODIUM CHLORIDE 0.9% 50 ML IVPB SCH (22:23)
[2020-08-26 23:17] LABS: Glucose,Whole Blood 232 mg/dL (75-99)
[2020-08-27 00:21] VITALS: RESP 18
[2020-08-27] MEDS: LEVOTHYROXINE 100 MCG TAB PO SCH (06:03)
[2020-08-27] MEDS: PANTOPRAZOLE 40 MG TABLET PO SCH (06:03)
[2020-08-27] MEDS ORDERED: FUROSEMIDE 10 MG/ML 4 ML VIAL IV STA (09:43)
[2020-08-27] MEDS: ENOXAPARIN 40 MG/0.4 ML SYRINGE SQ SCH (10:21)
[2020-08-27] MEDS: CEFEPIME 1 GM in SODIUM CHLORIDE 0.9% 50 ML IVPB SCH (10:21)
[2020-08-27] MEDS: ALBUTEROL HFA INHALER INHALATION SCH ×2 (10:43→15:51)
--- NOTE | 2020-08-27 10:44 | P.PN ---
Subjective Progress Note Date: 08/27/20 This 65-year-old white female patient was a poor historian, and most of the history was obtained from patient's chart, from the nursing staff, who resides in a residential and has a chronic developmental delay, hypertension, hypothyroidism, hyperlipidemia, schizoaffective disorder, history of MRSA infection in the wound and current every day smoker. She was brought into the emergency department on 08/13/2020 per EMS for evaluation of increased lethargy, fatigue, and developing shortness of breath earlier, she was found to be hypoxic with a pulse ox in the high 80s and lower 90s, and multiple people at the residential facility or testing positive for COVID 19. Onset of symptoms 's not clear as the patient not able to provide any information. There are no reports of fever chills, no sweats, no nausea vomiting or diarrhea. She has been afebrile while she was in the hospital, her pulse ox was only 88% on 6 L, and FiO2 was subsequently increased to 15 L and currently patient is on BiPAP with pressures of 12/6 and FiO2 of 100%, or gas was obtained showing pO2 of 68, pCO2 55, pH is 7.25. Patient is positive for COVID 19. Has not significantly elevated d-dimer at 8.99, LDH was 761, and CRP is 8.8, negative Protuss tone and at 0.09, her proBNP was significantly elevated at 21,000 with elevated troponins. Chest x- ray shows new multifocal mid to lower lung acute opacities. Patient was started on Decadron in the emergency department, vitamins, she was given a dose of IV Lasix, and was given breathing treatments. We were asked to see the patient in consultation for what appears to be a combination of cough COVID 19 related pneumonitis acute exacerbation of CHF with diastolic dysfunction, echocardiogram showed EF between 55 and 60%, moderate enlargement of the right ventricle, mild MR, mild TR, PA systolic was less than 35 mmHg. At the time of our evaluation she is very obtunded, blood gas was ordered pO2 of 68, pCO2 of 55, pH of 7.25, and her BiPAP settings were adjusted increase the IPAP to 14, and FiO2 was dropped down to 60%. Repeat blood gas in 2 hours is pending. The patient is seen today 08/15/2020 and follow-up on the selective care unit. She is currently resting in bed. She did utilize BiPAP throughout the evening, 14/6 and 55% FiO2. She did desaturate to 66% O2 saturation on room air. Currently on 10 L high flow nasal cannula and maintaining O2 saturations in the 90s. Chest x-ray continues to show basilar opacities slightly worse than the left lung and some improvement in the right lung base. Blood culture revealing no growth to date. INR 8.43. LDH 845. C-reactive protein less than 5. Arterial blood gases last evening on 60% FiO2 revealed a PaO2 of 88, pCO2 57, pH 7.27. She is continued on Decadron, Lovenox, vitamin supplements. Remains on IV diuretics. Progress note dated 08/17/2020. Currently, as is a 65-year-old female who was admitted back on August 13, the diagnosis of COVID 19 pneumonia. The patient is currently on nasal O2 at 7 L, high flow, and yesterday, she was on 8 L nasal cannula high flow. In addition, the patient has a history of diastolic CHF, possible non-ST segment elevation myocardial infarction, hypertension, hyperlipidemia, hypothyroidism, developmental delay, history of MRSA infection, possible underlying COPD and current every day tobacco use. The patient's last d-dimer was 8.43 on August 15, and the most recent blood gas was on August 14. The patient also had troponins that were mildly elevated at 0.118 and 0.103 on the and 14 of August. More recently, the patient's not had any additional blood work. In addition, there is no recent chest x-ray. Progress note dated 08/18/2020. This is a 65-year-old female was admitted back on August 13, with a diagnosis of COVID 19 pneumonia. Currently, she is on 11 L high flow nasal O2. Actually, her oxygen requirements have increased over the last 24 hours. She does have a history of diastolic CHF, possible non-ST segment elevation myocardial i nfarction, essential hypertension, hyperlipidemia, hypothyroidism, developmental delay, history of MRSA infection, and possible underlying COPD, secondary to current every day tobacco use. Labs today include a sodium of 131, potassium 3.7, chlorides 90, CO2 29, anion gap 12, BUN 81, and creatinine 2.10. Clinically, the patient is doing about the same, even though her oxygen requirements have increased. There is no conversational dyspnea, or use of accessory muscles. The patient is seen today 08/19/2020 in follow-up on the selective care unit. She is currently sitting up in a chair at the bedside. Awake and alert. She's been quite noncompliant with wearing her oxygen and taking her medications. She is to be on 15 L high flow nasal cannula. Chest x-ray reveals worsening bilateral patchy infiltrates compatible with CoVID pneumonia. She remains on dexamethasone, Lovenox, vitamin supplements. Refusing breathing treatments. The patient is seen today 08/20/2020 in follow-up on the selective care unit. She is currently sitting up in a chair at the bedside. She is awake and alert. A sitter is at the bedside. She is now wearing her oxygen. She has taken some oral medications for the nursing staff. Continue O2 saturations in the low 90s on 12 L high flow nasal cannula. White count 7.1. Hemoglobin 17.2. Platelet count 123. Sodium 134. Potassium 3.1. Creatinine 1.55. BUN 106. She remains on Lovenox, Decadron, vitamin supplements. Received additional Lasix 40 mg IVP 1 today. The patient is seen today 08/21/2020 in follow-up on the selective care unit. She is currently sitting up in a chair at the bedside. Awake and alert in no acute distress. A sitter is at the bedside. The patient is a bit more cooperative today. She took her morning medications. She is keeping her oxygen on. It remains at 12 L high flow to maintain O2 saturations at 88%. Lungs sounds with continued scattered rhonchi bilaterally. White count 7.9. Hemoglobin 15.5. Lymphocytes 0.3. Sodium 1:30. Potassium 3.6. Creatinine 1.35. BUN 98. Remains on Lovenox, IV Solu-Medrol, vitamin supplements. The patient is seen today 08/22/2020 in follow-up on the selective care unit. She is currently resting quite comfortably in bed. Awake and alert in no acute distress. Still requiring 15 L high flow nasal cannula to maintain O2 saturation the high 80s low 90s. She's afebrile. D-dimer 7.23. Sodium 129. Potassium 3.9. Creatinine 1.24. BUN 87. LDH 1170. C-reactive protein 58.8. She is continued on IV Solu-Medrol, Lovenox, vitamin supplements. The patient is seen today 08/23/2020 in follow-up on the selective care unit. She is currently resting comfortably in bed. Awake and alert in no acute distress. She is feeling more cooperative this morning. She is still requiring 15 L high flow nasal cannula to maintain O2 saturations 88-94%. Most recent chest x-ray shows worsening left lower lobe infiltrate. Diffuse bilateral lung infiltrates. White count 9.1. Hemoglobin 15.9. Sodium 133. Potassium 4.1. Creatinine 1.37. LDH 1037. C-reactive protein 36.6. Continued on IV Solu- Medrol, Lovenox, vitamin supplements. 08/24/2020 the patient is being seen in follow-up. The patient is being treated for acute hypoxic and hypercapnic respiratory failure related to COPD exacerbation. The patient also had an acute Covid 19 related pneumonia and acute exacerbation of diastolic heart failure. The patient is quite debilitated. The patient has also developed an acute kidney injury in the creatinine was around 1.37 from yesterday. The patient resides in a residential. Multiple other residents are also affected with the same virus. Other comorbidities include hypertension, hyperlipidemia, hypothyroidism. For now, the patient is on high flow oxygen at 15 L per minute nasal cannula. The chest x-ray showing left lower lobe pulmonary infiltrate from 08/22/2020 and diffuse bilateral lung infiltrates compatible with the bilateral pneumonia. The patient also is on a IV Solu-Medrol, vitamin supplements and Lovenox. Lovenox is being administered at a dose of 40 mg subcutaneously every 12 hours. The patient is on IV Solu Medrol high-dose 60 mg every 6 hours. The patient is lethargic. She is not doing a whole lot that she is laying down in bed at 15 L of oxygen by nasal cannula. She did not utilize her BiPAP overnight. LDH is 1395 and CRP is at 34 and the creatinine is at 1.23. On today's evaluation of 08/25/2020, the patient is sitting up on a recliner. She is currently on oxygen which is running at 15 L by nasal cannula and her pulse ox is around 85-89%. Repeat chest x-ray was done today and this chest x- ray was compared to the earlier film that was done on 08/22/2020 and the findings are essentially stable. The patient continues to have diffuse bilateral pulmonary infiltrates which remain. The inflammatory markers as m easured shows a d-dimer of 5.73 from yesterday and the markers from today are not present although the numbers from yesterday were showing an LDH level of 1395. Creatinine is at 1.1 which is slightly improved and the sodium level is at 128. The patient has history of psychiatric problems including depression. She has hypertension and hyperlipidemia and hypothyroidism. She is a poor historian and she is very hard to communicate with. She is quite debilitated. Does not seem to be in any significant respiratory distress pH is off the BiPAP for now. The 2020 the patient is in oxygen at 15 L. As mentioned earlier, her oxygen level was higher yesterday at 15 L. The patient has diffuse by the pulmonary infiltrates on chest x-rays and the last chest x-ray was done on 08/26/2020 which is today. Findings on the x-rays probably slightly improved especially on the left where we can see the left hemidiaphragm and the right where there is better aeration of the right lung. The patient's inflammatory markers was showing an elevated d-dimer and the most recent d-dimer is at 11.1 which is higher compared to earlier value. LDH is 1184 and the CRP level is 50.2 CONSISTENT with active Covid 19 related pneumonia. The patient is eager to be released. However I don't think she is ready is as long as his oxygen requirements remain quite elevated. The patient's creatinine today is stable at 1.3 and the total level is at 129 and she is chronically hyponatremic probably related to the various medications that she's been on. Some fluid restriction needs to be implemented. Otherwise, the patient remains on prednisone 60 mg and the Lovenox dose 40 sc bid On 08/27/2020 patient seen in follow-up on selective care unit, and her oxygen demand has increased, patient was noted to be satting only 85% on 100% nonrebreather, and subsequently she was placed on high flow oxygen delivery device per Airvo and currently at 60 L and 90% in addition to send nonrebreather, and patient desaturates to 87% with any little movement. When sitting still her pulse ox is around 90-91%, she states her breathing is about the same, her lung sounds reveals coarse crackles throughout the lung smith, follow-up chest x-ray has been completed however were not able to look at the films. And has been drinking a lot of water, and she is constantly thirsty and asking for something more to drink, yesterday we restricted her fluids and she is on 1.5 L fluid restriction. She has been afebrile, hemodynamically she has been stable, yesterday's labs showed uptrending d-dimer, 11.14, and her markers remains elevated, is was 1184, and CRP was 50.2, follow-up pro-calcitonin came back as 0.25, sugars have been sent, patient was placed on empiric antibiotics in the form of cefepime and vancomycin. A blood gas was ordered however was canceled as of patient's anticipated poor appliance and likely extreme agitation with the A-line, clinically she seems to be improving, seems to be in no acute distress, she states her breathing is the same, she is maintaining O2 saturation at 89-90% on Airvo and 100% nonrebreather, she was given a dose of IV Lasix. Blood work is pending right now, she remains on prednisone 60 mg daily, yesterday we increased her Lovenox 40 mg twice a day, patient to vitamins. Objective - Vital Signs Vital signs: Vital Signs Temp 97.4 F L 08/27/20 04:15 Pulse 68 08/27/20 04:15 Resp 18 08/27/20 04:15 BP 136/78 08/27/20 04:15 Pulse Ox 86 L 08/27/20 04:15 Intake & Output 08/26/20 08/27/20 08/27/20 18:59 06:59 18:59 Intake Total 240 30 Output Total 400 Balance 240 -370 Intake: Oral 240 30 Output: Urine 400 Other: Voiding Method Toilet Toilet Incontinent Incontinent # Voids 1 2 - Exam GENERAL EXAM: Alert, her old white female, currently on Airvo at 60 L and FiO2 of 90% in addition to 100% nonrebreather with a pulse ox between 87-90% while tachypneic but appears to be comfortable in no apparent distress. HEAD: Normocephalic/atraumatic. EYES: Normal reaction of pupils, equal size. Conjunctiva pink, sclera white. NOSE: Clear with pink turbinates. THROAT: No erythema or exudates. NECK: No masses, no JVD, no thyroid enlargement, no adenopathy. CHEST: No chest wall deformity. Symmetrical expansion. LUNGS: Equal air entry with bilateral crackles CVS: Regular rate and rhythm, normal S1 and S2, no gallops, no murmurs, no rubs ABDOMEN: Soft, nontender. No hepatosplenomegaly, normal bowel sounds, no guarding or rigidity. EXTREMITIES: No clubbing, no edema, no cyanosis, 2+ pulses and upper and lower extremities. MUSCULOSKELETAL: Muscle strength and tone normal. SPINE: No scoliosis or deformity SKIN: No rashes CENTRAL NERVOUS SYSTEM: Alert and oriented -3. No focal deficits, tone is normal in all 4 extremities. PSYCHIATRIC: Alert and oriented -3. Appropriate affect. Intact judgment and insight. - Labs CBC & Chem 7: 08/25/20 07:05 08/26/20 09:31 Labs: Abnormal Lab Results - Last 24 Hours (Table) 08/26/20 08/26/20 08/26/20 Range/Units 17:11 17:51 23:15 POC Glucose (mg/dL) 366 H 232 H (75-99) mg/dL Procalcitonin 0.25 H (0.02-0.09) ng/mL Assessment and Plan Plan: Assessment: #1. Acute hypoxic and hypercapnic respiratory failure related to acute exacerbation of COPD, acute COVID 19 pneumonia, and acute exacerbation of diastolic CHF. Patient is a poor historian, onset of symptoms is unknown #2. Elevated troponins, cardiology following, rule out possibility of non-ST elevated myocardial infarction #3. Hypertension #4. Hyperlipidemia #5. Hypothyroidism #6. History of developmental delay #7. Resident of a residential, with multiple residents positive for COVID 19 #8. History of MRSA infection #9. Suspect underlying COPD #10. Current every day smoker or graft #11. Hyponatremia likely chronic possibly psychogenic,and related to psychiatric meds Plan: Continue patient to IV Solu-Medrol 60 every 6, blood gas cancelled patient seems to be holding right now although requiring high flow oxygen, continue same dose anticoagulation, her COVID 19 still quite active, and lungs are markers remain elevated, we will give the patient 1 dose of Tocilizumab. D50 precautions, a phone call was placed to the legal guardian awaiting a call back, her CODE STATUS needs to be addressed we will continue supportive care, but in case of her further clinical deterioration we recommend against aggressive resuscitat ion. We can stop vancomycin, will continue cefepime I performed a history & physical examination of the patient and discussed their management with my nurse practitioner, Dina Reed. I reviewed the nurse practitioner's note and agree with the documented findings and plan of care. Lung sounds are positive for diminished breath sounds. The findings and the impression was discussed with the patient. I attest to the documentation by the nurse practitioner. Time with Patient: Less than 30
--- NOTE | 2020-08-27 11:39 | XR ---
EXAMINATION TYPE: XR chest 1V portable DATE OF EXAM: 08/27/2020 HISTORY: Shortness of breath. COMPARISON: None. TECHNIQUE: Single view of the chest is submitted. FINDINGS: Demonstrated are scattered senescent parenchymal change. Coarse infiltrates are seen throughout both lung smith compatible with Covid 19 pneumonia. The heart is stable. Hilar and mediastinal structures are within normal limits. Degenerative changes are seen of the dorsal spine. IMPRESSION: 1. Coarse infiltrates are seen throughout both lung smith compatible with Covid 19 pneumonia.
[2020-08-27 11:41] VITALS: BP 127/80; PULSE 102; TEMP 98
[2020-08-27] MEDS: ASCORBIC ACID 500 MG TAB PO SCH (11:46)
[2020-08-27] MEDS: ASPIRIN 81 MG PO SCH (11:47)
[2020-08-27] MEDS: ZINC SULFATE 220 MG CAP PO SCH (11:47)
[2020-08-27] MEDS: CHOLECALCIFEROL 25 MCG (1000 IU) TABLET PO SCH (11:47)
[2020-08-27] MEDS: predniSONE 20 MG TAB PO SCH (11:49)
[2020-08-27] MEDS ORDERED: VANCOMYCIN 1,250 MG in SODIUM CHLORIDE 0.9% 250 ML IVPB SCH (12:00)
[2020-08-27] MEDS ORDERED: methylPREDNISolone SOD SUCCI 125 MG/2 ML VIAL IV SCH (12:00)
[2020-08-27] MEDS: SODIUM CHLORIDE 0.9% IV ONE ×2 (12:35→13:02)
[2020-08-27] MEDS: TOCILIZUMAB IV ONE ×2 (12:35→13:02)
--- NOTE | 2020-08-27 17:59 | P.DS ---
Providers Date of admission: 08/13/20 23:08 Expected date of discharge: 08/27/20 Attending physician: Luis Fernando Recinos MD Consults: 08/14/20 04:50 Consult Physician Routine Consulting Provider: Liz Roberts Consult Reason/Comments: Covid Do you want consulting provider notified?: Yes, Notify in am 08/17/20 09:54 Consult Physician Routine Consulting Provider: Porter Hauser Consult Reason/Comments: schizophrenia, patient refusing medical treatment Do you want consulting provider notified?: Yes Primary care physician: Stated None Hospital Course: Acute Covid 19 virus infection with pneumonitis and ARDS resulting in COPD exacerbation and acute respiratory failure with hypoxia Acute kidney injury on chronic kidney disease stage III, improving Hyponatremia Schizophrenia with Developmental Delay Chronic Diastolic congestive heart failure Hypertension Hypothyroidism Nicotine dependence Patient is a 65-year-old female with a past medical history of COPD not home oxygen dependent, hypertension, hypothyroidism, CKD stage III, schizophrenia, and nicotine abuse. Patient resides in an extended care facility and presented to the hospital on 08/13/20 with a chief complaint of increasing shortness of breath and was reportedly found by EMS to have oxygen saturation in the 80s on room air and was placed on nonrebreather mask. Upon arrival to our facility patient was found to be in acute respiratory distress with hypoxia with SpO2 66% on room air requiring oxygen supplementation with thigh-high flow nasal cannula and admission under our services accompanied by pulmonology and cardiology consultations for continued close medical management. Covid 19 PCR was positive. EKG was completed showing normal sinus rhythm at 74 bpm with no noted T-wave or ST abnormalities showing no signs of acute ischemia. Chest x-ray was completed revealing new multifocal mid to lower lung acute opacities. Echocardiogram completed revealing a normal ejection fraction of 55-60%. Pt treated with steroids, MDIs as needed for shortness of breath and/or wheezing, [place], vitamin C, and vitamin D3. Patient has not been cooperative or compliant with care throughout hospital stay and intermittently continues to remove oxygen, refuse medications and lab draws and has been found to be hypoxic with SpO2 dropping as low as down into the 70s. Patient was seen by psychiatry and medications were titrated with which patient did become intermittently more compliant. Unfortunately, patient's respiratory status continued to worsen, with inflammatory markers worsening as well. Guardian was contacted regarding change in clinical status and patient was transitioned to comfort care. I spent more than 45 minutes coordinating this discharge. Assessment: Gen: awake, alert, combative HEENT: normocephalic, atraumatic, good hearing acuity, moist mucous membranes Resp: Poor air exchange, accessory muscle use with severe distress, coarse breath sounds CVS: good distal perfusion x 4, tachycardic, no appreciable murmurs GI: soft, NTTP, ND, appropriate bowel sounds : no SPT, no CVAT, red catheter is not present MSK: no pitting edema, no clubbing Neuro: non-focal, moving all extremities Patient Condition at Discharge: Serious Plan - Discharge Summary Discharge Rx Participant: No New Discharge Prescriptions: No Action Metoprolol Succinate (ER) [Toprol XL] 100 mg PO HS@1999 amLODIPine BESYLATE/BENAZEPRIL [amLODIPine BESYLATE/BENAZEPRIL 10-40 MG] 1 tab PO HS@1999 fluvoxaMINE MALEATE [Luvox] 100 mg PO BID@699,1999 #60 tab Ibuprofen [Motrin] 800 mg PO BID PRN PRN Reason: Pain Levothyroxine Sodium [Synthroid] 150 mcg PO DAILY@0700 OLANZapine 20 mg PO HS@1999 LORazepam [Ativan] 2 mg PO HS@1999 LORazepam [Ativan] 1 mg PO BID@0700,1700 fluPHENAZine decanoate [Prolixin Decanoate] 50 mg IM Q7D Discharge Medication List Metoprolol Succinate (ER) [Toprol XL] 100 mg PO HS@199912/10/19 [History] amLODIPine BESYLATE/BENAZEPRIL [amLODIPine BESYLATE/BENAZEPRIL 10-40 MG] 1 tab PO HS@199912/10/19 [History] fluvoxaMINE MALEATE [Luvox] 100 mg PO BID@699,1999 #60 tab 12/17/19 [Rx] Ibuprofen [Motrin] 800 mg PO BID PRN 08/13/20 [History] LORazepam [Ativan] 1 mg PO BID@0700,1700 08/13/20 [History] LORazepam [Ativan] 2 mg PO HS@199908/13/20 [History] Levothyroxine Sodium [Synthroid] 150 mcg PO DAILY@0700 08/13/20 [History] OLANZapine 20 mg PO HS@199908/13/20 [History] fluPHENAZine decanoate [Prolixin Decanoate] 50 mg IM Q7D 08/13/20 [History] Follow up Appointment(s)/Referral(s): None,Stated [Primary Care Provider] - 1-2 days Discharge Disposition: [facility] TO HOSPICE MED FACILTY
== END 2020-08-27 16:39 | disposition hospice, inpatient (51) | DRG 177 ==
LOC: EC 20:28 → EEVIPCON 20:28 → 3SCARD 23:08
PROVIDERS: ADMIT Internal Medicine; ATTEND Internal Medicine
DX: U07.1 COVID-19 (principal); J80 Acute respiratory distress syndrome; G93.41 Metabolic encephalopathy; I50.43 Acute on chronic combined systolic (congestive) and diastolic (congestive) heart failure; J12.82 Pneumonia due to coronavirus disease 2019; E87.1 Hypo-osmolality and hyponatremia; I13.0 Hypertensive heart and chronic kidney disease with heart failure and stage 1 through stage 4 chronic kidney disease, or unspecified chronic kidney disease; J44.0 Chronic obstructive pulmonary disease with (acute) lower respiratory infection; J44.1 Chronic obstructive pulmonary disease with (acute) exacerbation; N17.9 Acute kidney failure, unspecified; Z51.5 Encounter for palliative care; F17.210 Nicotine dependence, cigarettes, uncomplicated; D75.1 Secondary polycythemia; E03.9 Hypothyroidism, unspecified; E78.5 Hyperlipidemia, unspecified; E87.6 Hypokalemia; F25.9 Schizoaffective disorder, unspecified; F41.0 Panic disorder [episodic paroxysmal anxiety]; F32.9 Major depressive disorder, single episode, unspecified; N18.32 Chronic kidney disease, stage 3b; Z53.20 Procedure and treatment not carried out because of patient's decision for unspecified reasons; Z79.890 Hormone replacement therapy; Z79.899 Other long term (current) drug therapy; Z86.14 Personal history of Methicillin resistant Staphylococcus aureus infection; Z90.710 Acquired absence of both cervix and uterus; Z91.19 Patient's noncompliance with other medical treatment and regimen; Z87.440 Personal history of urinary (tract) infections; T43.96XA Underdosing of unspecified psychotropic drug, initial encounter; Z91.128 Patient's intentional underdosing of medication regimen for other reason; R79.89 Other specified abnormal findings of blood chemistry; Z66 Do not resuscitate; Z90.49 Acquired absence of other specified parts of digestive tract; Z78.1 Physical restraint status; M19.90 Unspecified osteoarthritis, unspecified site; Z88.0 Allergy status to penicillin
CPT/HCPCS: 36415; 36600; 71045; 71046; 80048; 80053; 82550; 82728; 82805; 83605; 83615; 83735; 83880; 83930; 83935; 84145; 84300; 84443; 84484; 84550; 85025; 85027; 85379; 85610; 85730; 86140; 87040; 87502; 87635; 93005; 93306; 94640; 94660; 94760; 99285

== ENCOUNTER 2020-08-27 15:50 | Inpatient (IN) | payer MEDICAID ==
[2020-08-27] MEDS ORDERED: ONDANSETRON 4 MG/2 ML VIAL IVP PRN (16:26)
[2020-08-27] MEDS ORDERED: HALOPERIDOL LACTATE 5 MG/ML 1 ML VIAL IM PRN (16:26)
[2020-08-27] MEDS ORDERED: MORPHINE SULFATE 2 MG/ML SYRINGE IV PRN (16:26)
[2020-08-27] MEDS ORDERED: ACETAMINOPHEN SUPPOSITORY 650 MG SUPP RECTAL PRN (16:26)
[2020-08-27] MEDS ORDERED: SCOPOLAMINE 1.5MG/72HR PATCH TRANSDERM SCH (16:30)
[2020-08-27] MEDS ORDERED: MORPHINE SULFATE (100 MG/2 ML) 100 MG in SODIUM CHLORIDE 0.9% 100 ML IV SCH (16:45)
[2020-08-28] MEDS: LORazepam 2 MG/ML INJ IV PRN ×2 (11:25→14:14)
[2020-08-28 11:42] VITALS: PULSE 117
--- NOTE | 2020-08-28 14:18 | P.HPIM ---
History of Present Illness H&P Date: 08/28/20 Chief Complaint: Hospice for respiratory failure from covid 65 year old woman with schizophrenia, diastolic heart failure, SUNITAID had prolonged hospitalization battling COVID pneumonitis, and was recently transitioned to hospice due to declining respiratory status. This was discussed in conjunction with her legal guardian. Please see d/c summary from 08/27 for additional details regarding hospital course up to this time. ROS not possible due to patient medical condition. Review of Systems See HPI Past Medical History Past Medical History: Hyperlipidemia, Hypertension, Thyroid Disorder Additional Past Medical History / Comment(s): UTI, arthritis History of Any Multi-Drug Resistant Organisms: MRSA Date of last positivie culture/infection: 06/07/16 MDRO Source:: Buttock Past Surgical History: Cholecystectomy, Uterine Ablation Additional Past Surgical History / Comment(s): Hysterectomy, left gluteal abscess debridement Past Anesthesia/Blood Transfusion Reactions: No Reported Reaction Past Psychological History: Anxiety, Depression, Panic Disorder, Schizoaffective Disorder, Schizophrenia Additional Psychological History / Comment(s): LIVES AT [facility] [phone], IS INDEPENDANT WHEN UP. Smoking Status: Current every day smoker Past Alcohol Use History: None Reported Additional Past Alcohol Use History / Comment(s): PT STATED SHE SMOKES 1 CIG EVERY HOUR FROM THE HOURS OF 6AM TILL 11 PM Past Drug Use History: None Reported - Past Family History Mother Family Medical History: No Reported History Father Family Medical History: No Reported History Medications and Allergies Home Medications Medication Instructions Recorded Confirmed Type Metoprolol Succinate (ER) [Toprol 100 mg PO HS@199912/10/19 08/27/20 History XL] amLODIPine BESYLATE/BENAZEPRIL 1 tab PO HS@199912/10/19 08/27/20 History [amLODIPine BESYLATE/BENAZEPRIL 10-40 MG] fluvoxaMINE MALEATE [Luvox] 100 mg PO BID@0700,1999 #60 tab 12/17/19 08/27/20 Rx Ibuprofen [Motrin] 800 mg PO BID PRN 08/13/20 08/27/20 History LORazepam [Ativan] 1 mg PO BID@0700,1700 08/13/20 08/27/20 History LORazepam [Ativan] 2 mg PO HS@199908/13/20 08/27/20 History Levothyroxine Sodium [Synthroid] 150 mcg PO DAILY@0700 08/13/20 08/27/20 History OLANZapine 20 mg PO HS@199908/13/20 08/27/20 History fluPHENAZine decanoate [Prolixin 50 mg IM Q7D 08/13/20 08/27/20 History Decanoate] Allergies Allergy/AdvReac Type Severity Reaction Status Date / Time Penicillins Allergy Anaphylaxis Verified 08/27/20 17:04 Physical Exam Osteopathic Statement: *. No significant issues noted on an osteopathic structural exam other than those noted in the History and Physical/Consult. Vitals: Vital Signs Pulse Resp Pulse Ox 08/28/20 08:00 117 H 65 L 08/28/20 04:00 16 08/28/20 00:00 18 08/27/20 20:00 18 08/27/20 17:36 30 H 85 L Intake and Output 08/27/20 08/28/20 08/28/20 22:59 06:59 14:59 Intake Total 244.267 35.167 Balance 244.267 35.167 Intake: Intake, IV Titration 4.267 35.167 Amount Morphine Sulfate (100 mg/ 4.267 35.167 2 ml) 100 mg In Sodium Chloride 0.9% 100 ml @ 1 MG/HR 1.02 mls/hr IV . Q24H [facility] Rx#:[id number] Oral 240 0 Other: Weight 68 kg 62 kg Gen: awake, comfortable, in NAD Resp: breathing comfortably with weaning oxygen CVS: perfusing all extremities MSK: no pitting edema Assessment and Plan Assessment: Acute on chronic Hypoxemic Respiratory Failure Schizophrenia with Paranoia COVID Acute on Chronic Diastolic Heart failure COPD DEE on CKD III HTN Hypothyroidism Plan: - comfort care - morphine PRN - morphine gtt - ativan PRN - scopolamine patch - haldol PRN - tylenol PRN - red if patient tolerates - hospice consult DNR/DNI No DVT PPx
[2020-08-28 15:02] VITALS: RESP 28
--- NOTE | 2020-08-28 16:14 | P.DS ---
Providers Date of admission: 08/27/20 16:40 Expected date of discharge: 08/28/20 Attending physician: Luis Fernando Recinos MD Primary care physician: Stated None Hospital Course: 65 year old woman with schizophrenia, diastolic heart failure, COVID had prolonged hospitalization battling COVID pneumonitis, and was recently transitioned to hospice due to declining respiratory status. This was discussed in conjunction with her legal guardian. Please see d/c summary from 08/27 for additional details regarding hospital course up to this time. Patient peacefully at 1434. Plan - Discharge Summary New Discharge Prescriptions: No Action Metoprolol Succinate (ER) [Toprol XL] 100 mg PO HS@1999 amLODIPine BESYLATE/BENAZEPRIL [amLODIPine BESYLATE/BENAZEPRIL 10-40 MG] 1 tab PO HS@1999 fluvoxaMINE MALEATE [Luvox] 100 mg PO BID@699,1999 #60 tab Ibuprofen [Motrin] 800 mg PO BID PRN PRN Reason: Pain Levothyroxine Sodium [Synthroid] 150 mcg PO DAILY@07 OLANZapine 20 mg PO HS@1999 LORazepam [Ativan] 2 mg PO HS@1999 LORazepam [Ativan] 1 mg PO BID@0700,1700 fluPHENAZine decanoate [Prolixin Decanoate] 50 mg IM Q7D Discharge Medication List Metoprolol Succinate (ER) [Toprol XL] 100 mg PO HS@199912/10/19 [History] amLODIPine BESYLATE/BENAZEPRIL [amLODIPine BESYLATE/BENAZEPRIL 10-40 MG] 1 tab PO HS@199912/10/19 [History] fluvoxaMINE MALEATE [Luvox] 100 mg PO BID@ #60 tab 12/17/19 [Rx] Ibuprofen [Motrin] 800 mg PO BID PRN 08/13/20 [History] LORazepam [Ativan] 1 mg PO BID@0700,1700 08/13/20 [History] LORazepam [Ativan] 2 mg PO HS@199908/13/20 [History] Levothyroxine Sodium [Synthroid] 150 mcg PO DAILY@0700 08/13/20 [History] OLANZapine 20 mg PO HS@199908/13/20 [History] fluPHENAZine decanoate [Prolixin Decanoate] 50 mg IM Q7D 08/13/20 [History]
== END 2020-08-28 17:30 | disposition expired | DRG 951 ==
LOC: 3SCARD 16:40
PROVIDERS: ADMIT Internal Medicine; ATTEND Internal Medicine
DX: Z51.5 Encounter for palliative care (principal); U07.1 COVID-19; J96.21 Acute and chronic respiratory failure with hypoxia; J12.82 Pneumonia due to coronavirus disease 2019; I50.33 Acute on chronic diastolic (congestive) heart failure; N17.9 Acute kidney failure, unspecified; F20.0 Paranoid schizophrenia; I13.0 Hypertensive heart and chronic kidney disease with heart failure and stage 1 through stage 4 chronic kidney disease, or unspecified chronic kidney disease; J44.0 Chronic obstructive pulmonary disease with (acute) lower respiratory infection; F32.9 Major depressive disorder, single episode, unspecified; F41.0 Panic disorder [episodic paroxysmal anxiety]; E03.9 Hypothyroidism, unspecified; E78.5 Hyperlipidemia, unspecified; F17.210 Nicotine dependence, cigarettes, uncomplicated; N18.30 Chronic kidney disease, stage 3 unspecified; Z66 Do not resuscitate; Z79.890 Hormone replacement therapy; Z79.899 Other long term (current) drug therapy; Z90.710 Acquired absence of both cervix and uterus; M19.90 Unspecified osteoarthritis, unspecified site; Z87.440 Personal history of urinary (tract) infections